=== PATIENT | female | born 1950 | race Caucasian/White ===

== ENCOUNTER → 2019-08-05 08:15 | Outpatient (BNVA) | payer MEDICARE, MEDICAID, SELFPAY | PROVIDERS: Family Provider Nurse Practitioner Family; PCP Nurse Practitioner Family; Visit Provider Registered Nurse | DX: E11.9 Type 2 diabetes mellitus without complications (principal); Z79.4 Long term (current) use of insulin; A49.9 Bacterial infection, unspecified; N39.0 Urinary tract infection, site not specified; Z78.9 Other specified health status | CPT/HCPCS: 80053; 81003; 83036; 85025; 87077; 87086; 87106; 87186 ==

== ENCOUNTER → 2019-08-12 15:59 | Outpatient (BNVA) | payer MEDICARE, MEDICAID, SELFPAY | PROVIDERS: Family Provider Nurse Practitioner Family; PCP Nurse Practitioner Family; Visit Provider Registered Nurse | DX: E11.9 Type 2 diabetes mellitus without complications (principal) | CPT/HCPCS: 81003 ==

== ENCOUNTER → 2019-10-01 15:57 | Outpatient (BNVA) | payer MEDICARE, MEDICAID, SELFPAY | PROVIDERS: Family Provider Nurse Practitioner Family; PCP Nurse Practitioner Family; Visit Provider Registered Nurse | DX: R39.9 Unspecified symptoms and signs involving the genitourinary system (principal); R31.9 Hematuria, unspecified | CPT/HCPCS: 80053; 81000; 87077; 87086; 87186 ==

== ENCOUNTER 2019-10-11 18:25 | Emergency (ER) | payer MEDICARE, MEDICAID, SELFPAY ==
[2019-10-11] VITALS (7 sets, daily range): BP systolic 105–157; BP diastolic 46–65; PULSE 73–92; RESP 16; TEMP 37.3; O2SAT 95–98; BMI 28.8
--- NOTE | 2019-10-11 18:28 | ED_ITS ---
HPI - Extremity Injury (Lower) General: Chief Complaint: Extremity Injury, Lower Stated Complaint: REDNESS SWELLING OF LEG Time Seen by Provider: 10/11/19 18:28 History of Present Illness: HPI Narrative: pts right ankle and lower leg started to get red and swollen and painful a couple days ago, she saw her pcp for urinary incontinence and was diagnosed with a uti and put on cipro but she started having muscle spasms in the right leg so she stopped it 3 days ago, foot is cold, she had left toes amputated for poor circulation. No fever MD complaint: leg injury Type of Injury: unknown Place: home Severity: moderate Relieving factors: immobilization Exacerbating factors: weight bearing and movement Associated symptoms: Reports swelling Other symptoms: none Review of Systems General: Reports: 10 or more systems reviewed and unremarkable except in HPI and below Const: Denies: fever, chills or fatigue ENMT: Denies: throat pain Card: Denies: chest pain or swelling of feet/ankles Resp: Denies: shortness of breath or productive cough GI: Denies: abdominal pain, nausea, vomiting, diarrhea, constipation or blood in stool : Denies: difficulty urinating Musc: Reports: extremity pain, joint swelling and muscle cramps; Denies: back pain Skin/Breast: Reports: rash, redness and skin swelling Neuro: Denies: headache, numbness in extremities or weakness in extremities PFSH ED PFSH: Medical History Essential hypertension Pacemaker Family History Other Diabetes Heart disease Social History Smoking and tobacco status: never smoked Physical Exam Const: COMMON NORMALS: no apparent distress and oriented x3 GENERAL APPEARANCE: cooperative; not in distress HENMT: COMMON NORMALS: normocephalic HEAD & SCALP: normal to inspection and normocephalic MOUTH: oral and palatal mucosa normal and lip normal THROAT: posterior oropharynx normal and tonsils normal Neck/C-Spine: COMMON NORMALS: full ROM, no lymphadenopathy, supple and no meningeal signs GENERAL: Yes normal visual inspection and Yes trachea midline Chest: COMMONS NORMALS: inspection of chest normal Resp: COMMON NORMALS: normal respiratory effort and clear to auscultation bilaterally EFFORT & INSPECTION: Yes able to speak in complete sentences and No respiratory distress AUSCULTATION: clear to auscultation bilaterally, no rales, no rhonchi and no wheezes Cardio: COMMON NORMALS: regular rate, regular rhythm, S1 normal heart sound, S2 normal heart sound and no murmurs RATE: regular rate RHYTHM: regular rhythm HEART SOUNDS: S1 normal and S2 normal PERIPHERAL PULSES: radial pulses present and dorsalis pedis pulses present GI: COMMON NORMALS: normal to inspection, nondistended, normoactive bowel sounds, soft to palpation and non-tender INSPECTION: Yes normal to inspection AUSCULTATION: Yes normoactive bowel sounds PALPATION: Yes soft, No tender, No guarding and No rigid RECTAL EXAM: deferred : COMMON NORMALS: Yes no CVA tenderness BLADDER/KIDNEY EXAM: Yes no CVA tenderness Back/Pelvis: COMMON NORMALS: no CVA tenderness Extremity: RIGHT LOWER EXTREMITY: Yes lower leg (cold, pulse present, tender and swollen with erythema lat) Neuro: COMMON NORMALS: oriented x3, CN's II-XII intact bilaterally, moves all extremities and no focal motor deficits MENINGEAL SIGNS: Yes no meningeal signs Skin: COMMON NORMALS: negative for no rashes or lesions noted GENERAL SKIN EXAM: rashes and/or lesions noted RASHES: rashes noted (erythema to right ankle and lower leg) Course Vital Signs: Vital signs: Vital Signs Temperature 99.1 F 10/11/19 18:46 Pulse Rate 81 10/11/19 20:30 Respiratory Rate 16 10/11/19 20:30 Blood Pressure 105/46 10/11/19 20:30 Pulse Oximetry 97 10/11/19 20:30 MDM - Extremity Injury (Lower) MDM Narrative: Medical decision making narrative: us venous was neg for vt. arterial showed monophasic flow all the way down, very poor liam, 90 stenosis at right iliac artery, I will refer her to heart care services for eval, she has cellulitis of right leg and I will switch her abx from cipro to bactrim ds Lab Data: Attestation: I reviewed the patient's lab results. Labs: Lab Results 10/11/19 10/11/19 10/11/19 Range/Units 19:02 19:02 19:46 WBC 7.0 (4.0-10.0) 10^3/ uL RBC 4.36 (4.1-5.3) 10^6/u L Hgb 12.3 (11.5-15.3) g/dL Hct 38.4 (37.0-47.0) % MCV 88.1 (81-99) fL MCH 28.2 (28.0-34.0) pg MCHC 32.0 (30.0-36.0) g/dL RDW 15.5 H (12.1-15.1) % Plt Count 285 (130-400) 10^3/c mm MPV 10.3 (7.4-10.4) fL Neut % (Auto) 69.9 % Lymph % (Auto) 19.5 % [place] % (Auto) 8.3 % Eos % (Auto) 1.6 % Baso % (Auto) 0.4 % Neut # (Auto) 4.9 (1.8-7.7) 10^3/u L Lymph # (Auto) 1.4 (0.8-4.8) 10^3/u L [place] # (Auto) 0.6 (0.2-0.9) 10^3/u L Eos # (Auto) 0.1 (0.0-0.8) 10^3/u L Baso # (Auto) 0.0 (0.0-0.1) 10^3/u L Nucleated RBC % (a uto) 0 % Nucleated RBCs # 0.0 /100WBC Sodium 131 L (136-145) mmol/L Potassium 4.1 (3.5-5.1) mmol/L Chloride 95 L (98-107) mmol/L Carbon Dioxide 23 (22-29) mmol/L Anion Gap 17.1 (5-19) BUN 28 H (8-23) mg/dL Creatinine 1.0 H (0.5-0.9) mg/dL GFR Calculation 54.8 L (90-130) mL/min Glucose 425 H (65-115) mg/dL POC Glucose 358 (70-110) mg/dL Calculated Osmolal ity 287 (285-295) mOsm/k g Calcium 9.3 (8.5-10.5) mg/dL Total Bilirubin 0.7 (0.15-1.2) mg/dL AST 9 (0-32) U/L ALT 11 (0-33) U/L Alkaline Phosphata se 104 (35-105) IU/L Total Protein 7.1 (6.6-8.7) g/dL Albumin 3.9 (3.5-5.2) g/dL Globulin 3.2 (1.3-4.6) g/dL 10/11/19 10/11/19 Range/Units 21:01 21:20 WBC (4.0-10.0) 10^3/ uL RBC (4.1-5.3) 10^6/u L Hgb (11.5-15.3) g/dL Hct (37.0-47.0) % MCV (81-99) fL MCH (28.0-34.0) pg MCHC (30.0-36.0) g/dL RDW (12.1-15.1) % Plt Count (130-400) 10^3/c mm MPV (7.4-10.4) fL Neut % (Auto) % Lymph % (Auto) % [place] % (Auto) % Eos % (Auto) % Baso % (Auto) % Neut # (Auto) (1.8-7.7) 10^3/u L Lymph # (Auto) (0.8-4.8) 10^3/u L [place] # (Auto) (0.2-0.9) 10^3/u L Eos # (Auto) (0.0-0.8) 10^3/u L Baso # (Auto) (0.0-0.1) 10^3/u L Nucleated RBC % (a uto) % Nucleated RBCs # /100WBC Sodium (136-145) mmol/L Potassium (3.5-5.1) mmol/L Chloride (98-107) mmol/L Carbon Dioxide (22-29) mmol/L Anion Gap (5-19) BUN (8-23) mg/dL Creatinine (0.5-0.9) mg/dL GFR Calculation (90-130) mL/min Glucose (65-115) mg/dL POC Glucose 238 153 (70-110) mg/dL Calculated Osmolal ity (285-295) mOsm/k g Calcium (8.5-10.5) mg/dL Total Bilirubin (0.15-1.2) mg/dL AST (0-32) U/L ALT (0-33) U/L Alkaline Phosphata se (35-105) IU/L Total Protein (6.6-8.7) g/dL Albumin (3.5-5.2) g/dL Globulin (1.3-4.6) g/dL Discharge Plan Discharge Patient Disposition: Home, Self-Care Clinical Impression: Cellulitis of right anterior lower leg, Peripheral vascular disease Condition: Stable Prescriptions: New Bactrim DS 800-160 mg tablet 1 tab PO BID 5 Days Qty: 10 RF: 0 No Action acetaminophen 325 mg capsule 325 mg PO QID PRNRF: 0 aspirin [Adult Aspirin Regimen] 81 mg tablet,delayed release (DR/EC) 81 mg PO DAILY RF: 0 lisinopril 10 mg tablet 10 mg PO DAILY RF: 0 magnesium hydroxide 400 mg/5 mL suspension 30 ml PO DAILY PRNRF: 0 clopidogrel [Plavix] 75 mg tablet 75 mg PO DAILY RF: 0 aspirin [Adult Low Dose Aspirin] 81 mg tablet,delayed release (DR/EC) 81 mg PO DAILY Qty: 90 RF: 0 insulin aspart U-100 [Novolog Flexpen U-100 Insulin] 100 unit/mL (3 mL) insulin pen 20 unit SUBCUT TID MDD 60 90 Days Qty: 54 RF: 0 Lantus Solostar U-100 Insulin 100 unit/mL (3 mL) insulin pen 60 unit SUBCUT BID 90 Days Qty: 108 RF: 0 diflorasone 0.05 % ointment See Rx Instructions TOPICAL TID PRN (Reason: skin irritation) Qty: 60 RF: 0 lidocaine-prilocaine 2.5-2.5 % cream 2 gm topical TID Qty: 30 RF: 0 ciprofloxacin HCl [Cipro] 500 mg tablet 500 mg PO BID 7 Days Qty: 14 RF: 0 Discharge Orders: Discharge Order (Routine); Ordered 10/11/19 Ordered By: Erin Ann Referrals: Mar Delgadillo MD [Physician] - 4-7 days Andre Mederos FNP [Primary Care Provider] - 1-3 days Discharge Diet: Advance as tolerated Discharge Activity: Resume usual activity Patient Instructions: Cellulitis, Peripheral Vascular Disorders (ED) Activity Restrictions/Additional Instructions: you will be referred to heart care for your severe arterial disease in your legs , f/u with pcp in 2 days for reeval, return if worse, any problem, any change, drink plenty of fluids, Stop cipro Coding Level of Care Code 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
--- NOTE | 2019-10-11 18:48 | USCV_ITS ---
Elisha Vickers Age: 68 Gender: F : 1950 Exam Date: 10/11/2019 19:16 Ordering Phys: Erin Ann DO Technologist: Rocky Tolliver [place] [facility] [place]: [place] LEG PAIN HISTORY: Lower extremity edema. PROCEDURES: Venous duplex imaging was performed in only the right lower extremity. The following venous structures were evaluated: common femoral vein, profunda vein, proximal portion of the greater saphenous vein, superficial femoral vein, and the popliteal vein. In addition, the posterior tibial and peroneal trunk were evaluated. On the right side, the common femoral, superficial femoral, profunda femoral, popliteal, posterior tibial, greater saphenous veins and the peroneal trunk were identified and interrogated in the standard fashion. These veins were found to be easily compressible with spontaneous blood flow. No evidence of insufficiency or thrombus noted. FINDINGS: Normal 2-D Doppler and augmentation and compressibility throughout the lower extremity venous structures. Additional imaging through the proximal calf veins also reveals no thrombus. Limited evaluation of the greater saphenous vein is patent with no thrombus.. CONCLUSIONS No evidence of DVT in the above-mentioned identifiable veins. Dr Stephanie Parks MD [facility] (Electronically Signed) Final Date: 14 Oct 2019 09:51 S
--- NOTE | 2019-10-11 18:51 | USCV_ITS ---
Elisha Vickers Age: 68 Gender: F : 1950 Exam Date: 10/11/2019 19:20 Ordering Phys: Erin Ann DO Technologist: Rocky Tolliver Exam Location: [facility] [place] Indication: RT LEG PAIN POOR PULSES Risk Factors: Previous Vascular Surgery: RIGHT LEFT BP: 154.0 / 65.00 BP: 150.0/ 65.00 0 0 Waveform Velocity (cm/s) Velocity (cm/s) Waveform Monophasic 30.6 Iliac Prox Monophasic 295.4 Iliac Mid Monophasic 135.9 Iliac Distal Monophasic 40.1 FOAM MOLDER Monophasic 63.3 SFA Prox Monophasic 17.7 SFA Mid Monophasic 14.5 SFA Dist Monophasic 16.8 POP Monophasic 18.0 QUALITY COMPLIANCE MANAGER Monophasic 15.0 DPA 0.4 YUNG FINDINGS Low velocity continuous waveforms in the femoral, popliteal and infrapopliteal vessels. Markedly elevated blood flow velocity in the mid iliac artery on the right side Markedly diminished resting YUNG CONCLUSIONS Abnormal resting YUNG and Doppler waveforms, suggestive of high- grade stenosis in the mid iliac artery on the right side with a possible collateral circulation in the downstream vessels No similar previous studies are available for comparison Dr Stephanie Parks MD [facility] (Electronically Signed) Final Date: 14 Oct 2019 09:55 S
[2019-10-11 19:12] LABS: Basophils % 0.4 %; Eosinophils # 0.1 10^3/uL (0.0-0.8); Eosinophils % 1.6 %; Hematocrit 38.4 % (37.0-47.0); Hemoglobin 12.3 g/dL (11.5-15.3); Lymphocytes # 1.4 10^3/uL (0.8-4.8); Lymphocytes % 19.5 %; Mean Corpuscular Hemoglobin 28.2 pg (28.0-34.0); Mean Corpuscular Volume 88.1 fL (81-99); Mean Platelet Volume 10.3 fL (7.4-10.4); Monocytes # 0.6 10^3/uL (0.2-0.9); Monocytes % 8.3 %; Neutrophils # 4.9 10^3/uL (1.8-7.7); Neutrophils % 69.9 %; Nucleated Red Blood Cells % 0 %; Platelet Count 285 10^3/cmm (130-400); Red Blood Count 4.36 10^6/uL (4.1-5.3); Red Cell Distribution Width 15.5 % (12.1-15.1)
[2019-10-11 19:23] LABS: Alanine Aminotransferase 11 U/L (0-33); Albumin Level 3.9 g/dL (3.5-5.2); Alkaline Phosphatase 104 IU/L (35-105); Anion Gap 17.1 (5-19); Aspartate Amino Transferase 9 U/L (0-32); Blood Urea Nitrogen 28 mg/dL (8-23); Calcium 9.3 mg/dL (8.5-10.5); Carbon Dioxide 23 mmol/L (22-29); Chloride 95 mmol/L (98-107); Globulin 3.2 g/dL (1.3-4.6); Glomerular Filtration Rate 54.8 mL/min (90-130); Glucose 425 mg/dL (65-115); Osmolality Calculated 287 mOsm/kg (285-295); Potassium 4.1 mmol/L (3.5-5.1); Sodium 131 mmol/L (136-145); Total Bilirubin 0.7 mg/dL (0.15-1.2); Total Protein 7.1 g/dL (6.6-8.7)
[2019-10-11 19:52] LABS: Glucose Point of Care 358 mg/dL (70-110)
[2019-10-11] MEDS: vancomycin 1,000 MG in sodium chloride 0.9% 250 ML 250 MG IV (20:20)
[2019-10-11] MEDS: sodium chloride 0.9% 1,000 ML 999 ML IV (20:22)
[2019-10-11] MEDS: morphine 4 mg/mL SDV 1 mL IVP (20:23)
[2019-10-11] MEDS: ondansetron 2 mg/ML SDV 2 mL 4 MG IVP (20:24)
[2019-10-11] MEDS: insulin regular-human 100 units/1 mL 10 UNIT IVP (20:35)
--- NOTE | 2019-10-11 21:23 | PC.NURSE ---
Patient's blood glucose is 153, charge nurse and doctor was informed.
[2019-10-11 21:26] LABS: Glucose Point of Care 153 mg/dL (70-110)
[2019-10-11 21:57] LABS: Glucose Point of Care 238 mg/dL (70-110)
--- NOTE | 2019-10-11 22:25 | PC.NURSE ---
Patient's blood glucose is 122, charge nurse and doctor were notified.
[2019-10-11 22:30] LABS: Glucose Point of Care 122 mg/dL (70-110)
--- NOTE | 2019-10-14 10:49 | DCPLANNER ---
talent acquisition relationship manager had message to schedule a follow up appointment for patient with [facility]. talent acquisition relationship manager called [facility], spoke with Samantha, gave clinic patients information, pillowcase cleaner was told that patients information would be printed and reviewed. Clinic will call patient with appointment information.
--- NOTE | 2019-10-16 14:49 | DCPLANNER ---
Patient has a follow up appointment scheduled for Monday, October 21, 2019 at 12:30 at [facility]. Clinic will call patient with appointment information.
--- NOTE | 2019-10-24 16:02 | DCPLANNER ---
Patient did not attend appointment scheduled for 10.21.19 with [facility].
== END 2019-10-11 23:20 | disposition home or self-care (01) ==
PROVIDERS: Emergency Provider Emergency Medicine; Family Provider Nurse Practitioner Family; PCP Nurse Practitioner Family
DX: L03.115 Cellulitis of right lower limb (principal); I73.9 Peripheral vascular disease, unspecified; Z79.82 Long term (current) use of aspirin; Z79.02 Long term (current) use of antithrombotics/antiplatelets; Z79.4 Long term (current) use of insulin; I10 Essential (primary) hypertension; Z95.0 Presence of cardiac pacemaker; M79.89 Other specified soft tissue disorders
CPT/HCPCS: 12345; 36415; 36416; 80053; 82962; 85025; 87040; 93922; 93971; 96360; 96365; 96374; 96375; 99283; 99284; J1815; J2270; J2405; J3370; J7030; J7050

== ENCOUNTER → 2019-10-22 14:27 | Outpatient (BNVA) | payer MEDICARE, MEDICAID, SELFPAY | PROVIDERS: Family Provider Nurse Practitioner Family; PCP Nurse Practitioner Family; Visit Provider Registered Nurse | DX: N39.0 Urinary tract infection, site not specified (principal); Z09 Encounter for follow-up examination after completed treatment for conditions other than malignant neoplasm; S99.829A Other specified injuries of unspecified foot, initial encounter | CPT/HCPCS: 80053; 81000 ==

== ENCOUNTER → 2020-01-15 16:52 | Outpatient (BNVA) | payer MEDICARE, MEDICAID, SELFPAY | PROVIDERS: Family Provider Nurse Practitioner Family; PCP Nurse Practitioner Family; Visit Provider Registered Nurse | DX: E11.9 Type 2 diabetes mellitus without complications (principal); Z79.4 Long term (current) use of insulin | CPT/HCPCS: 80053; 83036 ==

== ENCOUNTER → 2020-06-22 15:48 | Outpatient (BNVA) | payer MEDICARE, MEDICAID, SELFPAY | PROVIDERS: Family Provider Nurse Practitioner Family; PCP Nurse Practitioner Family; Visit Provider Registered Nurse | DX: E11.9 Type 2 diabetes mellitus without complications (principal); Z79.4 Long term (current) use of insulin | CPT/HCPCS: 80053; 83036 ==

== ENCOUNTER → 2020-07-14 12:51 | Outpatient (BNVA) | payer MEDICARE, MEDICAID, SELFPAY | PROVIDERS: Family Provider Nurse Practitioner Family; PCP Nurse Practitioner Family; Referring Provider Registered Nurse; Visit Provider Podiatrist Foot & Ankle Surgery | DX: M19.071 Primary osteoarthritis, right ankle and foot (principal); E11.40 Type 2 diabetes mellitus with diabetic neuropathy, unspecified; Z79.4 Long term (current) use of insulin; I96 Gangrene, not elsewhere classified; Z89.421 Acquired absence of other right toe(s); Z89.432 Acquired absence of left foot; M77.31 Calcaneal spur, right foot | CPT/HCPCS: 73630 ==

== ENCOUNTER → 2020-08-19 16:03 | Outpatient (BNVA) | payer MEDICARE, MEDICAID, SELFPAY | PROVIDERS: Family Provider Nurse Practitioner Family; PCP Nurse Practitioner Family; Visit Provider Podiatrist Foot & Ankle Surgery | DX: Z47.81 Encounter for orthopedic aftercare following surgical amputation (principal); I96 Gangrene, not elsewhere classified; Z89.421 Acquired absence of other right toe(s); L97.514 Non-pressure chronic ulcer of other part of right foot with necrosis of bone | CPT/HCPCS: 73630 ==

== ENCOUNTER → 2020-08-20 09:06 | Outpatient (BNVA) | payer MEDICARE, MEDICAID, SELFPAY | PROVIDERS: Family Provider Nurse Practitioner Family; PCP Nurse Practitioner Family; Visit Provider Podiatrist Foot & Ankle Surgery | DX: I96 Gangrene, not elsewhere classified (principal); L97.514 Non-pressure chronic ulcer of other part of right foot with necrosis of bone; Z20.822 Contact with and (suspected) exposure to COVID-19; S81.801A Unspecified open wound, right lower leg, initial encounter | CPT/HCPCS: 87635 ==

== ENCOUNTER 2020-08-21 10:03 | Day surgery (SDC) | payer MEDICARE, MEDICAID, SELFPAY ==
[2020-08-20 11:08] VITALS: BMI 27.2
[2020-08-21 10:19] VITALS: BP 144/64; PULSE 83; RESP 18; TEMP 36.3; O2SAT 99
[2020-08-21 10:37] LABS: Glucose Point of Care 174 mg/dL (70-110)
[2020-08-21] MEDS: sodium chloride 0.9% 1,000 ML 30 ML IV (10:42)
--- NOTE | 2020-08-21 11:47 | ANES.PREANE2 ---
Pre-Anesthetic Assessment Pre-Anesthetic Assessment: Height/Weight: Height 1.7 m Weight 78.925 kg Temp Pulse Resp BP Pulse Ox 97.3 F L 83 18 144/64 99 08/21/20 10:19 08/21/20 10:19 08/21/20 10:19 08/21/20 10:19 08/21/20 10:19 Preop Diagnosis: Gangrene right foot, osteomyelitis right foot Proposed Procedure: Operation Date: 08/21/20 11:40 Proposed Procedures p right transmetatarsal amputation/ 21767 m86.171(Right) - Axel Castro, DPM Was Beta Jeffrey taken within 24 hours: Yes Last intake: Intake Last Liquid Date 08/20/20 Last Liquid Time 21:00 Last Solid Date 08/20/20 Last Solid Time 21:00 Social: Social History: No alcohol and No tobacco Airway: Submandibular: WNL Cervical ROM: WNL MP: 2 Dentition: False Additional comments: Poor dentition, missing most CV/HEM: CV/HEM: HTN and PVD Metabolic: Metabolic: DM Anesthetic Plan: ASA status: 3 Anesthesia: MAC Risk of > 500 ml blood loss (7ml/kg in children): No Meds/Allergies Current Medications: Current Medications Generic Name Dose Route Start Last Admin Trade Name Freq PRN Reason Stop Dose Admin Sodium Chloride 1,000 mls @ 30 ml s/hr 08/21/20 10:15 08/21/20 10:42 Sodium Chloride 0.9% IV 08/22/20 10:14 30 mls/hr .Q24H BIRGIT Administration PFSH Anesthesia PFSH: Medical History Carotid stenosis, right 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
--- NOTE | 2020-08-21 13:12 | P.HPUD_ITS ---
Surgery/Procedure H&P Update DATE OF PROCEDURE: August 21, 2020 DATE H&P PERFORMED: 08/19/20 H&P UPDATE INFORMATION: I have reviewed H&P completed within last 30 days, I have examined patient prior to procedure, No changes to prior documentation and H&P is in [facility] [place] [facility] on date indicated PREOP DIAGNOSIS: Gangrene right foot, osteomyelitis right foot PLANNED PROCEDURE: Operation Date: 08/21/20 11:40 Proposed Procedures p right transmetatarsal amputation/ 18672 m86.171(Right) - Axel Castro DPM
[2020-08-21] MEDS: clindamycin 600 MG/50 ML PREMIX 25 MG IV (13:30)
[2020-08-21] MEDS: lidocaine 1% INJ 20 mL IM (13:40)
[2020-08-21 14:20] VITALS: BP 113/62; PULSE 80; RESP 18; O2SAT 98
[2020-08-21 14:25] VITALS: BP 113/62; PULSE 79; RESP 20; O2SAT 96
--- NOTE | 2020-08-21 14:25 | SUR.PHASEI ---
1425 PT AWAKE ALERT TALKATIVE AND LAUGHING MAKING JOKES, VSS IV PATENT RT FOOT DRESSING D/I BOOT IN PLACE, AND ELEVATED WITH BED ABOVE THE PT'S HEART.
[2020-08-21 14:30] VITALS: BP 131/78; PULSE 74; RESP 18; TEMP 36.4; O2SAT 96
[2020-08-21 14:35] VITALS: BP 131/60; PULSE 74; RESP 18; TEMP 36.4; O2SAT 99
[2020-08-21 15:09] VITALS: BP 137/72; PULSE 73; RESP 18; O2SAT 100
--- NOTE | 2020-08-21 15:53 | ANE.PACU2 ---
Inpatient post-anesthesia follow up: Airway intact: Yes Vital signs: Temperature 97.6 F Pulse Rate 73 Respiratory Rate 18 Blood Pressure 137/72 Pulse Oximetry 100 Oxygen Delivery Me thod Room Air Oxygen Flow Rate Fraction of Inspir ed Oxygen Hydration adequate: Yes Nausea and vomiting: No Pain level: 2 Mental status: Baseline
--- NOTE | 2020-08-21 18:07 | PM.OP ---
Operative Report Date of procedure: August 21, 2020 Pre-op Diagnosis: Gangrene right foot, osteomyelitis right foot Post-op diagnosis: same Post-op Findings: Devitalized bone of the right third toe and great toe. Procedure Done: Right transmetatarsal amputation CPT code 15255 Implants: 3-0 Vicryl, 3-0 nylon Pathology: Right forefoot sent to pathology for permanent Surgeon: Axel Castro D.P.M. High Tension Tester: Andi Parekh Anesthesia: MAC Estimated blood loss: Less than 50 mL Tourniquet time: See intraoperative documentation IV fluids: None Urine output: None Complications: None Condition: stable Disposition: PACU Brief History: Ms. Vickers is a pleasant 69-year-old female history of diabetes and congestive heart failure. Also history of previous toe amputation right second toe. Also history of transmetatarsal amputation on the left foot. She has had gangrenous changes at her right first and third toes that have progressed she has exposed bone and purulent drainage. Due to her recovery and experience with a transmetatarsal irritation on the left foot she is requesting a transmetatarsal imitation on the right foot. Risks include pain, bleeding, numbness, infection, failure to eradicate infection, further osteomyelitis, loss of function, transfer pressure and transfer lesions, need for higher level of amputation. Inherent risks associate with anesthesia, PE, heart attack, CVA and . Patient is agreeable wishes to proceed. Informed consent is signed and I reviewed procedure and recovery with patient and her daughter preoperatively. I initialed her right foot. Patient wishes to proceed no guarantees written, expressed or implied. Procedure: Mild sedation the patient was brought to the operating room and placed on the operating table in supine position. A timeout was performed. Anesthesia was administered by the anesthesia service. Local anesthesia injected by myself consisting of 0.5% Marcaine plain 20 cc total and a right five-point ankle block fashion. Well-padded pneumatic tourniquet applied to the right high calf. There is eschar at the right lateral leg this was left undisturbed had no underlying fluctuance, no surrounding erythema or drainage. Right foot was then scrubbed, prepped and draped utilizing normal aseptic technique. Right lower extremity is elevated and the tourniquet was inflated to 250 mmHg. Attention was directed to the right forefoot where a fishmouth incision was carried out with a #10 blade down to bone. The metatarsals 1 through 5 4 freed from their soft tissue and periosteal attachments and at the most distal portion of the diaphysis at the metaphyseal juncture were transected maintaining the metatarsal parabola and beveling edges with a sagittal saw this was passed from operative field and sent to pathology for permanent. All bleeders were ligated and cauterized as necessary. All tendons were retracted and transected under traction at the most proximal margin. Incision site was flushed with copious amounts of sterile saline solution. Deep structures were reapproximated utilizing 3-0 Vicryl. Skin closed utilizing 3-0 nylon. Tourniquet was deflated and a prompt hyperemic response was noted to the amputation stump. Incision site was dressed with Adaptic, sterile 4 x 4, ABD pad, Kerlix and Jaden wrap without compression. She is placed in the cam boot and is to remain nonweightbearing for approximately 6 weeks. She is to keep this dressing intact until follow-up visit next week in podiatry clinic. Due to underlying neuropathy not anticipating requiring narcotic pain medication I will follow-up with the patient later this evening in regards to this. I advised her to take Tylenol for analgesia at this time. She was provided my cell phone number and will contact with any postoperative questions or concerns.
== END 2020-08-21 15:30 | disposition home or self-care (01) ==
PROVIDERS: PCP Nurse Practitioner Family; Visit Provider Podiatrist Foot & Ankle Surgery
PROC: (CPT 28805; principal; 2020-08-21 11:40)
DX: I96 Gangrene, not elsewhere classified (principal); M86.8X7 Other osteomyelitis, ankle and foot; I10 Essential (primary) hypertension; E11.9 Type 2 diabetes mellitus without complications; Z95.0 Presence of cardiac pacemaker
CPT/HCPCS: 28805; 36416; 82962; 88307; J2704; J3010; J3490; J7030; L4361

== ENCOUNTER → 2020-09-02 08:45 | Outpatient (BNVA) | payer MEDICARE, MEDICAID, SELFPAY | PROVIDERS: PCP Nurse Practitioner Family; Visit Provider Podiatrist Foot & Ankle Surgery | DX: Z89.432 Acquired absence of left foot (principal); Z89.421 Acquired absence of other right toe(s); I96 Gangrene, not elsewhere classified; E11.40 Type 2 diabetes mellitus with diabetic neuropathy, unspecified; M86.9 Osteomyelitis, unspecified | CPT/HCPCS: 73630 ==

== ENCOUNTER 2020-10-05 12:34 | Emergency (ER) | payer MEDICARE, MEDICAID, SELFPAY ==
[2020-10-05] VITALS (7 sets, daily range): BP systolic 100–147; BP diastolic 42–69; PULSE 81–89; RESP 18; TEMP 36.2; O2SAT 95–99; BMI 26.6
--- NOTE | 2020-10-05 12:53 | XR_ITS ---
WS: [id number] Exam: XR chest 1V portable [id number] Date/Time of Exam: 10/05/2020 12:53 PM Reason For Exam: weakness/fatigue No priors. The lungs are fully expanded and clear. Cardiomediastinal structures are unremarkable. Signs of previ ous cardiac valve replacement. A permanent cardiac pacer superimposes the left chest. XR/XR chest 1V portable [id number] IMPRESSION: 1. No acute cardiopulmonary finding.
--- NOTE | 2020-10-05 12:54 | ECG_ITS ---
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: : 1950 Requested By: Polly Lange Order Number: [id number] Reading MD: PIERRE HOUGH Measurements Intervals [place] Rate: 84 P: 43 AL: 152 QRS: -66 QRSD: 150 T: 76 QT: 411 QTc: 486 Interpretive Statements SINUS RHYTHM RIGHT BUNDLE BRANCH BLOCK [120+ ms QRS DURATION, UPRIGHT V1, 40+ ms S IN I/aVL/V4/V5/V6] LEFT ANTERIOR FASCICULAR BLOCK [QRS AXIS <= -45, QR IN I, RS IN II] LEFT VENTRICULAR HYPERTROPHY AND ST-T CHANGE [VOLTAGE CRITERIA PLUS ST/T ABNORMALITY] POSSIBLE ANTERIOR MYOCARDIAL INFARCTION , OF INDETERMINATE AGE [30 ms Q WAVE IN V3/V4, OR R < 0.2 mV IN V4] No previous ECG available for comparison Electronically Signed On 10-05-2020 21:23:59 CDT by PIERRE HOUGH [email or web address]
--- NOTE | 2020-10-05 13:43 | ED_ITS ---
HPI - Weakness General: Chief complaint: Weakness Stated complaint: HX OF BLOOD CLOTS:PALE,EXTREMITIES BLUE P/DAUGHTER Time Seen by Provider: 10/05/20 13:20 History of Present Illness: HPI Narrative: 69-year-old female presents emergency room complaining of feeling cold and weak. She has been having this for over a day now. Not really had anything specific patient not had any new or different chest pain or shortness of breath that she chronically does get shortness of breath and continues to have that with exertion. She is a diabetic has peripheral artery disease and has had amputations bilaterally the feet has debridement of a dehisced wound on the right foot at the previous amputation line as well as a large pretibial right anterior lateral ulcer. She reports a little bit of low-grade fever. No hematemesis coffee-ground emesis no dysuria urgency or frequency MD Complaint: generalized weakness and lack of energy Onset (ago): day(s) Duration: constant Location: generalized Migration: none Severity: moderate Quality: tingling Relieving factors: none Exacerbating factors: none Associated symptoms: Denies chest pain, chills, confusion, melena, decreased appetite, diaphoresis, dysuria, easy bruising, fever(s), headache(s), myalgias, nausea, rash, short of breath, syncope or vomiting Review of Systems Const: Denies: fever(s), chills or diaphoresis ENMT: Denies: throat pain, ear or mastoid pain, nasal discharge or nasal congestion Card: Denies: chest pain or syncope Resp: Denies: dyspnea, productive cough or non-productive cough GI: Denies: nausea, vomiting or melena : Denies: dysuria Skin/Breast: Denies: rash or pruritus Neuro: Denies: headache(s) or confusion Jamaal/Lymph: Denies: easy bruising PFSH ED PFSH: Medical History Carotid stenosis, right 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 Congestive heart failure with cardiomyopathy Essential hypertension Pacemaker Valvular incompetence, mitral Venous insufficiency of both lower extremities Surgical History History of heart artery stent History of transmetatarsal amputation of left foot Hx of foot surgery Hx of knee surgery Peripheral vascular angioplasty status with implants and grafts Family History Other Diabetes Heart disease Social History Smoking and tobacco status: never smoked Physical Exam Const: COMMON NORMALS: average body habitus, patient oriented x3 and alert GENERAL APPEARANCE: cooperative, comfortable, well kempt and well developed NUTRITIONAL APPEARANCE: obese ORIENTATION/CONSCIOUSNESS: Yes awake, Yes oriented to person and Yes oriented to place HENMT: COMMON NORMALS: normocephalic, atraumatic and EAC's normal HEAD & SCALP: normocephalic and atraumatic EXTERNAL AUDITORY CANAL: EAC's normal Eye: COMMON NORMALS: Equal, round and reactive pupils present, EOMs intact bilaterally, conjunctivae normal and no scleral icterus CONJUNCTIVA: Yes conjunctivae normal PUPIL: Yes Equal, round and reactive pupils present Neck/C-Spine: COMMON NORMALS: full ROM, no lymphadenopathy, supple, no meningeal signs and Thyroid normal THYROID: Thyroid normal and asymmetrical Lymph: LYMPHATIC: no lymphadenopathy noted Resp: COMMON NORMALS: normal respiratory effort, No retractions, No use of ac cessory muscles and clear to auscultation bilaterally AUSCULTATION: clear to auscultation bilaterally Cardio: COMMON NORMALS: regular rate and regular rhythm RATE: regular rate RHYTHM: regular rhythm HEART SOUNDS: no murmurs GI: COMMON NORMALS: Normal to inspection, nondistended, normoactive bowel sounds present, Soft to palpation and No hepatosplenomegaly present PA LPATION: Yes Soft to palpation and Yes No hepatosplenomegaly present : COMMON NORMALS: Yes no CVA tenderness BLADDER/KIDNEY EXAM: Yes no CVA tenderness Back/Pelvis: COMMON NORMALS: no CVA tenderness LUMBAR SPINE/LOWER BACK: Yes normal to inspection Extremity: NARRATIVE EXTREMITY EXAM: Right anterior lateral pretibial ulcer with dry eschar at its base no sign of infection or induration there is some discoloration around the skin and the appearance of eschar will be treated with Betadine wet-to-dry. There is a dehisced ulcer on the amputation incision on the right foot medially over the first metatarsal stump there is a recently de brided area that is full-thickness open. Previous amputation to the forefoot on the left foot. No palpable pulses are discernible. She has no calf pain with Homans testing. Neuro: COMMON NORMALS: patient oriented x3 SENSORIUM/ORIENTATION: Yes alert, Yes oriented to person and Yes oriented to place MENINGEAL SIGNS: Yes no meningeal signs Psych: APPEARANCE: Yes well kempt Skin: COMMON NORMALS: no rashes or lesions noted and turgor normal GENERAL SKIN EXAM: no rashes or lesions noted and turgor normal Course Vital Signs: Vital signs: Vital Signs Temperature 97.1 F L 10/05/20 12:39 Pulse Rate 83 10/05/20 17:19 Respiratory Rate 18 10/05/20 12:39 Blood Pressure 132/69 10/05/20 17:19 Pulse Oximetry 97 10/05/20 17:19 MDM - Weakness MDM Narrative: Medical decision making narrative: Patient feels somewhat improved after the fluids. She does have a mild UTI. She given a gram of Rocephin here and discharged home on Cipro 500 p.o. twice daily for 7 days not improving worsens return monitor blood sugars closely. Lab Data: Labs: Lab Results 10/05/20 10/05/20 10/05/20 Range/Units 14:00 14:00 14:00 WBC 12.4 H (4.0-10.0) 10^3/ uL RBC 3.72 L (4.1-5.3) 10^6/u L Hgb 10.1 L (11.5-15.3) g/dL Hct 32.1 L (37.0-47.0) % MCV 86.3 (81-99) fL MCH 27.2 L (28.0-34.0) pg MCHC 31.5 (30.0-36.0) g/dL RDW 16.2 H (12.1-15.1) % Plt Count 280 (130-400) 10^3/c mm MPV 10.4 (7.4-10.4) fL Neut % (Auto) 81.8 % Lymph % (Auto) 9.6 % [place] % (Auto) 7.0 % Eos % (Auto) 0.6 % Baso % (Auto) 0.4 % Neut # (Auto) 10.14 H (1.8-7.7) 10^3/u L Lymph # (Auto) 1.2 (0.8-4.8) 10^3/u L [place] # (Auto) 0.9 (0.2-0.9) 10^3/u L Eos # (Auto) 0.1 (0.0-0.8) 10^3/u L Baso # (Auto) 0.1 (0.0-0.1) 10^3/u L Nucleated RBC % (a uto) 0 % Nucleated RBCs # 0.0 /100WBC Sodium Cancelled Potassium Cancelled Chloride Cancelled Carbon Dioxide Cancelled Anion Gap Cancelled BUN Cancelled Creatinine Cancelled GFR Calculation Cancelled Glucose Cancelled Calculated Osmolal ity Cancelled Lactic Acid 1.2 (0.5-2.2) mmol/L Calcium Cancelled Total Bilirubin Cancelled AST Cancelled ALT Cancelled Alkaline Phosphata se Cancelled Troponin T Baselin e (0-10) ng/L Troponin T 120 Min [place] (0-10) ng/L Delta Troponin T (0-10) ABS# Total Protein Cancelled Albumin Cancelled Globulin Cancelled Urine Color (Yellow) Urine Appearance (CLEAR) Urine pH (5-7) Ur Specific Gravit y (1.005-1.030) Urine Protein (Negative) Urine Glucose (UA) (Normal) Urine Ketones (Negative) Urine Blood (Negative) Urine Nitrate (Negative) Urine Bilirubin (Negative) Prot Sulfosalicyli c Acd (Negative) Urine Urobilinogen (Negative) mg/dL Ur Leukocyte Herlinda ase (Negative) Urine RBC (0-2) /hpf Urine WBC (0-5) /hpf Ur Squamous Epith Cells (0-5) /hpf Triple Phos Madeline ls /hpf Amorphous Sediment Urine Bacteria (NONE) /hpf 10/05/20 10/05/20 10/05/20 Range/Units 14:00 14:15 15:35 WBC (4.0-10.0) 10^3/ uL RBC (4.1-5.3) 10^6/u L Hgb (11.5-15.3) g/dL Hct (37.0-47.0) % MCV (81-99) fL MCH (28.0-34.0) pg MCHC (30.0-36.0) g/dL RDW (12.1-15.1) % Plt Count (130-400) 10^3/c mm MPV (7.4-10.4) fL Neut % (Auto) % Lymph % (Auto) % [place] % (Auto) % Eos % (Auto) % Baso % (Auto) % Neut # (Auto) (1.8-7.7) 10^3/u L Lymph # (Auto) (0.8-4.8) 10^3/u L [place] # (Auto) (0.2-0.9) 10^3/u L Eos # (Auto) (0.0-0.8) 10^3/u L Baso # (Auto) (0.0-0.1) 10^3/u L Nucleated RBC % (a uto) % Nucleated RBCs # /100WBC Sodium Potassium Chloride Carbon Dioxide Anion Gap BUN Creatinine GFR Calculation Glucose Calculated Osmolal ity Lactic Acid (0.5-2.2) mmol/L Calcium Total Bilirubin AST ALT Alkaline Phosphata se Troponin T Baselin e 63 H (0-10) ng/L Troponin T 120 Min [place] 51.98 H (0-10) ng/L Delta Troponin T -11.02 L (0-10) ABS# Total Protein Albumin Globulin Urine Color Yellow (Yellow) Urine Appearance Turbid (CLEAR) Urine pH 9 H (5-7) Ur Specific Gravit y 1.015 (1.005-1.030) Urine Protein 1+ H (Negative) Urine Glucose (UA) 2+ (Normal) Urine Ketones Negative (Negative) Urine Blood 3+ H (Negative) Urine Nitrate Negative (Negative) Urine Bilirubin Neg (Negative) Prot Sulfosalicyli c Acd Positive (Negative) Urine Urobilinogen Norm (Negative) mg/dL Ur Leukocyte Herlinda ase 2+ H (Negative) Urine RBC 0-4 H (0-2) /hpf Urine WBC >100 H (0-5) /hpf Ur Squamous Epith Cells 5-10 H (0-5) /hpf Triple Phos Madeline ls 0-4 H /hpf Amorphous Sediment Not Reportable Urine Bacteria 3+ H (NONE) /hpf 10/05/20 Range/Units 15:35 WBC (4.0-10.0) 10^3/ uL RBC (4.1-5.3) 10^6/u L Hgb (11.5-15.3) g/dL Hct (37.0-47.0) % MCV (81-99) fL MCH (28.0-34.0) pg MCHC (30.0-36.0) g/dL RDW (12.1-15.1) % Plt Count (130-400) 10^3/c mm MPV (7.4-10.4) fL Neut % (Auto) % Lymph % (Auto) % [place] % (Auto) % Eos % (Auto) % Baso % (Auto) % Neut # (Auto) (1.8-7.7) 10^3/u L Lymph # (Auto) (0.8-4.8) 10^3/u L [place] # (Auto) (0.2-0.9) 10^3/u L Eos # (Auto) (0.0-0.8) 10^3/u L Baso # (Auto) (0.0-0.1) 10^3/u L Nucleated RBC % (a uto) % Nucleated RBCs # /100WBC Sodium 131 L Potassium 4.3 Chloride 97 L Carbon Dioxide 23 Anion Gap 15.3 BUN 37 H Creatinine 1.1 H GFR Calculation Not Reportable Glucose 302 H Calculated Osmolal ity 292 Lactic Acid (0.5-2.2) mmol/L Calcium 8.2 L Total Bilirubin 0.7 AST 7 ALT 6 Alkaline Phosphata se 104 Troponin T Baselin e (0-10) ng/L Troponin T 120 Min [place] (0-10) ng/L Delta Troponin T (0-10) ABS# Total Protein 6.3 L Albumin 2.9 L Globulin 3.4 Urine Color (Yellow) Urine Appearance (CLEAR) Urine pH (5-7) Ur Specific Gravit y (1.005-1.030) Urine Protein (Negative) Urine Glucose (UA) (Normal) Urine Ketones (Negative) Urine Blood (Negative) Urine Nitrate (Negative) Urine Bilirubin (Negative) Prot Sulfosalicyli c Acd (Negative) Urine Urobilinogen (Negative) mg/dL Ur Leukocyte Herlinda ase (Negative) Urine RBC (0-2) /hpf Urine WBC (0-5) /hpf Ur Squamous Epith Cells (0-5) /hpf Triple Phos Madeline ls /hpf Amorphous Sediment Urine Bacteria (NONE) /hpf Discharge Plan Discharge Patient Disposition: Home Clinical Impression: Cystitis Condition: Stable Prescriptions: New Cipro 500 mg tablet 500 mg PO BID 7 Days Qty: 14 RF: 0 No Action Lantus Solostar U-100 Insulin 100 unit/mL (3 mL) insulin pen See Rx Instructions .ROUTE .COMPLEX RF: 0 metoprolol succinate 25 mg tablet extended release 24 hr 25 mg PO DAILY@0900 RF: 0 insulin aspart U-100 [Novolog Flexpen U-100 Insulin] 100 unit/mL (3 mL) insulin pen See Rx Instructions .ROUTE .COMPLEX RF: 0 Xarelto 20 mg tablet 20 mg PO DAILY@0900 RF: 0 latanoprost 0.005 % drops 1 drp ophthalmic (eye) BEDTIME RF: 0 timolol maleate 0.5 % drops 1 drp ophthalmic (eye) QID RF: 0 Plavix 75 mg tablet 75 mg PO DAILY@0900 RF: 0 Adult Low Dose Aspirin 81 mg tablet,delayed release (DR/EC) 81 mg PO DAILY@0900 RF: 0 Rybelsus 3 mg tablet 3 mg PO DAILY@0900 RF: 0 lisinopril 40 mg tablet 40 mg PO DAILY@0900 RF: 0 Discharge Orders: Discharge ED (Routine); Ordered 10/05/20 Ordered By: Jeet Hewitt Referrals: Gloria Escobar FNP [Primary Care Provider] - Discharge Diet: Usual diet Discharge Activity: Increase activity as tolerated Patient Instructions: Opioid Safety Coding Level of Care Code 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
[2020-10-05 14:08] LABS: Basophils # 0.1 10^3/uL (0.0-0.1); Basophils % 0.4 %; Eosinophils # 0.1 10^3/uL (0.0-0.8); Eosinophils % 0.6 %; Hematocrit 32.1 % (37.0-47.0); Hemoglobin 10.1 g/dL (11.5-15.3); Lymphocytes # 1.2 10^3/uL (0.8-4.8); Lymphocytes % 9.6 %; Mean Corpuscular HGB Conc 31.5 g/dL (30.0-36.0); Mean Corpuscular Hemoglobin 27.2 pg (28.0-34.0); Mean Corpuscular Volume 86.3 fL (81-99); Mean Platelet Volume 10.4 fL (7.4-10.4); Monocytes # 0.9 10^3/uL (0.2-0.9); Neutrophils # 10.14 10^3/uL (1.8-7.7); Neutrophils % 81.8 %; Nucleated Red Blood Cells % 0 %; Platelet Count 280 10^3/cmm (130-400); Red Blood Count 3.72 10^6/uL (4.1-5.3); Red Cell Distribution Width 16.2 % (12.1-15.1); White Blood Count 12.4 10^3/uL (4.0-10.0)
[2020-10-05 14:31] LABS: Lactic Sepsis W/Reflex 1.2 mmol/L (0.5-2.2)
[2020-10-05 14:32] LABS: Troponin(5th) Baseline 63 ng/L (0-10)
[2020-10-05 14:37] LABS: Add Urine Microscopic? YES; Bilirubin Urine Neg (Negative); Blood Urine 3+ (Negative); Glucose Urine UA 2+ (Normal); Ketones Urine Negative (Negative); Leukocyte Esterase Urine 2+ (Negative); Nitrate Urine Negative (Negative); Protein Urine 1+ (Negative); Specific Gravity, Urine 1.015 (1.005-1.030); Urine Appearance Turbid (CLEAR); Urine Color Yellow (Yellow); Urobilinogen Urine Norm (Negative); pH Urine 9 (5-7)
[2020-10-05 14:38] LABS: Add Urine Culture? Yes; Bacteria Urine 3+ /hpf; RBC Urine 0-4 /hpf (0-2); Sulfosalicylic Acid Urine Positive (Negative); Triple Phosphate Crystal Urine 0-4 /hpf; WBC Urine >100 /hpf (0-5)
--- NOTE | 2020-10-05 14:54 | ECG_ITS ---
[facility] Test Date: 2020-10-05 Pat Name: Elisha Vickers Department: Room: Gender: Female [employer] Examiner: : 1950 Requested By: Polly Lange Order Number: [id number] Meryl MD: PIERRE HOUGH Measurements Intervals [place] Rate: 85 P: 57 CT: 164 QRS: -59 QRSD: 140 T: 67 QT: 408 QTc: 486 Interpretive Statements SINUS RHYTHM RIGHT BUNDLE BRANCH BLOCK [120+ ms QRS DURATION, UPRIGHT V1, 40+ ms S IN I/aVL/V4/V5/V6] VOLTAGE CRITERIA FOR LVH [MEETS CRITERIA IN ONE OF: R(aVL), S(V1), R(V5), R(V5/V6)+S(V1)] POSSIBLE ANTERIOR MYOCARDIAL INFARCTION , OF INDETERMINATE AGE [30 ms Q WAVE IN V3/V4, OR R < 0.2 mV IN V4] Compared to ECG 10/05/2020 13:37:36 Left anterior fascicular block no longer present ST (T wave) deviation no longer present Myocardial infarct finding still present Electronically Signed On 10-05-2020 21:29:12 CDT by PIERRE HOUGH [id number] f
[2020-10-05] MEDS: sodium chloride 0.9% 500 ML 999 ML IV (15:46)
[2020-10-05] MEDS: cefTRIAXone 1,000 MG in sodium chloride 0.9% (plus) 50 ML 100 MG IV (15:46)
[2020-10-05 16:17] LABS: Alanine Aminotransferase 6 U/L (0-33); Albumin Level 2.9 g/dL (3.5-5.2); Alkaline Phosphatase 104 IU/L (35-105); Anion Gap 15.3 (5-19); Aspartate Amino Transferase 7 U/L (0-32); Blood Urea Nitrogen 37 mg/dL (8-23); Calcium 8.2 mg/dL (8.5-10.5); Carbon Dioxide 23 mmol/L (22-29); Chloride 97 mmol/L (98-107); Globulin 3.4 g/dL (1.3-4.6); Glucose 302 mg/dL (65-115); Osmolality Calculated 292 mOsm/kg (285-295); Potassium 4.3 mmol/L (3.5-5.1); Sodium 131 mmol/L (136-145); Total Bilirubin 0.7 mg/dL (0.15-1.2); Total Protein 6.3 g/dL (6.6-8.7)
[2020-10-05 16:22] LABS: Troponin 5 2HR 51.98 ng/L (0-10)
[2020-10-05 16:24] LABS: Troponin 5 2HR Delta -11.02 ABS# (0-10)
== END 2020-10-05 17:20 | disposition home or self-care (01) ==
PROVIDERS: Physician Assistant; Emergency Provider Family Medicine; PCP Registered Nurse
DX: N30.90 Cystitis, unspecified without hematuria (principal); Z79.02 Long term (current) use of antithrombotics/antiplatelets; Z79.82 Long term (current) use of aspirin; Z79.4 Long term (current) use of insulin; I11.0 Hypertensive heart disease with heart failure; I50.9 Heart failure, unspecified; Z95.0 Presence of cardiac pacemaker
CPT/HCPCS: 36415; 71045; 80053; 81001; 83605; 84484; 85025; 87040; 87077; 87086; 87186; 93005; 96365; 99284; J0696; J7040

== ENCOUNTER → 2020-10-13 10:08 | Outpatient (BNVA) | payer MEDICARE, MEDICAID, SELFPAY | PROVIDERS: PCP Registered Nurse; Visit Provider Podiatrist Foot & Ankle Surgery | DX: Z89.431 Acquired absence of right foot (principal); Z20.822 Contact with and (suspected) exposure to COVID-19; L97.312 Non-pressure chronic ulcer of right ankle with fat layer exposed; E11.40 Type 2 diabetes mellitus with diabetic neuropathy, unspecified; Z01.818 Encounter for other preprocedural examination | CPT/HCPCS: 73590; 73630; 87635 ==

== ENCOUNTER 2020-10-15 10:09 | Day surgery (SDC) | payer MEDICARE, MEDICAID, SELFPAY ==
[2020-10-14 15:55] VITALS: BMI 26.6
[2020-10-15] VITALS (8 sets, daily range): BP systolic 92–166; BP diastolic 45–72; PULSE 63–73; RESP 14–18; TEMP 36.1–36.8; O2SAT 93–100
--- NOTE | 2020-10-15 11:55 | W.PM.OPSUD ---
Surgery/Procedure H&P Update DATE OF PROCEDURE: October 15, 2020 DATE H&P PERFORMED: 10/15/20 H&P UPDATE INFORMATION: I have reviewed H&P completed within last 30 days, I have examined patient prior to procedure, No changes to prior documentation and H&P is in [facility] EMR on date indicated PREOP DIAGNOSIS: Gangrene right foot PLANNED PROCEDURE: Operation Date: 10/15/20 12:00 Proposed Procedures p Transmetatarsal amputation right foot 91037 Z89.431 Z89.439 L97.312(Right) - Axel Castro DPM
--- NOTE | 2020-10-15 11:55 | PM.OPSURHP ---
Providers/Chief Complaint Primary Care Provider: TRINH Whittington Chief Complaint: transmetatarsal right foot History of Present Illness Elisha Vickers is a 69 year old female with gangrene to the right transmetatarsal amputation site distal medially and eschar wound to the right lateral leg with purulent drainage and boggy eschar. She is accompanied by her daughter. Presents for surgical debridement and transmetatarsal amputation. Patient denies any subjective nausea, vomiting, fever, chills, shortness of breath or chest pain. Review of Systems General: Reports: 10 or more systems reviewed and unremarkable except in HPI and below Const: Denies: fever(s) or chills Card: Denies: chest pain or palpitations Resp: Denies: productive cough GI: Denies: abdominal pain, nausea or vomiting : Denies: flank pain Musc: Reports: extremity swelling, joint pain, joint stiffness, limited range of motion and deformity Skin/Breast: Reports: nail changes and change in hair; Denies: rash or sores Neuro: Reports: numbness in extremities, sensory changes and difficulty walking Psych: Denies: suicidal ideation Jamaal/Lymph: Denies: easy bruising Medications/Allergies Home Medications Medication Instructions Recorded Confirmed Last Taken Type insulin glargine 100 unit/mL (3 See Rx Instructions .ROUTE 06/22/20 10/15/20 10/14/20 21:00 History mL) subcutaneous pen .COMPLEX milliliter metoprolol succinate 25 mg 25 mg PO DAILY@0900 tab 06/22/20 10/15/20 10/14/20 History tablet,extended release 24 hr Xarelto 20 mg PO DAILY@0900 08/21/20 10/15/20 10/14/20 History insulin aspart U-100 [Novolog See Rx Instructions .ROUTE .COMPLEX 08/21/20 10/15/20 10/14/20 09:00 History Flexpen U-100 Insulin] Rybelsus 3 mg PO DAILY@0910/05/20 10/15/20 10/14/20 History aspirin [Adult Low Dose Aspirin] 81 mg PO DAILY@0900 10/05/20 10/15/20 10/14/20 09:00 History clopidogrel [Plavix] 75 mg PO DAILY@0900 10/05/20 10/15/20 10/14/20 09:00 History latanoprost 1 drp OPHTHALMIC (EYE) BEDTIME 10/05/20 10/15/20 10/14/20 History lisinopril 40 mg PO DAILY@0900 10/05/20 10/15/20 10/14/20 History timolol maleate 1 drp OPHTHALMIC (EYE) QID 10/05/20 10/15/20 10/14/20 History ciprofloxacin HCl 500 mg tablet 500 mg PO BID 10 Days #20 tab 10/12/20 10/15/20 10/14/20 Rx doxycycline hyclate 100 mg tablet 100 mg PO BID 10 Days #20 tab 10/12/20 10/15/20 10/14/20 Rx Allergies Allergy/AdvReac Type Severity Reaction Status Date / Time ceftriaxone [From Rocephin] Allergy Severe cardiac Verified 10/14/20 15:51 arrest atorvastatin [From Lipitor] Allergy Unknown UNKNOWN Verified 10/14/20 15:51 Hvbqqyd-Nyl-Omk Reductase Allergy Unknown UNKNOWN Verified 10/14/20 15:51 Inhibitor PFSH PFSH: Medical History Carotid stenosis, right 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 Congestive heart failure with cardiomyopathy Essential hypertension Pacemaker Valvular incompetence, mitral Venous insufficiency of both lower extremities Surgical History History of heart artery stent History of transmetatarsal amputation of left foot Hx of foot surgery Hx of knee surgery Peripheral vascular angioplasty status with implants and grafts Family History Other Diabetes Heart disease Social History Smoking and tobacco status: never smoked Vital Signs Vitals Signs: Last Vital Signs Temp 97.8 F 10/15/20 11:15 Pulse 73 10/15/20 11:15 Resp 18 10/15/20 11:15 BP 166/72 10/15/20 11:15 Pulse Ox 99 10/15/20 11:15 Weight: Weight last 48 hrs Weight 170 lb Physical Exam Narrative: EXAM NARRATIVE: Patient is alert and oriented ?3 and in no acute distress. The following is a focused bilateral lower extremity exam. Patient accompanied by her daughter. VASCULAR: Dorsalis pedis faintly palpable posterior tibial arteries nonpalpable. Capillary refill time is less than 3 seconds to the left TMA site as well as to the right fourth and fifth toes. No refill at the right hallux and third toe. Diminished hair growth at bilateral feet. Monophasic signal with pedal Doppler a DP and PT bilaterally. NEUROLOGICAL: Protective sensation intact 0/10 sites, tested with [place] monofilament to bilateral feet. DERMATOLOGICAL: Wound exposed to bone at the distal medial aspect of the right transmetatarsal amputation site exposed first and second metatarsals with devitalized soft tissue and dusky cardoza appearance directly at the wound without proximal lymphangitic streaking. Wound at the right lateral leg has boggy eschar with purulence without proximal lymphangitic streaking. MUSCULOSKELETAL: Muscle strength 5 out of 5 in all 3 cardinal planes to the bilateral foot and ankle. No pain with posterior calf squeeze bilaterally. Resp: COMMON NORMALS: normal respiratory effort, No retractions, No use of accessory muscles and clear to auscultation bilaterally EFFORT & INSPECTION: Yes able to speak in complete sentences and Yes symmetric chest movement Cardio: COMMON NORMALS: regular rate and regular rhythm; negative for Peripheral pulses 2+ throughout A&P Assessment and plan (1) Gangrene of right foot: Status: Acute (2) Type 2 diabetes mellitus treated with insulin: Status: Acute (3) Arterial insufficiency of lower extremity: Status: Acute (4) Wound of right lower extremity: Status: Acute Qualifiers: Encounter type: initial encounter Qualified Code(s): S81.801A - Unspecified open wound, right lower leg, initial encounter Seen in preop has been n.p.o. since midnight is accompanied by her daughter she is here in preparation for more proximal transmetatarsal imitation of her right foot as well as debridement of her right leg wound. Patient underwent a distal transmetatarsal imitation several months ago and had uneventful healing at the incision site. She had abrupt onset of wound formation and infection at the amputation site distally medially. My recommendation was a more proximal transmetatarsal imitation to get rid of the source of infection. Underlying concern is peripheral arterial disease she has seen multiple vascular surgeons with history of revascularization multiple times. Currently trending towards Dr. Delgadlilo for repeat evaluation and intervention if indicated. Initial burden of infection will be managed at today's visit with guarded optimism due to underlying peripheral arterial disease patient is aware of this. She also has a wound with eschar at the right leg that has developed purulence and bogginess to the eschar this will still need debridement. Patient is agreeable wishes to proceed informed consent signed by myself, patient and her daughter. Risks and benefits of surgery discussed at length. No guarantees written, expressed or implied she wishes to proceed Coding Level of Care Code Acute Handle Attacher for [facility] Fwd Exam Expanded Problem Focused Diagnoses Gangrene of right foot I96 Type 2 diabetes mellitus treated with insulin E11.9; Z79.4 Arterial insufficiency of lower extremity I73.9 Wound of right lower extremity S81.801A Encounter type: initial encounter
--- NOTE | 2020-10-15 12:15 | P.ANESASSM_ITS ---
Pre-Anesthetic Assessment Pre-Anesthetic Assessment: Height/Weight: Height 1.7 m Weight 77.111 kg Temp Pulse Resp BP Pulse Ox 97.8 F 73 18 166/72 99 10/15/20 11:15 10/15/20 11:15 10/15/20 11:15 10/15/20 11:15 10/15/20 11:15 Preop Diagnosis: Gangrene right foot Proposed Procedure: Operation Date: 10/15/20 12:00 Proposed Procedures p Transmetatarsal amputation right foot 21432 Z89.431 Z89.439 L97.312(Right) - Axel Castro DPM Familial anesthetic complications: none Was Beta Jeffrey taken within 24 hours: Yes Was Clonidine taken within 24 hours: N/A Last intake: Intake Last Liquid Date 10/14/20 Last Liquid Time 21:00 Last Solid Date 10/14/20 Last Solid Time 21:00 Social: Social History: No alcohol and No tobacco Exam: Pre-Anes Outpt Exam: alert, oriented x 3, clear to auscultation bi laterally and regular rate & rhythm Airway: Submandibular: WNL Cervical ROM: WNL MP: 2 Pulmonary: Pulmonary: None reported CV/HEM: CV/HEM: Arrythmia, CAD, CHF, DVT (multiple in BLE), HTN and HI Comments: PPM, AVR : : None reported Hepatic: Hepatic: None reported GI: GI: None reported Metabolic: Metabolic: DM (150-200) Musc/skel: Musc/skel: None reported Neuropsych: Neuropsych: CVA (r side that resolved) Anesthetic Plan: ASA status: 3 Anesthesia: MAC Risk of > 500 ml blood loss (7ml/kg in children): No PFSH Anesthesia PFSH: Medical History Carotid stenosis, right 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
[2020-10-15] MEDS: sodium chloride 0.9% 1,000 ML 30 ML IV (12:17)
[2020-10-15 12:18] LABS: Basophils % 0.6 %; Eosinophils # 0.2 10^3/uL (0.0-0.8); Eosinophils % 2.5 %; Hematocrit 33.2 % (37.0-47.0); Lymphocytes # 1.7 10^3/uL (0.8-4.8); Lymphocytes % 24.5 %; Mean Corpuscular HGB Conc 30.1 g/dL (30.0-36.0); Mean Corpuscular Hemoglobin 26.5 pg (28.0-34.0); Mean Corpuscular Volume 88.1 fL (81-99); Mean Platelet Volume 9.7 fL (7.4-10.4); Monocytes # 0.4 10^3/uL (0.2-0.9); Monocytes % 5.9 %; Neutrophils # 4.49 10^3/uL (1.8-7.7); Neutrophils % 65.9 %; Nucleated Red Blood Cells % 0 %; Platelet Count 371 10^3/cmm (130-400); Red Blood Count 3.77 10^6/uL (4.1-5.3); Red Cell Distribution Width 15.8 % (12.1-15.1); White Blood Count 6.8 10^3/uL (4.0-10.0)
[2020-10-15 12:21] LABS: Glucose Point of Care 172 mg/dL (70-110)
[2020-10-15] MEDS: lidocaine 1% INJ 20 mL IM (12:25)
[2020-10-15] MEDS: clindamycin 600 MG/50 ML PREMIX 100 MG IV (12:26)
[2020-10-15 12:38] LABS: Anion Gap 12.7 (5-19); Blood Urea Nitrogen 21 mg/dL (8-23); Calcium 8.7 mg/dL (8.5-10.5); Carbon Dioxide 26 mmol/L (22-29); Chloride 102 mmol/L (98-107); Glucose 170 mg/dL (65-115); Osmolality Calculated 289 mOsm/kg (285-295); Potassium 4.7 mmol/L (3.5-5.1); Sodium 136 mmol/L (136-145)
--- NOTE | 2020-10-15 13:15 | XR_ITS ---
WS: [id number] Right foot, 3 views, 10/15/2020 Clinical Data: post op Comparison: Right foot, 10/13/2020. Findings: The entire right first metatarsal has been resected. There is a transmetatarsal partial resection of the second through fifth metatarsals so that only the proximal one third of the metatarsals remain. There is air and soft tissue swelling at the site of the resections. The proximal portion of the foot including the tarsals remains the same. XR/XR foot RT min 3V* [id number] Impression: 1. Resection of right first metatarsal. 2. Further resection of the second through fifth metatarsals with only the prox imal one third remaining. 3. Soft tissue swelling and air at the operative site.
--- NOTE | 2020-10-15 14:09 | ANE.PACU2 ---
Inpatient post-anesthesia follow up: Airway intact: Yes Vital signs: Temperature 97 F Pulse Rate 63 Respiratory Rate 18 Blood Pressure 129/64 Pulse Oximetry 96 Oxygen Delivery Me thod Room Air Oxygen Flow Rate 6 Fraction of Inspir ed Oxygen Hydration adequate: Yes Nausea and vomiting: No Pain level: 1 Mental status: Baseline
--- NOTE | 2020-10-15 14:10 | P.OP_ITS ---
Operative Report Date of procedure: October 15, 2020 Pre-op Diagnosis: Gangrene right foot. Chronic right leg wound exposed to muscle. Post-op diagnosis: other Post-op Diagnosis: Gangrene right foot, osteomyelitis right foot. Post-op Findings: Gangrene right foot. Osteomyelitis right first metatarsal. Chronic wound right leg. Procedure Done: Right transmetatarsal amputation CPT code 79061 Right first metatarsectomy CPT code 63136 Debridement of right leg wound down to muscle and deep fascia CPT code 05291 Implants: 3-0 nylon Specimens removed/disposition: First metatarsal sent to microbiology for Gram stain and culture, right foot. Pathology: none sent Surgeon: Axel Castro D.P.M. Customer Operations Intern: Anali Anesthesia: MAC Estimated blood loss: Less than 20 mL Tourniquet time: 30 min IV fluids: None Urine output: None Complications: None Findings: Gangrene right foot. Osteomyelitis right first metatarsal Condition: stable Disposition: PACU Brief History: Ms. Vickers is a pleasant 69-year-old diabetic female with history of congestive heart failure and peripheral arterial disease has significant stenosis with history of revascularization is to lower extremities and recurrence of blockages. Of note she had a distal transmetatarsal amputation on her right lower extremity performed September 21, 2020 secondary to gangrene. Amputation site healed successfully. She has experienced new wound and gangrenous changes at the medial aspect of her transmetatarsal amputation right foot. She is opposed to a below-knee amputation at this time. I recommended below-knee amputation as her more definitive level of amputation she would like to avoid this at all cost at this time. My recommendation without consideration is to perform a more proximal transmetatarsal amputation and a vascular referral. Patient also has a wound at her right leg that has had eschar in the past has become boggy and has had some purulent drainage this will also require debridement. Patient is aware that higher level of amputation may be inevitable she is not ready to do this at this time and she is clinically stable. Patient was seen preoperatively has been n.p.o. since midnight her daughter is present. Informed consent signed by myself and the patient. I initialed the right lower extremity. Risks include pain, bleeding, numbness, infection, failure to eradicate infection, sepsis, loss of limb and loss of life. Procedure: Patient was brought to the operating room and left on the gurney in supine position. Timeout was performed. Anesthesia was then administered by the anesthesia service and local anesthesia injected by myself at a proximal V block at the right lateral leg proximal to the wound as well as a right ankle block. Right lower extremity was then scrubbed, prepped and draped utilizing normal aseptic technique. Tourniquet was then inflated to 250 mmHg. Attention was directed to the right foot where area of necrosis and devitalized tissue with black soft eschar and purulence exposed down to bone at the right medial transmetatarsal amputation site this was exposed to first metatarsal that remained. A fishmouth incision from fifth metatarsal across to first metatarsal was performed with a #10 blade down to bone. Soft tissue was reflected dorsally and plantarly from bone maintaining full-thickness. The first metatarsal was soft with decreased density and off yellow color this involved the entire first metatarsal. Decision was made to perform a metatarsectomy in effort to eradicate infection. The right first metatarsal was sharply excised and disarticulated at the metatarsal medial cuneiform joint and passed from operative field this was sent to microbiology for Gram stain and culture. Incision site was flushed with copious amounts of sterile saline solution. Sagittal saw utilized to perform transverse cuts through metatarsals 2 through 5 performing transmetatarsal rotation in a more proximal fashion this was at the metaphyseal diaphyseal juncture of the metatarsals 2, 3, 4 and 5 of the right foot. Bone was passed from operative field. Extensor and flexor tendons were retracted and transected at the most proximal margin. All bleeders were ligated and cauterized as necessary. Inspection of the distal aspect of the medial cuneiform demonstrated viable appearing cartilage with normal density and color. Incision was flushed with copious amounts of sterile saline solution. Tourniquet was deflated and pulsatile bleeders were ligated. Plantar flap was then remodeled as well as dorsal flap to provide adequate closure without tension or redundant tissue and closure was performed utilizing 3-0 nylon. Attention was then directed to the right lateral leg wound where epithelialized skin margin followed by a zone of fibrosis and eschar center with underlying fluctuance and purulent drainage was appreciated. Fresh 10 blade and pickups utilized to perform sharp debridement down to and including deep fascia and muscle, I was able to visualize peroneal longus and brevis muscle bellies and tendon. Right lateral leg wound was debrided of all devitalized epidermis, dermis, subcutaneous tissue, fat layer and deep fascia. Post debridement wound measurements 16 cm in length, 4.5 cm in width and 0.4 cm depth. Right leg wound was dressed with sterile 4 x 4 gauze saline wet-to-dry. Right foot incision dressed with Adaptic, sterile 4 x 4's, Kerlix without compression. 4 inch and 6 inch Jaden wraps utilized to secure the dressings no compression was applied. Patient tolerated the procedure well and was transferred to the PACU with vital signs stable and vascular status intact. Following a period of postoperative monitoring she will be discharged home. She was given a prescription for pain medication to be taken judiciously as needed for pain this was sent to her pharmacy of choice electronically. She is to continue her doxycycline which I had prescribed on October 14. Follow-up on culture and sensitivities of first metatarsal bone. I recommended saline wet-to-dry dressing change twice daily at the right leg wound. Will continue once daily dressing change at the right foot with Betadine paint directly to the incision this will allow for daily monitoring. Will follow up in clinic next week.
[2020-10-15] MEDS: HYDROcodone-acetaminophen 10-325 mg Tablet 1 TAB PO (14:16)
== END 2020-10-15 14:32 | disposition home or self-care (01) ==
PROVIDERS: PCP Registered Nurse; Visit Provider Podiatrist Foot & Ankle Surgery
PROC: (CPT 11043; principal; 2020-10-15 12:00)
DX: I96 Gangrene, not elsewhere classified (principal); E11.52 Type 2 diabetes mellitus with diabetic peripheral angiopathy with gangrene; Z79.4 Long term (current) use of insulin; S81.801A Unspecified open wound, right lower leg, initial encounter; X58.XXXA Exposure to other specified factors, initial encounter; I25.10 Atherosclerotic heart disease of native coronary artery without angina pectoris; I11.0 Hypertensive heart disease with heart failure; I50.9 Heart failure, unspecified; Z86.718 Personal history of other venous thrombosis and embolism; I25.2 Old myocardial infarction; Z95.0 Presence of cardiac pacemaker; Z82.49 Family history of ischemic heart disease and other diseases of the circulatory system; Z83.3 Family history of diabetes mellitus; Z79.82 Long term (current) use of aspirin
CPT/HCPCS: 11043; 28140; 28805; 36415; 36416; 73630; 80048; 82962; 85025; 87070; 87075; 87077; 87186; 87205; J2704; J3010; J3490; J7030

== ENCOUNTER → 2020-11-03 08:36 | Outpatient (BNVA) | payer MEDICARE, MEDICAID, SELFPAY | PROVIDERS: PCP Registered Nurse; Visit Provider Podiatrist Foot & Ankle Surgery | DX: Z01.818 Encounter for other preprocedural examination (principal); Z20.822 Contact with and (suspected) exposure to COVID-19 | CPT/HCPCS: 87635 ==

== ENCOUNTER 2020-11-06 06:45 | Day surgery (SDC) | payer MEDICARE, MEDICAID, SELFPAY ==
[2020-11-05 14:37] VITALS: BMI 28.1
[2020-11-06] VITALS (10 sets, daily range): BP systolic 138–178; BP diastolic 62–95; PULSE 67–83; RESP 16–18; TEMP 36.1–37.1; O2SAT 94–99
--- NOTE | 2020-11-06 07:01 | ANES.PREANE2 ---
Pre-Anesthetic Assessment Pre-Anesthetic Assessment: Height/Weight: Height 1.7 m Weight 81.647 kg Preop Diagnosis: Right wound exposed to tendon Proposed Procedure: Operation Date: 11/06/20 08:05 Proposed Procedures p Wound bed preparation and application of biologic graft right leg [id number] L97.312(Not Applicable) - Axel Castro DPM Familial anesthetic complications: none Was Beta Jeffrey taken within 24 hours: Yes Was Clonidine taken within 24 hours: N/A Last intake: N. 78 hrs Social: Social History: No alcohol and No tobacco Exam: Pre-Anes Outpt Exam: alert, oriented x 3, clear to auscultation bilaterally and regular rate & rhythm Airway: Cervical ROM: WNL MP: 2 Dentition: Chipped CV/HEM: CV/HEM: Arrythmia (pacemaker), CAD (stent), CHF, DVT, HTN, CA and PVD (w. 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
[2020-11-06] MEDS: sodium chloride 0.9% 1,000 ML 30 ML IV (07:30)
[2020-11-06 07:34] LABS: Glucose Point of Care 186 mg/dL (70-110)
--- NOTE | 2020-11-06 08:14 | P.HPUD_ITS ---
Surgery/Procedure H&P Update DATE OF PROCEDURE: November 06, 2020 DATE H&P PERFORMED: 10/28/20 H&P UPDATE INFORMATION: I have reviewed H&P completed within last 30 days, I have examined patient prior to procedure, No changes to prior documentation and H&P is in [facility] EMR on date indicated PREOP DIAGNOSIS: Right wound exposed to tendon PLANNED PROCEDURE: Operation Date: 11/06/20 08:05 Proposed Procedures p Wound bed preparation and application of biologic graft right leg [id number] L97.312(Not Applicable) - Axel Castro DPM
[2020-11-06] MEDS: clindamycin 600 MG/50 ML PREMIX 100 MG IV (08:28)
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
[2020-11-06] MEDS: fentaNYL 50 mcg/mL INJ 2mL IVP (09:19)
[2020-11-06] MEDS: HYDROcodone-acetaminophen 7.5-325 mg Tablet 1 TAB PO (09:46)
--- NOTE | 2020-11-06 12:02 | SUR.PHASEII ---
spoke with dr alford regarding pain rx for home and stated he would send somthing out for pt called pt's daughter and informed her of this and verbalized understanding
--- NOTE | 2020-11-06 13:11 | ANE.PACU2 ---
Inpatient post-anesthesia follow up: Airway intact: Yes Vital signs: Temperature 98 F Pulse Rate 67 Respiratory Rate 17 Blood Pressure 149/95 Pulse Oximetry 99 Oxygen Delivery Me thod Room Air Oxygen Flow Rate Fraction of Inspir ed Oxygen Hydration adequate: Yes Nausea and vomiting: No Pain level: 2 Mental status: Baseline
== END 2020-11-06 10:48 | disposition home or self-care (01) ==
PROVIDERS: PCP Registered Nurse; Visit Provider Podiatrist Foot & Ankle Surgery
PROC: (CPT 13160; principal; 2020-11-06 07:55)
DX: L97.312 Non-pressure chronic ulcer of right ankle with fat layer exposed (principal); Z95.0 Presence of cardiac pacemaker; I25.10 Atherosclerotic heart disease of native coronary artery without angina pectoris; Z95.5 Presence of coronary angioplasty implant and graft; I11.0 Hypertensive heart disease with heart failure; I50.9 Heart failure, unspecified; Z86.718 Personal history of other venous thrombosis and embolism; I25.2 Old myocardial infarction; E11.40 Type 2 diabetes mellitus with diabetic neuropathy, unspecified; Z79.4 Long term (current) use of insulin
CPT/HCPCS: 11043; 15002; 15777; 36416; 82962; 96365; J2704; J3010; J3490; J7030

== ENCOUNTER 2020-11-19 10:27 | Outpatient (CLI) | payer MEDICARE, MEDICAID, SELFPAY ==
--- NOTE | 2020-11-19 11:00 | CT_ITS ---
WS: [id number] CTA ABDOMINAL AORTA WITH RUNOFF TECHNIQUE: Contrast enhanced CTA of the abdominal aorta with bilateral lower extremity runoff. Multip lanar reformatted images were obtained. MIP reformats were also reviewed. CLINICAL INFORMATION: Nonhealing ulceration right lower extremity, surgical planni COMPARISON: None. DLP: 1410.[address] scans at [facility] use at least one of these dose optimization techniques: automat ed exposure control; mA and/or kV adjustment per patient size (includes targeted exams where dose is matched to clinical indication); or iterative reconstruction. FINDINGS: Normal caliber abdominal aorta. Mild aortic calcification. No abdominal aortic aneurysm. Moderate stenosis celiac artery origin. Celiac artery remains patent. SMA is patent. Both proximal re nal arteries are patent. MARYLU is patent. Normal renal parenchymal enhancement. No hydronephrosis. Adre nal glands are normal. Normal portal vein and splenic vein. Normal gallbladder. Gallbladder sludge or tiny cholelithiasis. C ardiomegaly. Subsegmental atelectasis in the lung bases. Calcified granulomas in the lung bases. Norm al spleen. Small esophageal hiatal hernia. Small pericardial effusion. Mild fatty atrophy of pancreas. Normal sigmoid colon. A few diverticuli. No evidence of acute diverticulitis. No evidence of high-gra de small or large bowel obstruction. Tiny fat-containing umbilical hernia. RIGHT: Right common iliac artery is patent. External and internal iliac arteries are patent. Moderate stenosis right common femoral artery measuring approximately 60%. Deep femoral artery is patent. Mirella rt segment superficial femoral artery occlusion in the proximal thigh. This reconstitutes in the prox imal thigh with mild segmental stenosis. Superficial femoral artery stent in the distal thigh with in -stent stenosis. Additional distal superficial femoral artery stent appears patent. Proximal poplitea l artery is patent. High-grade stenosis popliteal artery just above the knee with tiny residual lumen . Popliteal artery stent. Additional tibioperoneal stent. Poor runoff to the ankle. Dominant single vessel peroneal runoff. No significant flow in the anterior tibial or posterior tibial arteries. Ulceration in the lower leg sof t tissues with cellulitis. Edema within the anterior lower leg soft tissues. No drainable fluid colle ctions. LEFT: Left common iliac and internal iliac arteries are patent. External iliac artery is patent. Comm on femoral artery and superficial femoral arteries are patent. Deep femoral artery is patent. High-gr asya stenosis with near occlusion SFA in the proximal thigh. Superficial femoral artery remains patent . Superficial femoral artery stent appears patent. Popliteal artery is patent. High-grade stenosis in the distal popliteal artery below the knee which remains patent. Dominant two-vessel runoff to the a nkle involving the anterior tibial and peroneal arteries. No significant flow in the posterior tibial artery. Only segmental flow in the anterior tibial artery. CT/CT angio abd aorta runof [id number] IMPRESSION: 1. RIGHT: Short segment occlusion proximal superficial femoral artery with rec onstitution in the proximal thigh. High-grade stenosis with near occlusion of t he popliteal artery just above the knee with tiny residual lumen. Poor runoff r ight lower extremity with dominant single vessel peroneal runoff. 2. RIGHT: Multiple right-sided stents including superficial femoral, popliteal and tibioperoneal. Contrast is difficult to visualize in the proximal SFA sten t consistent with in-stent stenosis. Remainder of the stents appear patent. 3. LEFT: High-grade short segment stenosis in the proximal superficial femoral artery which remains patent. Left superficial femoral artery stent is patent. High-grade stenosis in the distal popliteal artery just proximal to the trifurc ation which remains patent. Poor runoff to the left lower extremity with domina nt anterior tibial and peroneal flow. Only segmental flow in the anterior tibia l artery. 4. Normal caliber abdominal aorta. No abdominal aortic aneurysm. 5. Moderate stenosis at the celiac artery origin. 6. Additional nonvascular findings described above.
[2020-11-19] MEDS: iohexol 350 mg/mL 100 mL Btl IV (11:10)
== END 2020-11-19 10:28 | disposition home or self-care (01) ==
LOC: RADWPI 10:36
PROVIDERS: PCP Registered Nurse; Visit Provider Podiatrist Foot & Ankle Surgery
DX: L97.312 Non-pressure chronic ulcer of right ankle with fat layer exposed (principal); Z95.820 Peripheral vascular angioplasty status with implants and grafts; I73.9 Peripheral vascular disease, unspecified; I77.4 Celiac artery compression syndrome; I70.8 Atherosclerosis of other arteries
CPT/HCPCS: 75635; Q9967

== ENCOUNTER 2020-11-19 14:01 | Outpatient (CLI) | payer MEDICARE, MEDICAID, SELFPAY | END 2020-11-19 14:02 | disposition home or self-care (01) | PROVIDERS: PCP Registered Nurse; Visit Provider Thoracic Surgery (Cardiothoracic Vascular Surgery) | DX: E11.622 Type 2 diabetes mellitus with other skin ulcer (principal); L97.812 Non-pressure chronic ulcer of other part of right lower leg with fat layer exposed; E11.621 Type 2 diabetes mellitus with foot ulcer; L97.512 Non-pressure chronic ulcer of other part of right foot with fat layer exposed; Z89.421 Acquired absence of other right toe(s); L97.312 Non-pressure chronic ulcer of right ankle with fat layer exposed; Z95.820 Peripheral vascular angioplasty status with implants and grafts; I73.9 Peripheral vascular disease, unspecified; I77.4 Celiac artery compression syndrome; I70.8 Atherosclerosis of other arteries | CPT/HCPCS: 11042; 11043; 11046; 75635; A6446; G0463; Q9967 ==

== ENCOUNTER 2020-11-26 08:36 | Outpatient (CLI) | payer MEDICARE, MEDICAID, SELFPAY | END 2020-11-26 08:37 | disposition home or self-care (01) | LOC: WOUND 08:37 | PROVIDERS: PCP Registered Nurse; Visit Provider Nurse Practitioner Family | DX: E11.622 Type 2 diabetes mellitus with other skin ulcer (principal); L97.812 Non-pressure chronic ulcer of other part of right lower leg with fat layer exposed; E11.621 Type 2 diabetes mellitus with foot ulcer; L97.512 Non-pressure chronic ulcer of other part of right foot with fat layer exposed; Z89.421 Acquired absence of other right toe(s) | CPT/HCPCS: 11043; 11046 ==

== ENCOUNTER 2020-12-10 13:59 | Outpatient (CLI) | payer MEDICARE, MEDICAID, SELFPAY | END 2020-12-10 14:00 | disposition home or self-care (01) | LOC: WOUND 14:00 | PROVIDERS: PCP Registered Nurse; Visit Provider Thoracic Surgery (Cardiothoracic Vascular Surgery) | DX: E11.622 Type 2 diabetes mellitus with other skin ulcer (principal); L97.815 Non-pressure chronic ulcer of other part of right lower leg with muscle involvement without evidence of necrosis; Z79.4 Long term (current) use of insulin; E11.621 Type 2 diabetes mellitus with foot ulcer; L97.514 Non-pressure chronic ulcer of other part of right foot with necrosis of bone; Z89.421 Acquired absence of other right toe(s) | CPT/HCPCS: 11043; 11046; 80053; 80061; 83036; 85025 ==

== ENCOUNTER 2020-12-17 14:41 | Outpatient (CLI) | payer MEDICARE, MEDICAID, SELFPAY | END 2020-12-17 14:42 | disposition home or self-care (01) | LOC: WOUND 14:42 | PROVIDERS: PCP Registered Nurse; Visit Provider Thoracic Surgery (Cardiothoracic Vascular Surgery) | DX: E11.622 Type 2 diabetes mellitus with other skin ulcer (principal); L97.813 Non-pressure chronic ulcer of other part of right lower leg with necrosis of muscle; E11.621 Type 2 diabetes mellitus with foot ulcer; L97.514 Non-pressure chronic ulcer of other part of right foot with necrosis of bone; Z89.421 Acquired absence of other right toe(s); I70.229 Atherosclerosis of native arteries of extremities with rest pain, unspecified extremity; Z01.818 Encounter for other preprocedural examination | CPT/HCPCS: 11042; 11043; 11045; 11046; 80048; 85025; 85610; 87635 ==

== ENCOUNTER 2020-12-21 16:32 | Observation (INO) | payer MEDICARE, MEDICAID, SELFPAY ==
[2020-12-21] VITALS (21 sets, daily range): BP systolic 106–183; BP diastolic 51–79; PULSE 65–79; RESP 17–24; TEMP 36.6–36.8; O2SAT 93–100; BMI 28.3
--- NOTE | 2020-12-21 09:41 | XACV_ITS ---
Wt: 77 kg BSA: 1.92 m2 Any Known Allergies: Other Gender: Female : 1950 Exam Type: Invasive Peripheral Vascular Procedure(s): Procedure Description: Peripheral Cath Diagnostic Procedure Procedure Description: Abdominal aortic angiography Exam Priority: Routine Lower Extremity Interventional Findings Unsuccessful attempt to revascularize right SFA despite of multiple techniques. It appeared to me patient has chronically occluded right SFA stents and long segment. May consider vascular surgery. Conclusions Reason for peripheral angiogram: Lifestyle limiting claudication.Using left common femoral approach peripheral angiogram was performed. Abdominal aortogram revealed no significant aneurysm or stenosis. Bilateral common iliac were normal, bilateral external and internal iliac without significant stenosis or disease. Bilateral common femoral without significant disease. Right SFA is chronically occluded from the ostium to distal segment. There are previously mid SFA stent appeared to be chronically occluded. Popliteal artery of the right side has luminal irregularity with proximal occlusion reconstituted through collaterals. Tibioperoneal trunk on the right side has luminal irregularity. Below the knee vessels are not well visualized most likely occluded. Left proximal SFA has tight significant stenosis in the proximal segment before mid left SFA stent. Left popliteal and tibioperoneal trunk has luminal irregularities. Below the knee on the left side no vessels clearly visualized most likely occluded. Collaterals were seen.. Recommendations 1-Return to inpatient for close monitoring and routine cath care2-Risk factor modification for secondary prevention3-Statin and aspirin 81 mg life--long, if tolerated4-refer to vascular surgery for failed attempt to revascularize on the right side. May attempt for left SFA revascularization in the future 5-Continue optimal medical management6-Follow up with wound clinic as scheduled. Access Site Site: Left Femoral artery Sheath Size: 6 Fr Hemost... Method: Suture Hemost... Success: Successful Procedure Details Findings Procedure Consent Obtained. Admit Source: Out Patient. Pre-Procedure Time Out. Identified patient by full name and date of as verbalized by the patient/guarantor. Does the consent match the physician's order: Yes. Accurate & Complete Informed Consent: Yes. Inpatient/Outpatient History & Physical on Chart: Yes. If H&P is completed, is and addenduem needed: N/A; If yes, is the addendum complete: N/A. Visualize and Verify Site with Patient/Guarantor: N/A. Relevant Radiology Images available: N/A. Pre-op teaching completed and patient verbalized understanding. The risks, benefits, and alternatives of sedation and/or procedure were discussed by physician. The patient agrees to continue. Procedure started. Correct patient, site and procedure confirmed by cath team. PERRLA. Strong, equal hand voip engineer bilaterally. Lungs clear x 5 lobes. IV Site on Arrival: 18 gauge in the left anticubital. Pre Procedural Pulses: right dorsalis pedis was Doppled. Pre Procedural Pulses: left posterior tibial was Doppled. Oxygen started at 2liters/min via nasal canula. bilateral groins was prepped with chloroprep then draped in the usual sterile fashion. Physician notified. Baseline sample Acquired. HR: 104 BPM. Physician arrived. Physician scrubbed in. Immediate Pre-Procedure Time Out. Correct Patient: Yes; Correct Procedure: Yes; Correct Site: Yes; Correct Patient Position: Yes; Correct Supplies: Yes; Dried Flammable Prep: Yes; Blood Products Available: N/A;. Lidocaine 1% infiltrated to the left groin. Arterial access obtained with micropuncture set. A 5FrFr UF catheter in over wire. Abdominal aortogram performed in AP @ 10 mL/sec for a total of 30 mL. glidewire inserted. Catheter out. Sheath upsized to a 6 Fr. Seeker catheter inserted over the wire. seeker resting in prox SFA. wire out. handinjection performed. wire inserted. wire and seeker advanced to the mid SFA. wire out. wire inserted. glidewire out. handinjection performed. try to readvance seeker and wire. wire out. seeker seating in the SFA. handinjection performed. seeker pulled back to the sheath. glidewire inserted. seeker removed over the glidewire. sheath exchanged back to short sheath. handinjection performed through the short sheath. wir out. Sheath(s) sutured into position with 2-0 silk and sterile 4x4's and Op-site applied over the site. No oozing or signs and symptoms of hematoma noted. Post Procedure: Pulses reassessed and unchanged. PERRLA. Strong, equal hand voip engineer bilaterally. No VTE prophylaxis required. Medication's Wasted: Heparin = 4000 units. Total IV fluids: 100 mL. Contrast type used: Visipaque 320 mgI/mL, 500 mL bottle. Contrast Material : Visipaque 75 ml. Post-op diagnosis: unsuccessful attempt to revascualize SFA. Chronically occluded. Complications: none. Estimated blood loss: 5mL-10mL. Procedure completed. A Suture was successful obtaining hemostatsis at the Left Femoral artery insertion site. Patient transferred by bed to CPRU. Vital chart was stopped. Procedure Medications Start: 10:28 AM Stop: 10:28 AM Medication: Versed Amount: 1 mg Route: I.V. Start: 10:28 AM Stop: 10:28 AM Medication: Fentanyl Amount: 50 mcg Route: I.V. Start: 10:46 AM Stop: 10:46 AM Medication: Versed Amount: 1 mg Route: I.V. Start: 10:46 AM Stop: 10:46 AM Medication: Fentanyl Amount: 50 mcg Route: I.V. Start: 10:50 AM Stop: 10:50 AM Medication: Heparin Amount: 5000 units Route: I.V. Start: 11:01 AM Stop: 11:01 AM Medication: Versed Amount: 1 mg Route: I.V. Start: 11: AM Stop: 11: AM Medication: Fentanyl Amount: 50 mcg Route: I.V. Start: 11: AM Stop: 11: AM Medication: Versed Amount: 1 mg Route: I.V. Start: 11: AM Stop: 11: AM Medication: Fentanyl Amount: 50 mcg Route: I.V. Start: 11: AM Stop: 11: AM Medication: Fentanyl Amount: 50 mcg Route: I.V. Start: 11:34 AM Stop: 11:34 AM Medication: Fentanyl Amount: 50 mcg Route: I.V. I, the attending physician, have reviewed and verified all procedure medications. Yes, all medications given per verbal order History/Risk Factors Hypertension: Yes Prior Interventions PCI: Yes Report Signatures Finalized by Mar Delgadillo MD on 01/02/2021 03:16 PM
--- NOTE | 2020-12-21 10:10 | P.HPUD_ITS ---
Surgery/Procedure H&P Update DATE OF PROCEDURE: December 21, 2020 DATE H&P PERFORMED: 12/08/20 H&P UPDATE INFORMATION: I have reviewed H&P completed within last 30 days, I have examined patient prior to procedure and No changes to prior documentation CHANGES TO PREVIOUS DOCUMENTATION: Critical limb ischemia gangrenous foot, osteomyelitis of right PREOP DIAGNOSIS: Right wound exposed to tendon right leg. Incision and debridement down to a PLANNED PROCEDURE: Operation Date: 12/21/20 10:00 Proposed Procedures p Peripheral Angiogram with possible Intervention(Not Applicable) - Mar Delgadillo MD PATIENT REASSESSED PRIOR TO SEDATION, WITH NO CHANGE NOTED: Yes PHYSICAL EXAM: alert, oriented x 3, clear to auscultation bilaterally and regular rate & rhythm AIRWAY EVAL/ANESTHESIA PLAN: ASA II and Risks, benefits & alternatives of sedation and/or procedure discussed ADDITIONAL INFORMATION: Patient has been explained all risk benefit and alternative for the procedure., She understand the risk for acute thromb oembolic ischemia, major minor bleed leading to transfusion, risk for amputation of the right leg below or above-knee, major minor bleed, GI bleed, vascular damage, stroke, contrast-induced nephropathy leading to transient or permanent dialysis and worse case scenario ., She understand all risk benefit and would like to proceed with it.
[2020-12-21] MEDS: diphenhydrAMINE 50 mg Capsule PO (10:11)
[2020-12-21] MEDS: HYDROcodone-acetaminophen 5-325 mg Tablet 1 TAB PO (12:31)
--- NOTE | 2020-12-21 12:44 | PC.NURSE ---
Dr. Delgadillo at bedside with the patient.
--- NOTE | 2020-12-21 13:00 | PC.NURSE ---
Patient provided a Cardiac lunch tray.
[2020-12-21 14:30] LABS: Partial Thromboplastin Time 51.1 SECONDS (23.9-36.7)
[2020-12-21 15:42] LABS: Partial Thromboplastin Time 36.2 SECONDS (23.9-36.7)
[2020-12-21] MEDS: acetaminophen 325 mg Tablet 650 MG PO (17:49)
[2020-12-21] MEDS: hyDRALAzine 20 mg/mL INJ 1 mL 10 MG IVP (19:46)
[2020-12-21] MEDS: lisinopril 20 mg Tablet 40 MG PO (19:46)
[2020-12-21] MEDS: doxycycline 100 mg Tablet PO (20:31)
[2020-12-21] MEDS: fentaNYL 50 mcg/mL INJ 2mL IVP (20:31)
--- NOTE | 2020-12-21 20:45 | PC.NURSE ---
Pt arrived to floor at 1615 with left groin sheath connected to pressure bag. No hematoma or bleeding noted, Pulses in left foot present to palpation. Pt had no c/o pain or discomfort at the time of arrival to floor. 1834-informed of pts high systolic pressure 176-184. Orders were given. See AUG. instructions were given to wait for 30 minutes after ordered meds before sheath removal. 1909 sheath was removed and pressure was held for 20 minutes. Drsg was placed. No hematoma or excessive bleeding was noted. Pt education was given on the importance of keeping flat in bed no more than 30 degree and the sheath side leg still and flat. Pt verbalized understanding.
[2020-12-22] MEDS: HYDROcodone-acetaminophen 5-325 mg Tablet 1 TAB PO (00:08)
[2020-12-22 03:56] VITALS: BP 149/57; PULSE 79; RESP 20; TEMP 36.6; O2SAT 95
[2020-12-22 06:00] VITALS: PULSE 77
[2020-12-22] MEDS: acetaminophen 325 mg Tablet 650 MG PO (06:46)
[2020-12-22 07:23] VITALS: BP 152/63; PULSE 69; RESP 17; TEMP 36.8; O2SAT 97
[2020-12-22 08:09] VITALS: BP 152/63; PULSE 69; RESP 17; TEMP 36.8; O2SAT 97
[2020-12-22] MEDS: aspirin 81 mg EC Tablet PO (08:20)
[2020-12-22] MEDS: lisinopril 20 mg Tablet 40 MG PO (08:21)
[2020-12-22] MEDS: clopidogrel 75 mg Tablet PO (08:22)
[2020-12-22] MEDS: doxycycline 100 mg Tablet PO (08:22)
--- NOTE | 2020-12-22 19:31 | P.SS_ITS ---
Short Stay Summary Providers Date of Admit/Discharge: 12/22/20 Attending Provider: Mar Delgadillo MD Primary Care Provider: TRINH Whittington Chief Complaint: Peripheral Angiogram with possible Intervention HPI History of Present Illness Elisha Vickers is a 70 year old female past medical history significant for severe peripheral arterial disease with multiple procedures in the past gangrene right foot with osteomyelitis underwent peripheral angiogram for an attempt to revascularize before amputation so that it can heal. Due to prior multiple stents and severe peripheral arterial disease and highly calcified SFA tibioperoneal occlusion of the right leg were not able to cross the lesion. It remains unsuccessful. Patient sheath was pulled towards the night due to high PTT. She stayed overnight for bedrest. This morning left groin looks good no bruising no hematoma. She is being discharged to the wound clinic. Overall she remains fine and denies any complaint more than baseline. Home Meds/Allergies Home Medications and Allergies Home Medications Medication Instructions Recorded Confirmed Type aspirin [Adult Low Dose Aspirin] 81 mg PO DAILY@0900 10/05/20 12/18/20 History latanoprost 1 drp OPHTHALMIC (EYE) BEDTIME 10/05/20 12/18/20 History lisinopril 40 mg PO DAILY@0900 10/05/20 12/18/20 History timolol maleate 1 drp OPHTHALMIC (EYE) QID 10/05/20 12/18/20 History hydrocodone 2.5 mg-acetaminophen 1 tab PO BID PRN 12/08/20 12/18/20 History 325 mg tablet Xarelto 20 mg PO DAILY 12/18/20 12/18/20 History metoprolol succinate 25 mg PO DAILY 12/18/20 12/18/20 History Allergies Allergy/AdvReac Type Severity Reaction Status Date / Time ceftriaxone [From Rocephin] Allergy Severe cardiac Verified 12/10/20 09:09 arrest atorvastatin [From Lipitor] Allergy Unknown UNKNOWN Verified 12/10/20 09:09 Bkewifl-Pco-Jrg Reductase Allergy Unknown UNKNOWN Verified 12/10/20 09:09 Inhibitor PFSH Acute PFSH: Medical History Carotid stenosis, right 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 Congestive heart failure with cardiomyopathy Essential hypertension Pacemaker Valvular incompetence, mitral Venous insufficiency of both lower extremities Surgical History History of heart artery stent History of transmetatarsal amputation of left foot Hx of foot surgery Hx of knee surgery Peripheral vascular angioplasty status with implants and grafts Family History Other Diabetes Heart disease Dietary Habits: Current diet type/program: regular Vitals/I&O/Wt Last Vital Signs Temp 98.3 F 12/22/20 08:09 Pulse 69 12/22/20 08:09 Resp 17 12/22/20 08:09 BP 152/63 12/22/20 08:09 Pulse Ox 97 12/22/20 08:09 12/22/20 12/22/20 12/22/20 06:59 14:59 22:59 Intake Total 240 / 490 Balance 240 / 490 Weight last 48 hrs Weight 181 lb Physical Exam Const: COMMON NORMALS: alert Resp: COMMON NORMALS: clear to auscultation bilaterally AUSCULTATION: clear to auscultation bilaterally Neuro: SENSORIUM/ORIENTATION: Yes alert Hospital Course Hospital Course As above SSS Data Data Completed and Pending: Pending at discharge Category Date Time Status 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 Routin e Exams 12/21/20 09:41 Taken Discharge Plan Discharge Patient Disposition: Home Condition: Stable Prescriptions: Continued Rybelsus 3 mg tablet 3 mg PO DAILY@0900 90 Days Qty: 90 RF: 0 Lantus Solostar U-100 Insulin 100 unit/mL (3 mL) insulin pen See Rx Instructions .ROUTE .COMPLEX Qty: 15 RF: 0 insulin aspart U-100 [Novolog Flexpen U-100 Insulin] 100 unit/mL (3 mL) insulin pen See Rx Instructions .ROUTE .COMPLEX Qty: 15 RF: 0 (DME) Wheelchair See Rx Instructions .Route .MEDSUPPLY Qty: 1 RF: 0 hydrocodone-acetaminophen 2.5-325 mg tablet 1 tab PO BID PRN (Reason: Pain) RF: 0 doxycycline hyclate 100 mg capsule 100 mg PO BID 14 Days Qty: 28 RF: 2 metoprolol succinate 25 mg tablet extended release 24 hr 25 mg PO DAILY RF: 0 Xarelto 20 mg tablet 20 mg PO DAILY RF: 0 latanoprost 0.005 % drops 1 drp ophthalmic (eye) BEDTIME RF: 0 timolol maleate 0.5 % drops 1 drp ophthalmic (eye) QID RF: 0 aspirin [Adult Low Dose Aspirin] 81 mg tablet,delayed release (DR/EC) 81 mg PO DAILY@0900 RF: 0 lisinopril 40 mg tablet 40 mg PO DAILY@0900 RF: 0 No Action clopidogrel 75 mg tablet See Rx Instructions .ROUTE .COMPLEX Qty: 90 RF: 0 Discharge Orders: Discharge Order (Routine); Ordered 12/21/20 Ordered By: Mar Delgadillo Referrals: Mar Delgadillo MD [Physician] - 1 month (You will have an appointment with Dr. Delgadillo in a month. [facility] will call you for the schedule, If you have not heard from them by tomorrow morning, please call [phone]. Thank You.) Ethan Shen MD [Physician] - 7-10 days (You will have a follow-up appointment at wound care clinic w/ Dr. Shen on December 31 at 3:30 pm.) Discharge Diet: Diabetic Patient Instructions: Post Angiogram Home Care Instructions Activity Restrictions/Additional Instructions: Follow-up with wound care with Dr. Shen as scheduled Attestations Medical Necessity Statement*: Patient stayed overnight for post peripheral angiogram care. 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
== END 2020-12-22 08:36 | disposition home or self-care (01) ==
LOC: CSU 16:32
PROVIDERS: Admitting Provider Internal Medicine Cardiovascular Disease; PCP Registered Nurse; Visit Provider Internal Medicine Cardiovascular Disease
DX: I70.221 Atherosclerosis of native arteries of extremities with rest pain, right leg (principal); I96 Gangrene, not elsewhere classified; M86.8X7 Other osteomyelitis, ankle and foot; I10 Essential (primary) hypertension
CPT/HCPCS: 36415; 75625; 75710; 85730; C1769; C1887; C1894; G0378; J0360; J1644; J2250; J3010; J7030; Q0163; Q9967

== ENCOUNTER → 2021-01-13 10:58 | Outpatient (BNVA) | payer MEDICARE, MEDICAID, SELFPAY | PROVIDERS: PCP Registered Nurse; Visit Provider Registered Nurse | DX: D64.9 Anemia, unspecified (principal) | CPT/HCPCS: 85025 ==

== ENCOUNTER 2021-01-14 13:08 | Outpatient (CLI) | payer MEDICARE, MEDICAID, SELFPAY | END 2021-01-14 13:09 | disposition home or self-care (01) | LOC: WOUND 13:09 | PROVIDERS: PCP Registered Nurse; Visit Provider Thoracic Surgery (Cardiothoracic Vascular Surgery) | DX: E11.622 Type 2 diabetes mellitus with other skin ulcer (principal); Z11.52 Encounter for screening for COVID-19; L97.813 Non-pressure chronic ulcer of other part of right lower leg with necrosis of muscle; Z20.822 Contact with and (suspected) exposure to COVID-19; E11.621 Type 2 diabetes mellitus with foot ulcer; Z01.812 Encounter for preprocedural laboratory examination; L97.519 Non-pressure chronic ulcer of other part of right foot with unspecified severity; Z89.421 Acquired absence of other right toe(s) | CPT/HCPCS: 11043; 11046; 87635 ==

== ENCOUNTER 2021-01-18 10:13 | Inpatient (IN) | payer MEDICARE, MEDICAID, SELFPAY ==
[2021-01-15 13:42] VITALS: BMI 27.3
[2021-01-18] VITALS (11 sets, daily range): BP systolic 84–171; BP diastolic 46–77; PULSE 17–84; RESP 16–62; TEMP 36.2–37; O2SAT 94–100; BMI 26.0
[2021-01-18 11:48] LABS: Glucose Point of Care 198 mg/dL (70-110)
[2021-01-18] MEDS: sodium chloride 0.9% 1,000 ML 30 ML IV (12:00)
[2021-01-18 12:55] LABS: Basophils # 0.1 10^3/uL (0.0-0.1); Basophils % 0.6 %; Eosinophils # 0.2 10^3/uL (0.0-0.8); Eosinophils % 2.3 %; Hemoglobin 9.8 g/dL (11.5-15.3); Lymphocytes # 1.6 10^3/uL (0.8-4.8); Lymphocytes % 20.3 %; Mean Corpuscular HGB Conc 28.8 g/dL (30.0-36.0); Mean Corpuscular Hemoglobin 23.6 pg (28.0-34.0); Mean Corpuscular Volume 81.9 fL (81-99); Mean Platelet Volume 10.6 fL (7.4-10.4); Monocytes # 0.6 10^3/uL (0.2-0.9); Monocytes % 6.9 %; Neutrophils # 5.55 10^3/uL (1.8-7.7); Neutrophils % 69.6 %; Nucleated Red Blood Cells % 0 %; Platelet Count 343 10^3/cmm (130-400); Red Blood Count 4.15 10^6/uL (4.1-5.3); Red Cell Distribution Width 18.3 % (12.1-15.1)
--- NOTE | 2021-01-18 12:59 | ANES.PREANE2 ---
Pre-Anesthetic Assessment Pre-Anesthetic Assessment: Height/Weight: Height 1.7 m Weight 79.379 kg Temp Pulse Resp BP Pulse Ox 98.6 F 78 18 141/75 99 01/18/21 11:13 01/18/21 11:13 01/18/21 11:13 01/18/21 11:13 01/18/21 11:13 Preop Diagnosis: Critical ischemia right lower extremity Proposed Procedure: Operation Date: 01/18/21 13:30 Proposed Procedures p Above Knee Amputation(Right) - Ethan Shen MD Was Beta Jeffrey taken within 24 hours: N/A Was Clonidine taken within 24 hours: N/A Last intake: Intake Last Liquid Date 01/17/21 Last Liquid Time 20:00 Last Solid Date 01/17/21 Last Solid Time 20:00 Social: Social History: No alcohol and No tobacco Exam: Pre-Anes Outpt Exam: alert, oriented x 3, clear to auscultation bilaterally and regular rate & rhythm Airway: Submandibular: WNL Cervical ROM: WNL MP: 2 Dentition: Chipped Additional comments: Very poor dentition, most missing and chipped CV/HEM: CV/HEM: CAD (stents), CHF, HTN and PVD Comments: Anticoagulation, AVR Metabolic: Metabolic: DM Anesthetic Plan: ASA status: 3 Anesthesia: Regional (specify below) (SAB) Risk of > 500 ml blood loss (7ml/kg in children): Yes, adequate IV access and fluids planned PFSH Anesthesia PFSH: Medical History Carotid stenosis, right 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8 L RDW 18.3 H Plt Count 343 MPV 10.6 H Neut % (Auto) 69.6 Lymph % (Auto) 20.3 [place] % (Auto) 6.9 Eos % (Auto) 2.3 Baso % (Auto) 0.6 Neut # (Auto) 5.55 Lymph # (Auto) 1.6 [place] # (Auto) 0.6 Eos # (Auto) 0.2 Baso # (Auto) 0.1 Nucleated RBC % (auto) 0 Nucleated RBCs # 0.0 POC Glucose 198 H Cardiac Studies: No Data to Display
[2021-01-18 13:24] LABS: Anion Gap 14.3 (5-19); Blood Urea Nitrogen 22 mg/dL (8-23); Calcium 8.5 mg/dL (8.5-10.5); Carbon Dioxide 26 mmol/L (22-29); Chloride 102 mmol/L (98-107); Creatinine Clr Calc Pharmacy 68.9502; Glucose 186 mg/dL (65-115); Osmolality Calculated 294 mOsm/kg (285-295); Potassium 4.3 mmol/L (3.5-5.1); Sodium 138 mmol/L (136-145)
--- NOTE | 2021-01-18 14:04 | W.PM.OPSUD ---
Surgery/Procedure H&P Update DATE OF PROCEDURE: January 18, 2021 DATE H&P PERFORMED: 01/14/21 H&P UPDATE INFORMATION: I have reviewed H&P completed within last 30 days, I have examined patient prior to procedure and No changes to prior documentation PREOP DIAGNOSIS: Critical ischemia right lower extremity with nonhealing wounds PRIMARY INDICATION FOR PROCEDURE: Multiple nonhealing right lower extremity wounds with non-reconstructable peripheral vascular disease PLANNED PROCEDURE: Operation Date: 01/18/21 13:30 Proposed Procedures p Above Knee Amputation(Right) - Ethan Shen MD
[2021-01-18] MEDS: vancomycin 1,500 MG/300 ML PIGGYBACK 200 MG IV (14:30)
[2021-01-18 14:58] LABS: Urine Appearance SL Hazy (CLEAR); Urine Color Dark Yellow (Yellow); pH Urine 5 (5-7)
[2021-01-18 14:59] LABS: Add Urine Culture? Yes; Add Urine Microscopic? YES; Bacteria Urine 3+ /hpf; Bilirubin Urine Neg (Negative); Blood Urine Neg (Negative); Glucose Urine UA 2+ (Normal); Ketones Urine Negative (Negative); Leukocyte Esterase Urine Trace (Negative); Nitrate Urine Positive (Negative); Protein Urine Neg (Negative); Squamous Epithelial Cell Urine 0-4 /hpf (0-5); Urobilinogen Urine Norm (Negative)
[2021-01-18] MEDS: vancomycin 1,000 MG SDV 1000 MG IRRIGATION (15:27)
--- NOTE | 2021-01-18 17:40 | ANE.PACU2 ---
Inpatient post-anesthesia follow up: Airway intact: Yes Vital signs: Temperature 97.7 F Pulse Rate 61 Respiratory Rate 17 Blood Pressure 103/54 Pulse Oximetry 97 Oxygen Delivery Me thod Room Air Oxygen Flow Rate 8 Fraction of Inspir ed Oxygen Hydration adequate: Yes Nausea and vomiting: No Pain level: 2 Mental status: Baseline
--- NOTE | 2021-01-18 17:42 | P.OP_ITS ---
Operative Report Date of procedure: January 18, 2021 Pre-op Diagnosis: Critical ischemia right lower extremity with nonhealing wounds Post-op diagnosis: same Procedure Done: Right above-knee amputation Specimens removed/disposition: Right lower extremity mid thigh distal Surgeon: Ethan Shen Anesthesia: General Condition: stable Disposition: PACU Brief History: Ms. Vickers is a 70-year-old female with critical ischemia of the right lower extremity status post several interventions and most recent angiography revealing occluded peripheral stents of the right lower extremity from the mid thigh distally. No intervention was available. Because of continued nonhealing wounds which are worsening, right above-knee amputation is been recommended. Details and risk of the procedure were carefully reviewed. Appropriate consents have been reviewed and signed. Procedure: Ms. Vickers was taken to the operating room and placed on the OR table in the supine position. The underwent general laryngeal mask anesthesia. The entire right lower extremity was sterilely prepped and draped. Right thigh was marked for incision line. #10 scalpel blade was utilized to circumferentially incise the skin in a fish[place] pattern. Anterior musculature was sharply divided utilizing scalpel and minimal use of cautery. Superficial femoral artery and vein were isolated in mid thigh, controlled, and secured. Periosteal elevator was used for dissecting the periosteum off of the femur. Oscillating saw was utilized to divide the femur. Amputation knife was then used posteriorly to complete amputation of the right lower extremity. Meticulous inspection was carried out and hemostasis was controlled with minimal use of cautery, surgical clips, and suture ligature as required. The sciatic nerve was dissected proximally, ligated, and divided. The wound was irrigated with large amounts of antibiotic solution. Hemostasis was confirmed. A large Hemovac drain was placed beneath the fascia. The fascia was reapproximated with interrupted 0 and 2-0 Vicryl suture. Skin was reapproximated in an interrupted mattress fashion with monofilament suture. Sterile dressings were applied followed by a bulky dressing. Ms. Vickers tolerated the procedure well and was taken to PACU. I did vocational counselor with her daughter, Lazara, at completion of procedure.
[2021-01-18] MEDS: ketorolac 30 mg/mL INJ IVP (18:28)
[2021-01-18] MEDS: promethazine 25 mg Supp PR (18:29)
[2021-01-18] MEDS: doxycycline 100 mg Tablet PO (18:30)
[2021-01-18] MEDS: lactated ringers 1,000 ML 75 ML IV (18:30)
[2021-01-18 18:52] LABS: Glucose Point of Care 194 mg/dL (70-110)
[2021-01-18] MEDS: oxyCODONE-APAP 10-325 mg Tablet 1 TAB PO (19:10)
[2021-01-18 21:43] LABS: Glucose Point of Care 185 mg/dL (70-110)
[2021-01-18] MEDS: HYDROmorphone 1 mg/mL INJ 1 mL 0.5 MG IVP (21:57)
[2021-01-18] MEDS: latanoprost 0.005% Op Soln 2.5 mL Btl 1 DROP EYE-RIGHT (23:05)
[2021-01-18] MEDS: timolol 0.5% Op Soln 5 mL Btl 1 DROP EYE-RIGHT (23:06)
[2021-01-19] VITALS (10 sets, daily range): BP systolic 102–163; BP diastolic 56–84; PULSE 64–80; RESP 14–18; TEMP 36.1–37.2; O2SAT 93–97
[2021-01-19] MEDS: vancomycin 1,000 MG in sodium chloride 0.9% 250 ML 250 MG IV ×2 (03:26→13:46)
[2021-01-19] MEDS: oxyCODONE-APAP 10-325 mg Tablet 1 TAB PO ×3 (03:32→12:03)
[2021-01-19 03:38] LABS: Basophils % 0.4 %; Eosinophils # 0.1 10^3/uL (0.0-0.8); Eosinophils % 0.9 %; Hematocrit 29.8 % (37.0-47.0); Hemoglobin 8.5 g/dL (11.5-15.3); Lymphocytes # 1.2 10^3/uL (0.8-4.8); Lymphocytes % 12.6 %; Mean Corpuscular HGB Conc 28.5 g/dL (30.0-36.0); Mean Corpuscular Hemoglobin 23.5 pg (28.0-34.0); Mean Corpuscular Volume 82.5 fL (81-99); Mean Platelet Volume 10.1 fL (7.4-10.4); Monocytes # 0.5 10^3/uL (0.2-0.9); Monocytes % 5.2 %; Neutrophils # 7.49 10^3/uL (1.8-7.7); Neutrophils % 80.6 %; Nucleated Red Blood Cells % 0 %; Platelet Count 289 10^3/cmm (130-400); Red Blood Count 3.61 10^6/uL (4.1-5.3); Red Cell Distribution Width 17.9 % (12.1-15.1); White Blood Count 9.3 10^3/uL (4.0-10.0)
[2021-01-19 03:58] LABS: Anion Gap 11.6 (5-19); Blood Urea Nitrogen 25 mg/dL (8-23); Calcium 7.7 mg/dL (8.5-10.5); Carbon Dioxide 25 mmol/L (22-29); Chloride 107 mmol/L (98-107); Glucose 104 mg/dL (65-115); Osmolality Calculated 293 mOsm/kg (285-295); Potassium 4.6 mmol/L (3.5-5.1); Sodium 139 mmol/L (136-145)
[2021-01-19] MEDS: TRAMadol 50 mg Tablet 100 MG PO ×2 (04:04→16:13)
[2021-01-19 06:31] LABS: Glucose Point of Care 109 mg/dL (70-110)
--- NOTE | 2021-01-19 07:17 | PM.PN ---
Subjective Subjective: Interval history: POD #1 status post right AKA. Rested well last night. In very good spirits. Vital signs stable. Low Hemovac drain output. Vitals/I&O/Wt Last Vital Signs Temp 97.7 F 01/19/21 04:08 Pulse 77 01/19/21 04:08 Resp 15 01/19/21 04:08 BP 141/59 01/19/21 04:08 Pulse Ox 96 01/19/21 04:08 01/18/21 01/19/21 01/19/21 22:59 06:59 14:59 Intake Total 1300 / 1300 250 / 1550 Output Total 350 / 350 400 / 750 Balance 950 / 950 -150 / 800 Weight last 48 hrs Weight 166 lb 7 oz Physical Exam Extremity: OTHER: Surgical dressing in place. Low drain output. Urinary Catheter Management^: Rojas: Cath Placed During This Visit: yes Reason for Continuing Indwelling Catheter: Required Immobilization for Trauma or Surgery or Anesthesia Urinary Catheter Date of Insertion: 01/18/21 Urinary Catheter Time of Insertion: 15:00 Data : 01/19/21 03:18 01/19/21 03:18 A&P Assessment and plan (1) Status post above-knee amputation of right lower extremity: POD #1 status post right AKA Physical therapy consultation Out of bed in chair with assist Will plan to remove surgical drain and dressing later today or tomorrow morning Home health referral Status: Acute Attestations Medical Necessity Statement*: Status post right above-knee amputation Time Spent in Patient Care: 16 - 35 minutes Coding Level of Care Code Acute Marketing Project Lead for Rowena Chamorro Diagnoses Status post above-knee amputation of right lower extremity Z89.611
[2021-01-19] MEDS: ketorolac 30 mg/mL INJ IVP (07:50)
[2021-01-19] MEDS: lactated ringers 1,000 ML 75 ML IV (07:50)
[2021-01-19] MEDS: timolol 0.5% Op Soln 5 mL Btl 1 DROP EYE-RIGHT ×4 (08:00→21:53)
[2021-01-19] MEDS: doxycycline 100 mg Tablet PO ×2 (08:00→17:11)
[2021-01-19] MEDS: lisinopril 20 mg Tablet 40 MG PO (08:00)
[2021-01-19] MEDS: metoprolol succinate ER (24 HR) 25 mg Tablet PO (08:00)
[2021-01-19] MEDS: pantoprazole DR 40 mg Tablet PO (08:01)
--- NOTE | 2021-01-19 08:24 | PC.NURSE ---
Shift Note Frequent safety and comfort rounds continue. Orders and/or nursing care completed as indicated. Patient monitored for response to intervention and treatment(s). Education provided includes oxygen safety, IV pump and medication, post operative teachings including signs and symptoms of infection, pain management and following all orders given by doctor. Patient and/or front desk representative verbally acknowledged understanding. Will continue to monitor.
[2021-01-19 11:45] LABS: Glucose Point of Care 99 mg/dL (70-110)
--- NOTE | 2021-01-19 16:07 | P.MISC_ITS ---
Miscellaneous Note Purpose of Documentation: Ms. Vickers has had a good day. She been up in a chair with assistance. Hemovac output drain remains low. Postop discomfort under good control. Home health arrangements are currently in process as well as other supportive measures including DME. I will plan to discontinue Hemovac drain tomorrow morning and change surgical bandage to a auto tune up mechanic dressing. And follow ancillary arrangements have been completed, will plan to discharge tomorrow afternoon.
[2021-01-19 16:47] LABS: Glucose Point of Care 136 mg/dL (70-110)
[2021-01-19 20:27] LABS: Glucose Point of Care 121 mg/dL (70-110)
[2021-01-19] MEDS: latanoprost 0.005% Op Soln 2.5 mL Btl 1 DROP EYE-RIGHT (21:53)
[2021-01-20] VITALS (15 sets, daily range): BP systolic 132–177; BP diastolic 63–90; PULSE 65–96; RESP 16–20; TEMP 36.6–37.2; O2SAT 92–98
[2021-01-20 02:11] LABS: Vancomycin Trough 24.7 ug/mL (10-15)
--- NOTE | 2021-01-20 03:04 | PC.PHAR ---
Pharmacokinetic dosing service Date: 01/20/2021 Time: 0300 Patient: Floor: Weight: 75.495 Kilograms Vancomycin single level analysis: Current dose being given: mg Current dosing interval: hrs Current infusion time (hrs): 1 Single level Trough Data: Trough level obtained: 24.7 mcg/ml Timing of trough - # of hrs before next dose: 1 Hrs Desired peak: 40 mcg/ml Desired trough: 15 mcg/ml Diagnosis: Relevant medical/social history: Cultures and sensitivities: Other labs: Estimated PK Parameters: New rate constant (samia): 0.042 hr-1 Half-life: 16.50 Hours Vd from levels: 67.95 Liters (0.7 L/kg) CLvanco= 2.854 L/hr Estimated New Dose and Interval Recommended dose: 1779.4 mg Recommended interval: 24.4 Hrs Patient response: Patient is responding to treatment [yes/no] wbc decreasing, S/SX reduced [yes/no] Renal function is stable/unstable Recommendations: Give Vancomycin 1250 mg q 24 hrs. Infuse over 1.5 hrs Expected Cpeak: 28.1 mcg/mL Expected Ctrough: 10.9 mcg/mL AUC 0-24 /JOEL Data: JOEL 0.5 mcg/mL: AUC/JOEL: 876.0 JOEL 1.0 mcg/mL: AUC/JOEL: 438.0 Recommended labs and intervals: Measure Bun and Scr 3 times/week. Renal dosing of other antibiotics (review renal dosing of other medications and list guidelines here): Thank you for the consult, will continue to follow. Virgie Hoffman [facility]
[2021-01-20 03:46] LABS: Glucose Point of Care 120 mg/dL (70-110)
[2021-01-20 04:07] LABS: Basophils # 0.1 10^3/uL (0.0-0.1); Basophils % 0.7 %; Eosinophils # 0.3 10^3/uL (0.0-0.8); Eosinophils % 3.9 %; Hematocrit 26.4 % (37.0-47.0); Hemoglobin 7.6 g/dL (11.5-15.3); Lymphocytes # 1.4 10^3/uL (0.8-4.8); Lymphocytes % 20.5 %; Mean Corpuscular HGB Conc 28.8 g/dL (30.0-36.0); Mean Corpuscular Hemoglobin 23.8 pg (28.0-34.0); Mean Corpuscular Volume 82.8 fL (81-99); Mean Platelet Volume 10.4 fL (7.4-10.4); Monocytes # 0.5 10^3/uL (0.2-0.9); Monocytes % 7.1 %; Neutrophils # 4.55 10^3/uL (1.8-7.7); Neutrophils % 67.7 %; Nucleated Red Blood Cells % 0 %; Platelet Count 277 10^3/cmm (130-400); Red Blood Count 3.19 10^6/uL (4.1-5.3); Red Cell Distribution Width 18.3 % (12.1-15.1); White Blood Count 6.7 10^3/uL (4.0-10.0)
[2021-01-20] MEDS: TRAMadol 50 mg Tablet 100 MG PO ×2 (04:45→08:13)
[2021-01-20 04:58] LABS: Alanine Aminotransferase < 5 U/L (0-33); Albumin Level 2.9 g/dL (3.5-5.2); Alkaline Phosphatase 77 IU/L (35-105); Anion Gap 10.5 (5-19); Aspartate Amino Transferase 11 U/L (0-32); Blood Urea Nitrogen 24 mg/dL (8-23); Calcium 7.5 mg/dL (8.5-10.5); Carbon Dioxide 25 mmol/L (22-29); Chloride 106 mmol/L (98-107); Globulin 2.2 g/dL (1.3-4.6); Glucose 113 mg/dL (65-115); Osmolality Calculated 289 mOsm/kg (285-295); Potassium 4.5 mmol/L (3.5-5.1); Sodium 137 mmol/L (136-145); Total Bilirubin 0.3 mg/dL (0.15-1.2); Total Protein 5.1 g/dL (6.6-8.7)
--- NOTE | 2021-01-20 05:42 | PM.PN ---
Subjective Subjective: Interval history: Nurses report Ms. Vickers became confused in the early hours of this morning and pulled out her IV which had LR running. Home medication list was reviewed. Sitter was placed with patient. Family was contacted to confirm that we have a complete home med list and this does appear to be accurate. I recommended reestablishment of an IV saline lock. Vancomycin has been discontinued. Upon my examination of her around 5 AM, she appears to be oriented and quite appropriate. She states she was not confused and that she had had previously poor experience with one of the medical staff during their appointment with another service. I am unclear as to the accuracy of this, though upon my exam this morning, she appears to be at baseline. I do note that her hematocrit has dropped over the past 2 days and now she is below a threshold of 27, so I will recommend a transfusion of 2 units packed RBCs. She was modestly anemic preoperatively and I did not appreciate any substantial blood loss other than expected for an amputation. Vital signs are stable and her serum glucose is normal. She does appear to be a bit pale but has no complaints and has approximately very little discomfort in her amputation incision. Hemovac drain was removed and output has remained low. There is no evidence for hematoma or fluid collection. Incision is clean, dry, and intact. No erythema or drainage noted. No skin edema. Hemoglobin 7.6 with hematocrit of 26.4. White count 6.7. Vitals/I&O/Wt Last Vital Signs Temp 98.4 F 01/20/21 04:00 Pulse 82 01/20/21 04:00 Resp 17 01/20/21 04:00 BP 159/73 01/20/21 04:00 Pulse Ox 96 01/20/21 04:00 01/19/21 01/19/21 01/20/21 14:59 22:59 06:59 Intake Total 1250 / 1250 990 / 2240 250 / 2490 Output Total 30 288 / 318 300 / 618 Balance 1220 / 1220 702 / 1922 -50 / 1872 Weight last 48 hrs Weight 166 lb 7 oz Physical Exam Resp: COMMON NORMALS: normal respiratory effort, No use of accessory muscles and clear to auscultation bilaterally AUSCULTATION: clear to auscultation bilaterally Cardio: COMMON NORMALS: regular rate, regular rhythm, S1 normal heart sound present and No murmurs present (Cardio) RATE: regular rate RHYTHM: regular rhythm HEART SOUNDS: S1 normal heart sound present Extremity: OTHER: Right AKA incision is clean, dry, and intact. No edema or drainage. No erythema. Hemovac drain was removed without difficulty or discomfort. Incision line was painted with Betadine and recovered with a bordered gauze. Urinary Catheter Management^: Rojas: Cath Placed During This Visit: yes Reason for Continuing Indwelling Catheter: Required Immobilization for Trauma or Surgery or Anesthesia Urinary Catheter Date of Insertion: 01/18/21 Urinary Catheter Time of Insertion: 15:00 Data : 01/20/21 01:36 01/20/21 01:36 Micro: Microbiology 01/18/21 12:10 Urine Culture - Preliminary Urine,Clean Catch Gram Negative Rods A&P Assessment and plan (1) Status post above-knee amputation of right lower extremity: Postop day #2 status post right above-knee amputation with reported early hours confusion. Ms. Vickers appears to be at baseline upon my exam this morning. Plan: We will discontinue vancomycin as she is noted to have a high trough though BUN and creatinine are stable with a creatinine of 0.7. Potassium 4.5. Transfuse 2 units packed RBCs Continue physical therapy and Occupational Therapy assessments and treatment Will plan for discharge either later this evening or tomorrow once we confirmed appropriate home health arrangements have been made and home support is in place. She will be staying with her daughter, Mariaelena Status: Acute Attestations Medical Necessity Statement*: Postop day #2 status post right above-knee amputation. Postop confusion appears resolved Time Spent in Patient Care: Greater than 35 minutes Coding Level of Care Code Acute Internet Site Designer for Chg Fwd Diagnoses Status post above-knee amputation of right lower extremity Z89.611
[2021-01-20 06:31] LABS: Glucose Point of Care 138 mg/dL (70-110)
[2021-01-20] MEDS: metoprolol succinate ER (24 HR) 25 mg Tablet PO (08:13)
[2021-01-20] MEDS: lisinopril 20 mg Tablet 40 MG PO (08:13)
[2021-01-20] MEDS: doxycycline 100 mg Tablet PO ×2 (08:13→16:40)
[2021-01-20] MEDS: pantoprazole DR 40 mg Tablet PO (08:13)
[2021-01-20] MEDS: timolol 0.5% Op Soln 5 mL Btl 1 DROP EYE-RIGHT ×3 (12:20→21:26)
--- NOTE | 2021-01-20 12:22 | PC.NURSE ---
patient's eye drops misplaced. called pharmacy to get another bottle.
[2021-01-20 12:27] LABS: Glucose Point of Care 138 mg/dL (70-110)
[2021-01-20] MEDS: sodium chloride 0.9% (100 ml) 100 ML 50 ML (15:11)
[2021-01-20] MEDS: docusate sodium 100 mg Capsule PO (16:40)
[2021-01-20] MEDS: lactulose oral liq 20 gm/30 mL UDC PO (16:40)
--- NOTE | 2021-01-20 16:46 | PM.MISC ---
Miscellaneous Note Purpose of Documentation: Ms. Vickers has had an uneventful day. Her daughter is with her and will be staying with her tonight as we did note some intermittent episodes of confusion through the late evening. She is very appropriate right now. Requiring only tramadol for pain. I will discontinue oxycodone. Her right AKA is clean and dry. Hemovac drain was removed this morning. Home health arrangements have been made. She is currently receiving her second unit of packed RBCs. I will reassess in the morning with plans for discharge tomorrow with home health services and appropriate DME. She is adjusting well with her recent surgery.
[2021-01-20 17:15] LABS: Glucose Point of Care 154 mg/dL (70-110)
--- NOTE | 2021-01-20 17:53 | PC.NURSE ---
updated patient's sister Suzie on patient's condition.
[2021-01-20 20:48] LABS: Glucose Point of Care 137 mg/dL (70-110)
[2021-01-20] MEDS: latanoprost 0.005% Op Soln 2.5 mL Btl 1 DROP EYE-RIGHT (21:26)
[2021-01-20] MEDS: HYDROcodone-acetaminophen 5-325 mg Tablet 1 TAB PO (23:42)
[2021-01-21] MEDS: magnesium hydroxide 30 mL UDC 45 ML PO (01:39)
[2021-01-21] MEDS: bisacodyl 5 mg Tablet PO (01:39)
[2021-01-21 04:00] VITALS: BP 160/88; PULSE 66; RESP 18; TEMP 36.6; O2SAT 95
[2021-01-21 05:40] LABS: Glucose Point of Care 119 mg/dL (70-110)
[2021-01-21 07:15] VITALS: BP 163/85; PULSE 63; RESP 16; TEMP 36.8; O2SAT 96
[2021-01-21] MEDS: pantoprazole DR 40 mg Tablet PO (07:27)
[2021-01-21] MEDS: metoprolol succinate ER (24 HR) 25 mg Tablet PO (07:27)
[2021-01-21] MEDS: doxycycline 100 mg Tablet PO (07:27)
[2021-01-21] MEDS: lisinopril 20 mg Tablet 40 MG PO (07:28)
[2021-01-21] MEDS: timolol 0.5% Op Soln 5 mL Btl 1 DROP EYE-RIGHT (07:28)
--- NOTE | 2021-01-21 07:34 | P.DS_ITS ---
Discharge Providers Date of Admission: 01/18/21 10:13 Date of Discharge: January 21, 2021 Attending Provider at Admission: Ethan Shen MD Attending Provider at Discharge: Ethan Shen MD Primary Care Provider: TRINH Whittington Diagnoses at Discharge Discharge Diagnosis (1) Status post above-knee amputation of right lower extremity: Status: Acute Reason for Visit Reason for Visit: above knee amputation Hospital Course Hospital Course Ms. Vickers is a 70-year-old female with nonhealing wounds of the right lower extremity status post numerous vascular interventions and now with no unreconstructable severe PAD and chronic, painful, nonhealing ischemic wounds. She has been cared for through wound care services and after careful consideration and recent angiography by Dr. Delgadillo confirming the unreconstructable severe disease, right above-knee amputation was recommended. She concurred. She was electively admitted on January 18 and underwent right above-knee amputation. Postoperatively, she convalesced on the medical/surgical lama. She had low Hemovac drain output and the drain was discontinued on the second postop day. She had moderate preoperative anemia with a slowly drifting hematocrit postoperatively, and therefore underwent 2 unit packed RBC transfusion on the second postoperative day. She has had some nighttime confusion but is easily reoriented. Her daughter has been staying with her at night after the first postop day. Incision is clean and dry. Her postop discomfort is substantially less that her right lower extremity pain preoperatively. [facility] home health arrangements have been completed. She will be discharged today. Due to incontinence, we will leave her Rojas catheter in place until January 25 to allow for protection of the right AKA incision. She will be scheduled for follow-up in wound care services next week. At the time of discharge, she remains in stable condition. Physical Exam Resp: COMMON NORMALS: normal respiratory effort, No use of accessory muscles and clear to auscultation bilaterally AUSCULTATION: clear to auscultation bilaterally Cardio: COMMON NORMALS: regular rate, regular rhythm, S1 normal heart sound present and No murmurs present (Cardio) RATE: regular rate RHYTHM: regular rhythm HEART SOUNDS: S1 normal heart sound present Extremity: OTHER: Right AKA incision is intact, healing well without evidence for infection. Urinary Catheter Management^: Rojas: Cath Placed During This Visit: yes Reason for Continuing Indwelling Catheter: Other Urinary Catheter Date of Insertion: 01/18/21 Urinary Catheter Time of Insertion: 15:00 Discharge Data Data Completed and Pending: Pending at discharge Category Date Time Status Leukocyte Reduced RBC Routine Lab 01/18/21 11:55 Results Type and Screen R outine Lab 01/18/21 11:55 Results Pathology: Surgic al [PTH] Routine Pth 01/18/21 17:10 Received Labs from last 24 hours 01/21/21 01/20/21 01/20/21 05:36 20:24 16:50 POC Glucose 119 H 137 H 154 H Blood Type Rho(D) Type Antibody Screen Crossmatch 01/20/21 01/18/21 12:06 11:55 POC Glucose 138 H Blood Type O Positive Rho(D) Type Positive / 4+ Antibody Screen Negative Crossmatch See Detail Vitals: Last Vital Signs Temp 98.2 F 01/21/21 07:15 Pulse 63 01/21/21 07:15 Resp 16 01/21/21 07:15 BP 163/85 01/21/21 07:15 Pulse Ox 96 01/21/21 07:15 Discharge Plan Discharge Patient Disposition: Home Health Service Condition: Stable Prescriptions: New hydrocodone-acetaminophen 5-325 mg Tablet 1 tab PO Q6H PRN (Reason: Moderate Pain) Qty: 24 RF: 0 Continued Rybelsus 3 mg tablet 3 mg PO DAILY@0900 90 Days Qty: 90 RF: 0 insulin aspart U-100 [Novolog Flexpen U-100 Insulin] 100 unit/mL (3 mL) i nsulin pen See Rx Instructions .ROUTE .COMPLEX Qty: 15 RF: 0 (DME) Wheelchair See Rx Instructions .Route .MEDSUPPLY Qty: 1 RF: 0 metoprolol succinate 25 mg tablet extended release 24 hr 25 mg PO QAM RF: 0 latanoprost 0.005 % drops 1 drp ophthalmic (eye) BEDTIME RF: 0 timolol maleate 0.5 % drops 1 drp ophthalmic (eye) BID RF: 0 lisinopril 40 mg tablet 40 mg PO QAM RF: 0 clopidogrel [Plavix] 75 mg tablet 75 mg PO QAM RF: 0 Lantus Solostar U-100 Insulin 100 unit/mL (3 mL) insulin pen 20 unit SUBCUT BID RF: 0 Xarelto 20 mg tablet 20 mg PO QPM RF: 0 hydrocodone-acetaminophen 5-325 mg tablet 1 tab PO Q8H PRN (Reason: Pain) RF: 0 aspirin 81 mg Tablet,Delayed Release (Dr/Ec) 81 mg PO QAM RF: 0 iron 325 mg (65 mg iron) Tablet 325 mg PO DAILY RF: 0 Stool Softener 100 mg Tablet 100 mg PO QAM RF: 0 Discharge Orders: Discharge Order (Routine); Ordered 01/21/21 Ordered By: Ethan Shen Referrals: In Home Services [Other] (Please call [phone] to try to set up in home services.) [facility] Home Care ([facility]) [Outside] ([facility] will be contacting you to set up at time to admit you to their services. If you have any questions please contact them at [phone].) W[facility], [Staff Physician] - 1 week Discharge Diet: Usual diet Discharge Activity: Increase activity as tolerated Patient Instructions: Opioid Safety Activity Restrictions/Additional Instructions: Clean incision daily with soap and water, dry thoroughly, and cover to avoid soiling Report any redness, drainage, swelling, or increased pain Rojas catheter to be removed by Monday, January 25 Up in chair or on couch frequently Discharge Attestations Time Spent in Discharge Care*: less than 30 min Specific Discharge Activities: educating patient, educating and/or supporting family/caregiver, discussing with director of casework department/social workers/dc planners, documenting/other paperwork and evaluating patient/reviewing data Status at Discharge: Cognitive status at discharge: cognitively intact , Behavioral status at discharge: cooperative , Functional status at discharge: wheelchair bound Overall status at discharge: patient is progressing back to baseline Quality Metrics Clinical Quality Measures During this hospital stay, did patient experience: None Coding Level of Care Code Acute g FW DC note Diagnoses Status post above-knee amputation of right lower extremity Z89.611
--- NOTE | 2021-01-21 09:30 | PC.SOCIAL ---
IMM Update IMM updated with patient and daughter at bedside. Verbalized an understanding. Copy Pg. 2 provided. Initialed, dated, timed, and placed in chart.
[2021-01-21 10:15] LABS: Glucose Point of Care 166 mg/dL (70-110)
--- NOTE | 2021-01-21 11:03 | PC.CHAP ---
Pastoral Care Encounter/Spiritual Assessment Type of Contact [] Declined clipper and turner visit [] Patient/Family/Request visit [] Outpatient visit [] Follow-up visit [] Physician referral [] Code/Alert [x] Routine visit [] Staff referral [] Actively dying [] Patient sleeping [] Family support [] [] Out of room [] Palliative care [] [x] Receiving care in room [] Pre-surgical visit [] Trauma [] Long length of stay [] ICU visit [] Other: Relational/Emotional Strength [x] Patient feels connected with others/family/visitors/staff [] Distress [] Loneliness/isolation [] Abandonment Spirituality of Patient [x] Person of Karen [] Attends Pentecostalism of their Karen [x] Believes in Prayer [] Reads Bible or Confucianism materials [] There are Spiritual issues to be addressed Metal Mold Dresser Interventions [x] Prayer [x] Active listening [x] Non-anxious presence [x] Spiritual/emotional support [] Crisis/trauma care [x] Spiritual counseling [] Bereavement support [] Provided bereavement packet [] Provided Bible/devotional materials [] Provided toy/stuffed animal, coloring book to patient or family member [] Provided Communion [] Anointing/Hertel [] Salvation [x] Completed spiritual assessment [] Other: Impact on Illness or Injury [] Angry [] Fearful [] Anxious [] Often cries [] Exhaustion [] Unable to work [] Unable to attend jewish [] Unable to walk/stand [] Unable to read [] Unable to drive [] Unable to eat/drink [] Unable to sleep [] Unable to be with family [] Patient intubated [] Other: Summary feels good and is going home today Time spent with patient 10 mins
--- NOTE | 2021-01-21 11:12 | PC.NURSE ---
patient and daughter given discharge instructions and both verbalized understanding of instructions. patient taken to private vehicle and assisted into vehicle by typewriter repairer.
[2021-01-21 11:14] VITALS: BP 163/85; PULSE 63; RESP 16; TEMP 36.8; O2SAT 96
== END 2021-01-21 11:16 | disposition home or self-care (01) | DRG 240 ==
LOC: OR 10:23 → MEDSURG 15:49
PROVIDERS: Admitting Provider Thoracic Surgery (Cardiothoracic Vascular Surgery); PCP Registered Nurse; Visit Provider Thoracic Surgery (Cardiothoracic Vascular Surgery)
PROC: 0Y6H0Z3 Detachment at Right Lower Leg, Low, Open Approach (ICD-10-PCS; CPT 27590; principal; 2021-01-18 13:20)
DX: I70.221 Atherosclerosis of native arteries of extremities with rest pain, right leg (principal); I42.9 Cardiomyopathy, unspecified; I50.9 Heart failure, unspecified; D64.9 Anemia, unspecified; Z95.0 Presence of cardiac pacemaker; Z95.5 Presence of coronary angioplasty implant and graft; Z98.890 Other specified postprocedural states; Z79.01 Long term (current) use of anticoagulants; Z79.4 Long term (current) use of insulin; Z79.82 Long term (current) use of aspirin
CPT/HCPCS: 36415; 36416; 36430; 51702; 80048; 80053; 80202; 81001; 82962; 85025; 86850; 86900; 86920; 87077; 87086; 87186; 88307; 88311; 96372; 97110; 97161; 97166; 97530; J1170; J1815; J1885; J2250; J2370; J2405; J2704; J3010; J3370; J7030; J7050; J8498; P9016

== ENCOUNTER 2021-01-25 13:36 | Outpatient (CLI) | payer MEDICARE, MEDICAID, SELFPAY | END 2021-01-25 13:37 | disposition home or self-care (01) | LOC: WOUND 13:37 | PROVIDERS: PCP Registered Nurse; Visit Provider Thoracic Surgery (Cardiothoracic Vascular Surgery) | DX: E11.622 Type 2 diabetes mellitus with other skin ulcer (principal); L97.819 Non-pressure chronic ulcer of other part of right lower leg with unspecified severity; Z89.611 Acquired absence of right leg above knee | CPT/HCPCS: 99212 ==

== ENCOUNTER → 2021-02-03 09:47 | Outpatient (BNVA) | payer MEDICARE, MEDICAID, SELFPAY | PROVIDERS: PCP Registered Nurse; Visit Provider Registered Nurse | DX: R35.0 Frequency of micturition (principal) | CPT/HCPCS: 81000; 87077; 87086; 87184 ==

== ENCOUNTER 2021-02-09 09:58 | Outpatient (CLI) | payer MEDICARE, MEDICAID, SELFPAY | END 2021-02-09 09:59 | disposition home or self-care (01) | LOC: WOUND 09:59 | PROVIDERS: PCP Registered Nurse; Visit Provider Thoracic Surgery (Cardiothoracic Vascular Surgery) | DX: E11.622 Type 2 diabetes mellitus with other skin ulcer (principal); L98.499 Non-pressure chronic ulcer of skin of other sites with unspecified severity; Z89.611 Acquired absence of right leg above knee | CPT/HCPCS: 99212 ==

== ENCOUNTER 2021-02-10 11:33 | Outpatient (CLI) | payer MEDICARE, MEDICAID, SELFPAY | END 2021-02-10 11:34 | disposition home or self-care (01) | LOC: WOUND 11:34 | PROVIDERS: PCP Registered Nurse; Visit Provider Thoracic Surgery (Cardiothoracic Vascular Surgery) | DX: Z89.612 Acquired absence of left leg above knee (principal) | CPT/HCPCS: 99212 ==

== ENCOUNTER 2021-02-17 09:45 | Outpatient (CLI) | payer MEDICARE, MEDICAID, SELFPAY | END 2021-02-17 09:46 | disposition home or self-care (01) | LOC: WOUND 09:46 | PROVIDERS: PCP Registered Nurse; Visit Provider Thoracic Surgery (Cardiothoracic Vascular Surgery) | DX: Z89.611 Acquired absence of right leg above knee (principal) | CPT/HCPCS: 99212 ==

== ENCOUNTER 2021-03-03 10:38 | Outpatient (CLI) | payer MEDICARE, MEDICAID, SELFPAY | END 2021-03-03 10:39 | disposition home or self-care (01) | LOC: WOUND 10:39 | PROVIDERS: PCP Registered Nurse; Visit Provider Thoracic Surgery (Cardiothoracic Vascular Surgery) | DX: Z09 Encounter for follow-up examination after completed treatment for conditions other than malignant neoplasm (principal) | CPT/HCPCS: 99212 ==

== ENCOUNTER → 2021-04-19 10:33 | Outpatient (BNVA) | payer MEDICARE, MEDICAID, SELFPAY | PROVIDERS: PCP Registered Nurse; Visit Provider Registered Nurse | DX: E11.9 Type 2 diabetes mellitus without complications (principal); Z79.4 Long term (current) use of insulin; I10 Essential (primary) hypertension | CPT/HCPCS: 80053; 83036; 85025 ==

== ENCOUNTER → 2021-04-20 16:10 | Outpatient (BNVA) | payer MEDICARE, MEDICAID, SELFPAY | PROVIDERS: PCP Registered Nurse; Visit Provider Podiatrist Foot & Ankle Surgery | DX: E11.621 Type 2 diabetes mellitus with foot ulcer (principal); L97.522 Non-pressure chronic ulcer of other part of left foot with fat layer exposed; L97.422 Non-pressure chronic ulcer of left heel and midfoot with fat layer exposed; E11.40 Type 2 diabetes mellitus with diabetic neuropathy, unspecified; Z79.4 Long term (current) use of insulin | CPT/HCPCS: 87070; 87075; 87077; 87186; 87205 ==

== ENCOUNTER 2021-07-20 06:00 | Outpatient (RCR) | payer MEDICARE, MEDICAID, SELFPAY | END 2021-08-09 23:59 | disposition home or self-care (01) | LOC: SOT 06:00 | PROVIDERS: PCP Registered Nurse; Referring Provider Registered Nurse; Visit Provider Registered Nurse | DX: T87.9 Unspecified complications of amputation stump (principal); Z95.820 Peripheral vascular angioplasty status with implants and grafts; S78.111D Complete traumatic amputation at level between right hip and knee, subsequent encounter; Z89.432 Acquired absence of left foot; Z76.89 Persons encountering health services in other specified circumstances | CPT/HCPCS: 97167; 97530 ==

== ENCOUNTER → 2021-09-03 09:55 | Outpatient (BNVA) | payer MEDICARE, MEDICAID, SELFPAY | PROVIDERS: PCP Registered Nurse; Visit Provider Registered Nurse | DX: N39.0 Urinary tract infection, site not specified (principal) | CPT/HCPCS: 81000; 87077; 87086; 87184 ==

== ENCOUNTER → 2021-11-18 17:30 | Outpatient (BNVA) | payer MEDICARE, MEDICAID, SELFPAY | PROVIDERS: PCP Registered Nurse; Visit Provider Internal Medicine Cardiovascular Disease | DX: Z45.010 Encounter for checking and testing of cardiac pacemaker pulse generator [battery] (principal) ==

== ENCOUNTER → 2021-12-02 11:36 | Outpatient (BNVA) | payer MEDICARE, MEDICAID, SELFPAY | PROVIDERS: PCP Registered Nurse; Visit Provider Registered Nurse | DX: E11.9 Type 2 diabetes mellitus without complications (principal); Z79.4 Long term (current) use of insulin; E78.5 Hyperlipidemia, unspecified; I10 Essential (primary) hypertension; N39.0 Urinary tract infection, site not specified; A49.9 Bacterial infection, unspecified | CPT/HCPCS: 80053; 80061; 83036; 83721; 85025 ==

== ENCOUNTER → 2021-12-22 15:59 | Outpatient (BNVA) | payer MEDICARE, MEDICAID, SELFPAY | PROVIDERS: PCP Registered Nurse; Visit Provider Registered Nurse | DX: N39.0 Urinary tract infection, site not specified (principal) | CPT/HCPCS: 81000; 87086; 87106 ==

== ENCOUNTER → 2022-01-25 14:15 | Outpatient (BNVA) | payer MEDICARE, MEDICAID, SELFPAY | PROVIDERS: PCP Registered Nurse; Visit Provider Internal Medicine Cardiovascular Disease | DX: I25.10 Atherosclerotic heart disease of native coronary artery without angina pectoris (principal); Z95.0 Presence of cardiac pacemaker; E11.9 Type 2 diabetes mellitus without complications; Z79.4 Long term (current) use of insulin; I73.9 Peripheral vascular disease, unspecified; I11.0 Hypertensive heart disease with heart failure; I50.9 Heart failure, unspecified; I43 Cardiomyopathy in diseases classified elsewhere; E78.5 Hyperlipidemia, unspecified; R94.31 Abnormal electrocardiogram [ECG] [EKG]; I45.89 Other specified conduction disorders | CPT/HCPCS: 93005; 93280; 96372; 99214 ==

== ENCOUNTER 2022-02-07 17:59 | Emergency (ER) | payer MEDICARE, MEDICAID, SELFPAY ==
--- NOTE | 2022-02-07 18:03 | ECG_ITS ---
[facility] Test Date: 2022-02-07 Pat Name: Elisha Vickers Department: Room: Gender: Female Veterinary Anatomist: : 1950 Requested By: Jeet Rajput Order Number: [id number] Meryl MD: Allen Khan M.D. Measurements Intervals [place] Rate: 67 P: 52 SD: 174 QRS: -61 QRSD: 161 T: 91 QT: 450 QTc: 476 Interpretive Statements SINUS RHYTHM INTRAVENTRICULAR CONDUCTION DELAY [130+ ms QRS DURATION] LEFT VENTRICULAR HYPERTROPHY AND ST-T CHANGE [VOLTAGE CRITERIA PLUS ST/T ABNORMALITY] POSSIBLE ANTERIOR MYOCARDIAL INFARCTION , OF INDETERMINATE AGE [30 ms Q WAVE IN V3/V4, OR R < 0.2 mV IN V4] Compared to ECG 10/05/2020 15:06:29 Intraventricular conduction delay now present ST (T wave) deviation now present Right bundle-branch block no longer present Myocardial infarct finding still present Electronically Signed On 02-08-2022 16:27:41 CDT by Allen Khan M.D. [email or web address]
--- NOTE | 2022-02-07 18:03 | XRR_ITS ---
PROCEDURE INFORMATION: Exam: XR Chest Exam date and time: 02/07/2022 6:11 PM Age: 71 years old Clinical indication: Cough; Prior surgery; Surgery date: 6+ months; Surgery type: Pacemaker; Additional info: Dyspnea/cough TECHNIQUE: Imaging protocol: Radiologic exam of the chest. Views: 1 view. COMPARISON: CR XR chest 1V portable [id number] 10/05/2020 1:04 PM FINDINGS: Lungs: No consolidation. Pleural spaces: No pleural effusion. No pneumothorax. Heart/Mediastinum: Top-normal heart size for AP portable technique. Sequela of TAVR. Two lead pacer device noted in the left chest wall. Bones/joints: Unremarkable. XR/XR chest 1V portable [id number] IMPRESSION: No acute findings.
[2022-02-07 18:05] VITALS: BP 216/79; PULSE 98; RESP 18; TEMP 37; O2SAT 98; BMI 21.1
--- NOTE | 2022-02-07 18:26 | W.ED.GENADLT ---
HPI - General Adult General: Chief complaint: General Medical Stated complaint: HYPERGLYCEMIA/ HYPERTENSION Time Seen by Provider: 02/07/22 18:02 Source: patient and EMS Mode of arrival: EMS Limitations: no limitations History of Present Illness: 71-year-old female states that this afternoon she had an episode where she felt dizzy states she is suddenly [place] like the Room Was Spinning and Had Some Numbness Go down Her Right Arm. She Was Hypertensive and Blood Sugar Was High As Well. States Her Symptoms Have Improved Denies Any Pain Anywhere Denies Any Headache Denies Any Worsening Improving Factors. Associated symptoms: Deny chest pain, dyspnea, nausea, rash or vomiting Review of Systems Const: Denies: fever(s), chills, body aches or change in appetite Eyes: Denies: blurry vision or eye discomfort ENMT: Denies: throat pain or dental pain Card: Denies: chest pain Resp: Denies: dyspnea GI: Denies: abdominal pain, nausea, vomiting or diarrhea : Denies: dysuria Musc: Denies: neck pain or back pain Skin/Breast: Denies: rash Neuro: Reports: dizziness Psych: Denies: depression Jamaal/Lymph: Denies: easy bruising All/Imm: Denies: urticaria PFSH ED PFSH: Medical History Carotid stenosis, right Congestive heart failure with cardiomyopathy Essential hypertension Gangrene of right foot 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 Pacemaker Pre-operative clearance Valvular incompetence, mitral Venous insufficiency of both lower extremities Wound of right lower extremity Surgical History History of amputation of lesser toe of right foot History of heart artery stent History of transmetatarsal amputation of left foot Hx of foot surgery Hx of knee surgery Peripheral vascular angioplasty status with implants and grafts S/P TAVR (transcatheter aortic valve replacement) S/P transmetatarsal amputation of foot Family History Family/Other CAD (coronary artery disease) Chronic kidney disease (CKD) Mother Diabetes Stroke Father Lung disease Sister Lung disease Other Heart disease Denies family history of Clotting disorder Dementia Suicide Anesthesia complication Bleeding disorder Cancer Social History Smoking and tobacco status: never smoked Alcohol intake: never Adopted: No Caregiver/support person: No Lives independently: Yes service: No Current occupational status: disabled Sexually active: Yes Current gender identity: Female Physical Exam Const: COMMON NORMALS: no acute distress, patient oriented x3 and healthy appearing HENMT: COMMON NORMALS: normocephalic and atraumatic HEAD & SCALP: normocephalic and atraumatic Eye: COMMON NORMALS: Equal, round and reactive pupils present and EOMs intact bilaterally PUPIL: Yes Equal, round and reactive pupils present Neck/C-Spine: COMMON NORMALS: full ROM and supple Chest: COMMONS NORMALS: normal inspection of the chest and normal palpation of entire chest wall Resp: COMMON NORMALS: normal respiratory effort, No retractions, No use of accessory muscles and clear to auscultation bilaterally AUSCULTATION: clear to auscultation bilaterally Cardio: COMMON NORMALS: regular rate, regular rhythm and No murmurs present (Cardio) RATE: regular rate RHYTHM: regular rhythm GI: COMMON NORMALS: Normal to inspection, nondistended, normoactive bowel sounds present, Soft to palpation, non-tender and no masses PALPATION: Yes Soft to palpation Extremity: COMMON NORMALS: normal to inspection and full ROM Neuro: COMMON NORMALS: patient oriented x3, moves all extremities and no focal motor deficits Psych: COMMON NORMALS: mental status grossly normal, Normal thought process present and cooperative THOUGHT PROCESS: Normal thought process present Skin: COMMON NORMALS: no rashes or lesions noted and no wounds GENERAL SKIN EXAM: no rashes or lesions noted Course Vital Signs: Vital signs: Vital Signs Temperature 98.6 F 02/07/22 18:05 Pulse Rate 73 02/07/22 18:48 Respiratory Rate 18 02/07/22 18:05 Blood Pressure 176/81 02/07/22 21:14 Pulse Oximetry 97 02/07/22 18:48 Oxygen Delivery Me thod 02/07/22 18:05 MDM - General Adult Medical Decision Making Patient presents with dizziness symptoms likely vertigo she has had symptoms resolved after Antivert blood work here is normal CT is normal she has no signs of a stroke this is likely peripheral she is stable for discharge she is to follow-up with her PCP and return if worsening will prescribe her Antivert for home she understands agrees to plan. Lab Data : 02/07/22 18:33 02/07/22 18:33 Radiology Impressions Chest X-Ray 02/07/22 18:03 IMPRESSION: No acute findings. Head CT 02/07/22 18:54 IMPRESSION: No acute intracranial abnormality. Laboratory Results WBC 5.0 10^3/uL (4.0-10.0) 02/07/22 18:33 RBC 4.56 10^6/uL (4.1-5.3) 02/07/22 18: Hgb 13.1 g/dL (11.5-15.3) 02/07/22 18:33 Hct 40.6 % (37.0-47.0) 02/07/22 18: MCV 89.0 fl (81-99) 02/07/22 18: MCH 28.7 pg (28.0-34.0) 02/07/22 18: MCHC 32.3 g/dL (30.0-36.0) 02/07/22 18: RDW 15.0 % (12.1-15.1) 02/07/22 18:33 Plt Count 209 10^3/cmm (130-400) 02/07/22 18: MPV 10.7 fL (7.4-10.4) H 02/07/22 18:33 Neut % (Auto) 53.1 % 02/07/22 18: Lymph % (Auto) 34.1 % 02/07/22 18:33 [place] % (Auto) 8.4 % 02/07/22 18: Eos % (Auto) 3.4 % 02/07/22 18: Baso % (Auto) 0.8 % 02/07/22 18:33 Neut # (Auto) 2.64 10^3/uL (1.8-7.7) 02/07/22 18: Lymph # (Auto) 1.7 10^3/uL (0.8-4.8) 02/07/22 18: [place] # (Auto) 0.4 10^3/uL (0.2-0.9) 02/07/22 18:33 Eos # (Auto) 0.2 10^3/uL (0.0-0.8) 02/07/22 18:33 Baso # (Auto) 0.0 10^3/uL (0.0-0.1) 02/07/22 18:33 Nucleated RBC % (auto) 0 % 02/07/22 18:33 Nucleated RBCs # 0.0 /100WBC 02/07/22 18:33 Sodium 140 mmol/L (136-145) 02/07/22 18:33 Potassium 3.9 mmol/L (3.5-5.1) 02/07/22 18:33 Chloride 105 mmol/L (98-107) 02/07/22 18:33 Carbon Dioxide 27 mmol/L (22-29) 02/07/22 18:33 Anion Gap 11.9 (5-19) 02/07/22 18:33 BUN 16 mg/dL (8-23) 02/07/22 18:33 Creatinine 0.5 mg/dL (0.5-0.9) 02/07/22 18:33 GFR Calculation Not Reportable 02/07/22 18:33 Glucose 186 mg/dL (65-115) H 02/07/22 18:33 Calculated Osmolality 296 mOsm/kg (285-295) H 02/07/22 18:33 Calcium 8.5 mg/dL (8.5-10.5) 02/07/22 18:33 Total Bilirubin 0.4 mg/dL (0.15-1.2) 02/07/22 18:33 AST 10 U/L (0-32) 02/07/22 18:33 ALT 12 U/L (0-33) 02/07/22 18:33 Alkaline Phosphatase 90 U/L (35-105) 02/07/22 18:33 Troponin T Baseline 23 ng/L (0-10) H 02/07/22 18:33 Troponin T 120 Minute 24.11 ng/L (0-10) H 02/07/22 20:24 Delta Troponin T 1.11 ABS# (0-10) 02/07/22 20:24 Total Protein 6.5 g/dL (6.6-8.7) L 02/07/22 18:33 Albumin 4.2 g/dL (3.5-5.2) 02/07/22 18:33 Globulin 2.3 g/dL (1.3-4.6) 02/07/22 18:33 TSH 3.13 uIU/mL (0.27-4.20) 02/07/22 18:33 EKG Data EKG 1: I personally reviewed and interpreted this EKG as follows: EKG interpretation date: 02/07/22 EKG interpretation time: 19:27 Interpretation: nsr hr [address] or t wave abnormalities qrs 161 qtc 465 Computer generated interpretation: Chest X-Ray 02/07/22 18:03 IMPRESSION: No acute findings. Head CT 02/07/22 18:54 IMPRESSION: No acute intracranial abnormality. Discharge Plan Discharge Patient Disposition: Home Clinical Impression: Essential hypertension, Vertigo Condition: Stable Prescriptions: New meclizine 25 mg tablet 25 mg PO TID PRN (Reason: dizziness) Qty: 20 0RF No Action (DME) Wheelchair See Rx Instructions .Route .MEDSUPPLY Qty: 1 0RF Rx Instructions: As directed (DME) Electric Wheelchair See Rx Instructions .Route .MEDSUPPLY Qty: 1 0RF Rx Instructions: As directed Lantus Solostar U-100 Insulin 100 unit/mL (3 mL) insulin pen 25 unit SUBCUT BID (DME) Lift Chair See Rx Instructions .Route .MEDSUPPLY Qty: 1 0RF Rx Instructions: As directed (DME) pen needle, diabetic [BD Domenica 2nd Gen Pen Needle] 32 gauge x 5/32 needle See Rx Instructions .ROUTE .COMPLEX Qty: 100 0RF Dose Instruction: USE TWICE DAILY Rx Instructions: USE TWICE DAILY insulin aspart U-100 [Novolog Flexpen U-100 Insulin] 100 unit/mL (3 mL) insulin pen See Rx Instructions .ROUTE .COMPLEX Qty: 15 0RF Dose Instruction: INJECT SUBCUTANEOUSLY THREE TIMES DAILY PER SLIDING SCALE. MAX DAILY AMOUNT: 100 UNITS Rx Instructions: INJECT SUBCUTANEOUSLY THREE TIMES DAILY PER SLIDING SCALE. MAX DAILY AMOUNT: 100 UNITS (DME) lancets [OneTouch Delica Lancets] 33 gauge misc See Rx Instructions .Route Qty: 100 0RF Rx Instructions: USE 3 TIMES DAILY (DME) OneTouch Ultra Test Strip See Rx Instructions .Route Qty: 100 0RF Rx Instructions: TEST THREE TIMES DAILY (DME) Dexcom G6 Medical Tech Misc See Rx Instructions .Route Qty: 1 0RF Rx Instructions: As directed (DME) Dexcom G6 Sensor Device See Rx Instructions .Route Qty: 3 0RF Rx Instructions: As directed (DME) Dexcom G6 Transmitter Device See Rx Instructions .Route Qty: 1 0RF Rx Instructions: As directed aspirin 81 mg Tablet,Delayed Release (Dr/Ec) 81 mg PO QAM clopidogrel 75 mg tablet 75 mg PO DAILY metoprolol succinate 25 mg tablet extended release 24 hr 25 mg PO DAILY lisinopril 40 mg tablet 40 mg PO DAILY Xarelto 20 mg tablet 20 mg PO DAILY Rybelsus 3 mg tablet 3 mg PO DAILY Discharge Orders: Discharge ED (Routine); Ordered 02/07/22 Ordered By: Kaur Vaughan Referrals: Gloria Escobar, [employer] [Primary Care Provider] - Discharge Diet: Advance as tolerated Discharge Activity: Resume usual activity Patient Instructions: Vertigo (ED) Coding Level of Care Code ED Last Dipper for Rowena 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 NIH stroke score NIHSS Level Of Consciousness - 1a: 0 Level Of Consciousness Questions - 1b: Both Correct Level Of Consciousness Commands - 1c: Both Correct Best Gaze - 2: Normal Visual Prieto - 3: No Visual Loss Facial Palsy - 4: Normal Motor Arm Right - 5: No Drift Motor Arm Left - 5: No Drift Motor Leg Right - 6: No Drift Motor Leg Left - 6: No Drift Limb Ataxia - 7: Absent Sensory - 8: Normal Best Language - 9: No Aphasia Dysarthia - 10: Normal Extinction And Inattention - 11: 0 Score Total Score: 0
[2022-02-07] MEDS: meclizine 25 mg tablet 50 MG PO (18:42)
[2022-02-07] MEDS: hyDRALAzine 20 mg/mL INJ 1 mL 10 MG IVP (18:42)
[2022-02-07 18:48] VITALS: BP 193/82; PULSE 73; O2SAT 97
--- NOTE | 2022-02-07 18:54 | CTR_ITS ---
PROCEDURE INFORMATION: Exam: CT Head Without Contrast Exam date and time: 02/07/2022 7:12 PM Age: 71 years old Clinical indication: Dizziness; Prior surgery; Surgery type: Cataract; Additional info: Dizzy TECHNIQUE: Imaging protocol: Computed tomography of the head without contrast. Radiation optimization: All CT scans at this facility use at least one of these dose optimization techniques: automated exposure control; mA and/or kV adjustment per patient size (includes targeted exams where dose is matched to clinical indication); or iterative reconstruction. COMPARISON: No relevant prior studies available. RADIATION DOSE METRICS: Total DLP (mGy-cm): 1076.98 FINDINGS: Brain: No hemorrhage. No edema. Moderate diffuse cerebral atrophy. Old lacunar infarct in the left thalamus. No mass effect. Cerebral ventricles: No ventriculomegaly. Paranasal sinuses: Visualized sinuses are unremarkable. No fluid levels. Mastoid air cells: Visualized mastoid air cells are well aerated. Bones/joints: Unremarkable. No acute fracture. Soft tissues: Unremarkable. CT/CT head wo con* [id number] IMPRESSION: No acute intracranial abnormality.
[2022-02-07 18:57] LABS: Basophils % 0.8 %; Eosinophils # 0.2 10^3/uL (0.0-0.8); Eosinophils % 3.4 %; Hematocrit 40.6 % (37.0-47.0); Hemoglobin 13.1 g/dL (11.5-15.3); Lymphocytes # 1.7 10^3/uL (0.8-4.8); Lymphocytes % 34.1 %; Mean Corpuscular HGB Conc 32.3 g/dL (30.0-36.0); Mean Corpuscular Hemoglobin 28.7 pg (28.0-34.0); Mean Platelet Volume 10.7 fL (7.4-10.4); Monocytes # 0.4 10^3/uL (0.2-0.9); Monocytes % 8.4 %; Neutrophils # 2.64 10^3/uL (1.8-7.7); Neutrophils % 53.1 %; Nucleated Red Blood Cells % 0 %; Platelet Count 209 10^3/cmm (130-400); Red Blood Count 4.56 10^6/uL (4.1-5.3)
[2022-02-07 19:19] LABS: Troponin(5th) Baseline 23 ng/L (0-10)
[2022-02-07 19:26] LABS: Alanine Aminotransferase 12 U/L (0-33); Albumin Level 4.2 g/dL (3.5-5.2); Alkaline Phosphatase 90 U/L (35-105); Aspartate Amino Transferase 10 U/L (0-32); Blood Urea Nitrogen 16 mg/dL (8-23); Calcium 8.5 mg/dL (8.5-10.5); Carbon Dioxide 27 mmol/L (22-29); Chloride 105 mmol/L (98-107); Globulin 2.3 g/dL (1.3-4.6); Glucose 186 mg/dL (65-115); Potassium 3.9 mmol/L (3.5-5.1); Thyroid Stimulating Hormone 3.13 uIU/mL (0.27-4.20); Total Bilirubin 0.4 mg/dL (0.15-1.2); Total Protein 6.5 g/dL (6.6-8.7)
[2022-02-07 19:35] LABS: Anion Gap 11.9 (5-19); Osmolality Calculated 296 mOsm/kg (285-295); Sodium 140 mmol/L (136-145)
[2022-02-07 20:57] LABS: Troponin 5 2HR 24.11 ng/L (0-10)
[2022-02-07 20:59] LABS: Troponin 5 2HR Delta 1.11 ABS# (0-10)
[2022-02-07 21:14] VITALS: BP 176/81
[2022-02-07 21:55] VITALS: BP 174/80; PULSE 63; RESP 16; O2SAT 96
== END 2022-02-07 21:45 | disposition home or self-care (01) ==
PROVIDERS: Family Medicine; Emergency Provider Emergency Medicine; PCP Registered Nurse
DX: I11.0 Hypertensive heart disease with heart failure (principal); I50.9 Heart failure, unspecified; R42 Dizziness and giddiness; Z79.02 Long term (current) use of antithrombotics/antiplatelets; Z79.82 Long term (current) use of aspirin; Z79.4 Long term (current) use of insulin; Z95.0 Presence of cardiac pacemaker
CPT/HCPCS: 70450; 71045; 80053; 84443; 84484; 85025; 93005; 96374; 99285; J0360; J8597

== ENCOUNTER → 2022-02-28 10:47 | Outpatient (BNVA) | payer MEDICARE, MEDICAID, SELFPAY | PROVIDERS: PCP Registered Nurse; Visit Provider Registered Nurse | DX: E11.9 Type 2 diabetes mellitus without complications (principal); Z79.4 Long term (current) use of insulin; I10 Essential (primary) hypertension | CPT/HCPCS: 83036 ==

== ENCOUNTER 2022-04-15 13:45 | Outpatient (CLI) | payer MEDICARE, MEDICAID, SELFPAY ==
--- NOTE | 2022-04-15 14:30 | USCV_ITS ---
Elisha Vickers Age: 71 Gender: F : 1950 Exam Date: 04/15/2022 14:30 Ordering Phys: Stephanie Parks MD ([email or web address]) Technologist: TORI [place] [facility] [place]: TAVR BP: 157 / 80 HR: 64 Rhythm: Sinus Technical Quality: Adequate MEASUREMENTS (Male / Female) Normal Values 2D ECHO LVOT Diameter 2.0 cm LV Ejection Fraction MOD 2C 71.5 % LV Ejection Fraction 2C AL 76.2 % LA Diameter 3.4 cm LA Width 3.9 cm LA Height 4.2 cm RA Width 3.8 cm RA Height 4.2 cm Aorta at Sinotubular Diameter 1.9 cm IVC Diameter 2.2 cm M-MODE Aortic Annulus Diameter 2.3 cm LA Ao Ratio MM 1.4 MV E Point Septal Separation 0.6 cm DOPPLER AV Peak Velocity 174.0 cm/s LVOT Peak Velocity 106.0 cm/s AV Area Cont Eq vti 2.5 cm squared AV Area Cont Eq pk 1.9 cm squared MV Peak Velocity 157.0 cm/s MV Area PHT 2.2 cm squared Mitral E to A Ratio 0.7 MV E' Velocity 53.5 cm/s Mitral E to MV E' Ratio 19.2 Mitral E to LV E' Lateral Ratio 22.6 Mitral E to LV E' Septal Ratio 16.7 TR Peak Velocity 253.0 cm/s TR Peak Gradient 25.6 mmHg TR Mean Velocity 201.7 cm/s TR Mean Gradient 17.3 mmHg TR Velocity Time Integral 81.5 cm TV Peak E Velocity 61.0 cm/s Right Atrial Pressure 3.0 mmHg Pulmonary Artery Systolic Pressu 28.6 mmHg PV Peak Velocity 114.0 cm/s RV Acceleration Time 0.1 s RV Ejection Time 0.3 s RV AcT/ET 0.5 FINDINGS Left Ventricle Normal left ventricular size and systolic function, EF 65 %. Moderate left ventricular hypertrophy. Grade I/IV diastolic dysfunction (abnormal relaxation filling pattern), normal to mildly elevated filling pressures. Right Ventricle The right ventricle is normal in size and function. Right Atrium The right atrium is normal in size. Left Atrium Mildly increased left atrial size. Mitral Valve Moderate mitral annular calcification. Aortic Valve The bioprosthetic valve in the aortic position appears to be jutting somewhat into the LV outflow tract. Doppler flow velocity across the aortic valve was 1.74 m/s. Tricuspid Valve No gross abnormalities noted.trace to mild tricuspid valve regurgitation. Pulmonic Valve Not visualized well Pericardium Normal pericardium without effusion. Aorta Normal ascending aorta dimension. IVC Normal size CONCLUSIONS Normal left ventricular size and systolic function, EF 65 %. Moderate left ventricular hypertrophy. Grade I/IV diastolic dysfunction (abnormal relaxation filling pattern), normal to mildly elevated filling pressures. The bioprosthetic valve in the aortic position appears to be jutting somewhat into the LV outflow tract. Doppler flow velocity across the aortic valve was 1.74 m/s. Moderate mitral annular calcification. Mildly increased left atrial size. There is no pericardial effusion. Trace to mild tricuspid valve regurgitation. Estimated pulmonary artery peak systolic pressure 29 mmHg There are no intracardiac masses. No previous study is available for comparison. Dr Stephanie Parks MD FACC (Electronically Signed) Final Date: 15 April 2022 19:08 S
== END 2022-04-15 13:46 | disposition home or self-care (01) ==
PROVIDERS: PCP Registered Nurse; Visit Provider Internal Medicine Cardiovascular Disease
DX: R06.09 Other forms of dyspnea (principal); I34.81 Nonrheumatic mitral (valve) annulus calcification; I07.1 Rheumatic tricuspid insufficiency; Z95.2 Presence of prosthetic heart valve
CPT/HCPCS: 93306

== ENCOUNTER → 2022-05-27 09:43 | Outpatient (BNVA) | payer MEDICARE, MEDICAID, SELFPAY | PROVIDERS: PCP Registered Nurse; Visit Provider Registered Nurse | DX: E11.9 Type 2 diabetes mellitus without complications (principal); Z79.4 Long term (current) use of insulin; Z95.0 Presence of cardiac pacemaker | CPT/HCPCS: 83036; 93280 ==

== ENCOUNTER → 2022-08-04 14:19 | Outpatient (BNVA) | payer MEDICARE, MEDICAID, SELFPAY | PROVIDERS: PCP Registered Nurse; Visit Provider Nurse Practitioner Family | DX: I25.10 Atherosclerotic heart disease of native coronary artery without angina pectoris (principal); Z95.0 Presence of cardiac pacemaker; I11.0 Hypertensive heart disease with heart failure; I50.9 Heart failure, unspecified; I42.9 Cardiomyopathy, unspecified | CPT/HCPCS: 99214 ==

== ENCOUNTER → 2022-08-18 08:55 | Outpatient (BNVA) | payer MEDICARE, MEDICAID, SELFPAY | PROVIDERS: PCP Registered Nurse; Visit Provider Registered Nurse | DX: E11.9 Type 2 diabetes mellitus without complications (principal); E78.5 Hyperlipidemia, unspecified; I10 Essential (primary) hypertension; Z79.4 Long term (current) use of insulin | CPT/HCPCS: 80053; 80061; 83036; 85025 ==

== ENCOUNTER 2022-09-13 17:01 | Inpatient (IN) | payer MEDICARE, MEDICAID, SELFPAY ==
[2022-09-13 17:15] VITALS: BP 142/73; PULSE 84; RESP 16; TEMP 36.5; O2SAT 96; BMI 28.1
--- NOTE | 2022-09-13 17:29 | ED_ITS ---
HPI - Extremity Problem General: Chief complaint: Extremity Injury, Lower Stated complaint: Feet in pain Time Seen by Provider: 09/13/22 17:23 Source: patient and family Mode of arrival: wheelchair Limitations: no limitations History of Present Illness: Patient is a 71-year-old female here along with he r daughter for concerns of a left foot diabetic ulcer/infection. Patient has a longstanding history of diabetic infections. She has had a right above-knee amputation. She has had a left forefoot amputation. Patient states she had a nickel sized ulcer to the left foot over the course of the last week or so that she has been doctoring at home . Daughter states yesterday when they went to change the dressing they noticed a second much larger foul-smelling necrotic ulcer. They apparently were seen by their primary care provider who sent them to the ED for admission/IV antibiotics. Patient states she is not running fevers. Patient reports a burning sensation to the foot consistent with her diabetic neuropathy. PMH significant for HTN, DM, right carotid stenosis, CHF, pacemaker placement, peripheral arterial disease, mitral valve incompetence, venous sufficiency of bilateral lower extremities. MD Complaint: extremity pain, extremity swelling and other (diabetic ulcer) Onset (ago): day(s) Pain Consistency: constant Location: left and lower extremity (foot) Quality: burning Radiation: none Relieving factors: nothing Exacerbating factors: nothing Associated symptoms: Reports no associated symptoms; Deny chest pain or fever(s) Review of Systems Const: Denies: fever(s), chills, body aches, fatigue or malaise Card: Denies: chest pain Resp: Denies: dyspnea Musc: Reports: extremity pain and extremity swelling; Denies: neck pain, back pain, joint pain or joint swelling Skin/Breast: Reports: other (diabetic ulcer) Neuro: Denies: numbness in extremities or sensory changes [facility] ED PFSH: Medical History Carotid stenosis, right Congestive heart failure with cardiomyopathy Essential hypertension Gangrene of right foot 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 Pacemaker Pre-operative clearance Valvular incompetence, mitral Venous insufficiency of both lower extremities Wound of right lower extremity Surgical History History of amputation of lesser toe of right foot History of heart artery stent History of transmetatarsal amputation of left foot Hx of foot surgery Hx of knee surgery Peripheral vascular angioplasty status with implants and grafts S/P TAVR (transcatheter aortic valve replacement) S/P transmetatarsal amputation of foot Family History Family/Other CAD (coronary artery disease) Chronic kidney disease (CKD) Mother Diabetes Stroke Father Lung disease Sister Lung disease Other Heart disease Denies family history of Clotting disorder Dementia Suicide Anesthesia complication Bleeding disorder Cancer Social History Smoking and tobacco status: never smoked Alcohol intake: never Adopted: No Caregiver/support person: No Lives independently: Yes service: No Current occupational status: disabled Sexually active: Yes Current gender identity: Female Physical Exam Const: COMMON NORMALS: no acute distress, patient oriented x3, no limitations and alert GENERAL APPEARANCE: cooperative ORIENTATION/CONSCIOUSNESS: Yes a wake, Yes oriented to person, Yes oriented to place and Yes oriented to time OTHER: chronically ill appearing HENMT: COMMON NORMALS: normocephalic and atraumatic HEAD & SCALP: normal to inspection, normocephalic and atraumatic Resp: COMMON NORMALS: normal respiratory effort and clear to auscultation bilaterally AUSCULTATION: clear to auscultation bilaterally Cardio: COMMON NORMALS: regular rate and regular rhythm RATE: regular rate RHYTHM: regular rhythm Extremity: GENERAL: Yes normal exam except as noted OTHER: R above knee amputation L forefoot amputation-patient has one nickel sized ulcer to the lateral aspect of the foot that is stage III with clear drainage and no surrounding erythema- more towards the hindfoot, she has a much larger 1.5in necrotic foul smelling ulcer that is stage III/IV with surrounding erythema Neuro: COMMON NORMALS: patient oriented x3 SENSORIUM/ORIENTATION: Yes alert, Yes oriented to person, Yes oriented to place and Yes oriented to time Skin: NARRATIVE SKIN EXAM: see extremity assessment for pertinent skin findings Course Consultations: Consultation #1: Dr. Parker-will consult on patient while in hospital-plan for OR/surgical debridement Consultation #2: Dr. Kemp-accepts hospital admission Vital Signs: Vital signs: Vital Signs Temperature 97.7 F 09/13/22 17:15 Pulse Rate 79 09/13/22 18:13 Respiratory Rate 16 09/13/22 17:15 Blood Pressure 145/78 09/13/22 18:13 Pulse Oximetry 96 09/13/22 18:13 Oxygen Delivery Me thod 09/13/22 18:13 MDM - Extremity (Nontraumatic) Medical Decision Making Patient is a 71-year-old uncontrolled diabetic here for an infected left foot ulcer. Wound will require IV antibiotics and surgical debridement. I spoken to Dr. Kemp who will accept admission. I spoken to Dr. Parker who will consult on patient. Patient has been started on Vancomycin/Zosyn. Blood and wound cultures obtained and pending. Lab Data 09/13/22 17:48 09/13/22 17:48 Radiology Impressions Foot X-Ray 09/13/22 17:39 IMPRESSION: 1. No acute skeletal finding. 2. Amputation of the 1st through 5th toes. Chest X-Ray 09/13/22 18:50 IMPRESSION: No acute findings. Laboratory Results WBC 10.1 10^3/uL (4.0-10.0) H 09/13/22 17:48 RBC 3.58 10^6/uL (4.1-5.3) L 09/13/22 17:48 Hgb 9.7 g/dL (11.5-15.3) L 09/13/22 17:48 Hct 31.3 % (37.0-47.0) L 09/13/22 17:48 MCV 87.4 fl (81-99) 09/13/22 17:48 MCH 27.1 pg (28.0-34.0) L 09/13/22 17:48 MCHC 31.0 g/dL (30.0-36.0) 09/13/22 17:48 RDW 16.1 % (12.1-15.1) H 09/13/22 17:48 Plt Count 324 10^3/cmm (130-400) 09/13/22 17:48 MPV 10.0 fL (7.4-10.4) 09/13/22 17:48 Neut % (Auto) 78.5 % 09/13/22 17:48 Lymph % (Auto) 13.1 % 09/13/22 17:48 [place] % (Auto) 6.1 % 09/13/22 17:48 Eos % (Auto) 1.4 % 09/13/22 17:48 Baso % (Auto) 0.4 % 09/13/22 17:48 Neut # (Auto) 7.96 10^3/uL (1.8-7.7) H 09/13/22 17:48 Lymph # (Auto) 1.3 10^3/uL (0.8-4.8) 09/13/22 17:48 [place] # (Auto) 0.6 10^3/uL (0.2-0.9) 09/13/22 17:48 Eos # (Auto) 0.1 10^3/uL (0.0-0.8) 09/13/22 17:48 Baso # (Auto) 0.0 10^3/uL (0.0-0.1) 09/13/22 17:48 Nucleated RBC % (auto) 0 % 09/13/22 17:48 Nucleated RBCs # 0.0 /100WBC 09/13/22 17:48 ESR 50 mm/hr (0-15) H 09/13/22 17:48 Sodium 140 mmol/L (136-145) 09/13/22 17:48 Potassium 3.8 mmol/L (3.5-5.1) 09/13/22 17:48 Chloride 104 mmol/L (98-107) 09/13/22 17:48 Carbon Dioxide 25 mmol/L (22-29) 09/13/22 17:48 Anion Gap 14.8 (5-19) 09/13/22 17:48 BUN 17 mg/dL (8-23) 09/13/22 17:48 Creatinine 0.6 mg/dL (0.5-0.9) 09/13/22 17:48 GFR Calculation Not Reportable 09/13/22 17:48 Glucose 181 mg/dL (65-115) H 09/13/22 17:48 Calculated Osmolality 296 mOsm/kg (285-295) H 09/13/22 17:48 Lactic Acid 0.8 mmol/L (0.5-2.2) 09/13/22 17:48 Calcium 8.2 mg/dL (8.5-10.5) L 09/13/22 17:48 Total Bilirubin 0.4 mg/dL (0.15-1.2) 09/13/22 17:48 AST 6 U/L (0-32) 09/13/22 17:48 ALT 7 U/L (0-33) 09/13/22 17:48 Alkaline Phosphatase 88 U/L (35-105) 09/13/22 17:48 C-Reactive Protein 121.4 mg/L (0.0-4.9) H 09/13/22 17:48 Total Protein 6.6 g/dL (6.6-8.7) 09/13/22 17:48 Albumin 3.2 g/dL (3.5-5.2) L 09/13/22 17:48 Globulin 3.4 g/dL (1.3-4.6) 09/13/22 17:48 Discharge Plan Discharge Patient Disposition: Admitted As Inpatient Clinical Impression: Cellulitis of left foot, Uncontrolled diabetes mellitus Diabetic foot ulcer Qualifiers: Diabetic foot ulcer location: midfoot Diabetes mellitus type: type 2 Laterality: left Non-pressure ulcer stage: with necrosis of muscle Qualified Code(s): E11.621 - Type 2 diabetes mellitus with foot ulcer Condition: Stable Coding Level of Care Code ED Reimbursement Coordinator for Rowena Chamorro
--- NOTE | 2022-09-13 17:39 | XRR_ITS ---
PROCEDURE INFORMATION: Exam: XR Left Foot Exam date and time: 09/13/2022 6:04 PM Age: 71 years old Clinical indication: Other: Infection/diabetic ulcer; Prior surgery; Surgery type: All the toes TECHNIQUE: Imaging protocol: Radiologic exam of the left foot. Views: 3 or more views. COMPARISON: No relevant prior studies available. FINDINGS: Bones/joints: Amputation of the left toes at the level of the proximal metatarsals. The bones are otherwise intact and in normal alignment. No bone destruction visualized. Soft tissues: Lateral skin irregularity. XR/XR foot LT min 3V* [id number] IMPRESSION: 1. No acute skeletal finding. 2. Amputation of the 1st through 5th toes.
[2022-09-13 18:08] LABS: Basophils % 0.4 %; Eosinophils # 0.1 10^3/uL (0.0-0.8); Eosinophils % 1.4 %; Hematocrit 31.3 % (37.0-47.0); Hemoglobin 9.7 g/dL (11.5-15.3); Lymphocytes # 1.3 10^3/uL (0.8-4.8); Lymphocytes % 13.1 %; Mean Corpuscular Hemoglobin 27.1 pg (28.0-34.0); Mean Corpuscular Volume 87.4 fl (81-99); Monocytes # 0.6 10^3/uL (0.2-0.9); Monocytes % 6.1 %; Neutrophils # 7.96 10^3/uL (1.8-7.7); Neutrophils % 78.5 %; Nucleated Red Blood Cells % 0 %; Platelet Count 324 10^3/cmm (130-400); Red Blood Count 3.58 10^6/uL (4.1-5.3); Red Cell Distribution Width 16.1 % (12.1-15.1); White Blood Count 10.1 10^3/uL (4.0-10.0)
[2022-09-13 18:10] LABS: Erythrocyte Sedimentation Rate 50 mm/hr (0-15)
[2022-09-13 18:13] VITALS: BP 145/78; PULSE 79; O2SAT 96
[2022-09-13 18:24] LABS: Alanine Aminotransferase 7 U/L (0-33); Albumin Level 3.2 g/dL (3.5-5.2); Alkaline Phosphatase 88 U/L (35-105); Anion Gap 14.8 (5-19); Aspartate Amino Transferase 6 U/L (0-32); Blood Urea Nitrogen 17 mg/dL (8-23); C Reactive Protein 121.4 mg/L (0.0-4.9); Calcium 8.2 mg/dL (8.5-10.5); Carbon Dioxide 25 mmol/L (22-29); Chloride 104 mmol/L (98-107); Creatinine Clr Calc Pharmacy 68.8332; Globulin 3.4 g/dL (1.3-4.6); Glucose 181 mg/dL (65-115); Osmolality Calculated 296 mOsm/kg (285-295); Potassium 3.8 mmol/L (3.5-5.1); Sodium 140 mmol/L (136-145); Total Bilirubin 0.4 mg/dL (0.15-1.2); Total Protein 6.6 g/dL (6.6-8.7)
[2022-09-13 18:25] LABS: Lactic Sepsis W/Reflex 0.8 mmol/L (0.5-2.2)
[2022-09-13] MEDS: piperacillin-tazobactam 3.375 GM in sodium chloride 0.9% (plus) 50 ML IV (18:42)
--- NOTE | 2022-09-13 18:50 | ECG_ITS ---
[facility] Test Date: 2022-09-13 Pat Name: Elisha Vickers Department: Room: Gender: Female Enforcement Officer: : 1950 Requested By: Polly Lange Order Number: [id number] Meryl MD: Allen Khan M.D. Measurements Intervals [place] Rate: 75 P: 134 [place]: 152 QRS: -32 QRSD: 145 T: 145 QT: 451 QTc: 504 Interpretive Statements SINUS RHYTHM POSSIBLE LEFT ATRIAL ENLARGEMENT [-0.1mV P-WAVE IN V1/V2] LEFT AXIS DEVIATION [QRS AXIS < -30] RIGHT BUNDLE BRANCH BLOCK [120+ ms QRS DURATION, UPRIGHT V1, 40+ ms S IN I/aVL/V4/V5/V6] LEFT VENTRICULAR HYPERTROPHY AND ST-T CHANGE [VOLTAGE CRITERIA PLUS ST/T ABNORMALITY] POSSIBLE ANTEROSEPTAL MYOCARDIAL INFARCTION , OF INDETERMINATE AGE [30 ms Q WAVE IN V1-V4] Compared to ECG 02/07/2022 19:27:39 Left-axis deviation now present Right bundle-branch block now present Intraventricular conduction delay no longer present ST (T wave) deviation still present Myocardial infarct finding still present Electronically Signed On 09-14-2022 8:09:17 CDT by Allen Khan M.D. [email or web address]
--- NOTE | 2022-09-13 18:50 | XRR_ITS ---
PROCEDURE INFORMATION: Exam: XR Chest Exam date and time: 09/13/2022 6:57 PM Age: 71 years old Clinical indication: Other: Admission/surgery TECHNIQUE: Imaging protocol: Radiologic exam of the chest. Views: 1 view. COMPARISON: CR XR chest 1V portable [id number] 02/07/2022 6:11 PM FINDINGS: Tubes, catheters and devices: Clips in the neck. Intact dual lead left subclavian pacemaker. Heart valve prosthesis. Lungs: Mild atelectasis in the lung bases. The lungs are otherwise clear. Pleural spaces: Unremarkable. No pleural effusion. No pneumothorax. Heart/Mediastinum: Mild cardiomegaly. Bones/joints: Degenerative acromioclavicular joints. XR/XR chest 1V portable [id number] IMPRESSION: No acute findings.
[2022-09-13 19:00] VITALS: BP 133/67; PULSE 85; RESP 16; O2SAT 96
[2022-09-13] MEDS: vancomycin 1,000 MG in sodium chloride 0.9% 250 ML 250 MG IV (19:29)
--- NOTE | 2022-09-13 19:51 | PM.CONSULT ---
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 Patient also has history of right BKA. Other comorbidities include HTN, DM, severe PAD (status post revascularization attempts). Patient states that she had a wound develop over the course the past couple weeks. She has been doctoring at home. Yesterday, they went to change the dressing and they noticed a new ulceration on the lateral aspect of the left foot that was much larger and foul-smelling. The patient's daughter advised her to present to the emergency department yesterday 09/12/2022 to which the patient refused. She saw her primary care provider Dr. Gloria TSANG for worsening left foot infection. She was advised to present to the emergency department for admission and IV antibiotics. Patient was hesitant about presenting to the emergency department but after discussion with her primary care provider she presented to the emergency department. Work-up in the emergency department revealed that patient was mildly leukocytotic with a count of 10.1. CRP and ESR were also noted to be elevated. Of note, patient had necrotic foul-smelling wound to lateral aspect of left foot. Podiatry was consulted for work-up and evaluation as well as possible surgical intervention. Patient was started on broad-spectrum IV antibiotics which include vancomycin and Zosyn. Review of Systems General: Reports: 10 or more systems reviewed and unremarkable except in HPI and below Const: Denies: fever(s), chills, body aches or change in appetite Eyes: Denies: change in vision or blurry vision Card: Denies: chest pain, palpitations or irregular heart rhythm Resp: Denies: dyspnea GI: Denies: abdominal pain, nausea, vomiting or diarrhea Musc: Reports: joint stiffness Skin/Breast: Reports: non-healing lesions and lesions Neuro: Reports: numbness in extremities Medications/Allergies Home Medications Medication Instructions Recorded Confirmed Last Taken Type Wheelchair #1 ea 12/11/20 09/13/22 Unknown Rx aspirin 81 mg tablet,delayed 81 mg PO QAM 01/19/21 09/13/22 09/13/22 History release Electric Wheelchair #1 ea 04/20/21 09/13/22 Unknown Rx pen needle, diabetic 32 gauge x #100 ea 11/01/21 09/13/22 Unknown Rx (BD Domenica 2nd Gen Pen Needle) blood sugar diagnostic (OneTouch #100 ea 11/12/21 09/13/22 Unknown Rx Ultra Test strips) lancets 33 gauge (OneTouch Delica #100 ea 11/12/21 09/13/22 Unknown Rx Lancets) Lift Chair #1 ea 12/03/21 09/13/22 Unknown Rx Novolog FlexPen U-100 Insulin 100 See Rx Instructions .Route 04/13/22 09/13/22 Unknown Rx unit/mL (3 mL) subcutaneous .COMPLEX #15 mL (insulin aspart U-100) insulin glargine 100 unit/mL (3 See Rx Instructions .Route 08/17/22 09/13/22 09/13/22 Rx mL) subcutaneous pen (Lantus .COMPLEX #15 mL Solostar U-100 Insulin) semaglutide 3 mg tablet (Rybelsus) See Rx Instructions .Route 09/09/22 09/13/22 09/13/22 Rx .COMPLEX #30 tabs clopidogrel 75 mg tablet 75 mg PO DAILY 09/13/22 09/13/22 09/13/22 History lisinopril 40 mg tablet 40 mg PO DAILY 09/13/22 09/13/22 09/13/22 History metoprolol succinate 25 mg 25 mg PO DAILY 09/13/22 09/13/22 09/13/22 History tablet,extended release 24 hr rivaroxaban 20 mg tablet (Xarelto) 20 mg PO DAILY 09/13/22 09/13/22 09/13/22 History Allergies Allergy/AdvReac Type Severity Reaction Status Date / Time ceftriaxone [From Rocephin] Allergy Severe cardiac Verified 09/13/22 14:02 arrest atorvastatin [From Lipitor] Allergy Unknown UNKNOWN Verified 09/13/22 14:02 Hhbtfsb-VED-CiJ Reductase Allergy Unknown UNKNOWN Verified 09/13/22 14:02 Inhibitor [Eghmknq-Zgu-Kpu Reductase Inhibitor] Rocephin Allergy Unknown Unknown Uncoded 09/13/22 14:02 PFSH Acute PFSH: Medical History Carotid stenosis, right Congestive heart failure with cardiomyopathy Essential hypertension Gangrene of right foot 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 Pacemaker Pre-operative clearance Valvular incompetence, mitral Venous insufficiency of both lower extremities Wound of right lower extremity Surgical History History of amputation of lesser toe of right foot History of heart artery stent History of transmetatarsal amputation of left foot Hx of foot surgery Hx of knee surgery Peripheral vascular angioplasty status with implants and grafts S/P TAVR (transcatheter aortic valve replacement) S/P transmetatarsal amputation of foot Family History Family/Other CAD (coronary artery disease) Chronic kidney disease (CKD) Mother Diabetes Stroke Father Lung disease Sister Lung disease Other Heart disease Denies family history of Clotting disorder Dementia Suicide Anesthesia complication Bleeding disorder Cancer Social History Smoking and tobacco status: never smoked Alcohol intake: never Adopted: No Caregiver/support person: No Lives independently: Yes service: No Current occupational status: disabled Sexually active: Yes Current gender identity: Female Vitals/I&O/Wt Last Vital Signs Temp 97.7 F 09/13/22 17:15 Pulse 85 09/13/22 19:00 Resp 16 09/13/22 19:00 BP 133/67 09/13/22 19:00 Pulse Ox 96 09/13/22 19:00 O2 Del Method 09/13/22 18:13 09/13/22 09/13/22 09/13/22 06:59 14:59 22:59 Intake Total 50 / 50 Balance 50 / 50 Weight last 48 hrs Weight 180 lb Physical Exam Narrative: BELOW IS A FOCUSED LOWER EXTREMITY EXAM GENERAL: A&O x 3 VASCULAR: DP/PT pulses nonpalpable, monophasic. CFT intact to periwound area DERMATOLOGICAL: Lateral aspect of left foot shows 2 full-thickness ulcerations Wound #1 Location: Distal lateral transmetatarsal amputation site Size: 2.5 x 2.0 x 0.2 cm Undermining: Negative Tracking: Negative Probe to bone: Negative Borders: Epithelializing Base: 75% fibrotic, 25% granular Drainage: Negative Malodor: Negative Wound #2 Location: Lateral left foot Size: 4.0 x 2.8 x 0.4 cm Undermining: Negative Tracking: Negative Probe to bone: Negative Borders: Necrotic Base: Soupy, necrotic with serous drainage and underlying fluctuance. Consistent with wet gangrene Drainage: Slight serous drainage Malodor: William necrotic odor MUSCULOSKELETAL: Status post left transmetatarsal amputation, status post right haxro-dwd-lnwa amputation NEUROLOGICAL: Neurological sensation to the affected foot and ankle is diminished through L4-S1 dermatomes via 10g SWMF, diminished sensation extends proximally to the level of the ankle Data 09/13/22 17:48 09/13/22 17:48 Micro: Microbiology 09/13/22 18:00 Blood Culture - Preliminary Blood SPECIMEN COLLECTED 09/13/22 17:48 Blood Culture - Preliminary Blood SPECIMEN COLLECTED A&P Assessment and plan (1) Diabetic foot ulcer: Qualifiers: Diabetes mellitus type: type 2 Diabetic foot ulcer location: midfoot Laterality: left Non-pressure ulcer stage: with necrosis of muscle Qualified Code(s): E11.621 - Type 2 diabetes mellitus with foot ulcer; L97.423 - Non-pressure chronic ulcer of left heel and midfoot with necrosis of muscle (2) Cellulitis of left foot: (3) Uncontrolled diabetes mellitus: (4) Peripheral arterial disease: Plan COURSE: -Patient is a 71-year-old female with history of right bauef-kbs-hzqe amputation, left transmetatarsal amputation and chronic ulcerations of left foot in the presence of severe PAD and diabetic peripheral neuropathy. Patient has had worsening wounds over the course the past 2 weeks with increased drainage and foul odor. She presented to her primary care provider who advised her to come to the emergency department today for work-up and evaluation and probable surgical intervention. Patient was started on broad-spectrum IV antibiotics in the emergency department. Given the extent of necrotic tissue/wet gangrene to the lateral aspect of the left foot surgical debridement is warranted for source control. CLINICAL AND LAB FINDINGS: WBC 10.1 Temp 97.7 Heart rate 79 Respiratory rate 16 CRP 121.4 ESR 50 IMAGIN views of the left foot taken in the emergency department person interpreted by me which show transmetatarsal amputation with soft tissue defect on the lateral aspect of the left foot which correlates clinically with wound. No subcutaneous emphysema noted. Erosive changes to lateral aspect of fifth metatarsal consistent with likely chronic osteomyelitis CULTURES: Pending PLAN: -N.p.o. at midnight for procedure 09/14/22 at noon. Plan for left foot wound incision and drainage with excisional debridement of nonviable tissue and bone -Continue broad-spectrum antibiotics and adjust pending micro ID and sensitivity -Wound care: Maxorb AG, 4 x 4 gauze, Kerlix -Weightbearing to left foot for transfers only -Trend labs -I will continue to round on patient daily during hospital admission and provide recommendations to help with stabilization and discharge Consult Attestations Medical Necessity Statement: Left foot chronic ulceration with extensive necrosis requiring IV antibiotic Coding Level of Care Code Acute Code for [facility] Fwd Diagnoses Diabetic foot ulcer E11.621; L97.423 Diabetes mellitus type: type 2 Diabetic foot ulcer location: midfoot Laterality: left Non-pressure ulcer stage: with necrosis of muscle Cellulitis of left foot L03.116 Uncontrolled diabetes mellitus Peripheral arterial disease I73.9
[2022-09-13 19:58] LABS: Bilirubin Urine 1+ (Negative); Blood Urine 3+ (Negative); Glucose Urine UA Norm (Normal); Ketones Urine 1+ (Negative); Leukocyte Esterase Urine 2+ (Negative); Nitrate Urine Positive (Negative); Protein Urine 1+ (Negative); Specific Gravity, Urine 1.025 (1.005-1.030); Urine Appearance Cloudy (CLEAR); Urine Color Yellow (Yellow); Urobilinogen Urine 4 mg/dL (Negative); pH Urine 5 (5-7)
[2022-09-13 19:59] LABS: Add Urine Culture? Yes; Add Urine Microscopic? YES; Bacteria Urine 4+ /hpf; RBC Urine 0-4 /hpf (0-2); WBC Urine 40-55 /hpf (0-5)
[2022-09-13 20:10] VITALS: BMI 27.1
--- NOTE | 2022-09-13 20:24 | P.HP_ITS ---
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 Patient developed a blister that she noticed a week ago because she pivots on her left foot she does not use any offloading boots. Her blister exacerbated in last 4 to 5 days she has not noticed any fever, nausea, vomiting, chest pain, shortness of breath. Today when she was evaluated at her primary care provider clinic she was asked to go to the ER for further evaluation. Patient has necrotic foul-smelling wound lateral aspect of left foot she will need surgical debridement, her last dose of anticoagulating agent was 6 AM on 09/[address] Parker has been consulted. She has received vancomycin and Zosyn in the ER. Review of Systems Const: Reports: chills Eyes: Denies: change in vision ENMT: Denies: throat pain Card: Denies: chest pain Resp: Denies: dyspnea GI: Denies: abdominal pain : Reports: difficulty voiding Musc: Denies: neck pain Skin/Breast: Reports: erythema, skin tenderness and skin swelling; Denies: rash Neuro: Denies: headache(s) Psych: Denies: anxiety Medications/Allergies Home Medications Medication Instructions Recorded Confirmed Last Taken Type Wheelchair #1 ea 12/11/20 09/13/22 Unknown Rx aspirin 81 mg tablet,delayed 81 mg PO [facility] 01/19/21 09/13/22 09/13/22 History release Electric Wheelchair #1 ea 04/20/21 09/13/22 Unknown Rx pen needle, diabetic 32 gauge x #100 ea 11/01/21 09/13/22 Unknown Rx 5/32 (BD Domenica 2nd Gen Pen Needle) blood sugar diagnostic (OneTouch #100 ea 11/12/21 09/13/22 Unknown Rx Ultra Test strips) lancets 33 gauge (OneTouch Delica #100 ea 11/12/21 09/13/22 Unknown Rx Lancets) Lift Chair #1 ea 12/03/21 09/13/22 Unknown Rx Novolog FlexPen U-100 Insulin 100 See Rx Instructions .Route 04/13/22 09/13/22 Unknown Rx unit/mL (3 mL) subcutaneous .COMPLEX #15 mL (insulin aspart U-100) insulin glargine 100 unit/mL (3 See Rx Instructions .Route 08/17/22 09/13/22 09/13/22 Rx mL) subcutaneous pen (Lantus .COMPLEX #15 mL Solostar U-100 Insulin) semaglutide 3 mg tablet (Rybelsus) See Rx Instructions .Route 09/09/22 09/13/22 09/13/22 Rx .COMPLEX #30 tabs clopidogrel 75 mg tablet 75 mg PO DAILY 09/13/22 09/13/22 09/13/22 History lisinopril 40 mg tablet 40 mg PO DAILY 09/13/22 09/13/22 09/13/22 History metoprolol succinate 25 mg 25 mg PO DAILY 09/13/22 09/13/22 09/13/22 History tablet,extended release 24 hr rivaroxaban 20 mg tablet (Xarelto) 20 mg PO DAILY 09/13/22 09/13/22 09/13/22 History Allergies Allergy/AdvReac Type Severity Reaction Status Date / Time ceftriaxone [From Rocephin] Allergy Severe cardiac Verified 09/13/22 14:02 arrest atorvastatin [From Lipitor] Allergy Unknown UNKNOWN Verified 09/13/22 14:02 Ommhaax-VOQ-VtH Reductase Allergy Unknown UNKNOWN Verified 09/13/22 14:02 Inhibitor [Oepgmpb-Ymg-Kxv Reductase Inhibitor] Rocephin Allergy Unknown Unknown Uncoded 09/13/22 14:02 PFSH Acute PFSH: Medical History (Updated 09/13/22 @ 21:11 by Mar Kemp MD) Carotid stenosis, right Congestive heart failure with cardiomyopathy Essential hypertension Gangrene of right foot 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 MRSA (methicillin resistant staph aureus) culture positive Pacemaker Pre-operative clearance TIA (transient ischemic attack) Valvular incompetence, mitral Venous insufficiency of both lower extremities Wound of right lower extremity Surgical History (Updated 09/13/22 @ 21:11 by Mar Kemp MD) History of amputation of lesser toe of right foot History of heart artery stent History of transmetatarsal amputation of left foot Hx of foot surgery Hx of knee surgery Hx of tubal ligation Peripheral vascular angioplasty status with implants and grafts S/P TAVR (transcatheter aortic valve replacement) S/P transmetatarsal amputation of foot Family History Family/Other CAD (coronary artery disease) Chronic kidney disease (CKD) Mother Diabetes Stroke Father Lung disease Sister Lung disease Other Heart disease Denies family history of Clotting disorder Dementia Suicide Anesthesia complication Bleeding disorder Cancer Social History Smoking and tobacco status: never smoked Alcohol intake: never Adopted: No Caregiver/support person: No Lives independently: Yes service: No Current occupational status: disabled Sexually active: Yes Current gender identity: Female Vitals/I&O/Wt Last Vital Signs Temp 97.7 F 09/13/22 17:15 Pulse 85 09/13/22 19:00 Resp 16 09/13/22 19:00 BP 133/67 09/13/22 19:00 Pulse Ox 96 09/13/22 19:00 O2 Del Method 09/13/22 18:13 09/13/22 09/13/22 09/13/22 06:59 14:59 22:59 Intake Total 50 / 50 Balance 50 / 50 Weight last 48 hrs Weight 81.647 kg Physical Exam Narrative: Patient in supine Euvolemic Abdomen soft No acute distress S1, S2 paced rhythm Variable heart sounds Currently on room air Pleasant and cooperative Left foot covered in dressing New dressing without any active drainage She does have wet gangrene appearance of her left diabetic foot ulcer Data 09/13/22 17:48 09/13/22 17:48 Micro: Microbiology 09/13/22 18:00 Blood Culture - Preliminary Blood SPECIMEN COLLECTED 09/13/22 17:48 Blood Culture - Preliminary Blood SPECIMEN COLLECTED A&P Assessment and plan (1) Diabetic foot ulcer: Qualifiers: Diabetes mellitus type: type 2 Diabetic foot ulcer location: midfoot Laterality: left Non-pressure ulcer stage: with necrosis of muscle Qualified Code(s): E11.621 - Type 2 diabetes mellitus with foot ulcer; L97.423 - Non-pressure chronic ulcer of left heel and midfoot with necrosis of muscle (2) Cellulitis of left foot: (3) Uncontrolled diabetes mellitus: (4) Presence of permanent cardiac pacemaker: (5) Essential hypertension: (6) Non-compliant behavior: (7) Peripheral arterial disease: (8) Dyslipidemia: (9) History of amputation of lesser toe of right foot: (10) Above-knee amputation of right lower extremity: (11) Incontinence of urine in female: (12) Venous insufficiency of both lower extremities: (13) Arterial insufficiency of lower extremity: (14) Recurrent UTI: (15) Type 2 diabetes mellitus treated with insulin: Plan Wet gangrene Left foot diabetic foot ulcer worsening Patient will need surgical debridement Her last dose of Xarelto and Plavix was 6 AM/4, we would recommend at least 24 to 48 hours of washout. To avoid postoperative hematoma and bleeding complications Dr. Parker has plans for surgical debridement tomorrow, please touch base with him in the morning She recently had pacemaker evaluation Echo showed preserved ejection fraction Start broad-spectrum antibiotics Gentle fluid hydration Opioids along bowel regimen UTI: Currently on antibiotic History of peripheral arterial disease with venous insufficiency Playing a role for nonhealing of diabetic foot ulcers Diabetic diet n.p.o. after midnight Moderate sliding scale for now Check A1c level After her surgery she will need continuation of Plavix and Xarelto, she carries history of coronary disease status post stents, history of TAVR, A-fib with slow ventricular response status post pacemaker placement Hypertension: Would use metoprolol for now avoid lisinopril Goals of care discussed with the patient she is full code Social dynamics patient lives alone but stating that she she got good social support system all of her kids are around her to help her out Attestations Medical Necessity Statement*: More than 2 midnights anticipated Diagnoses Diabetic foot ulcer E11.621; L97.423 Diabetes mellitus type: type 2 Diabetic foot ulcer location: midfoot Laterality: left Non-pressure ulcer stage: with necrosis of muscle Cellulitis of left foot L03.116 Uncontrolled diabetes mellitus Presence of permanent cardiac pacemaker Z95.0 Essential hypertension I10 Non-compliant behavior R46.89 Peripheral arterial disease I73.9 Dyslipidemia E78.5 History of amputation of lesser toe of right foot Z89.421 Above-knee amputation of right lower extremity S78.111A Incontinence of urine in female R32 Venous insufficiency of both lower extremities I87.2 Arterial insufficiency of lower extremity I73.9 Recurrent UTI N39.0 Type 2 diabetes mellitus treated with insulin E11.9; Z79.4
[2022-09-13 21:05] LABS: Procalcitonin 0.06 ng/mL (0-0.5)
[2022-09-13 21:26] LABS: Glucose Point of Care 161 mg/dL (70-110)
--- NOTE | 2022-09-13 21:48 | PC.PHAR ---
Pharmacokinetic dosing service Date: 09/13/22 Time: 2147 Objective: Patient: Elisha Vickers Floor: [id number] Age: 71 yo Serum creatinine: 0.6 mg/dL Height: 67.0 Inches Weight (kg): 81.647 Diagnosis: Relevant medical/social history: Cultures and sensitivities: Other labs: Assessment: IBW (kg): 61.60 Dosing wt(kg): 81.647 Estimated Creatinine clearance (ml/min): 81.2 CRCL method: Cockcroft and Gault using ibw(default). Drug selected: Vancomycin Loading dose (mg): 0 Vd (liters): 73.5 (factor used: 0.9 L/kg) Musa (hr-1): 0.072 Half life (hrs): 9.63 Recommended dose: 1500 mg Interval: 12 hrs Infusion time (hrs): 1.5 Predicted peak (mcg/mL): 33.4 Predicted trough (mcg/mL): 15.68 Total body weight is being used for vancomycin dosing. Renal function is stable [ ] /unstable [ ] Recommendations: Give Vancomycin 1500 mg q 12 hrs with an expected Cpeak of 33.4 mcg/ml and an expected Ctrough of 15.68 mcg/ml Renal dosing of other antibiotics (review renal dosing of other medications and list guidelines here): Thank you for the consult, will continue to follow. Signature: Virgie Hoffman [facility]
[2022-09-13] MEDS: metoprolol tartrate 25 mg Tablet PO (22:40)
[2022-09-13] MEDS: acetaminophen 500 mg Tablet PO (22:40)
[2022-09-13] MEDS: sodium chloride 0.9% 1,000 ML 75 ML IV (22:41)
[2022-09-14] VITALS (21 sets, daily range): BP systolic 90–139; BP diastolic 43–72; PULSE 66–85; RESP 14–23; TEMP 36.6–37.2; O2SAT 91–100
[2022-09-14] MEDS: piperacillin-tazobactam 3.375 GM in sodium chloride 0.9% (plus) 50 ML IV ×3 (02:53→20:03)
[2022-09-14 05:16] LABS: Basophils % 0.3 %; Eosinophils # 0.2 10^3/uL (0.0-0.8); Eosinophils % 2.4 %; Lymphocytes # 1.2 10^3/uL (0.8-4.8); Lymphocytes % 13.3 %; Mean Corpuscular Hemoglobin 26.5 pg (28.0-34.0); Mean Corpuscular Volume 88.2 fl (81-99); Mean Platelet Volume 9.9 fL (7.4-10.4); Monocytes # 0.5 10^3/uL (0.2-0.9); Neutrophils % 77.7 %; Nucleated Red Blood Cells % 0 %; Platelet Count 293 10^3/cmm (130-400); Red Cell Distribution Width 16.2 % (12.1-15.1); White Blood Count 8.9 10^3/uL (4.0-10.0)
[2022-09-14 05:45] LABS: Anion Gap 12.8 (5-19); Blood Urea Nitrogen 17 mg/dL (8-23); Calcium 8.2 mg/dL (8.5-10.5); Carbon Dioxide 26 mmol/L (22-29); Chloride 107 mmol/L (98-107); Glucose 143 mg/dL (65-115); Magnesium 1.8 mg/dL (1.7-2.3); Osmolality Calculated 298 mOsm/kg (285-295); Phosphorus 3.8 mg/dL (2.5-4.5); Potassium 3.8 mmol/L (3.5-5.1); Sodium 142 mmol/L (136-145)
[2022-09-14 06:50] LABS: Glucose Point of Care 144 mg/dL (70-110)
--- NOTE | 2022-09-14 07:54 | P.PN_ITS ---
Subjective Subjective: Patient seen at bedside this morning. Resting well. Denies any overnight events. Currently n.p.o. Plan is for procedure today at noon for left foot incision and drainage with excision of nonviable tissue and bone. Patient does not have any questions regarding surgery at at this time. Vitals/I&O/Wt Last Vital Signs Temp 98.4 F 09/14/22 04:00 Pulse 70 09/14/22 04:00 Resp 15 09/14/22 04:00 BP 127/65 09/14/22 04:00 Pulse Ox 95 09/14/22 04:00 O2 Del Method 09/14/22 04:00 09/13/22 09/14/22 09/14/22 22:59 06:59 14:59 Intake Total 780 / 780 170 / 950 Balance 780 / 780 170 / 950 Weight last 48 hrs Weight 173 lb 8 oz Weight 180 lb Physical Exam Narrative: BELOW IS A FOCUSED LOWER EXTREMITY EXAM GENERAL: A&O x 3 VASCULAR: DP/PT pulses nonpalpable, monophasic. CFT intact to periwound area DERMATOLOGICAL: Lateral aspect of left foot shows 2 full-thickness ulcerations Wound #1 Location: Distal lateral transmetatarsal amputation site Size: 2.5 x 2.0 x 0.2 cm Undermining: Negative Tracking: Negative Probe to bone: Negative Borders: Epithelializing Base: 75% fibrotic, 25% granular Drainage: Negative Malodor: Negative Wound #2 Location: Lateral left foot Size: 4.0 x 2.8 x 0.4 cm Undermining: Negative Tracking: Negative Probe to bone: Negative Borders: Necrotic Base: Soupy, necrotic with serous drainage and underlying fluctuance. Consistent with wet gangrene Drainage: Slight serous drainage Malodor: William necrotic odor MUSCULOSKELETAL: Status post left transmetatarsal amputation, status post right vyacn-iiy-qrvt amputation NEUROLOGICAL: Neurological sensation to the affected foot and ankle is diminished through L4-S1 dermatomes via 10g SWMF, diminished sensation extends proximally to the level of the ankle Data 09/14/22 04:57 09/14/22 04:57 Micro: Microbiology 09/13/22 18:00 Blood Culture - Preliminary Blood SPECIMEN COLLECTED 09/13/22 17:48 Blood Culture - Preliminary Blood SPECIMEN COLLECTED A&P Assessment and plan (1) Diabetic foot ulcer: Qualifiers: Diabetes mellitus type: type 2 Diabetic foot ulcer location: midfoot Laterality: left Non-pressure ulcer stage: with necrosis of muscle Qualified Code(s): E11.621 - Type 2 diabetes mellitus with foot ulcer; L97.423 - Non- pressure chronic ulcer of left heel and midfoot with necrosis of muscle (2) Cellulitis of left foot: (3) Uncontrolled diabetes mellitus: (4) Peripheral arterial disease: Plan COURSE: -Patient is a 71-year-old female with history of right bpfmg-[id number]-[id number] amputation, left transmetatarsal amputation and chronic ulcerations of left foot in the presence of severe PAD and diabetic peripheral neuropathy. Patient has had worsening wounds over the course the past 2 weeks with increased drainage and foul odor. She presented to her primary care provider who advised her to come to the emergency department today for work-up and evaluation and probable surgical intervention. Patient was started on broad-spectrum IV antibiotics in the emergency department. Given the extent of necrotic tissue/wet gangrene to the lateral aspect of the left foot surgical debridement is warranted for source control. CLINICAL AND LAB FINDINGS: WBC 10.1-->8.9 VSS CRP 121.4 ESR 50 IMAGIN views of the left foot taken in the emergency department person in terpreted by me which show transmetatarsal amputation with soft tissue defect on the lateral aspect of the left foot which correlates clinically with wound. No subcutaneous emphysema noted. Erosive changes to lateral aspect of fifth metatarsal consistent with likely chronic osteomyelitis CULTURES: Pending PLAN: -N.p.o. at midnight for procedure 09/14/22 at noon. Plan for left foot wound incision and drainage with excisional debridement of nonviable tissue and bone -We will proceed with today's procedure despite patient taking Xarelto and Plavix yesterday (09/13) morning. I discussed with hospitalist that given patient's status of severe PAD that bleeding complications are unlikely. Tourniquet would not be used in surgery and we will ensure hemostasis prior to leaving the OR suite. -Continue broad-spectrum antibiotics and adjust pending micro ID and sensitivity -Wound care: Maxorb AG, 4 x 4 gauze, Kerlix -Weightbearing to left foot for transfers only -Trend labs -I will continue to round on patient daily during hospital admission and provide recommendations to help with stabilization and discharge Attestations Medical Necessity Statement*: Left foot gangrene requiring surgical debridement Coding Level of Care Code Acute Code for Chg Fwd Diagnoses Diabetic foot ulcer E11.621; L97.423 Diabetes mellitus type: type 2 Diabetic foot ulcer location: midfoot Laterality: left Non-pressure ulcer stage: with necrosis of muscle Cellulitis of left foot L03.116 Uncontrolled diabetes mellitus Peripheral arterial disease I73.9
--- NOTE | 2022-09-14 09:31 | PC.CHAP ---
Pastoral Care Encounter/Spiritual Assessment Type of Contact [] Declined crane operator cab visit [] Patient/Family/Request visit [] Outpatient visit [] Follow-up visit [] Physician referral [] Code/Alert [x] Routine visit [] Staff referral [] Actively dying [] Patient sleeping [] Family support [] [] Out of room [] Palliative care [] [] Receiving care in room [] Pre-surgical visit [] Trauma [] Long length of stay [] ICU visit [] Other: Relational/Emotional Strength [x] Patient feels connected with others/family/visitors/staff [] Distress [] Loneliness/isolation [] Abandonment Spirituality of Patient [x] Person of Karen [x] Attends Islam of their Karen [x] Believes in Prayer [] Reads Bible or Latter Day materials [] There are Spiritual issues to be addressed Assistant Manager Retail Interventions [x] Prayer [x] Active listening [x] Non-anxious presence [x] Spiritual/emotional support [] Crisis/trauma care [] Spiritual counseling [] Bereavement support [] Provided bereavement packet [] Provided Bible/devotional materials [] Provided toy/stuffed animal, coloring book to patient or family member [] Provided Communion [] Anointing/[place] [] Salvation [x] Completed spiritual assessment [] Other: Impact on Illness or Injury [] Angry [] Fearful [] Anxious [] Often cries [] Exhaustion [] Unable to work [] Unable to attend confucianist [] Unable to walk/stand [] Unable to read [] Unable to drive [] Unable to eat/drink [] Unable to sleep [] Unable to be with family [] Patient intubated [] Other: Summary Pt's daughter and granddaughter present. Pt stated she is waiting for a procedure today to care for a wound on her foot. She is concerned because she has only one leg, and part of the foot of the leg she has, has also been removed. She is hoping the procedure will help her foot heal and she will have no further problems. She requested prayer. Time spent with patient 10m
[2022-09-14] MEDS: metoprolol tartrate 25 mg Tablet PO ×2 (10:46→20:07)
[2022-09-14] MEDS: sodium chloride 0.9% 1,000 ML 75 ML IV ×2 (10:46→23:07)
[2022-09-14] MEDS: vancomycin 1,500 MG/300 ML PIGGYBACK 200 MG IV ×2 (10:46→21:02)
[2022-09-14] MEDS: sennosides-docusate Tablet 1 TAB PO (10:46)
--- NOTE | 2022-09-14 11:04 | ANES.PREANE2 ---
Pre-Anesthetic Assessment Height/Weight: Height 1.7 m Weight 78.698 kg Temp Pulse Resp BP Pulse Ox O2 Del Method 98.4 F 72 16 125/67 96 09/14/22 08:00 09/14/22 08:09 09/14/22 08:09 09/14/22 08:00 09/14/22 08:09 09/14/22 08:09 Preop Diagnosis: Critical ischemia right lower extremity with nonhealing wounds Operation Date: 09/14/22 12:10 Proposed Procedures p Incision And Drainage and excision of nonviable tissue and bone(Left) - Walter Parker DPM Familial anesthetic complications: None Was Beta Jeffrey taken within 24 hours: Yes Was Clonidine taken within 24 hours: N/A Last intake: Intake Last Liquid Date 09/14/22 Last Liquid Time 23:59 Last Solid Date 09/14/22 Last Solid Time 23:59 Social No alcohol and No tobacco Exam alert, oriented x 3, clear to auscultation bilaterally and regular rate & rhythm murmur Airway Mallampati: Class II Dentition: other (multiple missing poor dentition) CV/HEM Atrial Fibrillation, Coronary Artery Disease (stent), Congestive Heart Failure and Hypertension pacemaker DDDR at lower rate 60 S/p TAVR Metabolic Diabetes Mellitus and Hyperlipidemia [facility] [place] PVD w/ AKA (R) and transmetarsal L foot amputation Anesthetic Plan ASA status: 3 Anesthesia: General Risk of > 500 ml blood loss (7ml/kg in children): No Medications/Allergies Home Medications Medication Instructions Recorded Confirmed Last Taken Type Wheelchair #1 ea 12/11/20 09/13/22 Unknown Rx aspirin 81 mg tablet,delayed 81 mg PO QA 01/19/21 09/13/22 09/13/22 History release Electric Wheelchair #1 ea 04/20/21 09/13/22 Unknown Rx pen needle, diabetic 32 gauge x #100 ea 11/01/21 09/13/22 Unknown Rx 5/32 (BD Domenica 2nd Gen Pen Needle) blood sugar diagnostic (OneTouch #100 ea 11/12/21 09/13/22 Unknown Rx Ultra Test strips) lancets 33 gauge (OneTouch Delica #100 ea 11/12/21 09/13/22 Unknown Rx Lancets) Lift Chair #1 ea 12/03/21 09/13/22 Unknown Rx Novolog FlexPen U-100 Insulin 100 See Rx Instructions .Route 04/13/22 09/13/22 Unknown Rx unit/mL (3 mL) subcutaneous .COMPLEX #15 mL (insulin aspart U-100) insulin glargine 100 unit/mL (3 See Rx Instructions .Route 08/17/22 09/13/22 09/13/22 Rx mL) subcutaneous pen (Lantus .COMPLEX #15 mL Solostar U-100 Insulin) semaglutide 3 mg tablet (Rybelsus) See Rx Instructions .Route 09/09/22 09/13/22 09/13/22 Rx .COMPLEX #30 tabs clopidogrel 75 mg tablet 75 mg PO DAILY 09/13/22 09/13/22 09/13/22 History lisinopril 40 mg tablet 40 mg PO DAILY 09/13/22 09/13/22 09/13/22 History metoprolol succinate 25 mg 25 mg PO DAILY 09/13/22 09/13/22 09/13/22 History tablet,extended release 24 hr rivaroxaban 20 mg tablet (Xarelto) 20 mg PO DAILY 09/13/22 09/13/22 09/13/22 History Allergies Allergy/AdvReac Type Severity Reaction Status Date / Time ceftriaxone [From Rocephin] Allergy Severe cardiac Verified 09/13/22 14:02 arrest atorvastatin [From Lipitor] Allergy Unknown UNKNOWN Verified 09/13/22 14:02 Umrzxvk-RKS-OgO Reductase Allergy Unknown UNKNOWN Verified 09/13/22 14:02 Inhibitor [Bigokez-Fkl-Wnl Reductase Inhibitor] Rocephin Allergy Unknown Unknown Uncoded 09/13/22 14:02 Current Medications Generic Name Dose Route Start Last Admin Trade Name Freq PRN Reason Stop Dose Admin Acetaminophen 500 mg 09/13/22 20:25 09/13/22 22:40 Acetaminophen 500 Mg Tablet PO 500 mg Q4H PRN Administration fever Sodium Chloride 1,000 mls @ 75 mls/hr 09/13/22 20:30 09/13/22 22:41 Sodium Chloride 0.9% IV 75 mls/hr .[id number] BIRGIT Administration Piperacillin Sod/Tazobactam 50 mls @ 12.5 mls/hr 09/14/22 03:00 09/14/22 06:54 Sod 3.375 gm/ Sodium Chloride IV Infused Q8H BIRGIT Infusion Protocol Metoprolol Tartrate 25 mg 09/13/22 21:00 09/13/22 22:40 Metoprolol Tartrate 25 Mg Tablet PO 25 mg BID@0900,2100 [facility] Administration [facility] Anesthesia Medical History (Updated 09/13/22 @ 21:11 by Mar Kemp MD) Carotid stenosis, right Congestive heart failure with cardiomyopathy Essential hypertension Gangrene of right foot 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 MRSA (methicillin resistant staph aureus) culture positive Pacemaker Pre-operative clearance TIA (transient ischemic attack) Valvular incompetence, mitral Venous insufficiency of both lower extremities Wound of right lower extremity Surgical History (Updated 09/13/22 @ 21:11 by Mar Kemp MD) History of amputation of lesser toe of right foot History of heart artery stent History of transmetatarsal amputation of left foot Hx of foot surgery Hx of knee surgery Hx of tubal ligation Peripheral vascular angioplasty status with implants and grafts S/P TAVR (transcatheter aortic valve replacement) S/P transmetatarsal amputation of foot Family History Family/Other CAD (coronary artery disease) Chronic kidney disease (CKD) Mother Diabetes Stroke Father Lung disease Sister Lung disease Other Heart disease Denies family history of Clotting disorder Dementia Suicide Anesthesia complication Bleeding disorder Cancer Social History Smoking and tobacco status: never smoked Alcohol intake: never Adopted: No Caregiver/support person: No Lives independently: Yes service: No Current occupational status: disabled Sexually active: Yes Current gender identity: Female Data Anesthesia 09/14/22 04:57 09/14/22 04:57 Short CBC 09/13/22 09/14/22 Range/Units 17:48 04:57 WBC 10.1 H 8.9 (4.0-10.0) 10^3/uL Hgb 9.7 L 9.0 L (11.5-15.3) g/dL Hct 31.3 L 30.0 L (37.0-47.0) % MCV 87.4 88.2 (81-99) fl Plt Count 324 293 (130-400) 10^3/cmm Neut % (Auto) 78.5 77.7 % Neut # (Auto) 7.96 H 6.90 (1.8-7.7) 10^3/uL BMP 09/13/22 09/14/22 17:48 04:57 Sodium 140 142 Potassium 3.8 3.8 Chloride 104 107 Carbon Dioxide 25 26 BUN 17 17 Creatinine 0.6 0.9 Glucose 181 H 143 H Calcium 8.2 L 8.2 L Liver Function 09/13/22 Range/Units 17:48 Total Bilirubin 0.4 (0.15-1.2) mg/dL AST 6 (0-32) U/L ALT 7 (0-33) U/L Alkaline Phosphatase 88 (35-105) U/L Albumin 3.2 L (3.5-5.2) g/dL Urine 09/13/22 Range/Units 19:25 Urine Color Yellow (Yellow) Urine Appearance Cloudy A (CLEAR) Urine pH 5 (5-7) Ur Specific Damon 1.025 (1.005-1.030) Urine Protein 1+ H (Negative) Urine Glucose (UA) Norm (Normal) Urine Ketones 1+ H (Negative) Urine Nitrate Positive H (Negative) Urine Bilirubin 1+ H (Negative) Ur Leukocyte Esterase 2+ H (Negative) Urine RBC 0-4 H (0-2) /hpf Urine WBC 40-55 H (0-5) /hpf Coags 09/13/22 09/13/22 09/14/22 17:48 17:48 04:57 ESR 50 H C-Reactive Protein 121.4 H 96.0 H Microbiology 09/13/22 19:25 Urine Culture - Preliminary Urine,Clean Catch Gram Negative Rods 09/13/22 18:00 Blood Culture - Preliminary Blood SPECIMEN COLLECTED 09/13/22 17:48 Blood Culture - Preliminary Blood SPECIMEN COLLECTED Cardiac Studies: Echocardiogram 04/15/22
--- NOTE | 2022-09-14 11:27 | USCV_ITS ---
Elisha Vickers Age: 71 Gender: F : 1950 Exam Date: 09/14/2022 14:50 Ordering Phys: Michael Lees MD Technologist: CT Exam Location: [facility] [place]_ Indication: PVD Risk Factors: Previous Vascular Surgery: RIGHT LEFT BP: / BP: 123.0/ 0 Waveform Velocity (cm/s) Velocity (cm/s) Waveform Iliac Prox 74.7 Triphasic Iliac Mid 74.1 Triphasic Iliac Distal 80.7 Triphasic SYSTEMS INTEGRATION MANAGER 133.7 SFA Prox 46.0 SFA Mid 28.9 SFA Dist 43.1 POP 25.0 STEP DOWN NURSE N/A DPA 37.6 YUNG 0.7 FINDINGS left DPA 90- left STEP DOWN NURSE - no flow found Low velocity Doppler waveform in the stented segment Monophasic, low velocity continuous Doppler waveforms in the popliteal and dorsalis pedis artery. Mild to moderate diffuse plaque in the iliac and common femoral artery Resting YUNG 0.7 CONCLUSIONS 1. Diminished resting YUNG, suggestive of moderate peripheral artery disease on the left side. 2. Patent stented segment of the superficial femoral artery with a low velocity Doppler waveform may suggest diffuse in- stent stenosis 3. Abnormal Doppler waveforms in the left popliteal and dorsalis pedis artery suggesting collateral filling. 4. Possible total occlusion of the posterior tibial artery No similar previous studies are available for comparison Dr Stephanie Parks MD [facility] (Electronically Signed) Final Date: 15 September 2022 14:21 S
--- NOTE | 2022-09-14 11:40 | W.PM.OPSUD ---
Surgery/Procedure H&P Update DATE OF PROCEDURE: September 14, 2022 DATE H&P PERFORMED: 09/13/22 CHANGES TO PREVIOUS DOCUMENTATION: No changes PREOP DIAGNOSIS: Left foot gangrene PLANNED PROCEDURE: Operation Date: 09/14/22 12:10 Proposed Procedures p Incision And Drainage and excision of nonviable tissue and bone(Left) - Walter Parker DPM
[2022-09-14] MEDS: scopolamine 1.5 Patch 1 PATCH TRANSDERMA (11:45)
[2022-09-14] MEDS: ondansetron 2 mg/ML SDV 2 mL 4 MG IVP (11:46)
[2022-09-14] MEDS: HYDROmorphone 1 mg/mL INJ 1 mL 0.5 MG IVP (11:52)
[2022-09-14 11:57] LABS: Glucose Point of Care 136 mg/dL (70-110)
--- NOTE | 2022-09-14 12:53 | P.OP_ITS ---
Operative Report Date of procedure: September 14, 2022 Pre-op diagnosis: Preop Diagnosis Left foot gangrene Post-op diagnosis: Same Post-op findings: Wet gangrene left foot stemming from necrotic ulcer lateral aspect of the foot which communicated with distal lateral full-thickness ulceration to transmetatarsal amputation stump via extensor tendon sheath. Abscess formation with extensive necrosis through plantar arch of left foot tracking lateral to medial across the entirety of the plantar foot. No blood flow despite lack of use of tourniquet Procedure done: Incision and drainage left foot below fascia with tendon sheath involvement of multiple areas CPT 40151 Specimens removed/disposition: Soft tissue specimen left foot sent as surgical specimen. Deep tissue culture sent to micro for ID and sensitivity Surgeon: Dr. Walter Parker, D.P.M. Estimated blood loss: Less than 5 cc Complications: None Findings: See above Brief History: Patient is a 71-year-old female that has a history of right dsdlg-udt-cljz amputation, chronic ulceration to left transmetatarsal amputation stump with wet gangrene. Patient's condition of the left foot is declining as the gangrenous ulcer worsens. The extent of which requires surgical debridement. A lengthy discussion regarding the procedure, including risks and complications has been had with the patient. Written and verbal consent have been obtained. All patient questions have been answered to the patient?s satisfaction. No written or verbal guarantees have been given or implied. The patient has been NPO since midnight. The history has been reviewed and the history and physical is current. The signed consent was confirmed and placed in the patient chart. Patient imaging has been reviewed and is consistent with the diagnosis. Under mild sedation, the patient was brought into the operating room and left on the gurney in the supine position. Patient is receiving IV antibiotics [id number]-zkz-tvleg on the floor. IV sedation was then performed by the anesthesiateam. The left foot was then anesthetized in V-block fashion using 15 cc of 0.5% Marcaine plain. The operative extremity was then prepped and draped in the usual fashion. After prep, the following procedure was then performed. Attention was directed to the lateral aspect of the left foot where there was a necrotic ulceration with foul odor and active purulent drainage noted. Using a pickup and 15 blade necrotic tissue was excised from the wound bed. Excisional debridement was carried down to the level of deep fascia. There was noted to be involvement of the extensor tendon as well as the peroneal tendon. These tendons were noted to be nonviable with stranding and fibrotic degenerative c hanges. They were enveloped in purulence. This necrotic tissue was excised using a #15 blade and passed from the operative field. Surgical specimen of necrotic tissue was passed from the operative field to be sent to pathology. Deep tissue cultures were obtained at this point to be sent to micro for ID and sensitivity. The wound was further explored and was noted to track medially along the entire surface of the plantar foot from lateral to medial. Extensive necrotic changes were noted to the plantar fat pad as well as adjacent structures. Care was taken to remove necrotic tissue visualized in addition to sparing healthy tissue. There was noted to be minimal to no blood flow upon debridement despite the lack of tourniquet use. Attention was then directed to the distal lateral ulceration which was 100% fibrotic in nature. Excisional debridement was carried down to the level of deep fascia in this area. There was noted to communicate with the proximal ulceration via extensor tendon. This devitalized tissue was removed from the wound bed. After debridement both wounds were irrigated with copious amounts of sterile saline before Betadine wet-to-dry dressing was applied using Betadine soaked 4 x 4 gauze, dry 4 x 4 gauze, ABD pad, Felton Goode. The patient tolerated the procedure and anesthesia well and without complication. The patient was transported from the operating room to the recovery room with vital signs stable and vascular status intact to the left foot. The patient was instructed to remain nonweightbearing to the operative extremity, to keep surgical dressing clean, dry and intact. The patient will be transferred back to the floor once anesthesia criteria is met. I will continue to round on and follow the patient in the inpatient setting and provide recommendations to stabilize the patient for discharge. Given the extent of necrosis and infection in the presence of severe PAD it is unlikely that patient will be able to heal this wound. I will discuss with patient, patient's family and hospitalist as well as other team members in regards to plan moving forward. Likely more proximal amputation.
[2022-09-14 12:54] LABS: Glucose Point of Care 133 mg/dL (70-110)
--- NOTE | 2022-09-14 13:43 | P.PN_ITS ---
Subjective Subjective: Patient was seen this morning, she reports a history of CAD, with a history of stents, history of TAVR, she is really worried about not being on a blood thinner, as she has a history of thick blood, she tells me that she has multiple stents in her left leg, she has had a right BKA, so she is wheelchair- bound, she tells me that she absolutely does not want to have a PICC line, as when she had a PICC line many years ago, her home health nurse accidentally cut her PICC line and then embolized to her heart, and she had to go to [place] and she needed to have a pacemaker placed as a consequence of its removal Vitals/I&O/Wt Last Vital Signs Temp 98.2 F 09/14/22 13:06 Pulse 68 09/14/22 13:06 Resp 17 09/14/22 13:06 BP 118/59 09/14/22 13:06 Pulse Ox 92 09/14/22 13:06 O2 Del Method 09/14/22 13:06 O2 Flow Rate 6 09/14/22 12:47 09/13/22 09/14/22 09/14/22 22:59 06:59 14:59 Intake Total 780 / 780 170 / 950 1306.25 / 1306.25 Output Total 2 / 2 Balance 780 / 780 170 / 950 1304.25 / 1304.25 Weight last 48 hrs Weight 78.698 kg Weight 81.647 kg Physical Exam Const: COMMON NORMALS: no acute distress and patient oriented x3 Resp: COMMON NORMALS: normal respiratory effort, No retractions, No use of accessory muscles and clear to auscultation bilaterally AUSCULTATION: clear to auscultation bilaterally Cardio: COMMON NORMALS: regular rate, regular rhythm, S1 normal heart sound present and S2 normal heart sound present RATE: regular rate RHYTHM: regular rhythm HEART SOUNDS: S1 normal heart sound present and S2 normal heart sound present GI: COMMON NORMALS: Normal to inspection, nondistended, normoactive bowel sounds present and non-tender Extremity: NARRATIVE EXTREMITY EXAM: Right BKA Left lower extremity TMA DP PT pulses palpable, diminished Neuro: COMMON NORMALS: patient oriented x3 Psych: COMMON NORMALS: mental status grossly normal Data 09/14/22 04:57 09/14/22 04:57 Micro: Microbiology 09/13/22 19:25 Urine Culture - Preliminary Urine,Clean Catch Gram Negative Rods 09/13/22 18:00 Blood Culture - Preliminary Blood SPECIMEN COLLECTED 09/13/22 17:48 Blood Culture - Preliminary Blood SPECIMEN COLLECTED A&P Assessment and plan (1) Diabetic foot ulcer: Qualifiers: Diabetes mellitus type: type 2 Diabetic foot ulcer location: midfoot Laterality: left Non-pressure ulcer stage: with necrosis of muscle Qualified Code(s): E11.621 - Type 2 diabetes mellitus with foot ulcer; L97.423 - Non- pressure chronic ulcer of left heel and midfoot with necrosis of muscle (2) Cellulitis of left foot: (3) Uncontrolled diabetes mellitus: (4) Presence of permanent cardiac pacemaker: (5) Essential hypertension: (6) Non-compliant behavior: (7) Peripheral arterial disease: (8) Dyslipidemia: (9) History of amputation of lesser toe of right foot: (10) Above-knee amputation of right lower extremity: (11) Incontinence of urine in female: (12) Venous insufficiency of both lower extremities: (13) Arterial insufficiency of lower extremity: (14) Recurrent UTI: (15) Type 2 diabetes mellitus treated with insulin: Plan Wet gangrene Left foot diabetic foot ulcer worsening Plan for or today As per podiatry, continue aspirin, Plavix, Xarelto She recently had pacemaker evaluation Echo showed preserved ejection fraction Start broad-spectrum antibiotics Gentle fluid hydration Opioids along bowel regimen UTI: Currently on antibiotic History of peripheral arterial disease with venous insufficiency Playing a role for nonhealing of diabetic foot ulcers We will repeat arterial ultrasound Moderate sliding scale for now Anemia, hemoglobin 9.0, -Likely anemia of chronic disease -Iron, ferritin, B12 history of coronary disease status post stents, history of TAVR, A-fib with slow ventricular response status post pacemaker placement -Continue aspirin, Plavix, Xarelto Hypertension: Would use metoprolol for now avoid lisinopril Goals of care discussed with the patient she is full code Social dynamics patient lives alone but stating that she she got good social support system all of her kids are around her to help her out Attestations Medical Necessity Statement*: Patient requires hospitalization for right gangrene, foot, requiring debridement, Diagnoses Diabetic foot ulcer E11.621; L97.423 Diabetes mellitus type: type 2 Diabetic foot ulcer location: midfoot Laterality: left Non-pressure ulcer stage: with necrosis of muscle Cellulitis of left foot L03.116 Uncontrolled diabetes mellitus Presence of permanent cardiac pacemaker Z95.0 Essential hypertension I10 Non-compliant behavior R46.89 Peripheral arterial disease I73.9 Dyslipidemia E78.5 History of amputation of lesser toe of right foot Z89.421 Above-knee amputation of right lower extremity S78.111A Incontinence of urine in female R32 Venous insufficiency of both lower extremities I87.2 Arterial insufficiency of lower extremity I73.9 Recurrent UTI N39.0 Type 2 diabetes mellitus treated with insulin E11.9; Z79.4
--- NOTE | 2022-09-14 13:45 | ANE.PACU2 ---
Inpatient post-anesthesia follow up: Airway intact: Yes Vital signs: Temperature 98.2 F Pulse Rate 68 Respiratory Rate 17 Blood Pressure 118/59 Pulse Oximetry 92 Oxygen Delivery Me thod Room Air Oxygen Flow Rate 6 Fraction of Inspir ed Oxygen Hydration adequate: Yes Nausea and vomiting: No Pain level: 1 Mental status: Baseline
[2022-09-14 14:36] LABS: Ferritin 356 ng/mL (15-150); Iron 18 ug/dL (37-145); Percent Saturation 12.5 % (20-50); Total Iron Binding Capacity 143 mcg/dl; Unsaturated Iron Binding 125 ug/dL (112-347)
[2022-09-14 14:51] LABS: Vitamin B12 479 pg/mL (232-1245)
[2022-09-14] MEDS: rivaroxaban 10 mg Tablet 20 MG PO (15:03)
[2022-09-14] MEDS: clopidogrel 75 mg Tablet PO (15:04)
[2022-09-14] MEDS: morphine IR 15 mg Tablet PO (15:04)
[2022-09-14] MEDS: aspirin 81 mg EC Tablet PO (15:04)
[2022-09-14 17:14] LABS: Glucose Point of Care 102 mg/dL (70-110)
[2022-09-14 20:53] LABS: Glucose Point of Care 137 mg/dL (70-110)
[2022-09-15] VITALS (9 sets, daily range): BP systolic 104–157; BP diastolic 62–95; PULSE 71–80; RESP 16–17; TEMP 36.4–37.6; O2SAT 93–98
[2022-09-15] MEDS: piperacillin-tazobactam 3.375 GM in sodium chloride 0.9% (plus) 50 ML IV ×3 (03:12→20:00)
[2022-09-15] MEDS: aspirin 81 mg EC Tablet PO (05:12)
[2022-09-15 05:57] LABS: Basophils % 0.3 %; Eosinophils # 0.3 10^3/uL (0.0-0.8); Eosinophils % 2.7 %; Hematocrit 27.7 % (37.0-47.0); Hemoglobin 8.3 g/dL (11.5-15.3); Lymphocytes # 1.2 10^3/uL (0.8-4.8); Lymphocytes % 12.8 %; Mean Corpuscular Hemoglobin 26.8 pg (28.0-34.0); Mean Corpuscular Volume 89.4 fl (81-99); Mean Platelet Volume 10.3 fL (7.4-10.4); Monocytes # 0.6 10^3/uL (0.2-0.9); Monocytes % 6.5 %; Neutrophils % 77.3 %; Nucleated Red Blood Cells % 0 %; Platelet Count 290 10^3/cmm (130-400); Red Cell Distribution Width 16.9 % (12.1-15.1); White Blood Count 9.3 10^3/uL (4.0-10.0)
[2022-09-15 06:18] LABS: Blood Urea Nitrogen 19 mg/dL (8-23); Calcium 7.8 mg/dL (8.5-10.5); Carbon Dioxide 21 mmol/L (22-29); Chloride 106 mmol/L (98-107); Glucose 137 mg/dL (65-115); Osmolality Calculated 288 mOsm/kg (285-295); Sodium 137 mmol/L (136-145)
[2022-09-15 08:04] LABS: Glucose Point of Care 139 mg/dL (70-110)
[2022-09-15] MEDS: sennosides-docusate Tablet 1 TAB PO (08:22)
[2022-09-15] MEDS: clopidogrel 75 mg Tablet PO (08:22)
[2022-09-15] MEDS: metoprolol tartrate 25 mg Tablet PO (08:22)
[2022-09-15] MEDS: vancomycin 1,500 MG/300 ML PIGGYBACK 200 MG IV (08:22)
[2022-09-15 08:48] LABS: Ferritin 333 ng/mL (15-150); Iron 14 ug/dL (37-145); Percent Saturation 10.9 % (20-50); Total Iron Binding Capacity 128 mcg/dl; Unsaturated Iron Binding 114 ug/dL (112-347)
[2022-09-15] MEDS: acetaminophen 500 mg Tablet PO (08:48)
[2022-09-15 09:03] LABS: Folate Level 14.3 ng/mL (4.8-37.3); Vitamin B12 462 pg/mL (232-1245)
[2022-09-15 11:15] LABS: Glucose Point of Care 183 mg/dL (70-110)
[2022-09-15] MEDS: rivaroxaban 10 mg Tablet 20 MG PO (13:54)
[2022-09-15] MEDS: insulin lispro 100 unit/1 mL SUBCUT ×2 (13:55→17:00)
--- NOTE | 2022-09-15 15:38 | P.PN_ITS ---
Subjective Subjective: Patient was seen this morning, she denies any pain complaints Vitals/I&O/Wt Last Vital Signs Temp 98.2 F 09/15/22 12:00 Pulse 71 09/15/22 12:00 Resp 16 09/15/22 12:00 BP 157/95 09/15/22 12:00 Pulse Ox 98 09/15/22 12:00 O2 Del Method 09/15/22 12:00 O2 Flow Rate 2 09/15/22 12:00 09/15/22 09/15/22 09/15/22 06:59 14:59 22:59 Intake Total 976.25 / 3112.50 1277.5 / 1277.5 Output Total 500 / 502 Balance 476.25 / 2610.50 1277.5 / 1277.5 Weight last 48 hrs Weight 78.698 kg Weight 81.647 kg Physical Exam Const: COMMON NORMALS: no acute distress and patient oriented x3 Resp: COMMON NORMALS: normal respiratory effort, No retractions, No use of accessory muscles and clear to auscultation bilaterally AUSCULTATION: clear to auscultation bilaterally Cardio: COMMON NORMALS: regular rate, regular rhythm, S1 normal heart sound present and S2 normal heart sound present RATE: regular rate RHYTHM: regular rhythm HEART SOUNDS: S1 normal heart sound present and S2 normal heart sound present GI: COMMON NORMALS: Normal to inspection, nondistended, normoactive bowel sounds present and non-tender Extremity: NARRATIVE EXTREMITY EXAM: Left lower extremity wrapped Neuro: COMMON NORMALS: patient oriented x3 Psych: COMMON NORMALS: mental status grossly normal Data 09/15/22 05:10 09/15/22 05:10 Micro: Microbiology 09/14/22 12:30 Gram Stain - Final Foot - #1 Tissue Culture - Preliminary 09/14/22 12:30 Gram Stain - Final Ankle - #1 Wound Culture - Preliminary 09/13/22 19:25 Urine Culture - Final Urine,Clean Catch Escherichia coli 09/13/22 18:00 Blood Culture - Preliminary Blood NEGATIVE TO DATE 09/13/22 17:48 Blood Culture - Preliminary Blood NEGATIVE TO DATE 09/13/22 18:03 Gram Stain - Final Ankle - Left A&P Assessment and plan (1) Diabetic foot ulcer: Qualifiers: Diabetes mellitus type: type 2 Diabetic foot ulcer location: midfoot Laterality: left Non-pressure ulcer stage: with necrosis of muscle Qualified Code(s): E11.621 - Type 2 diabetes mellitus with foot ulcer; L97.423 - Non- pressure chronic ulcer of left heel and midfoot with necrosis of muscle (2) Cellulitis of left foot: (3) Uncontrolled diabetes mellitus: (4) Presence of permanent cardiac pacemaker: (5) Essential hypertension: (6) Non-compliant behavior: (7) Peripheral arterial disease: (8) Dyslipidemia: (9) History of amputation of lesser toe of right foot: (10) Above-knee amputation of right lower extremity: (11) Incontinence of urine in female: (12) Venous insufficiency of both lower extremities: (13) Arterial insufficiency of lower extremity: (14) Recurrent UTI: (15) Type 2 diabetes mellitus treated with insulin: Plan Wet gangrene Left foot diabetic foot ulcer worsening s/p Incision and drainage left foot below fascia with tendon sheath involvement of multiple areas pod#1 As per podiatry, continue aspirin, Plavix, Xarelto She recently had pacemaker evaluation Echo showed preserved ejection fraction Start broad-spectrum antibiotics Gentle fluid hydration Opioids along bowel regimen arterial ultrasound CONCLUSIONS ?1.? Diminished resting YUNG, suggestive of moderate peripheral ?artery disease on the left side. ?2.? Patent stented segment of the superficial femoral artery ?with a low velocity Doppler waveform may suggest diffuse in- ?stent stenosis 3.? Abnormal Doppler waveforms in the left ?popliteal and dorsalis pedis artery suggesting collateral ?filling. ?4.? Possible total occlusion of the posterior tibial artery ?No similar previous studies are available for comparison UTI: Currently on antibiotic History of peripheral arterial disease with venous insufficiency Playing a role for nonhealing of diabetic foot ulcers We will repeat arterial ultrasound Moderate sliding scale for now Anemia, hemoglobin 9.0, -Likely anemia of chronic disease -Iron 14, ferritin 333 history of coronary disease status post stents, history of TAVR, A-fib with slow ventricular response status post pacemaker placement -Continue aspirin, Plavix, Xarelto Hypertension: Would use metoprolol for now avoid lisinopril Goals of care discussed with the patient she is full code Social dynamics patient lives alone but stating that she she got good social support system all of her kids are around her to help her out Attestations Medical Necessity Statement*: Patient requires hospitalization for wet gangrene, evidence of PAD Diagnoses Diabetic foot ulcer E11.621; L97.423 Diabetes mellitus type: type 2 Diabetic foot ulcer location: midfoot Laterality: left Non-pressure ulcer stage: with necrosis of muscle Cellulitis of left foot L03.116 Uncontrolled diabetes mellitus Presence of permanent cardiac pacemaker Z95.0 Essential hypertension I10 Non-compliant behavior R46.89 Peripheral arterial disease I73.9 Dyslipidemia E78.5 History of amputation of lesser toe of right foot Z89.421 Above-knee amputation of right lower extremity S78.111A Incontinence of urine in female R32 Venous insufficiency of both lower extremities I87.2 Arterial insufficiency of lower extremity I73.9 Recurrent UTI N39.0 Type 2 diabetes mellitus treated with insulin E11.9; Z79.4
--- NOTE | 2022-09-15 15:47 | PM.PN ---
Subjective Subjective: Patient seen at bedside earlier this morning and then again this afternoon. Patient is resting comfortably. She is tired. She is accompanied by her daughter who states that she thinks that her mother's mental status has been altered from baseline as of today. She states that her mother seems more tired and unable to converse as usual. Otherwise, no overnight events. Vitals/I&O/Wt Last Vital Signs Temp 98.2 F 09/15/22 12:00 Pulse 71 09/15/22 12:00 Resp 16 09/15/22 12:00 BP 157/95 09/15/22 12:00 Pulse Ox 98 09/15/22 12:00 O2 Del Method 09/15/22 12:00 O2 Flow Rate 2 09/15/22 12:00 09/15/22 09/15/22 09/15/22 06:59 14:59 22:59 Intake Total 976.25 / 3112.50 1277.5 / 1277.5 Output Total 500 / 502 Balance 476.25 / 2610.50 1277.5 / 1277.5 Weight last 48 hrs Weight 173 lb 8 oz Weight 180 lb Physical Exam Narrative: BELOW IS A FOCUSED LOWER EXTREMITY EXAM GENERAL: A&O x 3 VASCULAR: DP/PT pulses nonpalpable, monophasic. CFT intact to periwound area DERMATOLOGICAL: Lateral aspect of left foot shows 2 full-thickness ulcerations Wound #1 Location: Distal lateral transmetatarsal amputation site Size: 2.5 x 2.0 x 0.2 cm Undermining: Negative Tracking: Negative Probe to bone: Negative Borders: Epithelializing Base: 75% fibrotic, 25% granular Drainage: Negative Malodor: Negative Wound #2 Location: Lateral left foot Size: 5.0 x 4.5cm and tracking along the entire plantar aspect of the foot to the medial longitudinal arch Undermining: Negative Tracking: Tracks along entire aspect of plantar foot from lateral to medial Probe to bone: Negative Borders: Necrotic Base: Large excisional debridement avoid tracking medially to the medial longitudinal arch with necrotic tissue and fibrotic stranding. No blood flow noted to the wound bed Drainage: Slight serous drainage Malodor: Persistent necrotic odor MUSCULOSKELETAL: Status post left transmetatarsal amputation, status post right [id number] amputation NEUROLOGICAL: Neurological sensation to the affected foot and ankle is diminished through L4-S1 dermatomes via 10g SWMF, diminished sensation extends proximally to the level of the ankle Data 09/15/22 05:10 09/15/22 05:10 Micro: Microbiology 09/13/22 18:03 Gram Stain - Final Ankle - Left Wound Culture - Preliminary 09/14/22 12:30 Gram Stain - Final Foot - #1 Tissue Culture - Preliminary 09/14/22 12:30 Gram Stain - Final Ankle - #1 Wound Culture - Preliminary 09/13/22 19:25 Urine Culture - Final Urine,Clean Catch Escherichia coli 09/13/22 18:00 Blood Culture - Preliminary Blood NEGATIVE TO DATE 09/13/22 17:48 Blood Culture - Preliminary Blood NEGATIVE TO DATE A&P Assessment and plan (1) Diabetic foot ulcer: Qualifiers: Diabetes mellitus type: type 2 Diabetic foot ulcer location: midfoot Laterality: left Non-pressure ulcer stage: with necrosis of muscle Qualified Code(s): E11.621 - Type 2 diabetes mellitus with foot ulcer; L97.423 - Non-pressure chronic ulcer of left heel and midfoot with necrosis of muscle (2) Cellulitis of left foot: (3) Uncontrolled diabetes mellitus: (4) Peripheral arterial disease: Plan COURSE: -Patient is a 71-year-old female with history of right [id number] amputation, left transmetatarsal amputation and chronic ulcerations of left foot in the presence of severe PAD and diabetic peripheral neuropathy. Patient has had worsening wounds over the course the past 2 weeks with increased drainage and foul odor. She presented to her primary care provider who advised her to come to the emergency department today for work-up and evaluation and probable surgical intervention. Patient was started on broad-spectrum IV antibiotics in the emergency department. Given the extent of necrotic tissue/wet gangrene to the lateral aspect of the left foot surgical debridement is warranted for source control. CLINICAL AND LAB FINDINGS: WBC 9.3 VSS CRP 121.4 ESR 50 IMAGIN views of the left foot taken in the emergency department person interpreted by me which show transmetatarsal amputation with soft tissue defect on the lateral aspect of the left foot which correlates clinically with wound. No subcutaneous emphysema noted. Erosive changes to lateral aspect of fifth metatarsal consistent with likely chronic osteomyelitis CULTURES: Preliminary GPC's VASCULAR: -CTA from 11/19/2020 showed high-grade short segment stenosis in the proximal SFA with patency and stent present. High-grade stenosis in distal popliteal artery proximal to trifurcation which is patent. -Duplex ultrasound (09/14/2022) shows moderate peripheral arterial disease with patent, stented SFA with low velocity suggesting possible in-stent stenosis. Abnormal Doppler waveforms in the left popliteal and dorsalis pedis artery suggesting collateral filling. Possible total occlusion of the posterior tibial artery PLAN: -Okay for diet per podiatry as no further surgical intervention is planned at this time -Lengthy discussion was had with patient and patient's daughter at bedside this morning about the realistic healing potential that the patient has for the left foot ulceration given the extent of necrosis and lack of blood flow. I discussed that the patient's likely best option moving forward would be proximal amputation. She would need rigorous at home aftercare which could be provided by her daughter who states that she prefers that her mother move in with her after the procedure so she can help her. Patient verbalized understanding to the need for proximal amputation. -Recommend BKA versus AKA at providers discretion and potential for wound healing based on blood flow -Continue broad-spectrum antibiotics and adjust pending micro ID and sensitivity -Wound care: Betadine wet-to-dry, Coban -Weightbearing to left foot for transfers only -Trend labs -I will continue to round on patient daily during hospital admission and provide recommendations to help with stabilization and discharge Attestations Medical Necessity Statement*: Extensive necrosis to left foot wound. Coding Level of Care Code Acute Code for [facility] Fwd Diagnoses Diabetic foot ulcer E11.621; L97.423 Diabetes mellitus type: type 2 Diabetic foot ulcer location: midfoot Laterality: left Non-pressure ulcer stage: with necrosis of muscle Cellulitis of left foot L03.116 Uncontrolled diabetes mellitus Peripheral arterial disease I73.9
[2022-09-15 16:40] LABS: Glucose Point of Care 143 mg/dL (70-110)
--- NOTE | 2022-09-15 18:44 | P.CONIM_ITS ---
Providers/Reason For Consult Consulting Physician/Specialty*: Christian Berman MD; orthopedic surgery Reason for Consult*: Gangrene left foot Attending Physician: Michael Lees MD Primary Care Provider: TRINH Whittington History of Present Illness History of Present Illness Elisha Vickers is a 71 year old female with a long history of problems in both lower extremities. She previously underwent a right above-knee amputation. He has a history of chronic ulcerations of the left foot has undergone a left transmetatarsal amputation. She was admitted on through our ER on 09/13/2022 with a result of worsening ulcer on the lateral aspect of her foot. Dr. Sidhu from podiatry was consulted. She was taken back to the operating room yesterday where she underwent extensive debridement. Dr. Parker expressed the opinion that the necrosis was too great for the foot to be salvaged and orthopedics is asked to see the patient. She reports that she lives in her own home. In the past b efore her foot was ulcerated she was able to stand on her left foot for the purpose of transferring. She was never fitted with a right above-knee prosthesis Medications/Allergies Home Medications Medication Instructions Recorded Confirmed Last Taken Type Wheelchair #1 ea 12/11/20 09/13/22 Unknown Rx aspirin 81 mg tablet,delayed 81 mg PO QAM 01/19/21 09/13/22 09/13/22 History release Electric Wheelchair #1 ea 04/20/21 09/13/22 Unknown Rx pen needle, diabetic 32 gauge x #100 ea 11/01/21 09/13/22 Unknown Rx 5/32 (BD Domenica 2nd Gen Pen Needle) blood sugar diagnostic (OneTouch #100 ea 11/12/21 09/13/22 Unknown Rx Ultra Test strips) lancets 33 gauge (OneTouch Delica #100 ea 11/12/21 09/13/22 Unknown Rx Lancets) Lift Chair #1 ea 12/03/21 09/13/22 Unknown Rx Novolog FlexPen U-100 Insulin 100 See Rx Instructions .Route 04/13/22 09/13/22 Unknown Rx unit/mL (3 mL) subcutaneous .COMPLEX #15 mL (insulin aspart U-100) insulin glargine 100 unit/mL (3 See Rx Instructions .Route 08/17/22 09/13/22 09/13/22 Rx mL) subcutaneous pen (Lantus .COMPLEX #15 mL Solostar U-100 Insulin) semaglutide 3 mg tablet (Rybelsus) See Rx Instructions .Route 09/09/22 09/13/22 09/13/22 Rx .COMPLEX #30 tabs clopidogrel 75 mg tablet 75 mg PO DAILY 09/13/22 09/13/22 09/13/22 History lisinopril 40 mg tablet 40 mg PO DAILY 09/13/22 09/13/22 09/13/22 History metoprolol succinate 25 mg 25 mg PO DAILY 09/13/22 09/13/22 09/13/22 History tablet,extended release 24 hr rivaroxaban 20 mg tablet (Xarelto) 20 mg PO DAILY 09/13/22 09/13/22 09/13/22 History Allergies Allergy/AdvReac Type Severity Reaction Status Date / Time ceftriaxone [From Rocephin] Allergy Severe cardiac Verified 09/13/22 14:02 arrest atorvastatin [From Lipitor] Allergy Unknown UNKNOWN Verified 09/13/22 14:02 Gkudouk-PTS-WnL Reductase Allergy Unknown UNKNOWN Verified 09/13/22 14:02 Inhibitor [Jselewq-Wim-Zuy Reductase Inhibitor] Rocephin Allergy Unknown Unknown Uncoded 09/13/22 14:02 Current Medications Generic Name Dose Route Start Last Admin Trade Name Freq PRN Reason Stop Dose Admin Acetaminophen 500 mg 09/13/22 20:25 09/15/22 08:48 Acetaminophen 500 Mg Tablet PO 500 mg Q4H PRN Administration fever Aspirin 81 mg 09/14/22 13:45 09/15/22 05:12 Aspirin 81 Mg Ec Tablet PO 81 mg QAM BIRGIT Administration Clopidogrel Bisulfate 75 mg 09/14/22 13:45 09/15/22 08:22 Clopidogrel 75 Mg Tablet PO 75 mg DAILY BIRGIT Administration Piperacillin Sod/Tazobactam 50 mls @ 12.5 mls/hr 09/14/22 03:00 09/15/22 17:58 Sod 3.375 gm/ Sodium Chloride IV Infused Q8H BIRGIT Infusion Protocol Vancomycin/PEG/NADA/Lysine/Water 1,500 mg in 300 mls @ 200 mls/hr 09/14/22 08:00 09/15/22 10:05 Vancocin IV Infused Q12H B[facility] Infusion Insulin Human Lispro 0 unit 09/14/22 08:00 09/15/22 17:00 Insulin Lispro 100 Unit/1 Ml SUBCUT 4 unit TIDWM BIRGIT Administration Protocol Metoprolol Tartrate 25 mg 09/13/22 21:00 09/15/22 08:22 Metoprolol Tartrate 25 Mg Tablet PO 25 mg BID@0900,2100 BIRGIT Administration Morphine Sulfate 15 mg 09/13/22 20:25 09/14/22 15:04 Morphine Ir 15 Mg Tablet PO 15 mg Q6H PRN Administration pAIN Senna/Docusate Sodium 1 tab 09/14/22 09:00 09/15/22 08:22 Sennosides-Docusate Tablet PO 1 tab DAILY BIRGIT Administration PFSH Acute PFSH: Medical History (Updated 09/15/22 @ 18:51 by Christian Berman MD) Carotid stenosis, right Congestive heart failure with cardiomyopathy Essential hypertension Gangrene of right foot 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 MRSA (methicillin resistant staph aureus) culture positive Pacemaker Pre-operative clearance TIA (transient ischemic attack) Valvular incompetence, mitral Venous insufficiency of both lower extremities Wound of right lower extremity Surgical History (Updated 09/13/22 @ 21:11 by Mar Kemp MD) History of amputation of lesser toe of right foot History of heart artery stent History of transmetatarsal amputation of left foot Hx of foot surgery Hx of knee surgery Hx of tubal ligation Peripheral vascular angioplasty status with implants and grafts S/P TAVR (transcatheter aortic valve replacement) S/P transmetatarsal amputation of foot Family History Family/Other CAD (coronary artery disease) Chronic kidney disease (CKD) Mother Diabetes Stroke Father Lung disease Sister Lung disease Other Heart disease Denies family history of Clotting disorder Dementia Suicide Anesthesia complication Bleeding disorder Cancer Social History Smoking and tobacco status: never smoked Alcohol intake: never Adopted: No Caregiver/support person: No Lives independently: Yes service: No Current occupational status: disabled Sexually active: Yes Current gender identity: Female Vitals/I&O/Wt Last Vital Signs Temp 98.4 F 09/15/22 16:00 Pulse 76 09/15/22 16:00 Resp 17 09/15/22 16:00 BP 116/71 09/15/22 16:00 Pulse Ox 94 09/15/22 16:00 O2 Del Method 09/15/22 16:00 O2 Flow Rate 2 09/15/22 12:00 09/15/22 09/15/22 09/15/22 06:59 14:59 22:59 Intake Total 976.25 / 3112.50 1277.5 / 1277.5 530 / 1807.5 Output Total 500 / 502 Balance 476.25 / 2610.50 1277.5 / 1277.5 530 / 1807.5 Weight last 48 hrs Weight 173 lb 8 oz Physical Exam Narrative: On examination of the left foot,The patient is a large necrotic wound over the plantar medial foot. She has a previous transmetatarsal amputation. She has nonpalpable dorsalis pedis and tibialis posterior pulses. Her leg is warm and her skin healthy over the proximal two thirds of the leg and above the knee. Data 09/15/22 05:10 09/15/22 05:10 Micro: Microbiology 09/14/22 12:30 Anaerobic Culture - Preliminary Foot - #1 09/13/22 18:03 Gram Stain - Final Ankle - Left Wound Culture - Preliminary 09/14/22 12:30 Gram Stain - Final Foot - #1 Tissue Culture - Preliminary 09/14/22 12:30 Gram Stain - Final Ankle - #1 Wound Culture - Preliminary 09/13/22 19:25 Urine Culture - Final Urine,Clean Catch Escherichia coli 09/13/22 18:00 Blood Culture - Preliminary Blood NEGATIVE TO DATE 09/13/22 17:48 Blood Culture - Preliminary Blood NEGATIVE TO DATE A&P Assessment and plan (1) Gangrene of left foot: Elisha has extensive gangrene of the left foot. It is the opinion of the operative journeyman electrician pv installer that this is not a salvageable situation. I discussed further treatment options with her. I told her the next chance that the most functional limit would be a left below-knee amputation. She has a previous right above-knee amputation and I told her this may not be helpful as she is nonambulatory. She states that she uses her left foot for pivoting and transfer and it would be very useful in neighboring her to stand and move from bed to wheelchair. I told her that above-knee amputation will be more reliable with healing. She feels she would like to salvage as much of the left leg as possible to be able to continue to transfer. I told her that there is no assurances that healing could be obtained and the possibility of further p rocedures exist. I discussed anesthetic risk with surgery. She understands. She currently is anticoagulated with Eliquis. We will be best to discontinue this for 48 hours to minimize risk of bleeding complications and promote better healing. We will plan on surgery Monday. Coding Level of Care Code Acute Code for [facility] Diagnoses Gangrene of left foot I96
[2022-09-15 19:24] LABS: Vancomycin Trough 28.7 ug/mL (10-15)
--- NOTE | 2022-09-15 19:33 | PC.PHAR ---
Vancomycin - Pharmacy to dose Critical lab result for the trough came in at 28.7 - recalculation of the dosage and frequency show better results with 1500mg q18h. Have extended the next dose out 18 hours (09/16/22 @ 0200). Will continue to monitor patient and re-enter trough for follow-up
[2022-09-15 21:03] LABS: Glucose Point of Care 98 mg/dL (70-110)
[2022-09-16] MEDS: vancomycin 1,500 MG/300 ML PIGGYBACK 200 MG IV ×2 (01:20→20:01)
[2022-09-16 04:00] VITALS: BP 138/72; PULSE 76; RESP 17; TEMP 37.1; O2SAT 95
[2022-09-16] MEDS: piperacillin-tazobactam 3.375 GM in sodium chloride 0.9% (plus) 50 ML IV ×3 (04:22→21:49)
[2022-09-16 04:42] LABS: Basophils % 0.5 %; Eosinophils # 0.2 10^3/uL (0.0-0.8); Eosinophils % 2.7 %; Hematocrit 27.8 % (37.0-47.0); Hemoglobin 8.4 g/dL (11.5-15.3); Lymphocytes # 1.3 10^3/uL (0.8-4.8); Lymphocytes % 15.4 %; Mean Corpuscular HGB Conc 30.2 g/dL (30.0-36.0); Mean Corpuscular Hemoglobin 26.7 pg (28.0-34.0); Mean Corpuscular Volume 88.3 fl (81-99); Mean Platelet Volume 9.8 fL (7.4-10.4); Monocytes # 0.6 10^3/uL (0.2-0.9); Monocytes % 7.2 %; Neutrophils # 6.26 10^3/uL (1.8-7.7); Neutrophils % 73.8 %; Nucleated Red Blood Cells % 0 %; Platelet Count 287 10^3/cmm (130-400); Red Blood Count 3.15 10^6/uL (4.1-5.3); Red Cell Distribution Width 16.8 % (12.1-15.1); White Blood Count 8.5 10^3/uL (4.0-10.0)
[2022-09-16 05:00] LABS: Anion Gap 16.1 (5-19); Blood Urea Nitrogen 17 mg/dL (8-23); Calcium 8.1 mg/dL (8.5-10.5); Carbon Dioxide 20 mmol/L (22-29); Chloride 105 mmol/L (98-107); Glucose 77 mg/dL (65-115); Osmolality Calculated 284 mOsm/kg (285-295); Potassium 4.1 mmol/L (3.5-5.1); Sodium 137 mmol/L (136-145)
[2022-09-16] MEDS: aspirin 81 mg EC Tablet PO (06:21)
[2022-09-16 06:56] LABS: Glucose Point of Care 89 mg/dL (70-110)
[2022-09-16 07:40] VITALS: BP 145/76; PULSE 81; RESP 16; TEMP 37.2; O2SAT 96
[2022-09-16 08:00] VITALS: PULSE 80; RESP 16; O2SAT 93
[2022-09-16] MEDS: sennosides-docusate Tablet 1 TAB PO ×2 (09:51→09:54)
[2022-09-16] MEDS: sucralfate 1 gm Tablet PO ×2 (09:51→17:51)
--- NOTE | 2022-09-16 10:18 | PC.SOCIAL ---
Imm update Imm updated with patient at bedside. Copy of page 2 provided. Patient verbalized understanding. Copy in chart initialed, dated and timed.
[2022-09-16] MEDS: metoprolol tartrate 25 mg Tablet PO (11:11)
[2022-09-16] MEDS: clopidogrel 75 mg Tablet PO (11:11)
[2022-09-16 11:35] LABS: Glucose Point of Care 128 mg/dL (70-110)
[2022-09-16 11:53] VITALS: BP 157/84; PULSE 84; RESP 18; TEMP 36.5; O2SAT 95
[2022-09-16] MEDS: lisinopril 20 mg Tablet 40 MG PO (12:28)
--- NOTE | 2022-09-16 12:45 | PM.PN ---
Subjective Subjective: patient was seen this morning, she has no complaints, awaiting surgery tommorow Vitals/I&O/Wt Last Vital Signs Temp 97.7 F 09/16/22 11:53 Pulse 84 09/16/22 11:53 Resp 18 09/16/22 11:53 BP 157/84 09/16/22 11:53 Pulse Ox 95 09/16/22 11:53 O2 Del Method 09/16/22 11:53 O2 Flow Rate 2 09/15/22 20:00 09/15/22 09/16/22 09/16/22 22:59 06:59 14:59 Intake Total 530 / 1807.5 350 / 2157.5 50 / 50 Balance 530 / 1807.5 350 / 2157.5 50 / 50 Physical Exam Const: COMMON NORMALS: no acute distress and patient oriented x3 Resp: COMMON NORMALS: normal respiratory effort, No retractions, No use of accessory muscles and clear to auscultation bilaterally AUSCULTATION: clear to auscultation bilaterally Cardio: COMMON NORMALS: regular rate, regular rhythm, S1 normal heart sound present and S2 normal heart sound present RATE: regular rate RHYTHM: regular rhythm HEART SOUNDS: S1 normal heart sound present and S2 normal heart sound present GI: COMMON NORMALS: Normal to inspection, nondistended, normoactive bowel sounds present and non-tender Extremity: NARRATIVE EXTREMITY EXAM: lle wrapped Neuro: COMMON NORMALS: patient oriented x3 Psych: COMMON NORMALS: mental status grossly normal Data 09/16/22 04:31 09/16/22 04:31 Micro: Microbiology 09/14/22 12:30 Anaerobic Culture - Preliminary Foot - #1 09/13/22 18:03 Gram Stain - Final Ankle - Left Wound Culture - Preliminary 09/14/22 12:30 Gram Stain - Final Foot - #1 Tissue Culture - Preliminary 09/14/22 12:30 Gram Stain - Final Ankle - #1 Wound Culture - Preliminary 09/13/22 19:25 Urine Culture - Final Urine,Clean Catch Escherichia coli A&P Assessment and plan (1) Diabetic foot ulcer: Qualifiers: Diabetes mellitus type: type 2 Diabetic foot ulcer location: midfoot Laterality: left Non-pressure ulcer stage: with necrosis of muscle Qualified Code(s): E11.621 - Type 2 diabetes mellitus with foot ulcer; L97.423 - Non-pressure chronic ulcer of left heel and midfoot with necrosis of muscle (2) Cellulitis of left foot: (3) Uncontrolled diabetes mellitus: (4) Presence of permanent cardiac pacemaker: (5) Essential hypertension: (6) Non-compliant behavior: (7) Peripheral arterial disease: (8) Dyslipidemia: (9) History of amputation of lesser toe of right foot: (10) Above-knee amputation of right lower extremity: (11) Incontinence of urine in female: (12) Venous insufficiency of both lower extremities: (13) Arterial insufficiency of lower extremity: (14) Recurrent UTI: (15) Type 2 diabetes mellitus treated with insulin: Plan Wet gangrene Left foot diabetic foot ulcer worsening s/p Incision and drainage left foot below fascia with tendon sheath involvement of multiple areas pod#2 plans on bka tommorow As per podiatry, continue aspirin, Plavix, hold Xarelto, one dose of lovenox today She recently had pacemaker evaluation Echo showed preserved ejection fraction Start broad-spectrum antibiotics Gentle fluid hydration Opioids along bowel regimen arterial ultrasound CONCLUSIONS ?1.? Diminished resting YUNG, suggestive of moderate peripheral ?artery disease on the left side. ?2.? Patent stented segment of the superficial femoral artery ?with a low velocity Doppler waveform may suggest diffuse in- ?stent stenosis 3.? Abnormal Doppler waveforms in the left ?popliteal and dorsalis pedis artery suggesting collateral ?filling. ?4.? Possible total occlusion of the posterior tibial artery ?No similar previous studies are available for comparison UTI: Currently on antibiotics History of peripheral arterial disease with venous insufficiency Playing a role for nonhealing of diabetic foot ulcers We will repeat arterial ultrasound Moderate sliding scale for now Anemia, hemoglobin 9.0, -Likely anemia of chronic disease -Iron 14, ferritin 333 history of coronary disease status post stents, history of TAVR, A-fib with slow ventricular response status post pacemaker placement -Continue aspirin, Plavix, Xarelto Hypertension: Would use metoprolol for now avoid lisinopril Goals of care discussed with the patient she is full code Social dynamics patient lives alone but stating that she she got good social support system all of her kids are around her to help her out Attestations Medical Necessity Statement*: patient requires hospitalization for plans for bka Coding Level of Care Code Acute Code for [facility] Diagnoses Diabetic foot ulcer E11.621; L97.423 Diabetes mellitus type: type 2 Diabetic foot ulcer location: midfoot Laterality: left Non-pressure ulcer stage: with necrosis of muscle Cellulitis of left foot L03.116 Uncontrolled diabetes mellitus Presence of permanent cardiac pacemaker Z95.0 Essential hypertension I10 Non-compliant behavior R46.89 Peripheral arterial disease I73.9 Dyslipidemia E78.5 History of amputation of lesser toe of right foot Z89.421 Above-knee amputation of right lower extremity S78.111A Incontinence of urine in female R32 Venous insufficiency of both lower extremities I87.2 Arterial insufficiency of lower extremity I73.9 Recurrent UTI N39.0 Type 2 diabetes mellitus treated with insulin E11.9; Z79.4
[2022-09-16] MEDS: enoxaparin 80 mg/0.8 mL Syringe SUBCUT (14:45)
[2022-09-16 14:54] LABS: Hematocrit 29.1 % (37.0-47.0); Hemoglobin 8.7 g/dL (11.5-15.3)
[2022-09-16 15:33] VITALS: BP 130/69; PULSE 85; RESP 18; TEMP 36.7; O2SAT 94
[2022-09-16 17:06] LABS: Glucose Point of Care 141 mg/dL (70-110)
[2022-09-16] MEDS: insulin lispro 100 unit/1 mL SUBCUT (17:51)
[2022-09-16 20:00] VITALS: BP 138/71; PULSE 85; PULSE 88; RESP 16; TEMP 36.7; O2SAT 91; O2SAT 94
[2022-09-16 22:35] LABS: Glucose Point of Care 110 mg/dL (70-110)
[2022-09-17] VITALS (21 sets, daily range): BP systolic 93–146; BP diastolic 55–85; PULSE 70–85; RESP 14–18; TEMP 36.4–37.2; O2SAT 90–98
[2022-09-17] MEDS: piperacillin-tazobactam 3.375 GM in sodium chloride 0.9% (plus) 50 ML IV ×2 (04:20→11:02)
[2022-09-17 06:15] LABS: Basophils # 0.1 10^3/uL (0.0-0.1); Basophils % 0.7 %; Eosinophils # 0.2 10^3/uL (0.0-0.8); Eosinophils % 3.1 %; Hematocrit 29.5 % (37.0-47.0); Hemoglobin 8.7 g/dL (11.5-15.3); Lymphocytes # 1.3 10^3/uL (0.8-4.8); Lymphocytes % 18.7 %; Mean Corpuscular HGB Conc 29.5 g/dL (30.0-36.0); Mean Corpuscular Hemoglobin 26.9 pg (28.0-34.0); Mean Platelet Volume 10.1 fL (7.4-10.4); Monocytes # 0.5 10^3/uL (0.2-0.9); Monocytes % 7.9 %; Neutrophils # 4.59 10^3/uL (1.8-7.7); Neutrophils % 68.9 %; Nucleated Red Blood Cells % 0 %; Platelet Count 286 10^3/cmm (130-400); Red Blood Count 3.24 10^6/uL (4.1-5.3); Red Cell Distribution Width 16.6 % (12.1-15.1); White Blood Count 6.7 10^3/uL (4.0-10.0)
[2022-09-17 06:34] LABS: Anion Gap 15.8 (5-19); Blood Urea Nitrogen 13 mg/dL (8-23); Calcium 7.9 mg/dL (8.5-10.5); Carbon Dioxide 20 mmol/L (22-29); Chloride 105 mmol/L (98-107); Glucose 69 mg/dL (65-115); Osmolality Calculated 282 mOsm/kg (285-295); Potassium 3.8 mmol/L (3.5-5.1); Sodium 137 mmol/L (136-145)
--- NOTE | 2022-09-17 06:38 | PC.NURSE ---
per Dr. Lees. hold plavix and ASA today due to scheduled surgery
[2022-09-17 08:03] LABS: Glucose Point of Care 79 mg/dL (70-110)
--- NOTE | 2022-09-17 10:17 | PM.PN ---
Subjective Subjective: Pt seen in PACU. Agrees to surgery Vitals/I&O/Wt Last Vital Signs Temp 98.9 F 09/17/22 10:04 Pulse 72 09/17/22 10:04 Resp 18 09/17/22 10:04 BP 143/85 09/17/22 10:04 Pulse Ox 95 09/17/22 10:04 O2 Del Method 09/17/22 10:04 O2 Flow Rate 2 09/15/22 20:00 09/16/22 09/17/22 09/17/22 22:59 06:59 14:59 Intake Total 450 / 740 50 / 790 50 / 50 Balance 450 / 740 50 / 790 50 / 50 Physical Exam Narrative: Left foot dressing in place Data 09/17/22 05:05 09/17/22 05:05 Micro: Microbiology 09/14/22 12:30 Gram Stain - Final Foot - #1 Tissue Culture - Preliminary Coag positive Staphylococcus 09/14/22 12:30 Gram Stain - Final Ankle - #1 Wound Culture - Preliminary 09/14/22 12:30 Anaerobic Culture - Preliminary Foot - #1 A&P Assessment and plan (1) Gangrene of left foot: Proceed with left below knee vs above knee amputaion. Attestations Medical Necessity Statement*: Surgery today Coding Level of Care Code Acute Code for [facility] Diagnoses Gangrene of left foot I96
--- NOTE | 2022-09-17 10:18 | ANES.PREANE2 ---
Pre-Anesthetic Assessment Height/Weight: Height 1.7 m Weight 78.698 kg Temp Pulse Resp BP Pulse Ox O2 Del Method O2 Flow Rate 98.9 F 72 18 143/85 95 2 09/17/22 10:04 09/17/22 10:04 09/17/22 10:04 09/17/22 10:04 09/17/22 10:04 09/17/22 10:04 09/15/22 20:00 Preop Diagnosis: Left foot gangrene Operation Date: 09/14/22 12:10 Proposed Procedures p Incision And Drainage and excision of nonviable tissue and bone(Left) - Walter Parker DPM Operation Date: 09/17/22 10:10 Proposed Procedures p Below Knee Amputation verses possible above-knee(Left) - Christian Berman MD Was Beta Jeffrey taken within 24 hours: Yes Last intake: Intake Last Liquid Date 09/13/22 Last Liquid Time 23:00 Last Solid Date 09/13/22 Last Solid Time 20:30 Social No alcohol and No tobacco Exam alert, oriented x 3, clear to auscultation bilaterally and regular rate & rhythm (Soft systolic murmur ) Airway Submandibular: within normal limits Cervical ROM: within normal limits Mallampati: Class II CV/HEM Coronary Artery Disease, Congestive Heart Failure, Hypertension and Murmur GI no GERD Metabolic Diabetes Mellitus and Hyperlipidemia [facility] [place] Osteoarthritis/DJD Anesthetic Plan ASA status: 3 Anesthesia: General Other: Pt declined SAB adamantly Medications/Allergies Home Medications Medication Instructions Recorded Confirmed Last Taken Type Wheelchair #1 ea 12/11/20 09/13/22 Unknown Rx aspirin 81 mg tablet,delayed 81 mg PO QA 01/19/21 09/13/22 09/13/22 History release Electric Wheelchair #1 ea 04/20/21 09/13/22 Unknown Rx pen needle, diabetic 32 gauge x #100 ea 11/01/21 09/13/22 Unknown Rx 5/32 (BD Domenica 2nd Gen Pen Needle) blood sugar diagnostic (OneTouch #100 ea 11/12/21 09/13/22 Unknown Rx Ultra Test strips) lancets 33 gauge (OneTouch Delica #100 ea 11/12/21 09/13/22 Unknown Rx Lancets) Lift Chair #1 ea 12/03/21 09/13/22 Unknown Rx Novolog FlexPen U-100 Insulin 100 See Rx Instructions .Route 04/13/22 09/13/22 Unknown Rx unit/mL (3 mL) subcutaneous .COMPLEX #15 mL (insulin aspart U-100) insulin glargine 100 unit/mL (3 See Rx Instructions .Route 08/17/22 09/13/22 09/13/22 Rx mL) subcutaneous pen (Lantus .COMPLEX #15 mL Solostar U-100 Insulin) semaglutide 3 mg tablet (Rybelsus) See Rx Instructions .Route 09/09/22 09/13/22 09/13/22 Rx .COMPLEX #30 tabs clopidogrel 75 mg tablet 75 mg PO DAILY 09/13/22 09/13/22 09/13/22 History lisinopril 40 mg tablet 40 mg PO DAILY 09/13/22 09/13/22 09/13/22 History metoprolol succinate 25 mg 25 mg PO DAILY 09/13/22 09/13/22 09/13/22 History tablet,extended release 24 hr rivaroxaban 20 mg tablet (Xarelto) 20 mg PO DAILY 09/13/22 09/13/22 09/13/22 History Allergies Allergy/AdvReac Type Severity Reaction Status Date / Time ceftriaxone [From Rocephin] Allergy Severe cardiac Verified 09/13/22 14:02 arrest atorvastatin [From Lipitor] Allergy Unknown UNKNOWN Verified 09/13/22 14:02 Vocqpzk-YXQ-IiM Reductase Allergy Unknown UNKNOWN Verified 09/13/22 14:02 Inhibitor [Mlmqykc-Lqu-Par Reductase Inhibitor] Rocephin Allergy Unknown Unknown Uncoded 09/13/22 14:02 Current Medications Generic Name Dose Route Start Last Admin Trade Name Surendraq PRN Reason Stop Dose Admin Acetaminophen 500 mg 09/13/22 20:25 09/15/22 08:48 Acetaminophen 500 Mg Tablet PO 500 mg Q4H PRN Administration fever Aspirin 81 mg 09/14/22 13:45 09/17/22 06:38 Aspirin 81 Mg Ec Tablet PO Not Given QAM BIRGIT Clopidogrel Bisulfate 75 mg 09/14/22 13:45 09/16/22 11:11 Clopidogrel 75 Mg Tablet PO 75 mg DAILY BIRGIT Administration Piperacillin Sod/Tazobactam 50 mls @ 12.5 mls/hr 09/14/22 03:00 09/17/22 09:48 Sod 3.375 gm/ Sodium Chloride IV Infused Q8H BIRGIT Infusion Protocol Vancomycin/PEG/NADA/Lysine/Water 1,500 mg in 300 mls @ 200 mls/hr 09/16/22 02:00 09/16/22 21:50 Vancocin IV Infused Q18H [facility] Infusion Insulin Human Lispro 0 unit 09/14/22 08:00 09/17/22 09:43 Insulin Lispro 100 Unit/1 Ml SUBCUT Not Given TIDWM [facility] Protocol Lisinopril 40 mg 09/16/22 11:30 09/16/22 12:28 Lisinopril 20 Mg Tablet PO 40 mg DAILY BIRGIT Administration Metoprolol Tartrate 25 mg 09/13/22 21:00 09/16/22 11:11 Metoprolol Tartrate 25 Mg Tablet PO 25 mg BID@0900,2100 BIRGIT Administration Pantoprazole Sodium 40 mg 09/16/22 07:45 09/17/22 09:45 Pantoprazole 40 Mg Sdv IVP Not Given Q12H BIRGIT Senna/Docusate Sodium 1 tab 09/14/22 09:00 09/16/22 09:54 Sennosides-Docusate Tablet PO 1 tab DAILY BIRGIT Administration Sucralfate 1 gm 09/16/22 07:45 09/17/22 09:42 Sucralfate 1 Gm Tablet PO Not Given Q12H BIRGIT PFSH Anesthesia Medical History (Updated 09/15/22 @ 18:51 by Christian Berman MD) Carotid stenosis, right Congestive heart failure with cardiomyopathy Essential hypertension Gangrene of right foot 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 MRSA (methicillin resistant staph aureus) culture positive Pacemaker Pre-operative clearance TIA (transient ischemic attack) Valvular incompetence, mitral Venous insufficiency of both lower extremities Wound of right lower extremity Surgical History (Updated 09/13/22 @ 21:11 by Mar Kemp MD) History of amputation of lesser toe of right foot History of heart artery stent History of transmetatarsal amputation of left foot Hx of foot surgery Hx of knee surgery Hx of tubal ligation Peripheral vascular angioplasty status with implants and grafts S/P TAVR (transcatheter aortic valve replacement) S/P transmetatarsal amputation of foot Family History Family/Other CAD (coronary artery disease) Chronic kidney disease (CKD) Mother Diabetes Stroke Father Lung disease Sister Lung disease Other Heart disease Denies family history of Clotting disorder Dementia Suicide Anesthesia complication Bleeding disorder Cancer Social History Smoking and tobacco status: never smoked Alcohol intake: never Adopted: No Caregiver/support person: No Lives independently: Yes service: No Current occupational status: disabled Sexually active: Yes Current gender identity: Female Data Anesthesia 09/17/22 05:05 09/17/22 05:05 Short CBC 09/16/22 09/16/22 09/17/22 Range/Units 04:31 14:48 05:05 WBC 8.5 6.7 (4.0-10.0) 10^3/uL Hgb 8.4 L 8.7 L 8.7 L (11.5-15.3) g/dL Hct 27.8 L 29.1 L 29.5 L (37.0-47.0) % MCV 88.3 91.0 (81-99) fl Plt Count 287 286 (130-400) 10^3/cmm Neut % (Auto) 73.8 68.9 % Neut # (Auto) 6.26 4.59 (1.8-7.7) 10^3/uL BMP 09/16/22 09/17/22 04:31 05:05 Sodium 137 137 Potassium 4.1 3.8 Chloride 105 105 Carbon Dioxide 20 L 20 L BUN 17 13 Creatinine 0.8 0.7 Glucose 77 69 Calcium 8.1 L 7.9 L Microbiology 09/14/22 12:30 Gram Stain - Final Foot - #1 Tissue Culture - Preliminary Coag positive Staphylococcus 09/14/22 12:30 Gram Stain - Final Ankle - #1 Wound Culture - Preliminary 09/14/22 12:30 Anaerobic Culture - Preliminary Foot - #1 Cardiac Studies: Echocardiogram 04/15/22
--- NOTE | 2022-09-17 11:44 | P.OP_ITS ---
Operative Report Date of procedure: September 17, 2022 Pre-op diagnosis: Preop Diagnosis Left foot gangrene Preop Diagnosis Left foot gangrene Post-op diagnosis: same Procedure done: Left below-knee amputation Pathology: none sent Surgeon: Christian Berman Anesthesia: General Estimated blood loss (mL): 20 Tourniquet time (min): 9 Findings: The patient had a large gangrenous ulcer over the lateral and plantar left foot. Condition: stable Disposition: PACU Procedure: The patient was taken to the operating room.? He was given no antibiotics other than those given on the hospital lama. A spinal anesthesia was provided by the anesthesia service. His right lower extremity was prepped and draped in the usual fashion.? A timeout was performed. Tourniquet was inflated to 300 mmHg.? A short anterior and longer posterior flap were positioned at 20 cm distal to the joint line. Dissection was carried down to the anterior tibia and anterior lateral musculature with a scalpel blade.? Utilizing an oscillating saw the tibia was sharply divided and a fibular cut was made just slightly more proximally and obliquely.? The edges of the tibia were beveled smooth.? An amputation knife was used to complete the posterior flap.? The tibial nerve was identified and retracted into the wound and dissected with electrocautery.? Tibial vessels were ligated with a 0 silk suture.? The tourniquet was deflated.? Hemostasis provided with electrocautery.? 3 drill holes were made in the anterior tibia.? The posterior gastrocsoleus fascia was reflected anteriorly and tied down to the anterior tibia with #1 Ethibond.? The fascia of the anterior and posterior leg were then reapproximated with 1 Vicry l.? The cutaneous tissue was closed with 2-0 Vicryl.? The skin was closed with skin dinh.? The incision was covered with Xeroflo gauze 4 x 4's ABD pads.? A cylinder cast was appied. The patient was extubated and taken to recovery room in stable condition.
[2022-09-17] MEDS: HYDROmorphone 1 mg/mL INJ 1 mL 0.5 MG IVP (11:57)
--- NOTE | 2022-09-17 12:35 | ANE.PACU2 ---
Inpatient post-anesthesia follow up: Vital signs: Temperature 98.4 F Pulse Rate 78 Respiratory Rate 17 Blood Pressure 111/62 Pulse Oximetry 98 Oxygen Delivery Me thod Nasal Cannula Oxygen Flow Rate 2 Fraction of Inspir ed Oxygen Hydration adequate: Yes Nausea and vomiting: No Pain level: 2 Mental status: Baseline
[2022-09-17 12:46] LABS: Glucose Point of Care 101 mg/dL (70-110)
[2022-09-17] MEDS: HYDROcodone-acetaminophen 5-325 mg Tablet 1 TAB PO ×3 (12:50→22:10)
[2022-09-17] MEDS: vancomycin 1,500 MG/300 ML PIGGYBACK 200 MG IV (12:51)
--- NOTE | 2022-09-17 13:41 | P.PN_ITS ---
Subjective Subjective: Patient was seen this morning, in preop, she has no complaints, Vitals/I&O/Wt Last Vital Signs Temp 97.7 F 09/17/22 13:10 Pulse 82 09/17/22 13:10 Resp 15 09/17/22 13:10 BP 146/78 09/17/22 13:10 Pulse Ox 96 09/17/22 13:10 O2 Del Method 09/17/22 13:10 O2 Flow Rate 2 09/17/22 12:11 09/16/22 09/17/22 09/17/22 22:59 06:59 14:59 Intake Total 450 / 740 50 / 790 250 / 250 Output Total 20 / 20 Balance 450 / 740 50 / 790 230 / 230 Physical Exam Const: COMMON NORMALS: no acute distress and patient oriented x3 Resp: COMMON NORMALS: normal respiratory effort, No retractions, No use of accessory muscles and clear to auscultation bilaterally AUSCULTATION: clear to auscultation bilaterally Cardio: COMMON NORMALS: regular rate, regular rhythm, S1 normal heart sound present and S2 normal heart sound present RATE: regular rate RHYTHM: regular rhythm HEART SOUNDS: S1 normal heart sound present and S2 normal heart sound present GI: COMMON NORMALS: Normal to inspection, nondistended, normoactive bowel sounds present and non-tender Extremity: COMMON NORMALS: no pedal edema Neuro: COMMON NORMALS: patient oriented x3 Psych: COMMON NORMALS: mental status grossly normal Data 09/17/22 05:05 09/17/22 05:05 Micro: Microbiology 09/13/22 18:03 Gram Stain - Final Ankle - Left Wound Culture - Final Staphylococcus aureus 09/14/22 12:30 Gram Stain - Final Foot - #1 Tissue Culture - Final Staphylococcus aureus 09/14/22 12:30 Gram Stain - Final Ankle - #1 Wound Culture - Final Staphylococcus aureus 09/14/22 12:30 Anaerobic Culture - Preliminary Foot - #1 A&P Assessment and plan (1) Diabetic foot ulcer: Qualifiers: Diabetes mellitus type: type 2 Diabetic foot ulcer location: midfoot Laterality: left Non-pressure ulcer stage: with necrosis of muscle Qualified Code(s): E11.621 - Type 2 diabetes mellitus with foot ulcer; L97.423 - Non- pressure chronic ulcer of left heel and midfoot with necrosis of muscle (2) Cellulitis of left foot: (3) Uncontrolled diabetes mellitus: (4) Presence of permanent cardiac pacemaker: (5) Essential hypertension: (6) Non-compliant behavior: (7) Peripheral arterial disease: (8) Dyslipidemia: (9) History of amputation of lesser toe of right foot: (10) Above-knee amputation of right lower extremity: (11) Incontinence of urine in female: (12) Venous insufficiency of both lower extremities: (13) Arterial insufficiency of lower extremity: (14) Recurrent UTI: (15) Type 2 diabetes mellitus treated with insulin: Plan Wet gangrene Left foot diabetic foot ulcer worsening s/p Incision and drainage left foot below fascia with tendon sheath involvement of multiple areas pod#2 plans on bka today As per podiatry, continue aspirin, Plavix, hold Xarelto, one dose of lovenox today She recently had pacemaker evaluation Echo showed preserved ejection fraction Start broad-spectrum antibiotics Gentle fluid hydration Opioids along bowel regimen arterial ultrasound CONCLUSIONS ?1.? Diminished resting YUNG, suggestive of moderate peripheral ?artery disease on the left side. ?2.? Patent stented segment of the superficial femoral artery ?with a low velocity Doppler waveform may suggest diffuse in- ?stent stenosis 3.? Abnormal Doppler waveforms in the left ?popliteal and dorsalis pedis artery suggesting collateral ?filling. ?4.? Possible total occlusion of the posterior tibial artery ?No similar previous studies are available for comparison UTI: Continue ciprofloxacin Moderate sliding scale for now Anemia, hemoglobin 9.0, -Likely anemia of chronic disease -Iron 14, ferritin 333 history of coronary disease status post stents, history of TAVR, A-fib with slow ventricular response status post pacemaker placement -Continue aspirin, Plavix, Xarelto Hypertension: Would use metoprolol for now avoid lisinopril Goals of care discussed with the patient she is full code Social dynamics patient lives alone but stating that she she got good social support system all of her kids are around her to help her out Attestations Medical Necessity Statement*: Patient requires hospitalization for left BKA Coding Level of Care Code Acute Code for Chg Fwd Diagnoses Diabetic foot ulcer E11.621; L97.423 Diabetes mellitus type: type 2 Diabetic foot ulcer location: midfoot Laterality: left Non-pressure ulcer stage: with necrosis of muscle Cellulitis of left foot L03.116 Uncontrolled diabetes mellitus Presence of permanent cardiac pacemaker Z95.0 Essential hypertension I10 Non-compliant behavior R46.89 Peripheral arterial disease I73.9 Dyslipidemia E78.5 History of amputation of lesser toe of right foot Z89.421 Above-knee amputation of right lower extremity S78.111A Incontinence of urine in female R32 Venous insufficiency of both lower extremities I87.2 Arterial insufficiency of lower extremity I73.9 Recurrent UTI N39.0 Type 2 diabetes mellitus treated with insulin E11.9; Z79.4
[2022-09-17] MEDS: metoprolol tartrate 25 mg Tablet PO ×2 (15:43→20:24)
[2022-09-17] MEDS: pantoprazole 40 mg SDV IVP ×2 (15:43→18:03)
[2022-09-17] MEDS: lisinopril 20 mg Tablet 40 MG PO (15:43)
[2022-09-17 17:11] LABS: Glucose Point of Care 129 mg/dL (70-110)
[2022-09-17] MEDS: sucralfate 1 gm Tablet PO (18:03)
[2022-09-17] MEDS: ciprofloxacin 500 mg Tablet 250 MG PO (20:24)
[2022-09-17 20:27] LABS: Glucose Point of Care 178 mg/dL (70-110)
[2022-09-18 01:13] VITALS: RESP 16
[2022-09-18] MEDS: morphine 4 mg/mL SDV 1 mL 1 MG IVP (01:13)
[2022-09-18 03:27] VITALS: BP 116/60; PULSE 79; RESP 14; TEMP 36.7; O2SAT 92
[2022-09-18 04:04] LABS: Basophils # 0.1 10^3/uL (0.0-0.1); Basophils % 0.7 %; Eosinophils # 0.3 10^3/uL (0.0-0.8); Eosinophils % 3.9 %; Hematocrit 27.9 % (37.0-47.0); Hemoglobin 8.4 g/dL (11.5-15.3); Lymphocytes # 1.3 10^3/uL (0.8-4.8); Lymphocytes % 19.9 %; Mean Corpuscular HGB Conc 30.1 g/dL (30.0-36.0); Mean Corpuscular Hemoglobin 27.1 pg (28.0-34.0); Mean Platelet Volume 10.3 fL (7.4-10.4); Monocytes # 0.6 10^3/uL (0.2-0.9); Monocytes % 8.2 %; Neutrophils # 4.44 10^3/uL (1.8-7.7); Neutrophils % 66.7 %; Nucleated Red Blood Cells % 0 %; Platelet Count 302 10^3/cmm (130-400); Red Cell Distribution Width 17.1 % (12.1-15.1); White Blood Count 6.7 10^3/uL (4.0-10.0)
[2022-09-18 04:24] LABS: Anion Gap 11.7 (5-19); Blood Urea Nitrogen 14 mg/dL (8-23); Calcium 7.5 mg/dL (8.5-10.5); Carbon Dioxide 21 mmol/L (22-29); Chloride 108 mmol/L (98-107); Glucose 181 mg/dL (65-115); Osmolality Calculated 289 mOsm/kg (285-295); Potassium 3.7 mmol/L (3.5-5.1); Sodium 137 mmol/L (136-145)
[2022-09-18] MEDS: aspirin 81 mg EC Tablet PO (05:38)
[2022-09-18 06:45] LABS: Glucose Point of Care 203 mg/dL (70-110)
[2022-09-18 08:00] VITALS: BP 153/89; PULSE 78; PULSE 79; RESP 14; RESP 16; TEMP 36.3; O2SAT 94; O2SAT 95
[2022-09-18] MEDS: lisinopril 20 mg Tablet 40 MG PO (08:46)
[2022-09-18] MEDS: sucralfate 1 gm Tablet PO (08:47)
[2022-09-18] MEDS: sennosides-docusate Tablet 1 TAB PO (08:47)
[2022-09-18] MEDS: metoprolol tartrate 25 mg Tablet PO (08:47)
[2022-09-18] MEDS: rivaroxaban 10 mg Tablet 20 MG PO (08:48)
[2022-09-18] MEDS: clopidogrel 75 mg Tablet PO (08:48)
[2022-09-18] MEDS: pantoprazole 40 mg SDV IVP (08:48)
[2022-09-18] MEDS: insulin lispro 100 unit/1 mL SUBCUT ×2 (08:54→13:26)
[2022-09-18] MEDS: ciprofloxacin 500 mg Tablet 250 MG PO (08:54)
[2022-09-18] MEDS: HYDROcodone-acetaminophen 5-325 mg Tablet 1 TAB PO ×2 (08:55→13:25)
[2022-09-18 12:00] VITALS: BP 123/72; PULSE 76; RESP 17; TEMP 36.8; O2SAT 96
--- NOTE | 2022-09-18 12:04 | PM.DCS ---
Discharge Providers Date of Admission: 09/13/22 19:19 Date of Discharge: September 18, 2022 Attending Provider at Admission: Mar Kemp MD Attending Provider at Discharge: Michael Lees MD Primary Care Provider: TRINH Whittington Diagnoses at Discharge Discharge Diagnosis (1) Diabetic foot ulcer: Status: Acute Qualifiers: Diabetes mellitus type: type 2 Diabetic foot ulcer location: midfoot Laterality: left Non-pressure ulcer stage: with necrosis of muscle Qualified Code(s): E11.621 - Type 2 diabetes mellitus with foot ulcer; L97.423 - Non-pressure chronic ulcer of left heel and midfoot with necrosis of muscle (2) Cellulitis of left foot: Status: Acute (3) Uncontrolled diabetes mellitus: Status: Acute (4) Presence of permanent cardiac pacemaker: Status: Acute (5) Essential hypertension: Status: Acute (6) Non-compliant behavior: Status: Acute (7) Peripheral arterial disease: Status: Acute (8) Dyslipidemia: Status: Acute (9) History of amputation of lesser toe of right foot: Status: Acute (10) Above-knee amputation of right lower extremity: Status: Acute (11) Incontinence of urine in female: Status: Acute (12) Venous insufficiency of both lower extremities: Status: Acute (13) Arterial insufficiency of lower extremity: Status: Acute (14) Recurrent UTI: Status: Acute (15) Type 2 diabetes mellitus treated with insulin: Status: Acute Reason for Visit Reason for Visit: Feet in pain Hospital Course Hospital Course Elisha Vicekrs is a 71 year old female who has history of TAVR, A-fib with bradycardia status post pacemaker placement, peripheral artery disease, diabetic foot ulcers, right BKA, chronic left foot ulceration status post TMA presented from the clinic for worsening of diabetic foot ulcer.? Patient developed a blister that she noticed a week ago because she pivots on her left foot she does not use any offloading boots.? Her blister exacerbated in last 4 to 5 days she has not noticed any fever, nausea, vomiting, chest pain, shortness of breath.? Today when she was evaluated at her primary care provider clinic she was asked to go to the ER for further evaluation.? Patient has necrotic foul-smelling wound lateral aspect of left foot she will need surgical debridement, her last dose of anticoagulating agent was 6 AM on 09/[address] Dr. Parker has been consulted.? She has received vancomycin and Zosyn in the ER. Patient presented to [facility] for wet gangrene, left foot diabetic ulcer, podiatry was consulted, status post incision and drainage, she was managed with IV antibiotics, after monitoring surgical site, after discussion with patient and podiatry, recommendation was made to proceed with amputation due to extensive necrosis, lack of blood flow. Dr. Berman was consulted, patient underwent left BKA, tolerated procedure well, follow-up with Dr. Berman as outpatient Patient had a UTI during hospitalization, discharged on ciprofloxacin Acute on chronic anemia during hospitalization, evidence of early iron deficiency anemia, discharged on Protonix, Carafate with follow-up with general surgery as outpatient for consideration of EGD and colonoscopy. She was advised to follow-up with primary care provider recheck hemoglobin in 1 week -Continue Lantus to 5 units subcut daily -Please monitor your blood sugars closely -Monitor your blood sugars 3 times daily as after meals -Please record your blood sugars, and a blood sugar log -For your NovoLog -Please inject blood sugar after meals based on sliding scale provided -Do not inject insulin if you do not eat as hypoglycemia kills -This is a NovoLog sliding scale -Insulin sliding ?fingerstick? Insulin ?141-180?0?units/sq 181-220?2 units/sq ?221-260?4 units/sq ?261-300 6 units/sq ?301-350?8 units/sq ?351-400 10 units/sq ?401-450?12 units/sq >451? 14units/sq -If your blood sugar is greater than 500 go to the emergency?room -If your blood sugar is less than 60 or at anytime you feel lightheaded or dizzy or diaphoretic or have chest palpitations check your blood sugar, and eat a hard candy or drink orange juice and go immediately to the emergency room -Remember hypoglycemia kills, so if his blood sugar is less than 60 we have to increase it by taking in a sugary meal such as a hard candy or orange juice and go to the emergency room -If you have any questions please call us where here to help -Please follow-up with Dr. Berman -If you develop bloody or black stools please go to emergency room -Please have your primary care provider recheck your hemoglobin in 1 week -Please use hydrocodone sparingly for pain, do not drive or operate heavy machinery or drink alcohol while taking medication Physical Exam Const: COMMON NORMALS: no acute distress and patient oriented x3 Resp: COMMON NORMALS: normal respiratory effort, No retractions, No use of accessory muscles and clear to auscultation bilaterally AUSCULTATION: clear to auscultation bilaterally Cardio: COMMON NORMALS: regular rate, regular rhythm, S1 normal heart sound present and S2 normal heart sound present RATE: regular rate RHYTHM: regular rhythm HEART SOUNDS: S1 normal heart sound present and S2 normal heart sound present GI: COMMON NORMALS: Normal to inspection, nondistended, normoactive bowel sounds present and non-tender Extremity: NARRATIVE EXTREMITY EXAM: BKA stump site, with cast on top, has some blood at the bottom of the cast Neuro: COMMON NORMALS: patient oriented x3 Psych: COMMON NORMALS: mental status grossly normal Discharge Data Studies Completed and Pending Completed Studies During Hospitalization Category Date Time Status XR chest 1V portable [id number] Urgent Exams 09/13/22 18:50 Completed XR foot LT min 3V* [id number] Stat Exams 09/13/22 17:39 [place] [id number] Routine Ultrasound 09/14/22 11:27 Completed Pending at discharge Category Date Time Status Anaerobic Culture Routine Lab 09/14/22 12:30 Results Basic Metabolic Panel AM LABS Lab 09/19/22 04:00 Ordered Basic Metabolic Panel AM LABS Lab 09/20/22 04:00 Ordered Blood Culture Stat Lab 09/13/22 18:00 Results Complete Blood Count w/Auto AM LABS Lab 09/19/22 04:00 Ordered Complete Blood Count w/Auto AM LABS Lab 09/20/22 04:00 Ordered Occult Blood Stool [Immunochemical Fecal OCB] Routine Lab 09/16/22 07:35 Uncollected Pathology: Surgical [PTH] Routine Pth 09/17/22 11:33 Ordered Radiology Impressions Foot X-Ray 09/13/22 17:39 IMPRESSION: 1. No acute skeletal finding. 2. Amputation of the 1st through 5th toes. Chest X-Ray 09/13/22 18:50 IMPRESSION: No acute findings. Laboratory Results WBC 6.7 10^3/uL (4.0-10.0) 09/18/22 02:54 RBC 3.10 10^6/uL (4.1-5.3) L 09/18/22 02:54 Hgb 8.4 g/dL (11.5-15.3) L 09/18/22 02:54 Hct 27.9 % (37.0-47.0) L 09/18/22 02:54 MCV 90.0 fl (81-99) 09/18/22 02:54 MCH 27.1 pg (28.0-34.0) L 09/18/22 02:54 MCHC 30.1 g/dL (30.0-36.0) 09/18/22 02:54 RDW 17.1 % (12.1-15.1) H 09/18/22 02:54 Plt Count 302 10^3/cmm (130-400) 09/18/22 02:54 MPV 10.3 fL (7.4-10.4) 09/18/22 02:54 Neut % (Auto) 66.7 % 09/18/22 02:54 Lymph % (Auto) 19.9 % 09/18/22 02:54 [place] % (Auto) 8.2 % 09/18/22 02:54 Eos % (Auto) 3.9 % 09/18/22 02:54 Baso % (Auto) 0.7 % 09/18/22 02:54 Neut # (Auto) 4.44 10^3/uL (1.8-7.7) 09/18/22 02:54 Lymph # (Auto) 1.3 10^3/uL (0.8-4.8) 09/18/22 02:54 [place] # (Auto) 0.6 10^3/uL (0.2-0.9) 09/18/22 02:54 Eos # (Auto) 0.3 10^3/uL (0.0-0.8) 09/18/22 02:54 Baso # (Auto) 0.1 10^3/uL (0.0-0.1) 09/18/22 02:54 Nucleated RBC % (auto) 0 % 09/18/22 02:54 Nucleated RBCs # 0.0 /100WBC 09/18/22 02:54 ESR 50 mm/hr (0-15) H 09/13/22 17:48 Sodium 137 mmol/L (136-145) 09/18/22 02:54 Potassium 3.7 mmol/L (3.5-5.1) 09/18/22 02:54 Chloride 108 mmol/L (98-107) H 09/18/22 02:54 Carbon Dioxide 21 mmol/L (22-29) L 09/18/22 02:54 Anion Gap 11.7 (5-19) 09/18/22 02:54 BUN 14 mg/dL (8-23) 09/18/22 02:54 Creatinine 1.0 mg/dL (0.5-0.9) H 09/18/22 02:54 GFR Calculation Not Reportable 09/18/22 02:54 Glucose 181 mg/dL (65-115) H 09/18/22 02:54 POC Glucose 203 mg/dL (70-110) H 09/18/22 06:41 Calculated Osmolality 289 mOsm/kg (285-295) 09/18/22 02:54 Lactic Acid 0.8 mmol/L (0.5-2.2) 09/13/22 17:48 Calcium 7.5 mg/dL (8.5-10.5) L 09/18/22 02:54 Phosphorus 3.8 mg/dL (2.5-4.5) 09/14/22 04:57 Magnesium 1.8 mg/dL (1.7-2.3) 09/14/22 04:57 Iron 14 ug/dL (37-145) L 09/15/22 05:10 TIBC 128 mcg/dl 09/15/22 05:10 % Saturation 10.9 % (20-50) L 09/15/22 05:10 Unsat Iron Binding 114 ug/dL (112-347) 09/15/22 05:10 Ferritin 333 ng/mL (15-150) H 09/15/22 05:10 Total Bilirubin 0.4 mg/dL (0.15-1.2) 09/13/22 17:48 AST 6 U/L (0-32) 09/13/22 17:48 ALT 7 U/L (0-33) 09/13/22 17:48 Alkaline Phosphatase 88 U/L (35-105) 09/13/22 17:48 C-Reactive Protein 96.0 mg/L (0.0-4.9) H 09/14/22 04:57 Total Protein 6.6 g/dL (6.6-8.7) 09/13/22 17:48 Albumin 3.2 g/dL (3.5-5.2) L 09/13/22 17:48 Globulin 3.4 g/dL (1.3-4.6) 09/13/22 17:48 Vitamin B12 462 pg/mL (232-1245) 09/15/22 05:10 Folate 14.3 ng/mL (4.8-37.3) 09/15/22 05:10 Procalcitonin 0.06 ng/mL (0-0.5) 09/13/22 17:48 Urine Color Yellow (Yellow) 09/13/22 19:25 Urine Appearance Cloudy (CLEAR) A 09/13/22 19:25 Urine pH 5 (5-7) 09/13/22 19:25 Ur Specific [place] 1.025 (1.005-1.030) 09/13/22 19:25 Urine Protein 1+ (Negative) H 09/13/22 19:25 Urine Glucose (UA) Norm (Normal) 09/13/22 19:25 Urine Ketones 1+ (Negative) H 09/13/22 19:25 Urine Blood 3+ (Negative) H 09/13/22 19:25 Urine Nitrate Positive (Negative) H 09/13/22 19:25 Urine Bilirubin 1+ (Negative) H 09/13/22 19:25 Urine Urobilinogen 4 mg/dL (Negative) H 09/13/22 19:25 Ur Leukocyte Esterase 2+ (Negative) H 09/13/22 19:25 Urine RBC 0-4 /hpf (0-2) H 09/13/22 19:25 Urine WBC 40-55 /hpf (0-5) H 09/13/22 19:25 Ur Squamous Epith Cells 5-10 /hpf (0-5) H 09/13/22 19:25 Amorphous Sediment Not Reportable 09/13/22 19:25 Urine Bacteria 4+ /hpf (NONE) H 09/13/22 19:25 Vancomycin Trough 28.7 ug/mL (10-15) H* 09/15/22 18:42 Vitals Last Vital Signs Temp 97.4 F L 09/18/22 08:00 Pulse 79 09/18/22 08:00 Resp 14 09/18/22 08:00 BP 153/89 09/18/22 08:00 Pulse Ox 94 09/18/22 08:00 O2 Del Method 09/18/22 08:00 O2 Flow Rate 2 09/17/22 12:11 Discharge Plan Discharge Patient Disposition: Home Condition: Stable Prescriptions: New hydrocodone-acetaminophen 5-325 mg tablet 1 tab PO Q6H PRN (Reason: pain) 5 Days Qty: 20 0RF sucralfate 1 gram Tablet 1 g PO Q12H 30 Days Qty: 60 0RF ciprofloxacin HCl 500 mg Tablet 250 mg PO BID@0900,2100 3 Days Qty: 6 0RF pantoprazole [Protonix] 40 mg tablet,delayed release (DR/EC) 40 mg PO BID 30 Days Qty: 60 0RF Continued (DME) Wheelchair See Rx Instructions .Route .MEDSUPPLY Qty: 1 0RF Rx Instructions: As directed (DME) Electric Wheelchair See Rx Instructions .Route .MEDSUPPLY Qty: 1 0RF Rx Instructions: As directed (DME) Lift Chair See Rx Instructions .Route .MEDSUPPLY Qty: 1 0RF Rx Instructions: As directed (DME) pen needle, diabetic [BD Domenica 2nd Gen Pen Needle] 32 gauge x 5/32 needle See Rx Instructions .ROUTE .COMPLEX Qty: 100 0RF Dose Instruction: USE TWICE DAILY Rx Instructions: USE TWICE DAILY (DME) lancets [OneTouch Delica Lancets] 33 gauge misc See Rx Instructions .Route Qty: 100 0RF Rx Instructions: USE 3 TIMES DAILY (DME) OneTouch Ultra Test Strip See Rx Instructions .Route Qty: 100 0RF Rx Instructions: TEST THREE TIMES DAILY Rybelsus 3 mg tablet See Rx Instructions .ROUTE .COMPLEX Qty: 30 0RF Dose Instruction: TAKE 1 TABLET BY MOUTH ONCE DAILY. PATIENT WILL NEED AN APPOINTMENT FOR MORE REFILLS. Rx Instructions: TAKE 1 TABLET BY MOUTH ONCE DAILY. PATIENT WILL NEED AN APPOINTMENT FOR MORE REFILLS. aspirin 81 mg Tablet,Delayed Release (Dr/Ec) 81 mg PO QAM clopidogrel 75 mg tablet 75 mg PO DAILY metoprolol succinate 25 mg tablet extended release 24 hr 25 mg PO DAILY lisinopril 40 mg tablet 40 mg PO DAILY Xarelto 20 mg tablet 20 mg PO DAILY Changed Lanyenyus Solostar U-100 Insulin 100 unit/mL (3 mL) insulin pen 5 unit SUBCUT QAM 30 Days Qty: 15 0RF Rx Instructions: 5 units subcutaneously; insulin aspart U-100 [Novolog FlexPen U-100 Insulin] 100 unit/mL (3 mL) insulin pen See Rx Instructions .ROUTE .COMPLEX MDD 60 Qty: 15 0RF Dose Instruction: INJECT SUBCUTANEOUSLY THREE TIMES DAILY PER SLIDING SCALE. MAX DAILY AMOUNT: 100 UNITS Rx Instructions: Inject, subcut, 3 times daily, after meals, based on sliding scale, Discharge Orders: Discharge Order (Routine); Ordered 09/18/22 Ordered By: Michael Lees Referrals: Tristin Almonte DO [Physician] - 1 month Gloria Escobar FNP [Primary Care Provider] - Christian Berman MD [Physician] - 2 weeks Discharge Diet: Diabetic Discharge Activity: Increase activity as tolerated Patient Instructions: Opioid Safety Patient's Health Concerns: -Continue Lantus to 5 units subcut daily -Please monitor your blood sugars closely -Monitor your blood sugars 3 times daily as after meals -Please record your blood sugars, and a blood sugar log -For your NovoLog -Please inject blood sugar after meals based on sliding scale provided -Do not inject insulin if you do not eat as hypoglycemia kills -This is a NovoLog sliding scale -Insulin sliding ?fingerstick? Insulin ?141-180?0?units/sq 181-220?2 units/sq ?221-260?4 units/sq ?261-300 6 units/sq ?301-350?8 units/sq ?351-400 10 units/sq ?401-450?12 units/sq >451? 14units/sq -If your blood sugar is greater than 500 go to the emergency?room -If your blood sugar is less than 60 or at anytime you feel lightheaded or dizzy or diaphoretic or have chest palpitations check your blood sugar, and eat a hard candy or drink orange juice and go immediately to the emergency room -Remember hypoglycemia kills, so if his blood sugar is less than 60 we have to increase it by taking in a sugary meal such as a hard candy or orange juice and go to the emergency room -If you have any questions please call us where here to help -Please follow-up with Dr. Berman -If you develop bloody or black stools please go to emergency room -Please have your primary care provider recheck your hemoglobin in 1 week -Please use hydrocodone sparingly for pain, do not drive or operate heavy machinery or drink alcohol while taking medication Discharge Attestations Time Spent in Discharge Care*: greater than 30 min Status at Discharge: Cognitive status at discharge: cognitively intact, Behavioral status at discharge: cooperative, Quality Metrics Clinical Quality Measures [ No reported AMI, CVA or VTE this stay] Coding Level of Care Code 05694 Total time (in minutes) for Discharge: 40 Diagnoses Diabetic foot ulcer E11.621; L97.423 Diabetes mellitus type: type 2 Diabetic foot ulcer location: midfoot Laterality: left Non-pressure ulcer stage: with necrosis of muscle Cellulitis of left foot L03.116 Uncontrolled diabetes mellitus Presence of permanent cardiac pacemaker Z95.0 Essential hypertension I10 Non-compliant behavior R46.89 Peripheral arterial disease I73.9 Dyslipidemia E78.5 History of amputation of lesser toe of right foot Z89.421 Above-knee amputation of right lower extremity S78.111A Incontinence of urine in female R32 Venous insufficiency of both lower extremities I87.2 Arterial insufficiency of lower extremity I73.9 Recurrent UTI N39.0 Type 2 diabetes mellitus treated with insulin E11.9; Z79.4
[2022-09-18 12:16] LABS: Glucose Point of Care 144 mg/dL (70-110)
--- NOTE | 2022-09-18 13:41 | PC.SOCIAL ---
IMM UPDATED IMM dated and initialed and copy given to patient and placed in chart.
--- NOTE | 2022-09-18 15:37 | PC.NURSE ---
patients daughter verbalized understanding of discharge instructions, home medications, and follow up appointments.
[2022-09-18 15:45] VITALS: BP 123/72; PULSE 76; RESP 17; TEMP 36.8; O2SAT 96
== END 2022-09-18 15:25 | disposition home or self-care (01) | DRG 240 ==
LOC: ER 19:18 → MEDSURG 19:45
PROVIDERS: Orthopaedic Surgery; Podiatrist Foot & Ankle Surgery; Admitting Provider Internal Medicine; Emergency Provider Physician Assistant; PCP Registered Nurse; Visit Provider Family Medicine
PROC: 0LBW0ZZ Excision of Left Foot Tendon, Open Approach (ICD-10-PCS; principal; 2022-09-14 12:00)
PROC: 0Y6J0Z1 Detachment at Left Lower Leg, High, Open Approach (ICD-10-PCS; CPT 27880; principal; 2022-09-17 09:50)
DX: E11.52 Type 2 diabetes mellitus with diabetic peripheral angiopathy with gangrene (principal); I96 Gangrene, not elsewhere classified; L97.423 Non-pressure chronic ulcer of left heel and midfoot with necrosis of muscle; L02.612 Cutaneous abscess of left foot; L03.116 Cellulitis of left lower limb; Z16.12 Extended spectrum beta lactamase (ESBL) resistance; N39.0 Urinary tract infection, site not specified; E11.621 Type 2 diabetes mellitus with foot ulcer; E11.65 Type 2 diabetes mellitus with hyperglycemia; I10 Essential (primary) hypertension; E78.5 Hyperlipidemia, unspecified; R32 Unspecified urinary incontinence; I87.2 Venous insufficiency (chronic) (peripheral); D50.9 Iron deficiency anemia, unspecified; I25.10 Atherosclerotic heart disease of native coronary artery without angina pectoris; I48.91 Unspecified atrial fibrillation; Z95.5 Presence of coronary angioplasty implant and graft; Z89.611 Acquired absence of right leg above knee; Z91.199 Patient's noncompliance with other medical treatment and regimen due to unspecified reason; Z95.0 Presence of cardiac pacemaker; Z79.4 Long term (current) use of insulin; Z95.2 Presence of prosthetic heart valve; Z79.01 Long term (current) use of anticoagulants; Z79.02 Long term (current) use of antithrombotics/antiplatelets; Z79.82 Long term (current) use of aspirin; Z86.14 Personal history of Methicillin resistant Staphylococcus aureus infection; Z86.73 Personal history of transient ischemic attack (TIA), and cerebral infarction without residual deficits; Z89.432 Acquired absence of left foot; Z95.820 Peripheral vascular angioplasty status with implants and grafts; Z99.3 Dependence on wheelchair
CPT/HCPCS: 36415; 36416; 71045; 73630; 80048; 80053; 80202; 81001; 82607; 82728; 82746; 82962; 83540; 83550; 83605; 83735; 84100; 84145; 85014; 85018; 85025; 85651; 86140; 87040; 87070; 87075; 87077; 87086; 87176; 87186; 87205; 88307; 88311; 92523; 92526; 92610; 93005; 93926; 96365; 96367; 96372; 99285; C9113; J1170; J1650; J1815; J2270; J2405; J2543; J2704; J3010; J3370; J3490; J7030; J7050

== ENCOUNTER 2022-10-02 19:56 | Inpatient (IN) | payer MEDICARE, MEDICAID, SELFPAY ==
[2022-10-02 19:56] VITALS: BP 156/92; PULSE 85; RESP 38; TEMP 36.9; O2SAT 100
--- NOTE | 2022-10-02 20:02 | W.ED.SOB ---
HPI - SOB/Dyspnea General: Chief Complaint: Shortness of Breath/Dyspnea Stated Complaint: SOB Time Seen by Provider: 10/02/22 20:02 History of Present Illness: HPI Narrative: Ms. Vickers is a 71-year-old lady with significant past medical history of recent leg amputation presented the emergency department for respiratory distress. She reports since being home she initially had mild shortness of breath however subsequently worsened. Denies associated cough or other infectious symptoms. EMS found the patient end moderate to severe distress with crackles on her lung sounds and hypoxemia in the 80s on room air. She was given multiple doses of nitro and placed on BiPAP with improvement. Intensity symptoms at worst was severe. Course has improved with EMS treatment. No other specific changes in health, exacerbating, or alleviating factors identified. 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 MRSA (methicillin resistant staph aureus) culture positive Pacemaker Pre-operative clearance TIA (transient ischemic attack) Valvular incompetence, mitral Venous insufficiency of both lower extremities Wound of right lower extremity Surgical History History of amputation of lesser toe of right foot History of heart artery stent History of transmetatarsal amputation of left foot Hx of foot surgery Hx of knee surgery Hx of tubal ligation Peripheral vascular angioplasty status with implants and grafts S/P TAVR (transcatheter aortic valve replacement) S/P transmetatarsal amputation of foot Family History Family/Other CAD (coronary artery disease) Chronic kidney disease (CKD) Mother Diabetes Stroke Father Lung disease Sister Lung disease Other Heart disease Denies family history of Clotting disorder Dementia Suicide Anesthesia complication Bleeding disorder Cancer Social History Smoking and tobacco status: never smoked Alcohol intake: never Substance/Drug Use: never Adopted: No Caregiver/support person: No Lives independently: Yes service: No Current occupational status: disabled Sexually active: Yes Do you think of yourself as: Straight/Heterosexual Current gender identity: Female Physical Exam Const: COMMON NORMALS: alert GENERAL APPEARANCE: cooperative and well developed HENMT: COMMON NORMALS: normocephalic and atraumatic HEAD & SCALP: normocephalic and atraumatic THROAT: posterior oropharynx normal Eye: COMMON NORMALS: conjunctivae normal CONJUNCTIVA: Yes conjunctivae normal SCLERA: sclerae normal Neck/C-Spine: COMMON NORMALS: supple GENERAL: Yes trachea midline Resp: EFFORT & INSPECTION: Yes tachypneic and Yes respiratory distress Cardio: COMMON NORMALS: regular rate and regular rhythm RATE: regular rate RHYTHM: regular rhythm GI: COMMON NORMALS: Soft to palpation PALPATION: Yes Soft to palpation and No Tenderness to palpation present (GI) Extremity: GENERAL: Yes normal exam except as noted and No edema Neuro: COMMON NORMALS: moves all extremities SENSORIUM/ORIENTATION: Yes alert and No Orientation impaired Psych: COMMON NORMALS: mental status grossly normal and Normal thought process present THOUGHT PROCESS: Normal thought process present Course Vital Signs: Vital signs: Vital Signs Temperature 98.5 F 10/06/22 07:34 Pulse Rate 80 10/06/22 09:31 Respiratory Rate 22 H 10/06/22 09:31 Blood Pressure 117/60 10/06/22 09:31 Pulse Oximetry 91 10/06/22 09:31 Oxygen Delivery Me thod Room Air 10/06/22 07:34 Oxygen Flow Rate 2 10/06/22 04:00 Fraction of Inspir ed Oxygen 40 10/03/22 00:00 MDM - SOB/Dyspnea Medical Decision Making 71-year-old lady presenting with respiratory distress. Exam as above. Patient required BiPAP. EKG demonstrates sinus rhythm with left axis deviation and interventricular conduction delay, no STEMI. Labs notable for no leukocytosis, normocytic anemia is present. Metabolic panel with mild dehydration. Respiratory alkalosis. Intermediate range 2-hour delta troponin. BNP is elevated. Viral panel pending. X-ray with mild pulmonary edema and effusions. Given severity of symptoms and clinical history CT is warranted. No evidence of PE with suboptimal bolus timing. Incidental findings noted and discussed. Most likely etiology of patient symptoms is multifactorial. She had acute respiratory distress likely secondary to CHF and COPD exacerbation with possible flash pulmonary edema. Appears clinically improving however still requires admission for further evaluation. The results of ED evaluation were discussed with the patient including plan for admission due to requirement for level of care not available if discharged to prevent significant worsening/deterioration. Patient agreeable with plan. Discussed with hospitalist service who was agreeable to admit patient. Medical Records I reviewed the patient's medical records. Lab Data I reviewed the patient's lab results. 10/06/22 04:22 10/06/22 04:22 Labs/Radiology: Radiology Impressions Chest X-Ray 10/02/22 20:05 IMPRESSION: 1. Probable mild pulmonary edema in the lung bases. 2. Possible small pleural effusions. Chest CTA 10/02/22 20:50 IMPRESSION: 1. No definite evidence for pulmonary embolism. There is no contrast opacification of multiple left lower lobe artery branches which is most likely related to bolus timing. For this reason, the exam is nondiagnostic for excluding emboli in the left lower lobe. 2. Medium bilateral pleural effusions, right greater than left. 3. Consolidation in the lower lobes and lingula is most likely atelectasis. Superimposed pneumonia is not excluded. 4. Pericardial effusion. Barium Swallow X-Ray 10/03/22 22:56 IMPRESSION: 1. 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 2. No esophageal stricture or mass. 3. Small hiatal hernia. No gastroesophageal reflux. Laboratory Results WBC 5.4 10^3/uL (4.0-10.0) 10/02/22 20:09 RBC 3.44 10^6/uL (4.1-5.3) L 10/02/22 20:09 Hgb 9.1 g/dL (11.5-15.3) L 10/02/22 20:09 Hct 31.6 % (37.0-47.0) L 10/02/22 20:09 MCV 91.9 fl (81-99) 10/02/22 20:09 MCH 26.5 pg (28.0-34.0) L 10/02/22 20:09 MCHC 28.8 g/dL (30.0-36.0) L 10/02/22 20:09 RDW 19.9 % (12.1-15.1) H 10/02/22 20:09 Plt Count 317 10^3/cmm (130-400) 10/02/22 20:09 MPV 10.3 fL (7.4-10.4) 10/02/22 20:09 Neut % (Auto) 59.7 % 10/02/22 20:09 Lymph % (Auto) 30.2 % 10/02/22 20:09 Garrard % (Auto) 6.9 % 10/02/22 20:09 Eos % (Auto) 1.9 % 10/02/22 20:09 Baso % (Auto) 1.1 % 10/02/22 20:09 Neut # (Auto) 3.20 10^3/uL (1.8-7.7) 10/02/22 20:09 Lymph # (Auto) 1.6 10^3/uL (0.8-4.8) 10/02/22 20:09 Garrard # (Auto) 0.4 10^3/uL (0.2-0.9) 10/02/22 20:09 Eos # (Auto) 0.1 10^3/uL (0.0-0.8) 10/02/22 20:09 Baso # (Auto) 0.1 10^3/uL (0.0-0.1) 10/02/22 20:09 Nucleated RBC % (auto) 0 % 10/02/22 20:09 Nucleated RBCs # 0.0 /100WBC 10/02/22 20:09 PT 24.60 SECONDS (12.1-14.9) H 10/02/22 20:09 INR 2.12 (0.8-1.2) H 10/02/22 20:09 APTT 36.0 SECONDS (23.9-36.7) 10/02/22 20:09 Specimen Type Arterial 10/02/22 20:05 Sample Site Radial, right 10/02/22 20:05 ABG pH 7.49 (7.35-7.45) H 10/02/22 20:05 ABG pCO2 34.2 mmHg (35-45) L 10/02/22 20:05 ABG pO2 92.2 mmHg (80.0-100.0) 10/02/22 20:05 ABG HCO3 26.0 mmol/L (22-26) 10/02/22 20:05 ABG Base Excess 2.7 mmol/L (-2.0-2.0) H 10/02/22 20:05 Pio Test Pos 10/02/22 20:05 Hematocrit 30.0 % (37-47) L 10/02/22 20:05 O2 Delivery Device Bipap 10/02/22 20:05 FiO2 30.0 % 10/02/22 20:05 Mode BiPAP 16/8 10/02/22 20:05 Specimen Drawn By Irma 10/02/22 20:05 Java [id number] Lead ID irma 10/02/22 20:05 Sodium 134 mmol/L (136-145) L 10/02/22 20:09 Potassium 3.6 mmol/L (3.5-5.1) 10/02/22 20:09 Chloride 101 mmol/L (98-107) 10/02/22 20:09 Carbon Dioxide 23 mmol/L (22-29) 10/02/22 20:09 Anion Gap 13.6 (5-19) 10/02/22 20:09 BUN 25 mg/dL (8-23) H 10/02/22 20:09 Creatinine 0.7 mg/dL (0.5-0.9) 10/02/22 20:09 GFR Calculation Not Reportable 10/02/22 20:09 Glucose 137 mg/dL (65-115) H 10/02/22 20:09 POC Glucose 148 mg/dL (70-110) H 10/02/22 20:14 Estimat Average Glucose 154 10/02/22 20:09 Hemoglobin A1c 7.0 % (4.0-6.0) H 10/02/22 20:09 Calculated Osmolality 285 mOsm/kg (285-295) 10/02/22 20:09 Lactate 1.4 mmol/L (0.5-2.2) 10/02/22 20:09 Calcium 8.1 mg/dL (8.5-10.5) L 10/02/22 20:09 Magnesium 1.9 mg/dL (1.7-2.3) 10/02/22 20:09 Total Bilirubin 0.5 mg/dL (0.15-1.2) 10/02/22 20:09 AST 8 U/L (0-32) 10/02/22 20:09 ALT 9 U/L (0-33) 10/02/22 20:09 Alkaline Phosphatase 75 U/L (35-105) 10/02/22 20:09 Troponin T Baseline 52 ng/L (0-10) H 10/02/22 20:09 Troponin T 120 Minute 56.55 ng/L (0-10) H 10/02/22 22:20 Delta Troponin T 4.55 ABS# (0-10) 10/02/22 22:20 C-Reactive Protein 6.3 mg/L (0.0-4.9) H 10/02/22 20:09 NT-Pro-B Natriuret Pep 9833 pg/mL (0-125) H 10/02/22 20:09 Total Protein 6.5 g/dL (6.6-8.7) L 10/02/22 20: Albumin 3.5 g/dL (3.5-5.2) 10/02/22 20: Globulin 3.0 g/dL (1.3-4.6) 10/02/22 20:09 Triglycerides 104 mg/dL (0-150) 10/02/22 20:09 Cholesterol 157 mg/dL (0-200) 10/02/22 20:09 LDL Cholesterol, Calc 97 mg/dL (50-129) 10/02/22 20:09 HDL Cholesterol 39 mg/dL (60-100) L 10/02/22 20:09 LDL/HDL Ratio 2.49 RATIO (0.00-3.22) 10/02/22 20:09 Cholesterol/HDL Ratio 4.03 mg/dL (0.0-4.40) 10/02/22 20:09 Procalcitonin 0.04 ng/mL (0-0.5) 10/02/22 20:09 TSH 4.64 uIU/mL (0.27-4.20) H 10/02/22 20:09 Nasal Influ A H1 2009 PCR Not detected (NOT DETECT) 10/02/22 21:50 Adenovirus (PCR) Not detected (NOT DETECT) 10/02/22 21:50 C. pneumoniae DNA (PCR) Not detected (NOT DETECT) 10/02/22 21:50 Coronavirus 229E (PCR) Not detected (NOT DETECT) 10/02/22 21:50 Human Metapneumovir PCR Not detected (NOT DETECT) 10/02/22 21:50 Influenza A (H1) PCR Not detected (NOT DETECT) 10/02/22 21:50 Influenza A (H3) PCR Not detected (NOT DETECT) 10/02/22 21:50 Influenza Type A (PCR) Not detected (NOT DETECT) 10/02/22 21:50 Influenza Type B (PCR) Not detected (NOT DETECT) 10/02/22 21:50 M. pneumoniae (PCR) Not detected (NOT DETECT) 10/02/22 21:50 Parainfluenza 1 (PCR) Not detected (NOT DETECT) 10/02/22 21:50 Parainfluenza 2 (PCR) Not detected (NOT DETECT) 10/02/22 21:50 Parainfluenza 3 (PCR) Not detected (NOT DETECT) 10/02/22 21:50 Parainfluenza 4 (PCR) Not detected (NOT DETECT) 10/02/22 21:50 RSV Type A (PCR) Not detected (NOT DETECT) 10/02/22 21:50 RSV Type B (PCR) Not detected (NOT DETECT) 10/02/22 21:50 Entero/Rhino (PCR) Not detected (NOT DETECT) 10/02/22 21:50 SARS-CoV-2 (PCR) Not detected (NOT DETECT) 10/02/22 21:50 Critical Care Time Critical Care Time: Critical Care Time: Yes Total Critical Care Time: 35 Attestation: Due to a high probability of clinically significant, possibly life threatening deterioration, the patient required my highest level of attention and preparedness to intervene emergently and I personally spent this critical care time directly and personally managing the patient. This critical care time included obtaining a history; examining the patient; pulse oximetry; ordering and review of laboratory and imaging studies; arranging urgent treatment with development of a management plan; evaluation of patient's response to treatment; frequent reassessment; and, discussions with other providers as applicable. It was exclusive of separately billable procedures. Primary system involved is cardio pulmonary. Discharge Plan Discharge Patient Disposition: Admitted As Inpatient Admit Provider: Michael Lees Clinical Impression: Acute exacerbation of CHF (congestive heart failure), Acute respiratory failure with hypoxia, Pulmonary edema, Pleural effusion, bilateral Condition: Stable Coding Level of Care Code ED Weight Control Engineer for Rowena Chamorro
--- NOTE | 2022-10-02 20:05 | XRR_ITS ---
PROCEDURE INFORMATION: Exam: XR Chest Exam date and time: 10/02/2022 8:10 PM Age: 71 years old Clinical indication: Shortness of breath; Patient HX: On bipap; Additional info: SOB TECHNIQUE: Imaging protocol: Radiologic exam of the chest. Views: 1 view. COMPARISON: CR (CHEST, ) 09/13/2022 6:57 PM FINDINGS: Tubes, catheters and devices: Intact dual lead left subclavian pacemaker. Heart valve prosthesis. Clips in the right neck. Lungs: Shallow inspiration with crowding. Atelectasis in the lung bases. Interstitial opacities in the lung bases. Probable emphysema. Pleural spaces: Possible small pleural effusions. No pneumothorax. Heart/Mediastinum: Unremarkable. No cardiomegaly. Bones/joints: Unremarkable. XR/XR chest 1V portable [id number] IMPRESSION: 1. Probable mild pulmonary edema in the lung bases. 2. Possible small pleural effusions.
[2022-10-02 20:09] VITALS: PULSE 84; RESP 43; O2SAT 99
[2022-10-02 20:18] LABS: Basophils # 0.1 10^3/uL (0.0-0.1); Basophils % 1.1 %; Eosinophils # 0.1 10^3/uL (0.0-0.8); Eosinophils % 1.9 %; Hematocrit 31.6 % (37.0-47.0); Hemoglobin 9.1 g/dL (11.5-15.3); Lymphocytes # 1.6 10^3/uL (0.8-4.8); Lymphocytes % 30.2 %; Mean Corpuscular HGB Conc 28.8 g/dL (30.0-36.0); Mean Corpuscular Hemoglobin 26.5 pg (28.0-34.0); Mean Corpuscular Volume 91.9 fl (81-99); Mean Platelet Volume 10.3 fL (7.4-10.4); Monocytes # 0.4 10^3/uL (0.2-0.9); Monocytes % 6.9 %; Neutrophils % 59.7 %; Nucleated Red Blood Cells % 0 %; Platelet Count 317 10^3/cmm (130-400); Red Blood Count 3.44 10^6/uL (4.1-5.3); Red Cell Distribution Width 19.9 % (12.1-15.1); White Blood Count 5.4 10^3/uL (4.0-10.0)
[2022-10-02 20:18] LABS: Glucose Point of Care 148 mg/dL (70-110)
[2022-10-02 20:19] LABS: ABG PH Result 7.49 (7.35-7.45); Base Excess ABG 2.7 mmol/L (-2.0-2.0); Oxygen Device BIPAP
[2022-10-02 20:20] LABS: BIPAP 16/8
--- NOTE | 2022-10-02 20:20 | ECG_ITS ---
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 Measurements Intervals [place] Rate: 80 P: 49 WV: 160 QRS: -52 QRSD: 142 T: 118 QT: 443 QTc: 513 Interpretive Statements SINUS RHYTHM LEFT AXIS DEVIATION [QRS AXIS < -30] Right bundle branch block Compared to ECG 09/13/2022 19:05:08 Intraventricular conduction delay now present Left ventricular hypertrophy no longer present ST (T wave) deviation no longer present Myocardial infarct finding no longer present Electronically Signed On 10-03-2022 14:27:11 CDT by Arsh Garcia M.D. [id number]
[2022-10-02 20:34] LABS: ABG PCO2 34.2 mmHg (35-45); Blood Gas Allen Test Pos; Blood Gas Sample Site Radial, right; Blood Gas Sample Type Arterial; PO2 ABG 92.2 mmHg (80.0-100.0)
[2022-10-02 20:38] LABS: Lactate (Lactic Acid level) 1.4 mmol/L (0.5-2.2)
[2022-10-02 20:40] LABS: INR 2.12 (0.8-1.2)
[2022-10-02 20:42] LABS: Troponin(5th) Baseline 52 ng/L (0-10)
[2022-10-02 20:49] LABS: Procalcitonin 0.04 ng/mL (0-0.5)
--- NOTE | 2022-10-02 20:50 | CTR_ITS ---
PROCEDURE INFORMATION: Exam: CTA Chest With Contrast Exam date and time: 10/02/2022 9:28 PM Age: 71 years old Clinical indication: Shortness of breath; Prior surgery; Surgery date: <1 month; Surgery type: Recent lower extremity amputation, tavr, heart stent; Patient HX: Recent amputation; Additional info: Resp distress, recent surgery/hospitalization TECHNIQUE: Imaging protocol: Computed tomographic angiography of the chest with contrast. 3D rendering (Not supervised by radiologist): MIP and/or 3D reconstructed images were created by the technologist. Radiation optimization: All CT scans at this facility use at least one of these dose optimization techniques: automated exposure control; mA and/or kV adjustment per patient size (includes targeted exams where dose is matched to clinical indication); or iterative reconstruction. Contrast material: OMNI 350; Contrast volume: 100 ml; Contrast route: INTRAVENOUS (IV); REPORTING DATA: Count of CT and Cardiac NM exams in prior 12 months: This patient has received [address] and 0 known cardiac nuclear medicine studies in the 12 months prior to the current study. COMPARISON: CR (CHEST, ) 10/02/2022 8:10 PM RADIATION DOSE METRICS: Total DLP (mGy-cm): 474.26 FINDINGS: Tubes, catheters and devices: Left pacemaker with leads in the heart. Aortic valve prosthesis. Pulmonary arteries: There is noncontrast opacification of multiple left lower lobe pulmonary artery branches which is believed to be timing of the bolus as opposed to obstruction or filling defects. The other pulmonary arteries appear patent without filling defect. Aorta: Unremarkable. No aortic aneurysm. No aortic dissection. Lungs: Dependent consolidation in both lower lobes and lingula. Multiple calcified granulomas in both lungs. Mosaic attenuation in both lungs, consistent with regions of air trapping. Pleural spaces: Medium sized bilateral pleural effusions, right greater than left. Heart: Mild cardiomegaly. Small pericardial effusion. Coronary arteries: Coronary artery calcifications and stents. Lymph nodes: Prominent mediastinal and hilar lymph nodes are most likely reactive. Calcified mediastinal and hilar lymph nodes. Bones/joints: Degenerative changes of the spine. No fracture. Thoracic curvature. Soft tissues: Unremarkable. CT/CT angio chest PE protcl [id number] IMPRESSION: 1. No definite evidence for pulmonary embolism. There is no contrast opacification of multiple left lower lobe artery branches which is most likely related to bolus timing. For this reason, the exam is nondiagnostic for excluding emboli in the left lower lobe. 2. Medium bilateral pleural effusions, right greater than left. 3. Consolidation in the lower lobes and lingula is most likely atelectasis. Superimposed pneumonia is not excluded. 4. Pericardial effusion.
[2022-10-02 21:00] LABS: Alanine Aminotransferase 9 U/L (0-33); Albumin Level 3.5 g/dL (3.5-5.2); Alkaline Phosphatase 75 U/L (35-105); Anion Gap 13.6 (5-19); Aspartate Amino Transferase 8 U/L (0-32); Blood Urea Nitrogen 25 mg/dL (8-23); C Reactive Protein 6.3 mg/L (0.0-4.9); Calcium 8.1 mg/dL (8.5-10.5); Carbon Dioxide 23 mmol/L (22-29); Chloride 101 mmol/L (98-107); Glucose 137 mg/dL (65-115); Magnesium 1.9 mg/dL (1.7-2.3); Osmolality Calculated 285 mOsm/kg (285-295); Potassium 3.6 mmol/L (3.5-5.1); Sodium 134 mmol/L (136-145); Total Bilirubin 0.5 mg/dL (0.15-1.2); Total Protein 6.5 g/dL (6.6-8.7)
[2022-10-02 21:13] LABS: NT Pro B Type Natriuretic Pept 9833 pg/mL (0-125)
[2022-10-02] MEDS: iohexol 350 mg/mL 500 mL Btl (per mL) IV (21:26)
--- NOTE | 2022-10-02 22:06 | ECG_ITS ---
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 Measurements Intervals [place] Rate: 81 P: 59 MO: 163 QRS: -54 QRSD: 142 T: 118 QT: 442 QTc: 513 Interpretive Statements SINUS RHYTHM RIGHT BUNDLE BRANCH BLOCK [120+ ms QRS DURATION, UPRIGHT V1, 40+ ms S IN I/aVL/V4/V5/V6] LEFT ANTERIOR FASCICULAR BLOCK [QRS AXIS <= -45, QR IN I, RS IN II] LEFT VENTRICULAR HYPERTROPHY AND ST-T CHANGE [VOLTAGE CRITERIA PLUS ST/T ABNORMALITY] POSSIBLE ANTEROSEPTAL MYOCARDIAL INFARCTION , OF INDETERMINATE AGE [30 ms Q WAVE IN V1-V4] Compared to ECG 10/02/2022 20:20:53 Right bundle-branch block now present Left anterior fascicular block now present Left ventricular hypertrophy now present ST (T wave) deviation now present Electronically Signed On 10-03-2022 14:32:38 CDT by Arsh Garcia M.D. [id number]
--- NOTE | 2022-10-02 22:58 | P.HP_ITS ---
Providers/Chief Complaint Admitting Physician: Michael Lees MD Primary Care Provider: TRINH Whittington Chief Complaint: SOB History of Present Illness Elisha Vickers is a 71 year old female with a past medical history of right above- knee amputation, recently history of left below-knee amputation, history of type 2 diabetes mellitus, history of diastolic CHF who presents [facility] due to shortness of breath. Patient tells me that recently she has been feeling increasingly short of breath, she has been urinating less, no fevers, chills, she has a chronic cough, she tells me that she for the last few months has had a globus sensation, dysphagia, and she gets choked up. Denies any chest pain, no palpitations, no lightheadedness, dizziness. She is taking her blood thinner as prescribed. She tells me that her blood sugars have been running low so she ac tually has not been taking her Lantus or her NovoLog due to hypoglycemia Review of Systems Const: Denies: fever(s) or chills Eyes: Denies: change in vision Card: Denies: chest pain Resp: Reports: dyspnea and non-productive cough GI: Denies: abdominal pain : Denies: flank pain or difficulty voiding Neuro: Denies: headache(s) Medications/Allergies Home Medications Medication Instructions Recorded Confirmed Last Taken Type Wheelchair #1 ea 12/11/20 09/13/22 Unknown Rx aspirin 81 mg tablet,delayed 81 mg PO QAM 01/19/21 09/13/22 09/13/22 History release Electric Wheelchair #1 ea 04/20/21 09/13/22 Unknown Rx pen needle, diabetic 32 gauge x #100 ea 11/01/21 09/13/22 Unknown Rx 5/32 (BD Domenica 2nd Gen Pen Needle) blood sugar diagnostic (OneTouch #100 ea 11/12/21 09/13/22 Unknown Rx Ultra Test strips) lancets 33 gauge (OneTouch Delica #100 ea 11/12/21 09/13/22 Unknown Rx Lancets) Lift Chair #1 ea 12/03/21 09/13/22 Unknown Rx semaglutide 3 mg tablet (Rybelsus) See Rx Instructions .Route 09/09/22 09/13/22 09/13/22 Rx .COMPLEX #30 tabs clopidogrel 75 mg tablet 75 mg PO DAILY 09/13/22 09/13/22 09/13/22 History lisinopril 40 mg tablet 40 mg PO DAILY 09/13/22 09/13/22 09/13/22 History metoprolol succinate 25 mg 25 mg PO DAILY 09/13/22 09/13/22 09/13/22 History tablet,extended release 24 hr rivaroxaban 20 mg tablet (Xarelto) 20 mg PO DAILY 09/13/22 09/13/22 09/13/22 History Novolog FlexPen U-100 Insulin 100 See Rx Instructions .Route 09/18/22 09/13/22 Unknown Rx unit/mL (3 mL) subcutaneous .COMPLEX #15 mL (insulin aspart U-100) insulin glargine 100 unit/mL (3 5 unit (0.05 mL) SUBCUT QAM 30 09/18/22 09/13/22 09/13/22 Rx mL) subcutaneous pen (Lantus days #15 mL Solostar U-100 Insulin) pantoprazole 40 mg tablet,delayed 40 mg PO BID 30 days #60 tabs 09/18/22 Unknown Rx release (Protonix) sucralfate 1 gram tablet 1 g PO Q12H 30 days #60 tabs 09/18/22 Unknown Rx glucagon 1 mg/0.2 mL subcutaneous 0.5 mg (0.1 mL) SUBCUT ONCE PRN 09/30/22 Unknown Rx auto-injector hypoglycemia 30 days #0.4 mL Allergies Allergy/AdvReac Type Severity Reaction Status Date / Time ceftriaxone [From Rocephin] Allergy Severe cardiac Verified 09/13/22 14:02 arrest atorvastatin [From Lipitor] Allergy Unknown UNKNOWN Verified 09/13/22 14:02 Fmbhikq-BON-QxO Reductase Allergy Unknown UNKNOWN Verified 09/13/22 14:02 Inhibitor [Gqdxltp-Wub-Ame Reductase Inhibitor] Rocephin Allergy Unknown Unknown Uncoded 09/13/22 14:02 PFSH Acute PFSH: Medical History Carotid stenosis, right Congestive heart failure with cardiomyopathy Essential hypertension Gangrene of right foot 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 MRSA (methicillin resistant staph aureus) culture positive Pacemaker Pre-operative clearance TIA (transient ischemic attack) Valvular incompetence, mitral Venous insufficiency of both lower extremities Wound of right lower extremity Surgical History History of amputation of lesser toe of right foot History of heart artery stent History of transmetatarsal amputation of left foot Hx of foot surgery Hx of knee surgery Hx of tubal ligation Peripheral vascular angioplasty status with implants and grafts S/P TAVR (transcatheter aortic valve replacement) S/P transmetatarsal amputation of foot Family History Family/Other CAD (coronary artery disease) Chronic kidney disease (CKD) Mother Diabetes Stroke Father Lung disease Sister Lung disease Other Heart disease Denies family history of Clotting disorder Dementia Suicide Anesthesia complication Bleeding disorder Cancer Social History Smoking and tobacco status: never smoked Alcohol intake: never Substance/Drug Use: never Adopted: No Caregiver/support person: No Lives independently: Yes service: No Current occupational status: disabled Sexually active: Yes Do you think of yourself as: Straight/Heterosexual Current gender identity: Female Vitals/I&O/Wt Last Vital Signs Temp 98.4 F 10/02/22 19:56 Pulse 84 10/02/22 20:09 Resp 38 H 10/02/22 19:56 BP 156/92 10/02/22 19:56 Pulse Ox 99 10/02/22 20:09 O2 Del Method BiPAP 10/02/22 19:56 FiO2 30 10/02/22 20:09 Physical Exam Const: COMMON NORMALS: no acute distress and patient oriented x3 HENMT: COMMON NORMALS: normocephalic HEAD & SCALP: normocephalic Eye: COMMON NORMALS: Equal, round and reactive pupils present and EOMs intact bilaterally Neck/C-Spine: COMMON NORMALS: full ROM and no lymphadenopathy Resp: COMMON NORMALS: normal respiratory effort, No retractions and No use of accessory muscles AUSCULTATION: crackles Cardio: COMMON NORMALS: regular rate, regular rhythm, S1 normal heart sound present and S2 normal heart sound present RATE: regular rate RHYTHM: regular rhythm HEART SOUNDS: S1 normal heart sound present and S2 normal heart sound present GI: COMMON NORMALS: Normal to inspection, nondistended, normoactive bowel sounds present, Soft to palpation and non-tender Neuro: COMMON NORMALS: patient oriented x3, CN's II-XII intact bilaterally, moves all extremities and no focal motor deficits Psych: COMMON NORMALS: mental status grossly normal Data 10/02/22 20:09 10/02/22 20:09 Micro: Microbiology 10/02/22 22:29 Blood Culture - Preliminary Blood SPECIMEN COLLECTED 10/02/22 22:20 Blood Culture - Preliminary Blood SPECIMEN COLLECTED A&P Assessment and plan (1) Acute exacerbation of CHF (congestive heart failure): (2) Acute respiratory failure with hypoxia: (3) Pulmonary edema: (4) Pleural effusion, bilateral: (5) Uncontrolled diabetes mellitus: (6) Dyslipidemia: (7) Essential hypertension: Plan Acute systolic CHF exacerbation -Pulm edema, bilateral pleural effusions -Lasix 40 IV twice daily -BiPAP as needed -Creatinine, magnesium, potassium -Full code -Xarelto for DVT prophylaxis -Type 2 diabetes mellitus, low-dose sliding scale, monitor blood sugars closely -Has complaints of dysphagia, globus and patient, will order a barium swallow for tomorrow -Speech therapy eval, aspiration precautions Attestations Medical Necessity Statement*: patient requires hospitalization for chf exacerbation, inpatient, greater than 2 midnights Diagnoses Acute exacerbation of CHF (congestive heart failure) I50.9 Acute respiratory failure with hypoxia J96.01 Pulmonary edema J81.1 Pleural effusion, bilateral J90 Uncontrolled diabetes mellitus Dyslipidemia E78.5 Essential hypertension I10
[2022-10-02 23:01] LABS: Troponin 5 2HR 56.55 ng/L (0-10)
[2022-10-02 23:04] LABS: Troponin 5 2HR Delta 4.55 ABS# (0-10)
[2022-10-02 23:22] VITALS: BP 159/91; PULSE 79; PULSE 81; O2SAT 99
[2022-10-02 23:23] VITALS: BP 159/91; PULSE 82; O2SAT 100
[2022-10-02 23:45] LABS: Adenovirus Not Detected (NOT DETECT); Chlamydia Pneumoniae Not Detected (NOT DETECT); Coronavirus 229E,HKU1,NL63,OC4 Not Detected (NOT DETECT); Human Metapneumovirus Not Detected (NOT DETECT); Human Rhinovirus/Enterovirus Not Detected (NOT DETECT); Influenza A Not Detected (NOT DETECT); Influenza A H1 Not Detected (NOT DETECT); Influenza A H1-2009 Not Detected (NOT DETECT); Influenza A H3 Not Detected (NOT DETECT); Influenza B Not Detected (NOT DETECT); Mycoplasma Pneumoniae Not Detected (NOT DETECT); Parainfluenza Virus Type 1 Not Detected (NOT DETECT); Parainfluenza Virus Type 2 Not Detected (NOT DETECT); Parainfluenza Virus Type 3 Not Detected (NOT DETECT); Parainfluenza Virus Type 4 Not Detected (NOT DETECT); Respiratory Syncytial Virus A Not Detected (NOT DETECT); Respiratory Syncytial Virus B Not Detected (NOT DETECT); SARS-COV-2 Not Detected (NOT DETECT)
[2022-10-03] VITALS (12 sets, daily range): BP systolic 104–149; BP diastolic 58–81; PULSE 72–83; RESP 19–27; TEMP 36.6–37.1; O2SAT 93–99
[2022-10-03 00:02] LABS: Estmated Average Glucose 154
[2022-10-03 00:08] LABS: Chol HDL Ratio 4.03 mg/dL (0.0-4.40); Cholesterol 157 mg/dL (0-200); HDL Cholesterol 39 mg/dL (60-100); LDL Cholesterol Calculated 97 mg/dL (50-129); LDL HDL Ratio 2.49 RATIO (0.00-3.22); Thyroid Stimulating Hormone 4.64 uIU/mL (0.27-4.20); Triglycerides 104 mg/dL (0-150)
[2022-10-03] MEDS: sucralfate 1 gm Tablet PO ×3 (00:22→20:33)
[2022-10-03] MEDS: FUROsemide 10 mg/mL SDV 4mL 40 MG IVP ×3 (00:23→23:35)
[2022-10-03] MEDS: enoxaparin 40 mg/0.4 mL Syringe SUBCUT (00:23)
[2022-10-03 01:07] LABS: Add Urine Microscopic? YES; Bilirubin Urine Neg (Negative); Blood Urine Trace (Negative); Glucose Urine UA Norm (Normal); Ketones Urine Negative (Negative); Leukocyte Esterase Urine 1+ (Negative); Nitrate Urine Negative (Negative); Protein Urine 1+ (Negative); Urine Appearance Clear (CLEAR); Urine Color Yellow (Yellow); Urobilinogen Urine Norm (Negative); pH Urine 5 (5-7)
[2022-10-03 01:10] LABS: Bacteria Urine TRACE /hpf; Squamous Epithelial Cell Urine 0-4 /hpf (0-5); WBC Urine 55-80 /hpf (0-5)
[2022-10-03 01:12] LABS: Add Urine Culture? Yes
--- NOTE | 2022-10-03 02:06 | ECG_ITS ---
[facility] Test Date: 2022-10-03 Pat Name: Elisha Vickers Department: Room: 108 Gender: Female Medical Stenographer: : 1950 Requested By: Matti Aldana Order Number: [id number] Meryl MD: Arsh Garcia M.D. Measurements Intervals [place] Rate: 77 P: 70 CO: 155 QRS: -55 QRSD: 150 T: 123 QT: 476 QTc: 540 Interpretive Statements SINUS RHYTHM RIGHT BUNDLE BRANCH BLOCK [120+ ms QRS DURATION, UPRIGHT V1, 40+ ms S IN I/aVL/V4/V5/V6] LEFT ANTERIOR FASCICULAR BLOCK [QRS AXIS <= -45, QR IN I, RS IN II] LEFT VENTRICULAR HYPERTROPHY AND ST-T CHANGE [VOLTAGE CRITERIA PLUS ST/T ABNORMALITY] POSSIBLE ANTEROSEPTAL MYOCARDIAL INFARCTION , OF INDETERMINATE AGE [30 ms Q WAVE IN V1-V4] Compared to ECG 10/02/2022 22:21:24 No significant changes Electronically Signed On 10-03-2022 14:33:19 CDT by Arsh Garcia M.D. [id number]
[2022-10-03 04:38] LABS: Basophils # 0.1 10^3/uL (0.0-0.1); Basophils % 0.9 %; Eosinophils # 0.2 10^3/uL (0.0-0.8); Eosinophils % 3.5 %; Hematocrit 32.9 % (37.0-47.0); Hemoglobin 9.3 g/dL (11.5-15.3); Lymphocytes # 2.2 10^3/uL (0.8-4.8); Mean Corpuscular HGB Conc 28.3 g/dL (30.0-36.0); Mean Corpuscular Hemoglobin 26.1 pg (28.0-34.0); Mean Corpuscular Volume 92.2 fl (81-99); Mean Platelet Volume 10.4 fL (7.4-10.4); Monocytes # 0.5 10^3/uL (0.2-0.9); Neutrophils # 2.52 10^3/uL (1.8-7.7); Neutrophils % 46.4 %; Nucleated Red Blood Cells % 0 %; Platelet Count 270 10^3/cmm (130-400); Red Blood Count 3.57 10^6/uL (4.1-5.3); Red Cell Distribution Width 19.7 % (12.1-15.1); White Blood Count 5.4 10^3/uL (4.0-10.0)
[2022-10-03 04:55] LABS: Troponin 5 6HR 61.74 ng/L (0-10)
[2022-10-03 05:02] LABS: Troponin 5 6HR Delta 9.74 ng/L (0-12)
[2022-10-03 05:03] LABS: NT Pro B Type Natriuretic Pept 9976 pg/mL (0-125)
[2022-10-03] MEDS: aspirin 81 mg EC Tablet PO (05:29)
[2022-10-03 05:45] LABS: Alanine Aminotransferase 9 U/L (0-33); Albumin Level 3.5 g/dL (3.5-5.2); Alkaline Phosphatase 74 U/L (35-105); Anion Gap 12.8 (5-19); Aspartate Amino Transferase 10 U/L (0-32); Blood Urea Nitrogen 21 mg/dL (8-23); Calcium 8.3 mg/dL (8.5-10.5); Carbon Dioxide 27 mmol/L (22-29); Chloride 106 mmol/L (98-107); Globulin 2.7 g/dL (1.3-4.6); Glucose 79 mg/dL (65-115); Magnesium 1.9 mg/dL (1.7-2.3); Osmolality Calculated 296 mOsm/kg (285-295); Phosphorus 2.8 mg/dL (2.5-4.5); Potassium 3.8 mmol/L (3.5-5.1); Sodium 142 mmol/L (136-145); Total Bilirubin 0.7 mg/dL (0.15-1.2); Total Protein 6.2 g/dL (6.6-8.7)
[2022-10-03 06:41] LABS: Glucose Point of Care 88 mg/dL (70-110)
[2022-10-03 07:54] LABS: Glucose Point of Care 92 mg/dL (70-110)
--- NOTE | 2022-10-03 08:44 | PC.NURSE ---
initial assessment noted pt is alert, awake and orientedx4. noted she has been eating biscuits w/gravy and bacons delivered by her dgtr at bedside. notified pt and family on the scheduled test w/c is called a barium swallow study for her dysphagia and possible npo prior to procedure. they verbalizes understanding.
[2022-10-03] MEDS: ipratropium-albuterol 3 mL Neb INHALATION (09:19)
--- NOTE | 2022-10-03 09:47 | PC.NURSE ---
Skin assessment Pt dgtr notified nurse that they notice a lumpy,moderate bruise on right upper breast area and bruise on pt left periorbital area which was not seen yesterday. assess the skin areas. felt lump under the bruise [id number]. Hospitalist notified.
--- NOTE | 2022-10-03 10:13 | PM.PN ---
Subjective Subjective: History and physical reviewed. Patient reports she feels quite a bit better. Less short of breath. No chest pain. Down to 2 L of oxygen. Medications: Reviewed: Yes Vitals/I&O/Wt Last Vital Signs Temp 98.2 F 10/03/22 07:37 Pulse 82 10/03/22 09:25 Resp 19 H 10/03/22 09:21 BP 136/76 10/03/22 07:37 Pulse Ox 97 10/03/22 09:21 O2 Del Method Nasal Cannula 10/03/22 09:21 O2 Flow Rate 2 10/03/22 09:21 FiO2 40 10/03/22 00:00 10/02/22 10/03/22 10/03/22 22:59 06:59 14:59 Output Total 2700 / 2700 Balance -2700 / -2700 Weight last 48 hrs Weight 79.469 kg Physical Exam Narrative: General exam no distress Bruise noted right chest, left eyelid Neck is supple Cardiovascular regular rate and rhythm without murmur Lungs clear with but with diminished breath sounds at the bases Abdomen is soft with positive bowel sounds Extremities demonstrate bilateral amputations Urinary Catheter Management: Rojas: Cath Placed During This Visit: yes Urinary Catheter Date of Insertion: 10/02/22 Urinary Catheter Time of Insertion: 23:30 Data 10/03/22 04:05 10/03/22 04:05 Other Labs: All EKGs reviewed. Left anterior fascicular block. No acute changes from prior EKGs. CTA and chest x-ray reviewed personally. Bilateral pleural effusion, pulmonary congestion Micro: Microbiology 10/02/22 22:29 Blood Culture - Preliminary Blood SPECIMEN COLLECTED 10/02/22 22:20 Blood Culture - Preliminary Blood SPECIMEN COLLECTED A&P Assessment and plan (1) Acute exacerbation of CHF (congestive heart failure): Check limited echo Continue Lasix 40 mg IV every 12 hours Watch renal function closely with BMP daily TSH was recently checked (2) Acute respiratory failure with hypoxia: Resolving. Now on 2 L of oxygen. Secondary to heart failure. (3) Anemia: Discontinue aspirin Protonix, Carafate initiated Await esophagram already ordered (4) Bacterial UTI: Start Cipro 250 mg twice daily Urine culture Plan Dysphagia. Check barium swallow with esophagram today/tomorrow. Continue proton pump inhibitor. Peripheral vascular disease/pacemaker/status post TAVR. Was on aspirin, Xarelto, Plavix. Discontinue aspirin. She is anemic. Previous studies indicated iron deficiency anemia. Continue beta-sarahy. Intolerant of statins. Multiple other medical problems as outlined in past medical history Xarelto will suffice for DVT prophylaxis Attestations Medical Necessity Statement*: Needs continued hospitalization for further diuresis secondary to acute heart failure, still requiring oxygen Diagnoses Acute exacerbation of CHF (congestive heart failure) I50.9 Acute respiratory failure with hypoxia J96.01 Anemia D64.9 Bacterial UTI N39.0; A49.9 Time Spent (min) 40
--- NOTE | 2022-10-03 10:15 | USCV_ITS ---
Elisha Vickers Age: 71 Gender: F : 1950 Exam Date: 10/03/2022 15:39 Ordering Phys: Dale Cruz MD Technologist: Rocky Tolliver Exam Location: [facility] – [place] Indication: chf, new onset BP: 142 / 77 HR: 72 Rhythm: Sinus Technical Quality: Adequate MEASUREMENTS (Male / Female) Normal Values 2D ECHO LV Diastolic Diameter PLAX 3.8 cm 4.2 - 5.9 / 3.9 - 5.3 cm LV Systolic Diameter PLAX 2.6 cm IVS Diastolic Thickness 1.9 cm 0.6 - 1.0 / 0.6 - 0.9 cm IVS Systolic Thickness 1.5 cm LVPW Diastolic Thickness 1.5 cm 0.6 - 1.0 / 0.6 - 0.9 cm LVPW Systolic Thickness 1.8 cm LVOT Diameter 2.2 cm LV Ejection Fraction 2D Teich 61.6 % LV Ejection Fraction MOD 2C 44.8 % LV Ejection Fraction 2C AL 43.1 % LA Diameter 4.8 cm M-MODE RV Diastolic Diameter MM 1.7 cm Aortic Annulus Diameter 2.2 cm LA Ao Ratio MM 2.2 MV E Point Septal Separation 1.7 cm FINDINGS Left Ventricle Right Ventricle Right Atrium Left Atrium Mitral Valve Aortic Valve Tricuspid Valve Pulmonic Valve Pericardium Aorta IVC CONCLUSIONS This is a limited echocardiogram performed to assess LV systolic function. Left ventricle is moderate to severely reduced with EF of 30- 35%. Moderate to severe global hypokinesis Compared to prior echocardiogram from 05/01/2022, LV systolic function is significantly reduced now. Allen Khan MD (Electronically Signed) Final Date: 03 October 2022 16:40 S
[2022-10-03] MEDS: clopidogrel 75 mg Tablet PO (10:31)
[2022-10-03] MEDS: metoprolol succinate ER (24 HR) 25 mg Tablet PO (10:31)
[2022-10-03] MEDS: pantoprazole DR 40 mg Tablet PO ×2 (10:31→17:51)
[2022-10-03] MEDS: rivaroxaban 10 mg Tablet 20 MG PO (10:31)
[2022-10-03] MEDS: lisinopril 20 mg Tablet 40 MG PO (10:32)
[2022-10-03 11:58] LABS: Glucose Point of Care 117 mg/dL (70-110)
[2022-10-03 13:40] LABS: Glucose Point of Care 96 mg/dL (70-110)
--- NOTE | 2022-10-03 14:23 | PC.NURSE ---
ushered via bed to radiology for barium swallow
--- NOTE | 2022-10-03 15:54 | PC.SLP ---
Dr. Cruz was notified that this patient has been seen by this therapist on her previous admit. At that time, the patient was using a a compensatory strategy of alternation while eating/drinking that was successful. It was recommended that she receive further evaluation of her esophagus when she was recovered from her surgery. Recommendations for this admission include a Dysphagia Level 5 diet and use the [place] Diet protocol of jello before each bite of food to assist with movement of the bolus through the esophagus. Patient is scheduled to have a Barium Swallow Study today so she is currently NPO. Will initiate Dysphagia Level 5 diet when patient has completed that examination. No further intervention from speech therapy is needed at this time.
[2022-10-03 16:54] LABS: Glucose Point of Care 117 mg/dL (70-110)
[2022-10-03] MEDS: ciprofloxacin 500 mg Tablet 250 MG PO (20:33)
[2022-10-03 20:59] LABS: Glucose Point of Care 152 mg/dL (70-110)
--- NOTE | 2022-10-03 22:56 | FL_ITS ---
WS: [id number] Exam: FL barium swallow [id number] Date/Time of Exam: 10/03/2022 2:55 PM Reason For Exam: dysphagia Fluoroscopy time: 2min [id number] minutes # of spot films: 40 Swallowing function at the level of the oropharynx was normal. There was no indication of esophageal stricture or mass. Marked tertiary spasm in the esophagus. Some reverse peristalsis noted. A very sma ll hiatal hernia was noted. No gastroesophageal reflux observed during fluoroscopy. FL/FL barium swallow [id number] IMPRESSION: 1. 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 2. No esophageal stricture or mass. 3. Small hiatal hernia. No gastroesophageal reflux.
[2022-10-04] VITALS (10 sets, daily range): BP systolic 111–135; BP diastolic 49–81; PULSE 68–84; RESP 13–25; TEMP 36.6–37.2; O2SAT 91–97
[2022-10-04 06:04] LABS: Basophils # 0.1 10^3/uL (0.0-0.1); Basophils % 1.3 %; Eosinophils # 0.3 10^3/uL (0.0-0.8); Eosinophils % 7.2 %; Hematocrit 34.8 % (37.0-47.0); Hemoglobin 10.2 g/dL (11.5-15.3); Lymphocytes # 1.4 10^3/uL (0.8-4.8); Lymphocytes % 30.2 %; Mean Corpuscular HGB Conc 29.3 g/dL (30.0-36.0); Mean Corpuscular Hemoglobin 26.3 pg (28.0-34.0); Mean Corpuscular Volume 89.7 fl (81-99); Mean Platelet Volume 10.3 fL (7.4-10.4); Monocytes # 0.4 10^3/uL (0.2-0.9); Neutrophils # 2.52 10^3/uL (1.8-7.7); Neutrophils % 53.1 %; Nucleated Red Blood Cells % 0 %; Platelet Count 284 10^3/cmm (130-400); Red Blood Count 3.88 10^6/uL (4.1-5.3); Red Cell Distribution Width 19.7 % (12.1-15.1); White Blood Count 4.7 10^3/uL (4.0-10.0)
[2022-10-04 06:31] LABS: Alanine Aminotransferase 9 U/L (0-33); Albumin Level 3.6 g/dL (3.5-5.2); Alkaline Phosphatase 74 U/L (35-105); Anion Gap 14.2 (5-19); Aspartate Amino Transferase 10 U/L (0-32); Blood Urea Nitrogen 18 mg/dL (8-23); Calcium 8.1 mg/dL (8.5-10.5); Carbon Dioxide 30 mmol/L (22-29); Chloride 101 mmol/L (98-107); Glucose 90 mg/dL (65-115); Magnesium 1.8 mg/dL (1.7-2.3); Osmolality Calculated 295 mOsm/kg (285-295); Potassium 3.2 mmol/L (3.5-5.1); Sodium 142 mmol/L (136-145); Total Bilirubin 0.9 mg/dL (0.15-1.2); Total Protein 6.6 g/dL (6.6-8.7)
[2022-10-04 06:51] LABS: Glucose Point of Care 116 mg/dL (70-110)
[2022-10-04] MEDS: clopidogrel 75 mg Tablet PO (08:07)
[2022-10-04] MEDS: lisinopril 20 mg Tablet 40 MG PO (08:08)
[2022-10-04] MEDS: ciprofloxacin 500 mg Tablet 250 MG PO ×2 (08:08→20:30)
[2022-10-04] MEDS: metoprolol succinate ER (24 HR) 25 mg Tablet PO (08:08)
[2022-10-04] MEDS: potassium chloride ER 20 mEq Tablet 40 MEQ PO ×2 (08:08→12:24)
[2022-10-04] MEDS: pantoprazole DR 40 mg Tablet PO ×2 (08:09→17:11)
--- NOTE | 2022-10-04 08:39 | PM.PN ---
Subjective Subjective: Elisha reports she is less short of breath. No chest discomfort. Oxygen is weaned and weaned down to 2 L. We discussed her recent echocardiogram. Medications: Reviewed: Yes Vitals/I&O/Wt Last Vital Signs Temp 97.8 F 10/04/22 04:31 Pulse 84 10/04/22 08:00 Resp 20 H 10/04/22 08:00 BP 127/59 10/04/22 08:00 Pulse Ox 94 10/04/22 08:00 O2 Del Method Nasal Cannula 10/04/22 08:00 O2 Flow Rate 4 10/04/22 08:00 FiO2 40 10/03/22 00:00 10/03/22 10/04/22 10/04/22 22:59 06:59 14:59 Intake Total 360 / 510 360 / 870 480 / 480 Output Total 1800 / 4000 Balance 360 / -1690 -1440 / -3130 480 / 480 Weight last 48 hrs Weight 79.469 kg Physical Exam Narrative: General exam no distress Neck is supple, no lymphadenopathy Cardiovascular regular rate and rhythm without murmur Lungs clear with but with diminished breath sounds at the bases Abdomen is soft with positive bowel sounds Extremities demonstrate bilateral amputations Urinary Catheter Management: Rojas: Cath Placed During This Visit: yes Reason for Continuing Indwelling Catheter: Acute Urinary Retention or Obstruction Urinary Catheter Date of Insertion: 10/02/22 Urinary Catheter Time of Insertion: 23:30 Data 10/04/22 05:36 10/04/22 05:36 Micro: Microbiology 10/03/22 00:20 Urine Culture - Preliminary Urine,Clean Catch Yeast species 10/02/22 22:29 Blood Culture - Preliminary Blood NEGATIVE TO DATE 10/02/22 22:20 Blood Culture - Preliminary Blood NEGATIVE TO DATE A&P Assessment and plan (1) Acute exacerbation of CHF (congestive heart failure): Limited echo demonstrated an ejection fraction of 35%. This is significantly reduced from previous echo Continue Lasix 40 mg IV every 12 hours. She is diuresing nicely and diuresed 2.7 L over the last 24 hours. Renal function is tolerating diuresis well with normal creatinine. She is still on 2 L of oxygen. Continue diuresis TSH was recently checked and normal Cardiology consult for significant reduction in ejection fraction. Note she has a history of ischemic heart disease, with previous stenting, and TAVR. Hold Xarelto in case cardiology would want to perform an angiogram. Changed to Lovenox. BMP daily following renal function closely during diuresis (2) Acute respiratory failure with hypoxia: Resolving. Now on 2 L of oxygen. Secondary to heart failure. (3) Anemia: Discontinue aspirin Continue Protonix, Carafate Barium swallow demonstrated presbyesophagus, esophageal spasm. No obstruction was noted. Small hiatal hernia was noted. (4) Bacterial UTI: Start Cipro 250 mg twice daily Urine culture pending (5) Hypokalemia: Supplement with 80 mill equivalents of potassium p.o. over the course of today Plan Dysphagia. See findings on barium swallow above. Continue proton pump inhibitor. Peripheral vascular disease/pacemaker/status post TAVR. Was on aspirin, Xarelto, Plavix. Aspirin has been discontinued continue beta-sarahy. Intolerant of statins. Multiple other medical problems as outlined in past medical history Lovenox will suffice for DVT prophylaxis Attestations Medical Necessity Statement*: Needs continued hospitalization for further diuresis secondary to acute systolic heart failure, evaluation of diminished ejection fraction Diagnoses Acute exacerbation of CHF (congestive heart failure) I50.9 Acute respiratory failure with hypoxia J96.01 Anemia D64.9 Bacterial UTI N39.0; A49.9 Hypokalemia E87.6 Time Spent (min) 30
--- NOTE | 2022-10-04 09:54 | P.CONIM_ITS ---
Providers/Reason For Consult Consulting Physician/Specialty*: Allen Khan MD/ Cardiology Reason for Consult*: New onset congestive heart failure Requesting Physician: Dr Cruz Attending Physician: Dale Cruz MD Primary Care Provider: TRINH Whittington History of Present Illness History of Present Illness Elisha Vickers is a 71 year old female with medical medical history of diabetes, CAD, aortic valve replacement with a TAVR valve, PAD with bilateral amputations who presented to hospital with worsening shortness of breath. She also feels chest pressure. Troponins trended up from baseline of 52 to 63 at 6 hours. Echo was performed that showed LV systolic function has dropped significantly from 60% about 5 months back to 30% now. EKG shows a normal sinus rhythm with right bundle branch block. She has pacemaker that was put in at the same time as her TAVR. Currently she is getting IV diuresis. Review of Systems Const: Denies: fever(s) or chills Eyes: Denies: change in vision Card: Denies: chest pain Resp: Reports: dyspnea and non-productive cough GI: Denies: abdominal pain : Denies: flank pain or difficulty voiding Neuro: Denies: headache(s) Medications/Allergies Home Medications Medication Instructions Recorded Confirmed Last Taken Type Wheelchair #1 ea 12/11/20 10/03/22 Unknown Rx aspirin 81 mg tablet,delayed 81 mg PO QAM 01/19/21 10/03/22 09/13/22 History release Electric Wheelchair #1 ea 04/20/21 10/03/22 Unknown Rx pen needle, diabetic 32 gauge x #100 ea 11/01/21 10/03/22 Unknown Rx 5/32 (BD Domenica 2nd Gen Pen Needle) blood sugar diagnostic (OneTouch #100 ea 11/12/21 10/03/22 Unknown Rx Ultra Test strips) lancets 33 gauge (OneTouch Delica #100 ea 11/12/21 10/03/22 Unknown Rx Lancets) Lift Chair #1 ea 12/03/21 10/03/22 Unknown Rx semaglutide 3 mg tablet (Rybelsus) See Rx Instructions .Route 09/09/22 10/03/22 09/13/22 Rx .COMPLEX #30 tabs clopidogrel 75 mg tablet 75 mg PO DAILY 09/13/22 10/03/22 09/13/22 History lisinopril 40 mg tablet 40 mg PO DAILY 09/13/22 10/03/22 09/13/22 History metoprolol succinate 25 mg 25 mg PO DAILY 09/13/22 10/03/22 09/13/22 History tablet,extended release 24 hr rivaroxaban 20 mg tablet (Xarelto) 20 mg PO DAILY 09/13/22 10/03/22 09/13/22 History Novolog FlexPen U-100 Insulin 100 See Rx Instructions .Route 09/18/22 10/03/22 Unknown Rx unit/mL (3 mL) subcutaneous .COMPLEX #15 mL (insulin aspart U-100) insulin glargine 100 unit/mL (3 5 unit (0.05 mL) SUBCUT QAM 30 09/18/22 10/03/22 09/13/22 Rx mL) subcutaneous pen (Lantus days #15 mL Solostar U-100 Insulin) pantoprazole 40 mg tablet,delayed 40 mg PO BID 30 days #60 tabs 09/18/22 10/03/22 Unknown Rx release (Protonix) sucralfate 1 gram tablet 1 g PO Q12H 30 days #60 tabs 09/18/22 10/03/22 Unknown Rx glucagon 1 mg/0.2 mL subcutaneous 0.5 mg (0.1 mL) SUBCUT ONCE PRN 09/30/22 10/03/22 Unknown Rx auto-injector hypoglycemia 30 days #0.4 mL Allergies Allergy/AdvReac Type Severity Reaction Status Date / Time ceftriaxone [From Rocephin] Allergy Severe cardiac Verified 10/03/22 08:29 arrest atorvastatin [From Lipitor] Allergy Unknown UNKNOWN Verified 10/03/22 08:29 Fckdnnl-ERG-EjL Reductase Allergy Unknown UNKNOWN Verified 10/03/22 08:29 Inhibitor [Bxiezpb-Ocz-Omv Reductase Inhibitor] Rocephin Allergy Unknown Unknown Uncoded 09/13/22 14:02 Current Medications Generic Name Dose Route Start Last Admin Trade Name Freq PRN Reason Stop Dose Admin Albuterol/Ipratropium 3 ml 10/02/22 23:52 10/03/22 09:19 Ipratropium-Albuterol 3 Ml Neb INHALATION 3 ml Q6H PRN Administration SHORTNESS OF BREATH Ciprofloxacin HCl 250 mg 10/03/22 21:00 10/04/22 08:08 Ciprofloxacin 500 Mg Tablet PO 250 mg BID@0900,2100 BIRGIT Administration Protocol Clopidogrel Bisulfate 75 mg 10/03/22 09:00 10/04/22 08:07 Clopidogrel 75 Mg Tablet PO 75 mg DAILY BIRGIT Administration Furosemide 40 mg 10/02/22 23:22 10/03/22 23:35 Furosemide 10 Mg/Ml Sdv 4ml IVP 40 mg Q12H BIRGIT Administration Insulin Human Lispro 0 unit 10/03/22 08:00 10/04/22 08:04 Insulin Lispro 100 Unit/1 Ml SUBCUT Not Given TIDWM [facility] Protocol Lisinopril 40 mg 10/03/22 09:00 10/04/22 08:08 Lisinopril 20 Mg Tablet PO 40 mg DAILY BIRGIT Administration Metoprolol Succinate 25 mg 10/03/22 09:00 10/04/22 08:08 Metoprolol Succinate Er (24 Hr) 25 Mg Tablet PO 25 mg DAILY BIRGIT Administration Pantoprazole Sodium 40 mg 10/03/22 09:00 10/04/22 08:[address] 40 Mg Tablet PO 40 mg BID BIRGIT Administration Sucralfate 1 gm 10/02/22 23:22 10/03/22 20:33 Sucralfate 1 Gm Tablet PO 1 gm Q12H BIRGIT Administration PFSH Acute PFSH: Medical History Carotid stenosis, right Congestive heart failure with cardiomyopathy Essential hypertension Gangrene of right foot 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 MRSA (methicillin resistant staph aureus) culture positive Pacemaker Pre-operative clearance TIA (transient ischemic attack) Valvular incompetence, mitral Venous insufficiency of both lower extremities Wound of right lower extremity Surgical History History of amputation of lesser toe of right foot History of heart artery stent History of transmetatarsal amputation of left foot Hx of foot surgery Hx of knee surgery Hx of tubal ligation Peripheral vascular angioplasty status with implants and grafts S/P TAVR (transcatheter aortic valve replacement) S/P transmetatarsal amputation of foot Family History Family/Other CAD (coronary artery disease) Chronic kidney disease (CKD) Mother Diabetes Stroke Father Lung disease Sister Lung disease Other Heart disease Denies family history of Clotting disorder Dementia Suicide Anesthesia complication Bleeding disorder Cancer Social History Smoking and tobacco status: never smoked Alcohol intake: never Substance/Drug Use: never Adopted: No Caregiver/support person: No Lives independently: Yes service: No Current occupational status: disabled Sexually active: Yes Do you think of yourself as: Straight/Heterosexual Current gender identity: Female Vitals/I&O/Wt Last Vital Signs Temp 97.8 F 10/04/22 04:31 Pulse 84 10/04/22 08:00 Resp 20 H 10/04/22 08:00 BP 127/59 10/04/22 08:00 Pulse Ox 94 10/04/22 08:00 O2 Del Method Nasal Cannula 10/04/22 08:00 O2 Flow Rate 4 10/04/22 08:00 FiO2 40 10/03/22 00:00 10/03/22 10/04/22 10/04/22 22:59 06:59 14:59 Intake Total 360 / 510 360 / 870 480 / 480 Output Total 1800 / 4000 Balance 360 / -1690 -1440 / -3130 480 / 480 Weight last 48 hrs Weight 162 lb Weight 175 lb 3.2 oz Physical Exam Narrative: GENERAL: Patient is alert, awake and oriented x3. [] NECK: No jugular vein distension. [] HEENT: No cyanosis. No icterus. No pallor. [] HEART: Regular S1 and S2. No murmur, rub or gallop. [] LUNGS: Clear to auscultate bilaterally. [] CENTRAL NERVOUS SYSTEM: Grossly nonfocal. [] EXTREMITIES: Lower extremities with no edema bilaterally. Pulses palpable in the lower extremities, both dorsalis pedis and posterior tibial. [] Urinary Catheter Management: Rojas: Cath Placed During This Visit: yes Reason for Continuing Indwelling Catheter: Acute Urinary Retention or Obstruction Urinary Catheter Date of Insertion: 10/02/22 Urinary Catheter Time of Insertion: 23:30 Data 10/05/22 03:36 10/05/22 03:36 Micro: Microbiology 10/03/22 00:20 Urine Culture - Preliminary Urine,Clean Catch Yeast species 10/02/22 22:29 Blood Culture - Preliminary Blood NEGATIVE TO DATE 10/02/22 22:20 Blood Culture - Preliminary Blood NEGATIVE TO DATE A&P Assessment and plan (1) Status post below-knee amputation: (2) Pulmonary edema: (3) Pleural effusion, bilateral: (4) Uncontrolled diabetes mellitus: (5) Congestive heart failure with cardiomyopathy: (6) Atherosclerosis of coronary artery of [place] heart without angina pectoris: (7) Peripheral arterial disease: (8) Essential hypertension: Plan Patient has presented with congestive heart failure and EF has dropped significantly from 60% in April 2022 to 30% now. She has history of CAD. We will proceed with coronary angiogram with possible percutaneous coronary intervention as likely has ischemia induced cardiomyopathy Hold anticoagulation. NPO past midnight Continue IV diuresis. Close I and Os. Monitor renal function Thank you for involving us with care of this patient. We will continue to follow. Please call with questions. Consult Attestations Medical Necessity Statement: Care expected to cross 2 midnights. Coding Level of Care Code Acute Code for Chg Fwd Diagnoses Status post below-knee amputation Z89.519 Pulmonary edema J81.1 Pleural effusion, bilateral J90 Uncontrolled diabetes mellitus Congestive heart failure with cardiomyopathy I50.9; I42.9 Atherosclerosis of coronary artery of [place] heart without angina pectoris I25.10 Peripheral arterial disease I73.9 Essential hypertension I10
--- NOTE | 2022-10-04 10:04 | PC.CHAP ---
Pastoral Care Encounter/Spiritual Assessment Type of Contact [] Declined business administration teacher visit [] Patient/Family/Request visit [] Outpatient visit [] Follow-up visit [] Physician referral [] Code/Alert [x] Routine visit [] Staff referral [] Actively dying [] Patient sleeping [x] Family support [] [] Out of room [] Palliative care [] [] Receiving care in room [] Pre-surgical visit [] Trauma [] Long length of stay [] ICU visit [] Other: Relational/Emotional Strength [x] Patient feels connected with others/family/visitors/staff [] Distress [] Loneliness/isolation [] Abandonment Spirituality of Patient [x] Person of Karen [] Attends Orthodoxy of their Karen [x] Believes in Prayer [] Reads Bible or Sabianism materials [] There are Spiritual issues to be addressed Submarine Diver Interventions [x] Prayer [x] Active listening [] Non-anxious presence [x] Spiritual/emotional support [] Crisis/trauma care [] Spiritual counseling [] Bereavement support [] Provided bereavement packet [] Provided Bible/devotional materials [] Provided toy/stuffed animal, coloring book to patient or family member [] Provided Communion [] Anointing/[place] [] Salvation [x] Completed spiritual assessment [] Other: Impact on Illness or Injury [] Angry [] Fearful [] Anxious [] Often cries [] Exhaustion [] Unable to work [] Unable to attend religious [] Unable to walk/stand [] Unable to read [] Unable to drive [] Unable to eat/drink [] Unable to sleep [] Unable to be with family [] Patient intubated [] Other: Summary Time spent with patient
[2022-10-04] MEDS: sucralfate 1 gm Tablet PO ×2 (10:23→23:27)
[2022-10-04] MEDS: enoxaparin 80 mg/0.8 mL Syringe 70 MG SUBCUT (10:24)
[2022-10-04] MEDS: FUROsemide 10 mg/mL SDV 4mL 40 MG IVP ×2 (10:24→23:27)
[2022-10-04 10:59] LABS: Glucose Point of Care 163 mg/dL (70-110)
[2022-10-04 11:48] LABS: Glucose Point of Care 187 mg/dL (70-110)
--- NOTE | 2022-10-04 17:09 | P.PN_ITS ---
Subjective Subjective: No complaints of pain left leg Vitals/I&O/Wt Last Vital Signs Temp 98.0 F 10/04/22 11:40 Pulse 77 10/04/22 11:40 Resp 24 H 10/04/22 11:40 BP 111/61 10/04/22 11:40 Pulse Ox 94 10/04/22 11:40 O2 Del Method Nasal Cannula 10/04/22 11:40 O2 Flow Rate 4 10/04/22 08:00 FiO2 40 10/03/22 00:00 10/04/22 10/04/22 10/04/22 06:59 14:59 22:59 Intake Total 360 / 870 702 / 702 Output Total 1800 / 4000 Balance -1440 / -3130 702 / 702 Weight last 48 hrs Weight 162 lb Weight 175 lb 3.2 oz Physical Exam Narrative: Below-knee amputation incision clean and free of drainage. Minimal swelling Urinary Catheter Management: Rojas: Cath Placed During This Visit: yes Reason for Continuing Indwelling Catheter: Acute Urinary Retention or Obstruction Urinary Catheter Date of Insertion: 10/02/22 Urinary Catheter Time of Insertion: 23:30 Data 10/04/22 05:36 10/04/22 05:36 Micro: Microbiology 10/03/22 00:20 Urine Culture - Preliminary Urine,Clean Catch Yeast species 10/02/22 22:29 Blood Culture - Preliminary Blood NEGATIVE TO DATE 10/02/22 22:20 Blood Culture - Preliminary Blood NEGATIVE TO DATE A&P Assessment and plan (1) Status post below-knee amputation: Amputation site looks great. We will discontinue dinh. Ready for stump camera person and progression toward prosthetic fitting Attestations Medical Necessity Statement*: As per medicine Coding Level of Care Code Acute Code for Chg Fwd Diagnoses Status post below-knee amputation Z89.519
[2022-10-04 17:10] LABS: Glucose Point of Care 205 mg/dL (70-110)
[2022-10-04] MEDS: insulin lispro 100 unit/1 mL SUBCUT (17:13)
--- NOTE | 2022-10-04 19:08 | PC.NURSE ---
24 dinh were removed from patients left lower extremity stump per Dr. Berman's orders.
[2022-10-04] MEDS: acetaminophen 325 mg Tablet 650 MG PO (20:03)
[2022-10-04 21:18] LABS: Glucose Point of Care 142 mg/dL (70-110)
[2022-10-05] VITALS (40 sets, daily range): BP systolic 102–150; BP diastolic 52–81; PULSE 69–88; RESP 15–32; TEMP 36.6–36.9; O2SAT 89–98
[2022-10-05 03:52] LABS: Basophils % 0.8 %; Eosinophils # 0.3 10^3/uL (0.0-0.8); Eosinophils % 5.7 %; Hematocrit 37.1 % (37.0-47.0); Hemoglobin 10.9 g/dL (11.5-15.3); Lymphocytes # 1.8 10^3/uL (0.8-4.8); Lymphocytes % 35.9 %; Mean Corpuscular HGB Conc 29.4 g/dL (30.0-36.0); Mean Corpuscular Hemoglobin 26.2 pg (28.0-34.0); Mean Corpuscular Volume 89.2 fl (81-99); Mean Platelet Volume 10.1 fL (7.4-10.4); Monocytes # 0.5 10^3/uL (0.2-0.9); Neutrophils # 2.43 10^3/uL (1.8-7.7); Neutrophils % 47.4 %; Nucleated Red Blood Cells % 0 %; Platelet Count 272 10^3/cmm (130-400); Red Blood Count 4.16 10^6/uL (4.1-5.3); Red Cell Distribution Width 19.5 % (12.1-15.1); White Blood Count 5.1 10^3/uL (4.0-10.0)
[2022-10-05 04:10] LABS: Anion Gap 14.6 (5-19); Blood Urea Nitrogen 27 mg/dL (8-23); Calcium 8.5 mg/dL (8.5-10.5); Carbon Dioxide 29 mmol/L (22-29); Chloride 100 mmol/L (98-107); Glucose 143 mg/dL (65-115); Osmolality Calculated 298 mOsm/kg (285-295); Potassium 3.6 mmol/L (3.5-5.1); Sodium 140 mmol/L (136-145)
[2022-10-05 04:15] LABS: Magnesium 1.9 mg/dL (1.7-2.3)
[2022-10-05] MEDS: aspirin 325 mg Tablet PO (05:01)
[2022-10-05] MEDS: diphenhydrAMINE 50 mg Capsule PO (05:01)
--- NOTE | 2022-10-05 06:00 | XACV_ITS ---
Exam Room: [facility] Ht: 170 cm Wt: 73 kg BSA: 1.87 m2 Gender: Female : 1950 Any Known Allergies: Other Exam Priority: Routine Procedure(s): Procedure Description: Diagnostic procedure Procedure Description: PCI procedure Procedure Description: Drug Eluting Coronary Stent Procedure Description: PTCA Procedure Description: Miscellaneous Procedure Description: ACT Procedure Description: Coronary Angiography Diagnostic Cath Status: Elective Diagnostic Findings * Indication: Patient has new drop in LV systolic function and has been admitted with congestive heart failure symptoms. * Patient has a core TAVR valve. We initially obtained right radial access and performed angiography of RCA through that. However left main artery could not be engaged. We obtained access and right common femoral artery and used XB 3.0 guide catheter to engage left main artery. * Right Coronary Artery has no significant disease. * Proximal Left Anterior Descending: subtotal 99% occlusion, ISAIAS:2 flow. * Distal Circumflex: obstructive 60-70% stenosis, ISAIAS: 3 flow. * Ramus intermedius artery: Small * c * aliber vessel with a patent prior stent. Distal edge of stent there is significant 70 to 80% stenosis. * Left Main has no disease. * 1st Diagonal: obstructive 70% stenosis, ISAIAS: 3 flow. * Coronary angiography shows right dominance. PCI Status: Elective PCI Indication: Other Interventional Findings * Procedure detail: We engaged the left main artery with XB 3.0 guide catheter through core valve struts. IV heparin was administered to maintain anticoagulation. 0.014 run-through guidewire was used to cross the critical proximal LAD stenosis and was put in distal vessel. We predilated the stenosis with 2.5 x 12 mm semicompliant balloon. This was followed by placement of 2.75 x 18 mm resolute Lynn drug-eluting stent. Proximal section of the stent was postdilated with 3.0 x 8 mm NC balloon. At this time final angiogram was performed that showed excellent stent expansion, ISAIAS-3 flow and no residual stenosis. We decided to treat diagonal artery, distal ramus and distal left circumflex artery medically. Guidewire and guide catheter were removed. 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 * Proximal Left Anterior Descendin% stenosis treated with a AB TREK 2.50X12 RX BALLOON, CE William LYNN 2.75X18 VIKTORIYA, and CE FOWLER EUPHORA RX [id number] BALLOON. 0% residual stenosis, ISAIAS: 3 flow. Conclusions 1. Critical proximal LAD stenosis s/p successful revascularization with VIKTORIYA x1. 2. Medical management for small vessel disease i.e distal left circumflex artery: Diagonal artery and distal ramus artery.. 3. Proximal Left Anterior Descending was treated with a Balloon, Drug Eluting Stent, and Balloon. Recommendations * Continue Plavix and Xarelto. * Aggressive risk factor modification. * Outpatient cardiology follow up in 4 weeks. Interventional RX Recommendation: PCI w/o planned CABG Diagnostic RX Recommendation: PCI w/o planned CABG Anticoagulation: Heparin Pressures Phase:Rest AO : 75 / 52 ( 64 ) @ 7:30:00 AM 106 / 67 ( 86 ) @ 7:51:00 AM 126 / 68 ( 93 ) @ 7:54:00 AM 86 / 50 ( 67 ) @ 8:08:00 AM Clinical Evaluation EBL: 5mL-10mL Procedural Details Procedure Consent Obtained. Admit Source: In Patient. Pre-Procedure Time Out. Identified patient by full name and date of as verbalized by the patient/guarantor. Does the consent match the physician's order: Yes. Accurate & Complete Informed Consent: Yes. Inpatient/Outpatient History & Physical on Chart: Yes. If H&P is completed, is and addenduem needed: No; If yes, is the addendum complete: N/A. Visualize and Verify Site with Patient/Guarantor: N/A. Relevant Radiology Images available: Yes. Pre-op teaching completed and patient verbalized understanding. The risks, benefits, and alternatives of sedation and/or procedure were discussed by physician. The patient agrees to continue. Procedure started. [facility] Clinical Fraility Score: 5: Mildly Frail. Window Unit Air Conditioning Mechanic Indications: ACS > 24 hours. Window Unit Air Conditioning Mechanic Indications: Cardiomyopathy. Chest Pain Symptom Assessment: Typical Angina Symptoms. Correct patient, site and procedure confirmed by cath team. Current diagnosis: NSTEMI. PERRLA. Strong, equal hand regional service manager bilaterally. Lungs clear x 5 lobes. IV Site on Arrival: 20 gauge in the right anticubital. IV Fluids: 0.9% NaCl at KVO. 0 mL infused prior to grass farm laborer. Pre Procedural Pulses: right radial was 3+. Oxygen started at 2liters/min via nasal canula. right groin was prepped with chloroprep then draped in the usual sterile fashion. right radial was prepped with chloroprep then draped in the usual sterile fashion. Physician notified. Baseline sample Acquired. HR: 89 BPM. Latoya Workman was relieved by RT Jaxson(R) as monitoring person. Current Diagnosis : NSTEMI. Physician arrived. Physician scrubbed in. Immediate Pre-Procedure Time Out. Correct Patient: Yes; Correct Procedure: Yes; Correct Site: Yes; Correct Patient Position: Yes; Correct Supplies: Yes; Dried Flammable Prep: Yes; Blood Products Available: N/A;. Lidocaine 1% infiltrated to the right radial. Arterial access obtained. A 5 mosotho TIG catheter in over wire. Multiple views taken of right coronary artery. Catheter removed over the exchange wire. A TR Band was successful obtaining hemostatsis at the Right Radial artery insertion site. Lidocaine 1% infiltrated to the right groin. Ultrasound being used to obtain arterial access. Arterial access obtained with micropuncture set. Wire and needle removed. Arterial access obtained with micropuncture set. A 5 mosotho JL3.5 catheter in over wire. Catheter removed over the exchange wire. A 5 mosotho JL4 catheter in over wire. Multiple views taken of left coronary artery. Catheter removed over the exchange wire. 6 mosotho XB 3 guide catheter was inserted over the wire. Multiple views taken of left coronary artery. Runthrough guidewire was advanced through the guide catheter to lesion in the prox LAD. Inflation number : 1 A AB TREK 2.50X12 RX BALLOON was prepped and advanced across the Prox LAD , then inflated to 8 REGI for 0:17 seconds. Inflation number: 2 The AB TREK 2.50X12 RX BALLOON was reinflated across the Prox LAD, to 8 REGI for 0:13 seconds. Inflation number: 3 The AB TREK 2.50X12 RX BALLOON was reinflated across the Prox LAD, to 8 REGI for 0:09 seconds. Balloon out. Inflation Number : 4 A CE William LYNN 2.75X18 VIKTORIYA -Lot Number# _[id number] EXP: 07/28/2024 was prepped and advanced across the Prox LAD. The stent was deployed at 12 REGI for 0:29 seconds. Stent balloon out over wire. Inflation number : 5 A CE FOWLER EUPHORA RX [id number] BALLOON was prepped and advanced across the Prox LAD , then inflated to 21 REGI for 0:29 seconds. Balloon out. ACT drawn. Results out of range seconds. Therapeutic limits - pre-heparin administration 90-150 seconds and monitoring heparin during a vascular procedure >250 seconds. Guide catheter out. A Suture was successful obtaining hemostatsis at the Right Femoral artery insertion site. Sheath(s) sutured into position with 2-0 silk and sterile 4x4's and Op-site applied over the site. No oozing or signs and symptoms of hematoma noted. Arterial sheath flushed and connected to tranducer and pressure bag with heparinized saline. Post Procedure: Pulses reassessed and unchanged. PERRLA. Strong, equal hand regional service manager bilaterally. No VTE prophylaxis required. Medication's Wasted: Lidocaine 1% = 1 mL. Medication's Wasted: Nitro = 49.6 mg. Medication's Wasted: Heparin = 2000 units. Medication's Wasted: Other = Fentanyl 50 mcg. Total IV fluids: 78 mL. Post-op diagnosis: CAD. Complications: None. Estimated blood loss: 5mL-10mL. Responsiveness - Normal response to verbal stimuli; alert and oriented, PERRLA. Airway - Unaffected, no intervention required; spontaneous ventilation. Circulation: W/N/L, pulses unchanged. Nausea/Vomiting: No. Procedure completed. ACT drawn. Results 266 seconds. Therapeutic limits - pre-heparin administration 90-150 seconds and monitoring heparin during a vascular procedure >250 seconds. Patient transferred by bed to 1st floor. Vital chart was stopped. Access Site Site: Right Radial artery Sheath Size: 6 Fr Hemostasis Method: TR Band Hemostasis Success: Successful Site: Right Femoral artery Sheath Size: 6 Fr Hemostasis Method: Suture Hemostasis Success: Successful Procedure Medications Start: 6:21 AM Stop: 6:21 AM Medication: Versed Amount: 1 mg Route: I.V. Start: 6:22 AM Stop: 6:22 AM Medication: Fentanyl Amount: 50 mcg Route: I.V. Start: 6:25 AM Stop: 6:25 AM Medication: Nitrogylcerin Amount: 200 mcg Route: I.A. Start: 6:28 AM Stop: 6:28 AM Medication: Heparin Amount: 2000 units Route: I.V. Start: 6:56 AM Stop: 6:56 AM Medication: Heparin Amount: 5000 units Route: I.V. Start: 6:59 AM Stop: 6:59 AM Medication: Versed Amount: 1 mg Route: I.V. Start: 7:07 AM Stop: 7:07 AM Medication: Nitrogylcerin Amount: 200 mcg Route: I.C. Start: 7:10 AM Stop: 7:10 AM Medication: Plavix Amount: 600 mg Route: P.O. I, the attending physician, have reviewed and verified all procedure medications. Yes, all medications given per verbal order History/Risk Factors Hypertension: Yes Dyslipidemia: Yes Peripheral Arterial Disease (PAD): Yes Myocardial Infarction (NM): No Obesity: No Tobacco Use: Never Prior Interventions PCI: Yes Valve Surgery: No Report Signatures Finalized by Allen Khan MD on 10/09/2022 02:55 PM
--- NOTE | 2022-10-05 06:21 | W.PM.OPSUD ---
Surgery/Procedure H&P Update DATE OF PROCEDURE: October 05, 2022 DATE H&P PERFORMED: 10/04/22 H&P UPDATE INFORMATION: I have reviewed H&P completed within last 30 days, I have examined patient prior to procedure and No changes to prior documentation PREOP DIAGNOSIS: New onset congestive heart failure PRIMARY INDICATION FOR PROCEDURE: New onset congestive heart failure PLANNED PROCEDURE: Operation Date: 10/05/22 06:00 Proposed Procedures p Cardiac Catheterization(Not Applicable) - Allen Khan M.D Possible percutaneous coronary intervention PATIENT REASSESSED PRIOR TO SEDATION, WITH NO CHANGE NOTED: Yes PHYSICAL EXAM: alert, oriented x 3, clear to auscultation bilaterally and regular rate & rhythm AIRWAY EVAL/ANESTHESIA PLAN: normal airway, ASA IV, Local Anesthesia, Risks, benefits & alternatives of sedation and/or procedure discussed and Patient agrees to continue as planned ADDITIONAL INFORMATION: Moderate sedation
--- NOTE | 2022-10-05 07:41 | P.PN_ITS ---
Subjective Subjective: Patient underwent coronary angiogram today that showed critical 99% proximal LAD stenosis. She underwent successful revascularization with VIKTORIYA x1. Vitals/I&O/Wt Last Vital Signs Temp 97.9 F 10/05/22 04:48 Pulse 88 10/05/22 04:48 Resp 20 H 10/05/22 04:48 BP 124/55 10/05/22 04:48 Pulse Ox 94 10/05/22 04:48 O2 Del Method Nasal Cannula 10/04/22 23:27 O2 Flow Rate 3 10/04/22 23:27 FiO2 40 10/03/22 00:00 10/04/22 10/05/22 10/05/22 22:59 06:59 14:59 Intake Total 600 / 1302 Output Total 800 / 800 1450 / 2250 Balance -200 / 502 -1450 / -948 Weight last 48 hrs Weight 162 lb Physical Exam Narrative: GENERAL: Patient is alert, awake and oriented x3. [] NECK: No jugular vein distension. [] HEENT: No cyanosis. No icterus. No pallor. [] HEART: Regular S1 and S2. No murmur, rub or gallop. [] LUNGS: Clear to auscultate bilaterally. [] CENTRAL NERVOUS SYSTEM: Grossly nonfocal. [] EXTREMITIES: Lower extremities with no edema bilaterally. Pulses palpable in the lower extremities, both dorsalis pedis and posterior tibial. [] Urinary Catheter Management: Rojas: Cath Placed During This Visit: yes Reason for Continuing Indwelling Catheter: Accurate Measurement of Urinary Output in Critically Ill Patients Urinary Catheter Date of Insertion: 10/02/22 Urinary Catheter Time of Insertion: 23:30 Data 10/06/22 04:22 10/06/22 04:22 Micro: Microbiology 10/03/22 00:20 Urine Culture - Preliminary Urine,Clean Catch Yeast species A&P Assessment and plan (1) Status post below-knee amputation: (2) Pulmonary edema: (3) Pleural effusion, bilateral: (4) Uncontrolled diabetes mellitus: (5) Congestive heart failure with cardiomyopathy: (6) Atherosclerosis of coronary artery of [place] heart without angina pectoris: (7) Peripheral arterial disease: (8) Essential hypertension: Plan Patient with successful revascularization of proximal LAD with VIKTORIYA x1. We will keep her on aspirin and Plavix. Can restart Xarelto tomorrow. At time of discharge can be sent home on Plavix and Xarelto. Holding diuresis today as creatinine and BUN went up. Can resume diuresis tomorrow if renal function is stable. Close I&O's. Thank you for involving us with care of this patient. We will continue to follow. Please call with questions. Attestations Medical Necessity Statement*: Care expected to cross 2 midnights. Coding Level of Care Code Acute Code for Chg Fwd Diagnoses Status post below-knee amputation Z89.519 Pulmonary edema J81.1 Pleural effusion, bilateral J90 Uncontrolled diabetes mellitus Congestive heart failure with cardiomyopathy I50.9; I42.9 Atherosclerosis of coronary artery of [place] heart without angina pectoris I25.10 Peripheral arterial disease I73.9 Essential hypertension I10
--- NOTE | 2022-10-05 07:56 | PM.PN ---
Subjective Subjective: Elisha reports she is doing okay this morning. No chest pain. She just got back from her angiogram where an VIKTORIYA stent was placed. Medications: Reviewed: Yes Vitals/I&O/Wt Last Vital Signs Temp 97.9 F 10/05/22 04:48 Pulse 88 10/05/22 04:48 Resp 20 H 10/05/22 04:48 BP 124/55 10/05/22 04:48 Pulse Ox 94 10/05/22 04:48 O2 Del Method Nasal Cannula 10/04/22 23:27 O2 Flow Rate 3 10/04/22 23:27 FiO2 40 10/03/22 00:00 10/04/22 10/05/22 10/05/22 22:59 06:59 14:59 Intake Total 600 / 1302 Output Total 800 / 800 1450 / 2250 Balance -200 / 502 -1450 / -948 Weight last 48 hrs Weight 73.482 kg Physical Exam Narrative: General exam no distress Neck is supple, no lymphadenopathy Cardiovascular regular rate and rhythm without murmur Lungs clear with but with diminished breath sounds at the bases Abdomen is soft with positive bowel sounds Extremities demonstrate bilateral amputations. Right groin without significant hematoma, access still present. Right wrist with a band. No significant hematoma Urinary Catheter Management: Rojas: Cath Placed During This Visit: yes Reason for Continuing Indwelling Catheter: Accurate Measurement of Urinary Output in Critically Ill Patients Urinary Catheter Date of Insertion: 10/02/22 Urinary Catheter Time of Insertion: 23:30 Data 10/05/22 03:36 10/05/22 03:36 Micro: Microbiology 10/03/22 00:20 Urine Culture - Preliminary Urine,Clean Catch Yeast species A&P Assessment and plan (1) Acute exacerbation of CHF (congestive heart failure): Limited echo demonstrated an ejection fraction of 35%. This is significantly reduced from previous echo Hold Lasix today. 1 L negative over the last 24 hours. Holding Lasix secondary to slight bump in creatinine, angiogram today. Receiving saline for 6 hours following angiogram Wean oxygen as tolerated TSH was recently checked and normal Cardiology consult for significant reduction in ejection fraction. Note she has a history of ischemic heart disease, with previous stenting, and TAVR. Cardiology has intervened with a drug-eluting stent, LAD. Awaiting final report to document other disease or intervention. She will continue her Plavix. Likely restart Xarelto tomorrow Repeat CBC and BMP tomorrow (2) Acute respiratory failure with hypoxia: Resolving. Now on 3 L of oxygen. Secondary to heart failure. May need home oxygen. Will need sleep study as an outpatient. Nursing and patient's daughter have noted witnessed apnea. (3) Anemia: Discontinue aspirin Continue Protonix, Carafate Barium swallow demonstrated presbyesophagus, esophageal spasm. No obstruction was noted. Small hiatal hernia was noted. (4) Bacterial UTI: Urine culture showing small amount of yeast. Discontinue Cipro. (5) Hypokalemia: Resolved today. Repeat tomorrow. (6) CAD (coronary artery disease): Angiogram 10/05 with LAD stenting. Awaiting full report. Continue Plavix, restart Xarelto tomorrow, metoprolol. Unfortunately has side effect of statin. We will revisit with patient. Plan Dysphagia. See findings on barium swallow above. Continue proton pump inhibitor. Minced and moist diet Peripheral vascular disease/pacemaker/status post TAVR. Was on aspirin, Xarelto, Plavix. Aspirin has been discontinued continue beta-sarahy. Intolerant of statins. Multiple other medical problems as outlined in past medical history Lovenox will suffice for DVT prophylaxis Attestations Medical Necessity Statement*: Needs continued hospital stay for close monitoring status post angiogram Diagnoses Acute exacerbation of CHF (congestive heart failure) I50.9 Acute respiratory failure with hypoxia J96.01 Anemia D64.9 Bacterial UTI N39.0; A49.9 Hypokalemia E87.6 CAD (coronary artery disease) I25.10 Time Spent (min) 27
[2022-10-05 08:05] LABS: Glucose Point of Care 114 mg/dL (70-110)
--- NOTE | 2022-10-05 08:28 | PC.NURSE ---
Patient arrived via bed from [facility]. Patient has TR band to wrist and sheath to right groin connected to pressure bag. Ptt has been ordered for 9:30. Patien has been educated regarding activity restrictions. Nurse will continue to monitor. Vital signs q15m
[2022-10-05] MEDS: lisinopril 20 mg Tablet 40 MG PO (09:10)
[2022-10-05] MEDS: pantoprazole DR 40 mg Tablet PO ×2 (09:10→17:16)
[2022-10-05] MEDS: metoprolol succinate ER (24 HR) 25 mg Tablet PO (09:11)
[2022-10-05] MEDS: sodium chloride 0.9% 1,000 ML 50 ML IV (09:11)
[2022-10-05] MEDS: clopidogrel 75 mg Tablet PO (09:11)
[2022-10-05 10:16] LABS: Partial Thromboplastin Time 93.1 SECONDS (23.9-36.7)
[2022-10-05] MEDS: sucralfate 1 gm Tablet PO ×2 (11:26→23:25)
[2022-10-05 12:18] LABS: Partial Thromboplastin Time 29.9 SECONDS (23.9-36.7)
--- NOTE | 2022-10-05 13:09 | PC.SOCIAL ---
Pg 2 IMM Explained to pt & daughter Pg 2 IMM. No questions voiced. Provided pt a copy. Initialed, dated, & timed a copy & placed in chart.
--- NOTE | 2022-10-05 13:57 | PC.NURSE ---
TR band removed and Sheath pulled with no events. No hematoma formation at either site. Nurse will continue to monitor for bleeding and VS.
[2022-10-05 17:16] LABS: Glucose Point of Care 194 mg/dL (70-110)
[2022-10-05 17:16] LABS: Glucose Point of Care 124 mg/dL (70-110)
[2022-10-05] MEDS: insulin lispro 100 unit/1 mL SUBCUT (17:16)
[2022-10-05] MEDS: acetaminophen 325 mg Tablet 650 MG PO (19:49)
[2022-10-05] MEDS: enoxaparin 80 mg/0.8 mL Syringe 70 MG SUBCUT (20:51)
[2022-10-06] VITALS: BP 115/58; PULSE 75; RESP 22; TEMP 37.1; O2SAT 96
[2022-10-06 04:00] VITALS: BP 114/47; PULSE 70; RESP 23; TEMP 36.6; O2SAT 88
[2022-10-06 05:02] LABS: Basophils % 0.8 %; Eosinophils # 0.3 10^3/uL (0.0-0.8); Eosinophils % 6.5 %; Hematocrit 36.9 % (37.0-47.0); Hemoglobin 10.9 g/dL (11.5-15.3); Lymphocytes # 1.5 10^3/uL (0.8-4.8); Lymphocytes % 30.7 %; Mean Corpuscular HGB Conc 29.5 g/dL (30.0-36.0); Mean Corpuscular Hemoglobin 26.3 pg (28.0-34.0); Mean Corpuscular Volume 88.9 fl (81-99); Mean Platelet Volume 10.6 fL (7.4-10.4); Monocytes # 0.5 10^3/uL (0.2-0.9); Monocytes % 9.6 %; Neutrophils # 2.57 10^3/uL (1.8-7.7); Neutrophils % 52.2 %; Nucleated Red Blood Cells % 0 %; Platelet Count 273 10^3/cmm (130-400); Red Blood Count 4.15 10^6/uL (4.1-5.3); Red Cell Distribution Width 19.7 % (12.1-15.1); White Blood Count 4.9 10^3/uL (4.0-10.0)
[2022-10-06 05:25] VITALS: PULSE 74
[2022-10-06 05:26] LABS: Anion Gap 12.4 (5-19); Blood Urea Nitrogen 27 mg/dL (8-23); Calcium 8.3 mg/dL (8.5-10.5); Carbon Dioxide 28 mmol/L (22-29); Chloride 105 mmol/L (98-107); Glucose 115 mg/dL (65-115); Osmolality Calculated 300 mOsm/kg (285-295); Potassium 3.4 mmol/L (3.5-5.1); Sodium 142 mmol/L (136-145)
[2022-10-06 06:26] LABS: Glucose Point of Care 154 mg/dL (70-110)
[2022-10-06 07:34] VITALS: BP 127/54; PULSE 76; RESP 18; TEMP 36.9; O2SAT 94
--- NOTE | 2022-10-06 07:36 | PM.PN ---
Subjective Subjective: Patient is doing well. no chest pain. Breathing has improved. Vitals/I&O/Wt Last Vital Signs Temp 98.5 F 10/06/22 07:34 Pulse 76 10/06/22 07:34 Resp 18 10/06/22 07:34 BP 127/54 10/06/22 07:34 Pulse Ox 94 10/06/22 07:34 O2 Del Method Room Air 10/06/22 07:34 O2 Flow Rate 2 10/06/22 04:00 FiO2 40 10/03/22 00:00 10/05/22 10/06/22 10/06/22 22:59 06:59 14:59 Intake Total 700 / 1840 100 / 1940 Output Total 750 / 750 250 / 1000 Balance -50 / 1090 -150 / 940 Weight last 48 hrs Weight 162 lb Physical Exam Narrative: GENERAL: Patient is alert, awake and oriented x3. [] NECK: No jugular vein distension. [] HEENT: No cyanosis. No icterus. No pallor. [] HEART: Regular S1 and S2. No murmur, rub or gallop. [] LUNGS: Clear to auscultate bilaterally. [] CENTRAL NERVOUS SYSTEM: Grossly nonfocal. [] EXTREMITIES: Lower extremities with no edema bilaterally. Pulses palpable in the lower extremities, both dorsalis pedis and posterior tibial. [] Urinary Catheter Management: Rojas: Cath Placed During This Visit: yes Reason for Continuing Indwelling Catheter: Accurate Measurement of Urinary Output in Critically Ill Patients Urinary Catheter Date of Insertion: 10/02/22 Urinary Catheter Time of Insertion: 23:30 Data 10/06/22 04:22 10/06/22 04:22 A&P Assessment and plan (1) Status post below-knee amputation: (2) Pulmonary edema: (3) Pleural effusion, bilateral: (4) Uncontrolled diabetes mellitus: (5) Congestive heart failure with cardiomyopathy: (6) Atherosclerosis of coronary artery of [place] heart without angina pectoris: (7) Peripheral arterial disease: (8) Essential hypertension: Plan Patient is overall stable. Continue Plavix and Xarelto. Monitor renal function as outpatient. Thank you for involving us with care of this patient. Please call with questions. Attestations Medical Necessity Statement*: Care expected to cross 2 midnights. Coding Level of Care Code Acute Code for Chg Fwd Diagnoses Status post below-knee amputation Z89.519 Pulmonary edema J81.1 Pleural effusion, bilateral J90 Uncontrolled diabetes mellitus Congestive heart failure with cardiomyopathy I50.9; I42.9 Atherosclerosis of coronary artery of [place] heart without angina pectoris I25.10 Peripheral arterial disease I73.9 Essential hypertension I10
[2022-10-06 08:00] VITALS: PULSE 78; RESP 18; O2SAT 93
[2022-10-06] MEDS: potassium chloride ER 20 mEq Tablet 40 MEQ PO (08:01)
[2022-10-06] MEDS: pantoprazole DR 40 mg Tablet PO (08:01)
[2022-10-06] MEDS: metoprolol succinate ER (24 HR) 25 mg Tablet PO (08:01)
[2022-10-06] MEDS: lisinopril 20 mg Tablet 40 MG PO (08:01)
[2022-10-06] MEDS: FUROsemide 40 mg Tablet PO (08:02)
[2022-10-06] MEDS: aspirin 81 mg EC Tablet PO (08:02)
[2022-10-06] MEDS: clopidogrel 75 mg Tablet PO (08:02)
--- NOTE | 2022-10-06 08:07 | P.DS_ITS ---
Discharge Providers Date of Admission: 10/02/22 23:22 Date of Discharge: October 06, 2022 Attending Provider at Admission: Michael Lees MD Attending Provider at Discharge: Dale Cruz MD Primary Care Provider: TRINH Whittington Diagnoses at Discharge Discharge Diagnosis (1) Status post below-knee amputation: Status: Acute (2) Pulmonary edema: Status: Acute (3) Pleural effusion, bilateral: Status: Acute (4) Uncontrolled diabetes mellitus: Status: Acute (5) Congestive heart failure with cardiomyopathy: Status: Acute (6) Atherosclerosis of coronary artery of [place] heart without angina pectoris: Status: Acute (7) Peripheral arterial disease: Status: Acute (8) Essential hypertension: Status: Acute Reason for Visit Reason for Visit: SOB Hospital Course Hospital Course Elisha is a 71-year-old white female who presented to the hospital with shortness of breath. She was found to be in congestive heart failure. Repeat limited echo showed significant drop in ejection fraction. She was diuresed. With this oxygen requirement decreased significantly. As she became more compensated, cardiology was consulted for low ejection fraction performed an angiogram which demonstrated significant LAD stenosis at 99%. A drug-eluting stent was placed. The following day the access sites right radial wrist and right groin were without significant hematoma. Patient reported no significant shortness of breath and had come off oxygen earlier that day. It was thought she could discharge home, and follow-up for further medication adjustments as an outpatient. Sleep apnea was witnessed while in the hospital, and we discussed her primary care provider possibly setting up a sleep study. She will need follow-up with her primary in 3 to 5 days, a BMP at that time. Cardiology follow-up will be arranged as well. Patient and her daughter were present, asked appropriate questions, and agreed with the treatment plan. Physical Exam Narrative: General exam no distress Neck is supple Cardiovascular regular rate and rhythm Lungs clear Abdomen is soft Extremities, amputated Urinary Catheter Management: Rojas: Cath Placed During This Visit: yes Reason for Continuing Indwelling Catheter: Accurate Measurement of Urinary Output in Critically Ill Patients Urinary Catheter Date of Insertion: 10/02/22 Urinary Catheter Time of Insertion: 23:30 Discharge Data Studies Completed and Pending Completed Studies During Hospitalization Category Date Time Status CTA chest [CT angio chest PE protcl [id number]] Stat Cat Scan 10/02/22 20:50 Completed FL barium swallow [id number] Routine Exams 10/03/22 22:56 Completed XR chest 1V portable [id number] Stat Exams 10/02/22 20:05 Completed CV. echo limited [id number] Routine Ultrasound 10/03/22 10:15 Completed Pending at discharge Category Date Time Status SWITCHBOARD CLERK request for service Routine Exams 10/05/22 06:00 Taken Blood Culture Stat Lab 10/02/22 22:29 Results Urine Culture Routine Lab 10/03/22 00:20 Results Radiology Impressions Chest X-Ray 10/02/22 20:05 IMPRESSION: 1. Probable mild pulmonary edema in the lung bases. 2. Possible small pleural effusions. Chest CTA 10/02/22 20:50 IMPRESSION: 1. No definite evidence for pulmonary embolism. There is no contrast opacification of multiple left lower lobe artery branches which is most likely related to bolus timing. For this reason, the exam is nondiagnostic for excluding emboli in the left lower lobe. 2. Medium bilateral pleural effusions, right greater than left. 3. Consolidation in the lower lobes and lingula is most likely atelectasis. Superimposed pneumonia is not excluded. 4. Pericardial effusion. Barium Swallow X-Ray 10/03/22 22:56 IMPRESSION: 1. 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 2. No esophageal stricture or mass. 3. Small hiatal hernia. No gastroesophageal reflux. Laboratory Results WBC 4.9 10^3/uL (4.0-10.0) 10/06/22 04:22 RBC 4.15 10^6/uL (4.1-5.3) 10/06/22 04:22 Hgb 10.9 g/dL (11.5-15.3) L 10/06/22 04:22 Hct 36.9 % (37.0-47.0) L 10/06/22 04:22 MCV 88.9 fl (81-99) 10/06/22 04:22 MCH 26.3 pg (28.0-34.0) L 10/06/22 04:22 MCHC 29.5 g/dL (30.0-36.0) L 10/06/22 04:22 RDW 19.7 % (12.1-15.1) H 10/06/22 04:22 Plt Count 273 10^3/cmm (130-400) 10/06/22 04:22 MPV 10.6 fL (7.4-10.4) H 10/06/22 04:22 Neut % (Auto) 52.2 % 10/06/22 04:22 Lymph % (Auto) 30.7 % 10/06/22 04:22 Hinds % (Auto) 9.6 % 10/06/22 04:22 Eos % (Auto) 6.5 % 10/06/22 04:22 Baso % (Auto) 0.8 % 10/06/22 04:22 Neut # (Auto) 2.57 10^3/uL (1.8-7.7) 10/06/22 04:22 Lymph # (Auto) 1.5 10^3/uL (0.8-4.8) 10/06/22 04:22 [place] # (Auto) 0.5 10^3/uL (0.2-0.9) 10/06/22 04:22 Eos # (Auto) 0.3 10^3/uL (0.0-0.8) 10/06/22 04:22 Baso # (Auto) 0.0 10^3/uL (0.0-0.1) 10/06/22 04: Nucleated RBC % (auto) 0 % 10/06/22 04: Nucleated RBCs # 0.0 /100WBC 10/06/22 04: PT 24.60 SECONDS (12.1-14.9) H 10/02/22 20:09 INR 2.12 (0.8-1.2) H 10/02/22 20:09 APTT 29.9 SECONDS (23.9-36.7) D 10/05/22 11:58 Specimen Type Arterial 10/02/22 20:05 Sample Site Radial, right 10/02/22 20:05 ABG pH 7.49 (7.35-7.45) H 10/02/22 20:05 ABG pCO2 34.2 mmHg (35-45) L 10/02/22 20:05 ABG pO2 92.2 mmHg (80.0-100.0) 10/02/22 20:05 ABG HCO3 26.0 mmol/L (22-26) 10/02/22 20:05 ABG Base Excess 2.7 mmol/L (-2.0-2.0) H 10/02/22 20:05 Pio Test Pos 10/02/22 20:05 Hematocrit 30.0 % (37-47) L 10/02/22 20:05 O2 Delivery Device Bipap 10/02/22 20:05 FiO2 30.0 % 10/02/22 20:05 Mode BiPAP 16/8 10/02/22 20:05 Specimen Drawn By Irma 10/02/22 20:05 Information Security Associate ID irma 10/02/22 20:05 Sodium 142 mmol/L (136-145) 10/06/22 04:22 Potassium 3.4 mmol/L (3.5-5.1) L 10/06/22 04:22 Chloride 105 mmol/L (98-107) 10/06/22 04:22 Carbon Dioxide 28 mmol/L (22-29) 10/06/22 04:22 Anion Gap 12.4 (5-19) 10/06/22 04:22 BUN 27 mg/dL (8-23) H 10/06/22 04:22 Creatinine 0.8 mg/dL (0.5-0.9) 10/06/22 04:22 GFR Calculation Not Reportable 10/06/22 04:22 Glucose 115 mg/dL (65-115) 10/06/22 04:22 POC Glucose 154 mg/dL (70-110) H 10/05/22 20:42 Estimat Average Glucose 154 10/02/22 20:09 Hemoglobin A1c 7.0 % (4.0-6.0) H 10/02/22 20:09 Calculated Osmolality 300 mOsm/kg (285-295) H 10/06/22 04:22 Lactate 1.4 mmol/L (0.5-2.2) 10/02/22 20:09 Calcium 8.3 mg/dL (8.5-10.5) L 10/06/22 04:22 Phosphorus 2.8 mg/dL (2.5-4.5) 10/03/22 04:05 Magnesium 1.9 mg/dL (1.7-2.3) 10/05/22 03:36 Total Bilirubin 0.9 mg/dL (0.15-1.2) 10/04/22 05:36 AST 10 U/L (0-32) 10/04/22 05:36 ALT 9 U/L (0-33) 10/04/22 05:36 Alkaline Phosphatase 74 U/L (35-105) 10/04/22 05:36 Troponin T Baseline 52 ng/L (0-10) H 10/02/22 20:09 Troponin T 120 Minute 56.55 ng/L (0-10) H 10/02/22 22:20 Delta Troponin T 4.55 ABS# (0-10) 10/02/22 22:20 Troponin T Hi Sens 6Hr 61.74 ng/L (0-10) H 10/03/22 04:05 Troponin T Hi Sens 6Hr Delta 9.74 ng/L (0-12) 10/03/22 04:05 C-Reactive Protein 6.3 mg/L (0.0-4.9) H 10/02/22 20:09 NT-Pro-B Natriuret Pep 9976 pg/mL (0-125) H 10/03/22 04:05 Total Protein 6.6 g/dL (6.6-8.7) 10/04/22 05:36 Albumin 3.6 g/dL (3.5-5.2) 10/04/22 05:36 Globulin 3.0 g/dL (1.3-4.6) 10/04/22 05:36 Triglycerides 104 mg/dL (0-150) 10/02/22 20:09 Cholesterol 157 mg/dL (0-200) 10/02/22 20:09 LDL Cholesterol, Calc 97 mg/dL (50-129) 10/02/22 20:09 HDL Cholesterol 39 mg/dL (60-100) L 10/02/22 20:09 LDL/HDL Ratio 2.49 RATIO (0.00-3.22) 10/02/22 20:09 Cholesterol/HDL Ratio 4.03 mg/dL (0.0-4.40) 10/02/22 20:09 Procalcitonin 0.04 ng/mL (0-0.5) 10/02/22 20:09 TSH 4.64 uIU/mL (0.27-4.20) H 10/02/22 20:09 Urine Color Yellow (Yellow) 10/03/22 00:20 Urine Appearance Clear (CLEAR) 10/03/22 00:20 Urine pH 5 (5-7) 10/03/22 00:20 Ur Specific [place] 1.020 (1.005-1.030) 10/03/22 00:20 Urine Protein 1+ (Negative) H 10/03/22 00:20 Urine Glucose (UA) Norm (Normal) 10/03/22 00:20 Urine Ketones Negative (Negative) 10/03/22 00:20 Urine Blood Trace (Negative) H 10/03/22 00:20 Urine Nitrate Negative (Negative) 10/03/22 00:20 Urine Bilirubin Neg (Negative) 10/03/22 00:20 Urine Urobilinogen Norm mg/dL (Negative) 10/03/22 00:20 Ur Leukocyte Esterase 1+ (Negative) H 10/03/22 00:20 Urine RBC 10-15 /hpf (0-2) H 10/03/22 00:20 Urine WBC 55-80 /hpf (0-5) H 10/03/22 00:20 Ur Squamous Epith Cells 0-4 /hpf (0-5) H 10/03/22 00:20 Amorphous Sediment Not Reportable 10/03/22 00:20 Urine Bacteria Trace /hpf (NONE) 10/03/22 00:20 Urine Yeast 2+ /hpf H 10/03/22 00:20 Nasal Influ A H1 2008 PCR Not detected (NOT DETECT) 10/02/22 21:50 Adenovirus (PCR) Not detected (NOT DETECT) 10/02/22 21:50 C. pneumoniae DNA (PCR) Not detected (NOT DETECT) 10/02/22 21:50 Coronavirus 229E (PCR) Not detected (NOT DETECT) 10/02/22 21:50 Human Metapneumovir PCR Not detected (NOT DETECT) 10/02/22 21:50 Influenza A (H1) PCR Not detected (NOT DETECT) 10/02/22 21:50 Influenza A (H3) PCR Not detected (NOT DETECT) 10/02/22 21:50 Influenza Type A (PCR) Not detected (NOT DETECT) 10/02/22 21:50 Influenza Type B (PCR) Not detected (NOT DETECT) 10/02/22 21:50 M. pneumoniae (PCR) Not detected (NOT DETECT) 10/02/22 21:50 Parainfluenza 1 (PCR) Not detected (NOT DETECT) 10/02/22 21:50 Parainfluenza 2 (PCR) Not detected (NOT DETECT) 10/02/22 21:50 Parainfluenza 3 (PCR) Not detected (NOT DETECT) 10/02/22 21:50 Parainfluenza 4 (PCR) Not detected (NOT DETECT) 10/02/22 21:50 RSV Type A (PCR) Not detected (NOT DETECT) 10/02/22 21:50 RSV Type B (PCR) Not detected (NOT DETECT) 10/02/22 21:50 Entero/Rhino (PCR) Not detected (NOT DETECT) 10/02/22 21:50 SARS-CoV-2 (PCR) Not detected (NOT DETECT) 10/02/22 21:50 Vitals Last Vital Signs Temp 98.5 F 10/06/22 07:34 Pulse 76 10/06/22 07:34 Resp 18 10/06/22 07:34 BP 127/54 10/06/22 07:34 Pulse Ox 94 10/06/22 07:34 O2 Del Method Room Air 10/06/22 07:34 O2 Flow Rate 2 10/06/22 04:00 FiO2 40 10/03/22 00:00 Discharge Plan Discharge Patient Disposition: Home Condition: Stable Prescriptions: New furosemide 40 mg Tablet 40 mg PO DAILY@0800 Qty: 30 0RF Continued (DME) Wheelchair See Rx Instructions .Route .MEDSUPPLY Qty: 1 0RF Rx Instructions: As directed (DME) Electric Wheelchair See Rx Instructions .Route .MEDSUPPLY Qty: 1 0RF Rx Instructions: As directed (DME) Lift Chair See Rx Instructions .Route .MEDSUPPLY Qty: 1 0RF Rx Instructions: As directed (DME) prosthesis fitting See Rx Instructions .Route .MEDSUPPLY Qty: 1 0RF Rx Instructions: As directed (DME) stump automation technician See Rx Instructions .Route .MEDSUPPLY Qty: 1 0RF Rx Instructions: As directed (DME) pen needle, diabetic [BD Domenica 2nd Gen Pen Needle] 32 gauge x 5/32 needle See Rx Instructions .ROUTE .COMPLEX Qty: 100 0RF Dose Instruction: USE TWICE DAILY Rx Instructions: USE TWICE DAILY (DME) lancets [OneTouch Delica Lancets] 33 gauge misc See Rx Instructions .Route Qty: 100 0RF Rx Instructions: USE 3 TIMES DAILY (DME) OneTouch Ultra Test Strip See Rx Instructions .Route Qty: 100 0RF Rx Instructions: TEST THREE TIMES DAILY Rybelsus 3 mg tablet See Rx Instructions .ROUTE .COMPLEX Qty: 30 0RF Dose Instruction: TAKE 1 TABLET BY MOUTH ONCE DAILY. PATIENT WILL NEED AN APPOINTMENT FOR MORE REFILLS. Rx Instructions: TAKE 1 TABLET BY MOUTH ONCE DAILY. PATIENT WILL NEED AN APPOINTMENT FOR MORE REFILLS. glucagon 1 mg/0.2 mL auto-injector 0.5 mg SUBCUT ONCE PRN (Reason: hypoglycemia) 30 Days Qty: 0.4 0RF clopidogrel 75 mg tablet 75 mg PO DAILY metoprolol succinate 25 mg tablet extended release 24 hr 25 mg PO DAILY lisinopril 40 mg tablet 40 mg PO DAILY Xarelto 20 mg tablet 20 mg PO DAILY sucralfate 1 gram Tablet 1 g PO Q12H 30 Days Qty: 60 0RF pantoprazole [Protonix] 40 mg tablet,delayed release (DR/EC) 40 mg PO BID 30 Days Qty: 60 0RF insulin aspart U-100 [Novolog FlexPen U-100 Insulin] 100 unit/mL (3 mL) insulin pen See Rx Instructions .ROUTE .COMPLEX MDD 60 Qty: 15 0RF Dose Instruction: INJECT SUBCUTANEOUSLY THREE TIMES DAILY PER SLIDING SCALE. MAX DAILY AMOUNT: 100 UNITS Rx Instructions: Inject, subcut, 3 times daily, after meals, based on sliding scale, insulin glargine [Lantus Solostar U-100 Insulin] 100 unit/mL (3 mL) insulin pen 5 unit SUBCUT QAM 30 Days Qty: 15 0RF Rx Instructions: 25 UNITS IN THE AM AND 25 UNITS IN THE PM Discontinued aspirin 81 mg Tablet,Delayed Release (Dr/Ec) 81 mg PO QAM Discharge Orders: Discharge Order (Routine); Ordered 10/06/22 Ordered By: Dale Cruz Other Ambulatory Orders: DME: Miscellaneous (Order) Location: None Selected Ordered By: Dale Cruz DME: Wheelchair (Order) Location: None Selected Ordered By: Dale Cruz Referrals: [facility] [place] [Outside] Gloria Escobar FNP [Primary Care Provider] - 4-7 days (BMP on follow-up) Inga Lowery FNP [Nurse Practitioner] - 10/17/22 10:45 am Patient Instructions: Coronary Angioplasty (DC), Opioid Safety, Post Angiogram Home Care Instructions Activity Restrictions/Additional Instructions: Take all medicine as prescribed Call your primary care provider or body maker machine setter if you become short of breath or swollen BMP on follow-up with your primary in 3 to 5 days Ask your primary about arranging for an overnight sleep study as you had witnessed apnea. Patient's Health Concerns: Shortness of breath Assessment: Congestive heart failure, ischemic heart disease Plan of Treatment: Coronary stenting Diuretics initiated Discharge Attestations Time Spent in Discharge Care*: greater than 30 min Status at Discharge: Cognitive status at discharge: cognitively intact , Behavioral status at discharge: cooperative , Quality Metrics Clinical Quality Measures [ No reported AMI, CVA or VTE this stay] Coding Level of Care Code 53302 Total time (in minutes) for Discharge: 38 Diagnoses Status post below-knee amputation Z89.519 Pulmonary edema J81.1 Pleural effusion, bilateral J90 Uncontrolled diabetes mellitus Congestive heart failure with cardiomyopathy I50.9; I42.9 Atherosclerosis of coronary artery of [place] heart without angina pectoris I25.10 Peripheral arterial disease I73.9 Essential hypertension I10 Time Spent (min) 38
[2022-10-06] MEDS: rivaroxaban 10 mg Tablet 20 MG PO (08:16)
[2022-10-06] MEDS: ipratropium-albuterol 3 mL Neb INHALATION (09:19)
[2022-10-06 09:31] VITALS: BP 117/60; PULSE 80; RESP 22; O2SAT 91
[2022-10-06 19:32] LABS: Glucose Point of Care 134 mg/dL (70-110)
== END 2022-10-06 09:44 | disposition home or self-care (01) | DRG 246 ==
LOC: ER 22:25 → CSU 23:04
PROVIDERS: Internal Medicine; Admitting Provider Family Medicine; Emergency Provider Emergency Medicine; PCP Registered Nurse; Visit Provider Internal Medicine
PROC: 027034Z Dilation of Coronary Artery, One Artery with Drug-eluting Intraluminal Device, Percutaneous Approach (ICD-10-PCS; principal; 2022-10-05 06:00)
PROC: 027034Z Dilation of Coronary Artery, One Artery with Drug-eluting Intraluminal Device, Percutaneous Approach (ICD-10-PCS; 2022-10-05 06:00)
DX: I11.0 Hypertensive heart disease with heart failure (principal); I50.21 Acute systolic (congestive) heart failure; N39.0 Urinary tract infection, site not specified; G47.30 Sleep apnea, unspecified; Z79.02 Long term (current) use of antithrombotics/antiplatelets; Z79.01 Long term (current) use of anticoagulants; Z79.4 Long term (current) use of insulin; Z89.611 Acquired absence of right leg above knee; Z89.512 Acquired absence of left leg below knee; E11.65 Type 2 diabetes mellitus with hyperglycemia; E11.51 Type 2 diabetes mellitus with diabetic peripheral angiopathy without gangrene; Z86.14 Personal history of Methicillin resistant Staphylococcus aureus infection; Z95.0 Presence of cardiac pacemaker; Z86.73 Personal history of transient ischemic attack (TIA), and cerebral infarction without residual deficits; D64.9 Anemia, unspecified; I42.9 Cardiomyopathy, unspecified; I25.10 Atherosclerotic heart disease of native coronary artery without angina pectoris; Z95.5 Presence of coronary angioplasty implant and graft; Z95.2 Presence of prosthetic heart valve; R13.10 Dysphagia, unspecified; E87.6 Hypokalemia
CPT/HCPCS: 36415; 36416; 36600; 51702; 71045; 71275; 74220; 80048; 80053; 80061; 81001; 82803; 82962; 83036; 83605; 83735; 83880; 84100; 84145; 84443; 84484; 85025; 85347; 85610; 85730; 86140; 87040; 87086; 87106; 87486; 87581; 87633; 93005; 93308; 93454; 94640; 94660; 94664; 96372; 96376; 99152; 99153; 99285; C1725; C1769; C1874; C1887; C1894; C9600; J1644; J1650; J1815; J1940; J2250; J3010; J3490; J7030; Q0163; Q9967

== ENCOUNTER → 2022-10-12 10:01 | Outpatient (BNVA) | payer MEDICARE, MEDICAID, SELFPAY | PROVIDERS: PCP Registered Nurse; Visit Provider Registered Nurse | DX: I10 Essential (primary) hypertension (principal); I25.10 Atherosclerotic heart disease of native coronary artery without angina pectoris | CPT/HCPCS: 80053; 83880 ==

== ENCOUNTER → 2022-10-17 10:43 | Outpatient (BNVA) | payer MEDICARE, MEDICAID, SELFPAY | PROVIDERS: PCP Registered Nurse; Visit Provider Nurse Practitioner Family | DX: I25.10 Atherosclerotic heart disease of native coronary artery without angina pectoris (principal); I11.0 Hypertensive heart disease with heart failure; I50.9 Heart failure, unspecified; I42.9 Cardiomyopathy, unspecified; Z95.0 Presence of cardiac pacemaker | CPT/HCPCS: 99214 ==

== ENCOUNTER 2022-11-17 15:01 | Outpatient (CLI) | payer MEDICARE, MEDICAID, SELFPAY ==
--- NOTE | 2022-11-17 15:15 | USCV_ITS ---
Elisha Vickers Age: 72 Gender: F : 1950 Exam Date: 11/17/2022 15:34 Ordering Phys: Inga Lowery Technologist: Yolie De [place] [facility] [place]: ICD evaluation, CAD, stents BP: 140 / 80 HR: 77 Rhythm: Other Technical Quality: Adequate MEASUREMENTS (Male / Female) Normal Values 2D ECHO LV Diastolic Diameter PLAX 4.6 cm 4.2 - 5.9 / 3.9 - 5.3 cm LV Systolic Diameter PLAX 1.7 cm IVS Diastolic Thickness 1.2 cm 0.6 - 1.0 / 0.6 - 0.9 cm IVS Systolic Thickness 2.0 cm LVPW Diastolic Thickness 1.1 cm 0.6 - 1.0 / 0.6 - 0.9 cm LVPW Systolic Thickness 2.1 cm LVOT Diameter 2.1 cm LV Ejection Fraction 2D Teich 90.9 % LV Ejection Fraction MOD 2C 29.3 % LV Ejection Fraction 2C AL 29.3 % LA Diameter 4.2 cm LA Width 4.3 cm LA Height 5.0 cm RA Width 3.1 cm RA Height 4.0 cm Aorta at Sinotubular Diameter 0.0 cm IVC Diameter 1.9 cm M-MODE Aortic Annulus Diameter 1.8 cm LA Ao Ratio MM 2.6 MV E Point Septal Separation 1.5 cm FINDINGS Left Ventricle Right Ventricle Right Atrium Left Atrium Mitral Valve Aortic Valve Tricuspid Valve Pulmonic Valve Pericardium Aorta IVC CONCLUSIONS This is a limited echocardiogram performed to assess LV systolic function. LV systolic function is moderately reduced with EF of 35 to 40%. Moderate global hypokinesis is seen. Compared to prior echocardiogram from 10/03/2022, LV systolic function has improved. Allen Khan MD (Electronically Signed) Final Date: 19 November 2022 17:21 S
== END 2022-11-17 15:02 | disposition home or self-care (01) ==
PROVIDERS: PCP Registered Nurse; Visit Provider Nurse Practitioner Family
DX: I42.9 Cardiomyopathy, unspecified (principal); I50.9 Heart failure, unspecified; I25.10 Atherosclerotic heart disease of native coronary artery without angina pectoris; Z95.5 Presence of coronary angioplasty implant and graft
CPT/HCPCS: 93308

== ENCOUNTER → 2022-12-23 17:05 | Outpatient (BNVA) | payer MEDICARE, MEDICAID, SELFPAY | PROVIDERS: PCP Registered Nurse; Visit Provider Internal Medicine Cardiovascular Disease | DX: Z45.010 Encounter for checking and testing of cardiac pacemaker pulse generator [battery] (principal) | CPT/HCPCS: 93296 ==

== ENCOUNTER → 2023-02-15 09:28 | Outpatient (BNVA) | payer MEDICARE, MEDICAID, SELFPAY | PROVIDERS: PCP Registered Nurse; Visit Provider Registered Nurse | DX: E11.9 Type 2 diabetes mellitus without complications (principal); Z79.4 Long term (current) use of insulin; I10 Essential (primary) hypertension; I50.9 Heart failure, unspecified; I42.9 Cardiomyopathy, unspecified; Z91.89 Other specified personal risk factors, not elsewhere classified | CPT/HCPCS: 80053; 83036; 85025 ==

== ENCOUNTER → 2023-02-20 11:03 | Outpatient (BNVA) | payer MEDICARE, MEDICAID, SELFPAY | PROVIDERS: PCP Registered Nurse; Visit Provider Internal Medicine Cardiovascular Disease | DX: I25.10 Atherosclerotic heart disease of native coronary artery without angina pectoris (principal); G47.33 Obstructive sleep apnea (adult) (pediatric); D64.9 Anemia, unspecified; I11.0 Hypertensive heart disease with heart failure; I50.9 Heart failure, unspecified; I42.9 Cardiomyopathy, unspecified; Z95.0 Presence of cardiac pacemaker; E78.5 Hyperlipidemia, unspecified; I73.9 Peripheral vascular disease, unspecified; E11.9 Type 2 diabetes mellitus without complications; Z79.4 Long term (current) use of insulin; Z89.611 Acquired absence of right leg above knee; Z89.512 Acquired absence of left leg below knee | CPT/HCPCS: 99214 ==

== ENCOUNTER → 2023-02-28 13:09 | Outpatient (BNVA) | payer MEDICARE, MEDICAID, SELFPAY | PROVIDERS: PCP Registered Nurse; Visit Provider Physician Assistant | DX: Z89.511 Acquired absence of right leg below knee | CPT/HCPCS: 99213 ==

== ENCOUNTER → 2023-06-21 12:37 | Outpatient (BNVA) | payer MEDICARE, MEDICAID, SELFPAY | PROVIDERS: PCP Registered Nurse; Visit Provider Internal Medicine Cardiovascular Disease | DX: Z45.010 Encounter for checking and testing of cardiac pacemaker pulse generator [battery] (principal) | CPT/HCPCS: 93296 ==

== ENCOUNTER → 2023-07-25 10:16 | Outpatient (BNVA) | payer MEDICARE, MEDICAID, SELFPAY | PROVIDERS: PCP Registered Nurse; Visit Provider Registered Nurse | DX: E11.9 Type 2 diabetes mellitus without complications (principal); Z79.4 Long term (current) use of insulin; I10 Essential (primary) hypertension; Z71.89 Other specified counseling | CPT/HCPCS: 80053; 83036; 85025 ==

== ENCOUNTER → 2023-08-03 08:20 | Outpatient (BNVA) | payer MEDICARE, MEDICAID, SELFPAY | PROVIDERS: PCP Registered Nurse; Visit Provider Registered Nurse | DX: E11.9 Type 2 diabetes mellitus without complications (principal); Z79.4 Long term (current) use of insulin; Z79.899 Other long term (current) drug therapy | CPT/HCPCS: 81000; 82043; 87077; 87086; 87184 ==

== ENCOUNTER → 2023-08-25 11:03 | Outpatient (BNVA) | payer MEDICARE, MEDICAID, SELFPAY | PROVIDERS: PCP Registered Nurse; Visit Provider Internal Medicine Cardiovascular Disease | DX: Z53.9 Procedure and treatment not carried out, unspecified reason (principal) | CPT/HCPCS: 93279 ==

== ENCOUNTER → 2023-09-04 15:10 | Outpatient (BNVA) | payer MEDICARE, MEDICAID, SELFPAY | PROVIDERS: PCP Registered Nurse; Visit Provider Internal Medicine Cardiovascular Disease | DX: R06.02 Shortness of breath (principal); I10 Essential (primary) hypertension | CPT/HCPCS: 36415; 80048; 83880; 99214 ==

== ENCOUNTER 2023-09-15 10:39 | Outpatient (CLI) | payer MEDICARE, MEDICAID, SELFPAY ==
--- NOTE | 2023-09-15 11:15 | USCV_ITS ---
Elisha Vickers Age: 72 Gender: F : 1950 Exam Date: 09/15/2023 10:58 Ordering Phys: Stephanie Parks MD ([email or web address]) Technologist: CT Exam Location: [facility] [place] Indication: ef BP: 130 / 80 HR: Rhythm: Sinus Technical Quality: Adequate MEASUREMENTS (Male / Female) Normal Values 2D ECHO LVOT Diameter 2.0 cm LV Ejection Fraction MOD 2C 36.5 % LV Ejection Fraction 2C AL 38.1 % LA Diameter 4.6 cm RA Systolic Volume 4C AL 25.4 ml RA Systolic Volume 4C MOD 22.7 ml IVC Diameter 2.2 cm FINDINGS Left Ventricle Moderate left ventricular hypertrophy. Diffuse hypokinesia of the left ventricle with an ejection fraction of 36% Right Ventricle Catheter/pacemaker wire in the right ventricular cavity. Right Atrium Catheter/pacemaker wire in the right atrial appendage. Left Atrium Moderately increased left atrial size. Mitral Valve Mild mitral annular calcification. Aortic Valve The bioprosthetic valve in the aortic position appears to be well-seated Tricuspid Valve No gross abnormalities noted Pulmonic Valve No gross abnormalities no Pericardium Trivial to small pericardial effusion Aorta Normal aortic annulus size. IVC CONCLUSIONS Moderate left ventricular hypertrophy. Diffuse hypokinesia of the left ventricle with an ejection fraction of 36%. Moderately increased left atrial size. There is no pericardial effusion. There are no intracardiac masses. Compared to the previous study from 11/17/2022, there may be a significant change Dr Stephanie Parks MD [facility] (Electronically Signed) Final Date: 18 September 2023 12:23 S
== END 2023-09-15 10:40 | disposition home or self-care (01) ==
LOC: RAD 10:40
PROVIDERS: PCP Registered Nurse; Visit Provider Internal Medicine Cardiovascular Disease
DX: I42.9 Cardiomyopathy, unspecified (principal)
CPT/HCPCS: 93308

== ENCOUNTER → 2023-10-18 08:51 | Outpatient (BNVA) | payer MEDICARE, MEDICAID, SELFPAY | PROVIDERS: PCP Registered Nurse; Visit Provider Nurse Practitioner Family | DX: I50.9 Heart failure, unspecified (principal); I42.9 Cardiomyopathy, unspecified; R06.00 Dyspnea, unspecified; I10 Essential (primary) hypertension | CPT/HCPCS: 36415; 80048; 83880; 99214 ==

== ENCOUNTER → 2023-11-28 12:55 | Outpatient (BNVA) | payer MEDICARE, MEDICAID, SELFPAY | PROVIDERS: PCP Registered Nurse | DX: Z45.010 Encounter for checking and testing of cardiac pacemaker pulse generator [battery] (principal) | CPT/HCPCS: 93296 ==

== ENCOUNTER → 2024-01-19 11:15 | Outpatient (BNVA) | payer MEDICARE, MEDICAID, SELFPAY | PROVIDERS: PCP Registered Nurse; Visit Provider Registered Nurse | DX: E11.9 Type 2 diabetes mellitus without complications (principal) | CPT/HCPCS: 80053; 80061; 83036; 85025 ==

== ENCOUNTER → 2024-03-04 15:27 | Outpatient (BNVA) | payer MEDICARE, MEDICAID, SELFPAY | PROVIDERS: PCP Registered Nurse; Visit Provider Nurse Practitioner Family | DX: I11.0 Hypertensive heart disease with heart failure (principal); I50.9 Heart failure, unspecified; I42.9 Cardiomyopathy, unspecified; I25.10 Atherosclerotic heart disease of native coronary artery without angina pectoris; Z95.0 Presence of cardiac pacemaker | CPT/HCPCS: 99214 ==

== ENCOUNTER → 2024-03-27 09:13 | Outpatient (BNVA) | payer MEDICARE, MEDICAID, SELFPAY | PROVIDERS: PCP Registered Nurse; Visit Provider Internal Medicine Cardiovascular Disease | DX: Z45.018 Encounter for adjustment and management of other part of cardiac pacemaker (principal) | CPT/HCPCS: 93296 ==

== ENCOUNTER → 2024-07-10 09:35 | Outpatient (BNVA) | payer MEDICARE, MEDICAID, SELFPAY | PROVIDERS: PCP Registered Nurse; Visit Provider Internal Medicine Cardiovascular Disease | DX: Z45.018 Encounter for adjustment and management of other part of cardiac pacemaker (principal) | CPT/HCPCS: 93296 ==

== ENCOUNTER → 2024-07-16 09:23 | Outpatient (BNVA) | payer MEDICARE, MEDICAID, SELFPAY | PROVIDERS: PCP Registered Nurse; Visit Provider Registered Nurse | DX: E11.9 Type 2 diabetes mellitus without complications (principal); Z79.4 Long term (current) use of insulin | CPT/HCPCS: 80053; 83036; 85025 ==

== ENCOUNTER → 2024-08-13 13:18 | Outpatient (BNVA) | payer MEDICARE, MEDICAID, SELFPAY | PROVIDERS: PCP Registered Nurse; Visit Provider Registered Nurse | DX: N39.0 Urinary tract infection, site not specified (principal) | CPT/HCPCS: 81000; 87086 ==

== ENCOUNTER → 2024-09-03 14:10 | Outpatient (BNVA) | payer MEDICARE, MEDICAID, SELFPAY | PROVIDERS: PCP Registered Nurse; Visit Provider Internal Medicine Cardiovascular Disease | DX: I50.9 Heart failure, unspecified (principal); I42.9 Cardiomyopathy, unspecified; I25.10 Atherosclerotic heart disease of native coronary artery without angina pectoris; I10 Essential (primary) hypertension; Z95.0 Presence of cardiac pacemaker; Z95.820 Peripheral vascular angioplasty status with implants and grafts; E78.5 Hyperlipidemia, unspecified | CPT/HCPCS: 99214 ==

== ENCOUNTER → 2024-09-09 10:23 | Outpatient (BNVA) | payer MEDICARE, MEDICAID, SELFPAY | PROVIDERS: PCP Registered Nurse; Visit Provider Registered Nurse | DX: N39.0 Urinary tract infection, site not specified (principal) | CPT/HCPCS: 81000; 87077; 87086; 87184 ==

== ENCOUNTER → 2024-09-23 10:35 | Outpatient (BNVA) | payer MEDICARE, MEDICAID, SELFPAY | PROVIDERS: PCP Registered Nurse; Visit Provider Registered Nurse | DX: N39.0 Urinary tract infection, site not specified (principal) | CPT/HCPCS: 81000 ==

== ENCOUNTER 2024-10-04 09:25 | Outpatient (CLI) | payer MEDICARE, MEDICAID, SELFPAY ==
--- NOTE | 2024-10-04 09:15 | USCV_ITS ---
Elisha Vickers Age: 73 Gender: F : 1950 Exam Date: 10/04/2024 09:43 Ordering Phys: Stephanie Parks MD ([email or web address]) Technologist: Andrade Frias [place] [facility] [place]: cardiomyopathy BP: 120 / 70 HR: Rhythm: Sinus Technical Quality: Adequate MEASUREMENTS (Male / Female) Normal Values 2D ECHO LV Diastolic Diameter PLAX 5.0 cm 4.2 - 5.9 / 3.9 - 5.3 cm IVS Diastolic Thickness 1.4 cm 0.6 - 1.0 / 0.6 - 0.9 cm IVS Systolic Thickness 1.3 cm LVPW Diastolic Thickness 1.8 cm 0.6 - 1.0 / 0.6 - 0.9 cm LVPW Systolic Thickness 1.8 cm LVOT Diameter 2.0 cm LV Ejection Fraction 2D Teich 12.1 % LV Ejection Fraction MOD 4C 27.2 % LV Ejection Fraction MOD 2C 34.5 % LV Ejection Fraction 2C AL 34.6 % LA Diameter 4.0 cm RA Systolic Volume 4C AL 34.9 ml RA Systolic Volume 4C MOD 33.6 ml LA Sys Volume AL 57.8 cm cubed LA Sys Volume Index AL 30.6 cm cubed/m squared Aorta at Sinotubular Diameter 2.4 cm IVC Diameter 1.8 cm M-MODE LA Ao Ratio MM 1.8 AV Cusp Separation MM 1.2 cm FINDINGS Left Ventricle Mild to moderate concentric left trickle hypertrophy. Diffuse hypokinesia of the left ventricle with ejection fraction of 32%. Mildly dilated LV cavity Right Ventricle Normal right ventricular size and systolic function. Right Atrium Normal right atrial size. Left Atrium Moderately increased left atrial size. Mitral Valve Moderate mitral annular calcification. Aortic Valve The bioprosthetic valve in the aortic position appears to be well-seated. Tricuspid Valve No gross abnormalities noted Pulmonic Valve No gross abnormalities noted Pericardium No pericardial effusion. Aorta Normal aortic annulus size. IVC Normal inferior vena cava. CONCLUSIONS Mild to moderate concentric left trickle hypertrophy. Diffuse hypokinesia of the left ventricle with ejection fraction of 32%. Mildly dilated LV cavity. The bioprosthetic valve in the aortic position appears to be well-seated. Moderately increased left atrial size. Moderate mitral annular calcification. Normal right ventricular size and systolic function. Compared to the study from 09/15/2023 there is slight worsening of the LV ejection fraction. Dr Stephanie Parks MD [facility] (Electronically Signed) Final Date: 06 October 2024 22:17 S
== END 2024-10-04 09:26 | disposition home or self-care (01) ==
PROVIDERS: PCP Registered Nurse; Visit Provider Internal Medicine Cardiovascular Disease
DX: I42.2 Other hypertrophic cardiomyopathy (principal); I34.81 Nonrheumatic mitral (valve) annulus calcification; Z96.89 Presence of other specified functional implants; I51.7 Cardiomegaly; R93.1 Abnormal findings on diagnostic imaging of heart and coronary circulation
CPT/HCPCS: 93308

== ENCOUNTER → 2024-10-09 11:53 | Outpatient (BNVA) | payer MEDICARE, MEDICAID, SELFPAY | PROVIDERS: PCP Registered Nurse; Visit Provider Internal Medicine Cardiovascular Disease | DX: Z45.018 Encounter for adjustment and management of other part of cardiac pacemaker (principal) | CPT/HCPCS: 93296 ==

== ENCOUNTER → 2024-10-18 10:21 | Outpatient (BNVA) | payer MEDICARE, MEDICAID, SELFPAY | PROVIDERS: PCP Registered Nurse; Visit Provider Nurse Practitioner Family | DX: I11.0 Hypertensive heart disease with heart failure (principal); I50.9 Heart failure, unspecified; I42.9 Cardiomyopathy, unspecified; I25.10 Atherosclerotic heart disease of native coronary artery without angina pectoris; Z95.0 Presence of cardiac pacemaker; Z95.820 Peripheral vascular angioplasty status with implants and grafts; E78.5 Hyperlipidemia, unspecified | CPT/HCPCS: 99213 ==

== ENCOUNTER → 2024-11-13 09:48 | Outpatient (BNVA) | payer MEDICARE, MEDICAID, SELFPAY | PROVIDERS: PCP Registered Nurse; Visit Provider Registered Nurse | DX: E11.9 Type 2 diabetes mellitus without complications (principal); N39.0 Urinary tract infection, site not specified | CPT/HCPCS: 80053; 81000; 83036; 85025; 87077; 87086; 87184 ==

== ENCOUNTER → 2025-01-08 10:35 | Outpatient (BNVA) | payer MEDICARE, MEDICAID, SELFPAY | PROVIDERS: PCP Registered Nurse; Visit Provider Internal Medicine Cardiovascular Disease | DX: Z45.018 Encounter for adjustment and management of other part of cardiac pacemaker (principal) | CPT/HCPCS: 93296 ==

== ENCOUNTER → 2025-04-04 10:12 | Outpatient (BNVA) | payer MEDICARE, MEDICAID, SELFPAY | PROVIDERS: PCP Registered Nurse; Visit Provider Internal Medicine Cardiovascular Disease | DX: I11.0 Hypertensive heart disease with heart failure (principal); I50.9 Heart failure, unspecified; I42.9 Cardiomyopathy, unspecified; I25.10 Atherosclerotic heart disease of native coronary artery without angina pectoris; Z95.0 Presence of cardiac pacemaker; Z95.820 Peripheral vascular angioplasty status with implants and grafts; E78.5 Hyperlipidemia, unspecified; I65.23 Occlusion and stenosis of bilateral carotid arteries; Z95.2 Presence of prosthetic heart valve | CPT/HCPCS: 36415; 80048; 83880; 99214 ==

== ENCOUNTER 2025-04-08 18:28 | Inpatient (IN) | payer MEDICARE, MEDICAID, SELFPAY ==
[2025-04-08 18:28] VITALS: BP 118/63; PULSE 84; RESP 17; TEMP 36.7; O2SAT 97
--- NOTE | 2025-04-08 18:31 | ECG_ITS ---
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 Measurements Intervals [place] Rate: 85 P: 83 UT: 193 QRS: -57 QRSD: 154 T: 120 QT: 435 QTc: 519 Interpretive Statements SINUS RHYTHM WITH OCCASIONAL VENTRICULAR PREMATURE COMPLEXES POSSIBLE LEFT ATRIAL ENLARGEMENT [-0.1mV P-WAVE IN V1/V2] LEFT ANTERIOR FASCICULAR BLOCK RIGHT BUNDLE BRANCH BLOCK POSSIBLE LEFT VENTRICULAR HYPERTROPHY POSSIBLE ANTEROSEPTAL MYOCARDIAL INFARCTION , OF INDETERMINATE AGE [30 ms Q WAVE IN V1-V4] Compared to ECG 10/03/2022 01:39:25 Ventricular premature complex(es) now present Electronically Signed On 04-10-2025 19:12:22 CDT by Charles Esparza M.D. [id number]
--- NOTE | 2025-04-08 18:34 | XRR_ITS ---
PROCEDURE INFORMATION: Exam: XR Chest Exam date and time: 04/08/2025 6:34 PM Age: 74 years old Clinical indication: Shortness of breath; Prior surgery; Surgery date: 6+ months; Surgery type: Cardiac stent tavr pacer; Additional info: SOB TECHNIQUE: Imaging protocol: Radiologic exam of the chest. Views: 1 view. COMPARISON: CT angio chest PE protcl [id number] 10/02/2022 9:28 PM FINDINGS: Tubes, catheters and devices: Left-sided pacemaker stable. Lungs: There is pulmonary vascular congestion. The lungs are free of consolidation. Pleural spaces: Small left pleural effusion versus chronic pleural scarring. Trace right pleural effusion suspected. Heart/Mediastinum: Heart is stable in size. Changes from TAVR noted. Vasculature: Calcific plaque involves the aorta. Bones/joints: Unremarkable. XR/XR chest 1V portable [id number] IMPRESSION: Cardiomegaly associated with pulmonary vascular congestion.
--- NOTE | 2025-04-08 18:41 | W.ED.SOB ---
HPI - SOB/Dyspnea General: Chief Complaint: Shortness of Breath/Dyspnea Stated Complaint: Resp Distr Time Seen by Provider: 04/08/25 18:29 Source: patient Mode of arrival: EMS Limitations: no limitations History of Present Illness: HPI Narrative: Patient is a 74 year old female with history of atherosclerotic heart disease, high blood pressure, dyslipidemia, permanent pacer implantation, cardiomyopathy, TAVR, CHF, type 2 diabetes, bilateral lower extremity amputations, severe peripheral artery disease and multiple other medical problems here for complaints of shortness of breath x 2-3 days. Patient arrives via EMS. She is satting 98% on room air during my examination but later was found to be satting in the 80s . Family arrives later and states she has been significantly short of breath x 2 days and can hardly move around her house without getting very winded. They states she cannot lay flat. She is having a mild nonproductive cough. She clinically appears in no acute distress. Patient states she just followed up with her strawhat blocking operator a few days ago for routine appointment. but was later called and told her her fluid labs were up and recommend she come to ED. MD elicited complaint: shortness of breath and chest pain Onset (ago): day(s) Timing: constant Severity: mild Relieving factors: nothing Known history of: congestive heart failure Associated symptoms: Reports chest pain; Deny abdominal pain, dizziness, fever(s), hemoptysis, lightheadedness, nausea, palpitations, syncope or vomiting Treatment prior to arrival: none Related Data Previous Rx's ?Medication ?Instructions ?Recorded Electric Wheelchair #1 ea 04/20/21 Lift Chair #1 ea 12/03/21 glucagon 1 mg/0.2 mL subcutaneous 0.5 mg (0.1 mL) SUBCUT ONCE PRN 09/30/22 auto-injector hypoglycemia 30 days #0.4 mL prosthesis fitting #1 ea 10/05/22 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 motors #1 ea 10/05/22 LEFT LEG PROSTHESIS #1 ea 03/02/23 blood sugar diagnostic (Accu-Chek #100 ea 05/21/24 Guide test strips) blood-glucose meter (Accu-Chek #1 ea 05/21/24 Guide Glucose Meter) lancets (Accu-Chek Softclix #200 ea 05/21/24 Lancets) pen needle, diabetic 32 gauge x #100 ea 05/21/24 (BD Domenica 2nd Gen Pen Needle) Pure Wick external catheter #30 ea 09/09/24 nitrofurantoin 100 mg PO DAILY 30 days #30 caps 10/31/24 monohydrate/macrocrystals 100 mg capsule (Macrobid) ciprofloxacin HCl 250 mg tablet 250 mg PO BID 5 days #10 tabs 11/13/24 (Cipro) furosemide 20 mg tablet 20 mg PO DAILY #90 tabs 11/14/24 Lantus Solostar U-100 Insulin 100 See Rx Instructions .Route 11/21/24 unit/mL (3 mL) subcutaneous pen .COMPLEX #15 mL (insulin glargine) metoprolol succinate 25 mg See Rx Instructions .Route 01/10/25 tablet,extended release 24 hr .COMPLEX #90 tabs Novolog FlexPen U-100 Insulin 100 See Rx Instructions .Route 01/24/25 unit/mL (3 mL) subcutaneous .COMPLEX #15 mL (insulin aspart U-100) rivaroxaban 20 mg tablet (Xarelto) See Rx Instructions .Route 02/13/25 .COMPLEX #90 tabs sacubitril 97 mg-valsartan 103 mg 1 tab PO BID #60 tabs 04/04/25 tablet (Entresto) clopidogrel 75 mg tablet See Rx Instructions .Route 04/07/25 .COMPLEX #90 tabs Allergies Allergy/AdvReac Type Severity Reaction Status Date / Time ceftriaxone (From Rocephin) Allergy Severe cardiac Verified 04/04/25 10:16 arrest atorvastatin (From Lipitor) Allergy Unknown UNKNOWN Verified 04/04/25 10:16 Tzhttex-ARP-BuH Reductase Allergy Unknown UNKNOWN Verified 04/04/25 10:16 Inhibitor (Wcehehl-Toc-Fnd Reductase Inhibitor) Review of Systems Const: Denies: fever(s), chills, body aches, fatigue or malaise Eyes: Denies: change in vision or blurry vision Card: Reports: chest pain; Denies: palpitations, irregular heart rhythm, lightheadedness, syncope, pre-syncope or dyspnea on exertion Resp: Reports: dyspnea and non-productive cough; Denies: productive cough, wheezing, stridor, pain on inspiration or hemoptysis GI: Denies: abdominal pain, nausea, vomiting, heartburn or diarrhea : Denies: flank pain or dysuria Musc: Reports: other (bilateral LE amputations); Denies: neck pain, back pain or joint pain Skin/Breast: Denies: rash Neuro: Denies: headache(s) or dizziness PFSH ED PFSH: Medical History TIA (transient ischemic attack) MRSA (methicillin resistant staph aureus) culture positive Gangrene of right foot 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 Wound of right lower extremity Venous insufficiency of both lower extremities Congestive heart failure with cardiomyopathy Carotid stenosis, right Valvular incompetence, mitral Pacemaker Pre-operative clearance Essential hypertension Surgical History Hx of tubal ligation S/P TAVR (transcatheter aortic valve replacement) S/P transmetatarsal amputation of foot History of amputation of lesser toe of right foot History of transmetatarsal amputation of left foot Peripheral vascular angioplasty status with implants and grafts Hx of foot surgery History of heart artery stent Hx of knee surgery Family History Family/Other CAD (coronary artery disease) Chronic kidney disease (CKD) Mother Diabetes Stroke Father Lung disease Sister Lung disease Other Heart disease Denies family history of Clotting disorder Dementia Suicide Anesthesia complication Bleeding disorder Cancer Social History Smoking and tobacco/nicotine status: never used tobacco/nicotine Alcohol intake: never Substance/Drug Use: never Adopted: No Caregiver/support person: No Lives independently: Yes service: No Current occupational status: disabled Sexually active: Yes Do you think of yourself as: Straight/Heterosexual Current gender identity: Female Physical Exam Const: COMMON NORMALS: no acute distress, patient oriented x3, no limitations, alert and well nourished GENERAL APPEARANCE: cooperative ORIENTATION/CONSCIOUSNESS: Yes awake, Yes oriented to person, Yes oriented to place and Yes oriented to time OTHER: chronically ill appearing HENMT: COMMON NORMALS: normocephalic and atraumatic HEAD & SCALP: normal to inspection, normocephalic and atraumatic Resp: COMMON NORMALS: normal respiratory effort and clear to auscultation bilaterally AUSCULTATION: clear to auscultation bilaterally OTHER: requiring 2L of oxygen as she was found satting in the mid to upper 80s Cardio: COMMON NORMALS: regular rate and regular rhythm RATE: regular rate RHYTHM: regular rhythm GI: COMMON NORMALS: Normal to inspection, nondistended, normoactive bowel sounds present, Soft to palpation and non-tender PALPATION: Yes Soft to palpation RECTAL EXAM: heme positive stool Extremity: NARRATIVE EXTREMITY EXAM: bilateral LE amputations GENERAL: Yes normal exam except as noted Neuro: BRENDA COMA SCALE: document GCS findings Calpine coma scale eye opening: Spontaneous Brenda coma scale verbal response: Orientated Brenda coma scale motor response: Obey commands Calpine coma scale total score: 15 COMMON NORMALS: patient oriented x3 SENSORIUM/ORIENTATION: Yes alert, Yes oriented to person, Yes oriented to place and Yes oriented to time Skin: COMMON NORMALS: no rashes or lesions noted GENERAL SKIN EXAM: no rashes or lesions noted Course Consultations: Consultation #1: Dr. Araujo-accepts to CSU Consultation #2: Dr. Powell-will consult on patient-requesting hospitalist hold her anticoagulation in preparation for potential EGD/colonoscopy Vital Signs: Vital signs: Vital Signs Temperature 98.1 F 04/08/25 18:28 Pulse Rate 79 04/08/25 18:52 Respiratory Rate 17 04/08/25 18:28 Blood Pressure 118/63 04/08/25 18:52 Pulse Oximetry 95 04/08/25 18:52 Oxygen Delivery Me thod Room Air 04/08/25 18:28 MDM - SOB/Dyspnea Medical Decision Making Patient is a 74-year-old female here complaining of shortness of breath worse with exertion and lying flat. CXR showing cardiomegaly with pulmonary vascular congestion. Her BNP is over 6600. She is requiring oxygen which is new for her. Family is concerned as patient lives alone. I think it is reasonable for hospital admission for CHF exacerbation/IV diuresis. She was also found to be anemic with a hemoglobin of 8.7. Most recent comparison was 12.2 back in November. Family state that the patient had complained of a recently ruptured hemorrhoid with loss of blood. She does take Xarelto. Hemoccult was positive here. This could be contributing to her dyspnea. She has a mild elevation in her BUN which would make me concerned for possible upper GI bleed although this has been elevated previously. I have spoken to hospitalist Dr. Araujo for admission and Dr. Powell will consult. Differential Diagnosis Likely congestive heart failure Medical Records I reviewed the patient's medical records. Lab Data I reviewed the patient's lab results. 04/08/25 18:50 04/08/25 18:50 Labs/Radiology: Radiology Impressions Chest X-Ray 04/08/25 18:34 IMPRESSION: Cardiomegaly associated with pulmonary vascular congestion. Laboratory Results WBC 4.91 10^3/uL (3.29-11.43) 04/08/25 18:50 RBC 3.04 10^6/uL (3.85-5.65) L 04/08/25 18:50 Hgb 8.70 g/dL (11.27-16.99) L 04/08/25 18:50 Hct 29.5 % (36-47) L 04/08/25 18:50 MCV 97.0 fl (85-98) 04/08/25 18:50 MCH 28.6 pg (27-33) 04/08/25 18:50 MCHC 29.5 g/dL (30-55) L 04/08/25 18:50 RDW 17.2 % (12.1-15.1) H 04/08/25 18:50 Plt Count 200 10^3/cmm (157-399) 04/08/25 18:50 MPV 11.2 fL (7.4-10.4) H 04/08/25 18:50 Neut % (Auto) 59.2 % 04/08/25 18:50 Lymph % (Auto) 27.1 % 04/08/25 18:50 [place] % (Auto) 8.6 % 04/08/25 18:50 Eos % (Auto) 4.1 % 04/08/25 18:50 Baso % (Auto) 0.8 % 04/08/25 18:50 Neut # (Auto) 2.91 10^3/uL (1.8-7.7) 04/08/25 18:50 Lymph # (Auto) 1.3 10^3/uL (0.8-4.8) 04/08/25 18:50 [place] # (Auto) 0.4 10^3/uL (0.2-0.9) 04/08/25 18:50 Eos # (Auto) 0.2 10^3/uL (0.0-0.8) 04/08/25 18:50 Baso # (Auto) 0.0 10^3/uL (0.0-0.1) 04/08/25 18:50 Nucleated RBC % (auto) 0 % 04/08/25 18:50 Nucleated RBCs # 0.0 /100WBC 04/08/25 18:50 Sodium 145 mmol/L (136-145) 04/08/25 18:50 Potassium 4.1 mmol/L (3.5-5.1) 04/08/25 18:50 Chloride 108 mmol/L (98-107) H 04/08/25 18:50 Carbon Dioxide 26 mmol/L (22-29) 04/08/25 18:50 Anion Gap 15.1 (5-19) 04/08/25 18:50 BUN 25 mg/dL (8-23) H 04/08/25 18:50 Creatinine 0.9 mg/dL (0.5-0.9) 04/08/25 18:50 GFR Calculation Not Reportable 04/08/25 18:50 Glucose 117 mg/dL (65-115) H 04/08/25 18:50 Calculated Osmolality 305 mOsm/kg (285-295) H 04/08/25 18:50 Calcium 8.6 mg/dL (8.5-10.5) 04/08/25 18:50 Total Bilirubin 0.6 mg/dL (0.15-1.2) 04/08/25 18:50 AST 8 U/L (0-32) 04/08/25 18:50 ALT 9 U/L (0-33) 04/08/25 18:50 Alkaline Phosphatase 53 U/L (35-105) 04/08/25 18:50 Troponin T Baseline 55 ng/L (0-10) H 04/08/25 18:50 NT-Pro-B Natriuret Pep 6613 pg/mL (0-450) H 04/08/25 18:50 Total Protein 6.2 g/dL (6.6-8.7) L 04/08/25 18:50 Albumin 3.8 g/dL (3.5-5.2) 04/08/25 18:50 Globulin 2.4 g/dL (1.3-4.6) 04/08/25 18:50 Procalcitonin 0.04 ng/mL (0-0.5) 04/08/25 18:50 All radiology interpretation(s) finalized by discharge Discharge Plan Discharge Patient Disposition: Admitted As Inpatient Clinical Impression: Acute exacerbation of congestive heart failure, Anemia, Chronic anticoagulation Condition: Stable Coding Level of Care Code ED Weave Room Supervisor for Rowena Chamorro
--- OUTSIDE RECORDS SUMMARY | 2025-04-08 18:47 | XMS_ITS | Encounter Summary ---
Author Organization [facility] Address [address] [place] [address] Care Team Providers Care Composition Siding Worker Name Role Phone Gloria Escobar TRINH Primary Care Provider Encounter Details Date Type Department Care Team (Latest Contact Info) Description 01/28/2000 Outpatient Historical [facility] Internal Medicine- [place] 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 Gender Identity Not on file Sexual Orientation Not on file documented as of this encounter Plan of Treatment Not on file documented as of this encounter Visit Diagnoses Diagnosis Type II or unspecified type diabetes mellitus without mention of complication, not stated as uncontrolled- Primary Other and unspecified hyperlipidemia Unspecified essential hypertension Encounter for long-term (current) use of other medications documented in this encounter Additional Health Concerns Infection Onset Date Last Indicated Resolved Time R/O COVID-19 10/14/2019 10/14/2019 10/14/2019 9:11 PM CDT documented as of this encounter Care Teams Composition Siding Worker Relationship Specialty Start Date End Date Gloria Escobar FNP [address] [place] [address] PCP - General Nurse Practitioner Family 06/20/19 documented as of this encounter
--- OUTSIDE RECORDS SUMMARY | 2025-04-08 18:47 | XMS_ITS | Encounter Summary ---
Author Organization [facility] Address 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
--- OUTSIDE RECORDS SUMMARY | 2025-04-08 18:47 | XMS_ITS | Encounter Summary ---
Author Organization [facility] Address [address] [place] [address] Care Team Providers Care Kitchenhand Name Role Phone Gloria Escobar Primary Care Provider Encounter Details Date Type Department Care Team (Latest Contact Info) Description 06/02/2000 Outpatient Historical [facility] Internal Medicine- [place] [address] [place] [address] Linsey Sheffield MD [address] [facility] [address] [place] [address] Type II or unspecified type diabetes mellitus without mention of complication, not stated as uncontrolled (Primary Dx); Unspecified essential hypertension Social History Tobacco Use Types Packs/Day Years Used Date Smoking Tobacco: Never Assessed Comments Unknown Sex and Gender Information Value Date Recorded Sex Assigned at Not on file 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 Gender Identity Not on file Sexual Orientation Not on file documented as of this encounter Plan of Treatment Not on file documented as of this encounter Visit Diagnoses Diagnosis Type II or unspecified type diabetes mellitus without mention of complication, not stated as uncontrolled- Primary Unspecified essential hypertension documented in this encounter Additional Health Concerns Infection Onset Date Last Indicated Resolved Time R/O COVID-19 10/14/2019 10/14/2019 10/14/2019 9:11 PM CDT documented as of this encounter Care Teams Kitchenhand Relationship Specialty Start Date End Date Gloria Escobar FNP [address] [place] [phone] PCP - General Nurse Practitioner Family 06/20/19 documented as of this encounter
--- OUTSIDE RECORDS SUMMARY | 2025-04-08 18:47 | XMS_ITS | Encounter Summary ---
Author Organization [facility] Address [address] [place] [address] Care Team Providers Care Certified Scrum Master Name Role Phone Gloria Escobar Primary Care Provider Encounter Details Date Type Department Care Team (Latest Contact Info) Description 03/17/2000 Outpatient Historical [facility] Internal Medicine- [place] [address] [place] [address] Linsey Sheffield MD [address] [facility] [address] [place] [address] Type II or unspecified type diabetes mellitus without mention of complication, not stated as uncontrolled (Primary Dx); Unspecified essential hypertension Social History Tobacco Use Types Packs/Day Years Used Date Smoking Tobacco: Never Assessed Comments Unknown Sex and Gender Information Value Date Recorded Sex Assigned at Not on file 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
--- OUTSIDE RECORDS SUMMARY | 2025-04-08 18:47 | XMS_ITS | Encounter Summary ---
Author Organization [facility] Address [address] [place] [address] Care Team Providers Care Legislative Assistant Name Role Phone Gloria Escobar Primary Care Provider Encounter Details Date Type Department Care Team (Latest Contact Info) Description 12/28/1999 Outpatient Historical [facility] Rosendo Maciel, OD [address] [place] [address] Unspecified disorder of refraction and accommodation (Primary Dx) Social History Tobacco Use Types Packs/Day Years Used Date Smoking Tobacco: Never Assessed Comments Unknown Sex and Gender Information Value Date Recorded Sex Assigned at Not on file Legal Sex Female 4:54 AM QUALITY SPECIALIST Gender Identity Not on file Sexual Orientation Not on file documented as of this encounter Plan of Treatment Not on file documented as of this encounter Visit Diagnoses Diagnosis Unspecified disorder of refraction and accommodation- Primary documented in this encounter Additional Health Concerns Infection Onset Date Last Indicated Resolved Time R/O COVID-19 10/14/2019 10/14/2019 10/14/2019 9:11 PM CDT documented as of this encounter Care Teams Legislative Assistant Relationship Specialty Start Date End Date Gloria Escobar FNP [address] [place] [phone] PCP - General Nurse Practitioner Family 06/20/19 documented as of this encounter
--- OUTSIDE RECORDS SUMMARY | 2025-04-08 18:47 | XMS_ITS | Encounter Summary ---
Author Organization [facility] Address [address] [place] [address] Care Team Providers Care Executive Producer Promos Name Role Phone Gloria Escobar TRINH Primary Care Provider Encounter Details Date Type Department Care Team (Latest Contact Info) Description 12/27/1999 Outpatient Historical [facility] Internal Medicine- [place] [address] [place] [address] Linsey Sheffield MD [address] [facility] [address] [place] [address] Type II or unspecified type diabetes mellitus without mention of complication, not stated as uncontrolled (Primary Dx); Other and unspecified hyperlipidemia; Unspecified essential hypertension; Need for prophylactic vaccination with tetanus-diphtheria (Td); Tuberculosis contact Social History Tobacco Use Types Packs/Day Years Used Date Smoking Tobacco: Never Assessed Comments Unknown Sex and Gender Information Value Date Recorded Sex Assigned at Not on file Legal Sex Female 4:54 AM PACK MASTER Gender Identity Not on file Sexual Orientation Not on file documented as of this encounter Plan of Treatment Not on file documented as of this encounter Visit Diagnoses Diagnosis Type II or unspecified type diabetes mellitus without mention of complication, not stated as uncontrolled- Primary Other and unspecified hyperlipidemia Unspecified essential hypertension Need for prophylactic vaccination with tetanus-diphtheria (Td) Tuberculosis contact Contact with or exposure to tuberculosis documented in this encounter Additional Health Concerns Infection Onset Date Last Indicated Resolved Time R/O COVID-19 10/14/2019 10/14/2019 10/14/2019 9:11 PM CDT documented as of this encounter Care Teams Executive Producer Promos Relationship Specialty Start Date End Date Gloria Escobar FNP [address] [place] [address] PCP - General Nurse Practitioner Family 06/20/19 documented as of this encounter
--- OUTSIDE RECORDS SUMMARY | 2025-04-08 18:47 | XMS_ITS | Encounter Summary ---
Author Organization [facility] Address [address] [place] [address] Care Team Providers Care Dye Tank Tender Name Role Phone Gloria Escobar TRINH Primary Care Provider [phone] Encounter Details Date Type Department Care Team (Latest Contact Info) Description 02/19/2001 Outpatient Historical [facility] Internal Medicine- [place] [address] [place] [address] Linsey Sheffield MD [address] [facility] [address] [place] [address] Unspecified essential hypertension (Primary Dx); Other and unspecified hyperlipidemia; Type II or unspecified type diabetes mellitus without mention of complication, not stated as uncontrolled Social History Tobacco Use Types Packs/Day Years Used Date Smoking Tobacco: Never Assessed Comments Unknown Sex and Gender Information Value Date Recorded Sex Assigned at Not on file Legal Sex Female 4:54 AM SPEECH LANGUAGE PATHOLOGY ASSISTANT Gender Identity Not on file Sexual Orientation Not on file documented as of this encounter Plan of Treatment Not on file documented as of this encounter Visit Diagnoses Diagnosis Unspecified essential hypertension- Primary Other and unspecified hyperlipidemia Type II or unspecified type diabetes mellitus without mention of complication, not stated as uncontrolled documented in this encounter Additional Health Concerns Infection Onset Date Last Indicated Resolved Time R/O COVID-19 10/14/2019 10/14/2019 10/14/2019 9:11 PM CDT documented as of this encounter Care Teams Dye Tank Tender Relationship Specialty Start Date End Date Gloria Escobar FNP [address] [place] [phone] PCP - General Nurse Practitioner Family 06/20/19 documented as of this encounter
--- OUTSIDE RECORDS SUMMARY | 2025-04-08 18:47 | XMS_ITS | Encounter Summary ---
Author Organization [facility] Address [address] [place] [address] Care Team Providers Care Mounter Brass Wind Instruments Name Role Phone Gloria Escobar TRINH Primary Care Provider Encounter Details Date Type Department Care Team (Latest Contact Info) Description 10/20/2000 Outpatient Historical [facility] Internal Medicine- [place] [address] [place] [address] Linsey Sheffield MD [address] [facility] [address] [place] [address] Type II or unspecified type diabetes mellitus without mention of complication, not stated as uncontrolled (Primary Dx); Unspecified essential hypertension; Other and unspecified hyperlipidemia; Encounter for long-term (current) use of other medications Social History Tobacco Use Types Packs/Day Years Used Date Smoking Tobacco: Never Assessed Comments Unknown Sex and Gender Information Value Date Recorded Sex Assigned at Not on file Legal Sex Female 4:54 AM SALES ASSISTANT INSTITUTIONAL SALES Gender Identity Not on file Sexual Orientation Not on file documented as of this encounter Plan of Treatment Not on file documented as of this encounter Visit Diagnoses Diagnosis Type II or unspecified type diabetes mellitus without mention of complication, not stated as uncontrolled- Primary Unspecified essential hypertension Other and unspecified hyperlipidemia Encounter for long-term (current) use of other medications documented in this encounter Additional Health Concerns Infection Onset Date Last Indicated Resolved Time R/O COVID-19 10/14/2019 10/14/2019 10/14/2019 9:11 PM CDT documented as of this encounter Care Teams Mounter Brass Wind Instruments Relationship Specialty Start Date End Date Gloria Escobar FNP [address] [place] [address] PCP - General Nurse Practitioner Family 06/20/19 documented as of this encounter
--- OUTSIDE RECORDS SUMMARY | 2025-04-08 18:47 | XMS_ITS | Encounter Summary ---
Author Organization [facility] Address [address] [place] [address] Care Team Providers Care V Belt Curer Name Role Phone Gloria Escobar TRINH Primary Care Provider Encounter Details Date Type Department Care Team (Late st Contact Info) Description 04/01/2011 Ancillary Orders [facility] Orthopedics- [address] [place] [address] Chad Raines MD NO ADDRESS ON FILE Pain Social History Tobacco Use Types Packs/Day Years Used Date Smoking Tobacco: Never Smokeless Tobacco: Never Alcohol Use Standard Drinks/Week Comments No 0 (1 standard drink = 0.6 oz pur e alcohol) Comments No Sex and Gender Information Value Date Recorded Sex Assigned at Not on file Legal Sex Female 4:54 AM MARKET DEVELOPMENT SPECIALIST Gender Identity Not on file Sexual Orientation Not on file documented as of this encounter Plan of Treatment Not on file documented as of this encounter Results * XR SHOULDER 2+ VW RIGHT (04/01/2011 11:00 AM CDT) Anatomical Region Laterality Modality Upper Extremity Computed Radiogr aphy Narrative 04/07/2011 1:21 PM CDT I did obtain plain film x-rays of her right shoulder today and these reveal prominent acromioclavicular joint space narrowing with hypertrophy at that region. There is what appears to be reasonably good alignment of the glenohumeral joint space on multiple views. There is prominence of the acromion process. Procedure Note Chad Raines MD - 04/07/2011 I did obtain plain film x-rays of her right shoulder today and thesereveal prominent acromioclavicular joint space narrowing with hypertrophyat that region. There is what appears to be reasonably good alignment ofthe glenohumeral joint space on multiple views. There is prominence of theacromion process. us Chad Raines MD DIAGNOSTIC IMAGING ORDERABLE S Final Result documented in this encounter Visit Diagnoses Diagnosis Pain Generalized pain documented in this encounter Additional Health Concerns Infection Onset Date Last Indicated Resolved Time R/O COVID-19 10/14/2019 10/14/2019 10/14/2019 9:11 PM CDT documented as of this encounter Care Teams V Belt Curer Relationship Specialty Start Date End Date Gloria Escobar FNP [address] [place] [address] PCP - General Nurse Practitioner Family 06/20/19 documented as of this encounter
--- OUTSIDE RECORDS SUMMARY | 2025-04-08 18:47 | XMS_ITS | Encounter Summary ---
Author Organization [facility] Address [address] [place] [address] Care Team Providers Care Crown Assembly Machine Set Up Mechanic Name Role Phone Gloria Escobar TRINH Primary Care Provider [phone] Encounter Details Date Type Department Care Team (Latest Contact Info) Description 04/21/2000 Outpatient Historical [facility] Internal Medicine- [place] [address] [place] [address] Linsey Sheffield MD [address] [facility] [address] [place] [address] Type II or unspecified type diabetes mellitus without mention of complication, not stated as uncontrolled (Primary Dx); Other and unspecified hyperlipidemia; Unspecified essential hypertension Social History Tobacco Use Types Packs/Day Years Used Date Smoking Tobacco: Never Assessed Comments Unknown Sex and Gender Information Value Date Recorded Sex Assigned at Not on file Legal Sex Female 4:54 AM BANKING MANAGER Gender Identity Not on file Sexual Orientation Not on file documented as of this encounter Plan of Treatment Not on file documented as of this encounter Visit Diagnoses Diagnosis Type II or unspecified type diabetes mellitus without mention of complication, not stated as uncontrolled- Primary Other and unspecified hyperlipidemia Unspecified essential hypertension documented in this encounter Additional Health Concerns Infection Onset Date Last Indicated Resolved Time R/O COVID-19 10/14/2019 10/14/2019 10/14/2019 9:11 PM CDT documented as of this encounter Care Teams Crown Assembly Machine Set Up Mechanic Relationship Specialty Start Date End Date Gloria Escobar FNP [address] [place] [phone] PCP - General Nurse Practitioner Family 06/20/19 documented as of this encounter
--- OUTSIDE RECORDS SUMMARY | 2025-04-08 18:47 | XMS_ITS | Encounter Summary ---
Author Organization [facility] Address [address] [place] [address] Care Team Providers Care Fish Stringer Assembler Name Role Phone Gloria Escobar Primary Care Provider Encounter Details Date Type Department Care Team (Latest Contact Info) Description 12/29/[address] [facility] Internal Medicine- [place] [address] [place] [address] Linsey Sheffield MD [address] [facility] [address] [place] [address] Routine medical exam (Primary Dx) Social History Tobacco Use Types Packs/Day Years Used Date Smoking Tobacco: Never Assessed Comments Unknown Sex and Gender Information Value Date Recorded Sex Assigned at Not on file Legal Sex Female 4:54 AM WOUND CARE CENTER CONSULTANT Gender Identity Not on file Sexual Orientation Not on file documented as of this encounter Plan of Treatment Not on file documented as of this encounter Visit Diagnoses Diagnosis Routine medical exam- Primary Routine general medical examination at a health care facility documented in this encounter Additional Health Concerns Infection Onset Date Last Indicated Resolved Time R/O COVID-19 10/14/2019 10/14/2019 10/14/2019 9:11 PM CDT documented as of this encounter Care Teams Fish Stringer Assembler Relationship Specialty Start Date End Date Gloria Escobar FNP [address] [place] [address] PCP - General Nurse Practitioner Family 06/20/19 documented as of this encounter
--- OUTSIDE RECORDS SUMMARY | 2025-04-08 18:47 | XMS_ITS | Encounter Summary ---
Author Organization [facility] Address [address] [place] [address] Care Team Providers Care Motor Vehicle Inspector Name Role Phone Gloria Escobar Primary Care Provider Encounter Details Date Type Department Care Team (Latest Contact Info) Description 10/15/2001 Outpatient Historical [facility] Medicine [place] [address] [facility] [address] [place] [address] Suleiman Ferro MD [address] [address] HYPERTENSION NOS (Primary Dx); CERVICALGIA Social History Tobacco Use Types Packs/Day Years Used Date Smoking Tobacco: Never Assessed Comments Unknown Sex and Gender Information Value Date Recorded Sex Assigned at Not on file Legal Sex Female 4:54 AM SHOE HANDLER Gender Identity Not on file Sexual Orientation Not on file documented as of this encounter Plan of Treatment Not on file documented as of this encounter Visit Diagnoses Diagnosis Unspecified essential hypertension- Primary Cervicalgia documented in this encounter Additional Health Concerns Infection Onset Date Last Indicated Resolved Time R/O COVID-19 10/14/2019 10/14/2019 10/14/2019 9:11 PM CDT documented as of this encounter Care Teams Motor Vehicle Inspector Relationship Specialty Start Date End Date Gloria Escobar FNP [address] [place] [address] PCP - General Nurse Practitioner Family 06/20/19 documented as of this encounter
--- OUTSIDE RECORDS SUMMARY | 2025-04-08 18:47 | XMS_ITS | Encounter Summary ---
Author Organization [facility] Address [address]: Epic Prelude ADT [place] [address] Care Team Providers Care Process Planner Name Role Phone Gloria Escobar Primary Care Provider Encounter Details Date Type Department Care Team (Late st Contact Info) Description 10/29/2001 Outpatient Historical Ildefonso Contreras NP NO ADDRESS ON FILE Social History Tobacco Use Types Packs/Day Years Used Date Smoking Tobacco: Never Assessed Comments Unknown Sex and Gender Information Value Date Recorded Sex Assigned at Not on file Legal Sex Female 4:54 AM RN PROGRESSIVE CARE Gender Identity Not on file Sexual Orientation Not on file documented as of this encounter Plan of Treatment Not on file documented as of this encounter Visit Diagnoses Not on filedocumented in this encounter Additional Health Concerns Infection Onset Date Last Indicated Resolved Time R/O COVID-19 10/14/2019 10/14/2019 10/14/2019 9:11 PM CDT documented as of this encounter Care Teams Process Planner Relationship Specialty Start Date End Date Gloria Escobar FNP [address] [place] [address] PCP - General Nurse Practitioner Family 06/20/19 documented as of this encounter
--- OUTSIDE RECORDS SUMMARY | 2025-04-08 18:47 | XMS_ITS | Encounter Summary ---
Author Organization [facility] Address [address] [place] [address] Care Team Providers Care Boat Person Name Role Phone Gloria Escobar TRINH Primary Care Provider Encounter Details Date Type Department Care Team (Latest Contact Info) Description 09/17/2004 Outpatient Historical [facility] Imaging Services-[place] [address] [place] [address] Kirk Arroyo MD NO ADDRESS ON FILE CHEST PAIN NOS (Primary Dx) Social History Tobacco Use Types Packs/Day Years Used Date Smoking Tobacco: Never Assessed Comments Unknown Sex and Gender Information Value Date Recorded Sex Assigned at Not on file Legal Sex Female 4:54 AM COMMUNICATIONS MARKETING INTERN Gender Identity Not on file Sexual Orientation Not on file documented as of this encounter Plan of Treatment Not on file documented as of this encounter Procedures Procedure Name Priority Date/Time Associated Diagnosis Comments POC CREATININE Routine 09/17/2004 10:37 AM CDT documented in this encounter Results * POC CREATININE (09/17/2004 10:37 AM CDT) CREATININE POC 1.0 0.7 - 1.2 mg/dL INTERFACE SYSTEM 09/17/2004 10:3 7 AM CDT Kirk Arroyo MD POINT OF CARE TESTING Final Result INTERFACE SYSTEM Refer to clinic/hospital department documented in this encounter Visit Diagnoses Diagnosis Chest pain, unspecified- Primary documented in this encounter Additional Health Concerns Infection Onset Date Last Indicated Resolved Time R/O COVID-19 10/14/2019 10/14/2019 10/14/2019 9:11 PM CDT documented as of this encounter Care Teams Boat Person Relationship Specialty Start Date End Date Gloria Escobar FNP [address] [place] [address] PCP - General Nurse Practitioner Family 06/20/19 documented as of this encounter
--- OUTSIDE RECORDS SUMMARY | 2025-04-08 18:47 | XMS_ITS | Encounter Summary ---
Author Organization [facility] Address [address] [place] [address] Care Team Providers Care Heel Cementer Name Role Phone Gloria Escobar TRINH Primary Care Provider Encounter Details Date Type Department Care Team (Latest Contact Info) Description 08/18/2000 Outpatient Historical [facility] Internal Medicine- [place] [address] [place] [address] Linsey Sheffield MD [address] [facility] [address] [place] [address] Type II or unspecified type diabetes mellitus without mention of complication, not stated as uncontrolled (Primary Dx); Pure hypercholesterolem; Unspecified essential hypertension Social History Tobacco Use Types Packs/Day Years Used Date Smoking Tobacco: Never Assessed Comments Unknown Sex and Gender Information Value Date Recorded Sex Assigned at Not on file Legal Sex Female 4:54 AM HOUSE VISITOR Gender Identity Not on file Sexual Orientation Not on file documented as of this encounter Plan of Treatment Not on file documented as of this encounter Visit Diagnoses Diagnosis Type II or unspecified type diabetes mellitus without mention of complication, not stated as uncontrolled- Primary Pure hypercholesterolem Pure hypercholesterolemia Unspecified essential hypertension documented in this encounter Additional Health Concerns Infection Onset Date Last Indicated Resolved Time R/O COVID-19 10/14/2019 10/14/2019 10/14/2019 9:11 PM CDT documented as of this encounter Care Teams Heel Cementer Relationship Specialty Start Date End Date Gloria Escobar FNP [address] [place] [address] PCP - General Nurse Practitioner Family 06/20/19 documented as of this encounter
--- OUTSIDE RECORDS SUMMARY | 2025-04-08 18:47 | XMS_ITS | Encounter Summary ---
Author Organization [facility] Address [address] [place] [address] Care Team Providers Care Community Health Specialist Name Role Phone Gloria Escobar Primary Care Provider Encounter Details Date Type Department Care Team (Latest Contact Info) Description 11/02/1999 Outpatient Historical [facility] Linsey Sheffield MD [address] [facility] [address] [place] [address] Type II or unspecified type diabetes mellitus without mention of complication, not stated as uncontrolled (Primary Dx); Pure hypercholesterolem; Unspecified essential hypertension Social History Tobacco Use Types Packs/Day Years Used Date Smoking Tobacco: Never Assessed Comments Unknown Sex and Gender Information Value Date Recorded Sex Assigned at Not on file Legal Sex Female 4:54 AM COMMISSIONER OF RELOCATION SERVICES Gender Identity Not on file Sexual Orientation [...] documented as of this encounter Care Teams Community Health Specialist Relationship Specialty Start Date End Date Gloria Escobar FNP [address] [place] [address] PCP - General Nurse Practitioner Family 06/20/19 documented as of this encounter
--- OUTSIDE RECORDS SUMMARY | 2025-04-08 18:47 | XMS_ITS | Encounter Summary ---
Author Organization [facility] Address [address] [place] [address] Care Team Providers Care Podiatric Foot And Ankle Specialist Name Role Phone Gloria Escobar Primary Care Provider Encounter Details Date Type Department Care Team (Latest Contact Info) Description 09/27/2001 Outpatient Historical [facility] Family Medicine [address] [address] Milli Hui MD NO ADDRESS ON FILE CERVICALGIA (Primary Dx); Gynecologic examination; SCREENING MAL NEOP-RECTUM; DIABETES UNCOMPL ADULT-TYPE II ([facility]/HCC) Social History Tobacco Use Types Packs/Day Years Used Date Smoking Tobacco: Never Assessed Comments Unknown Sex and Gender Information Value Date Recorded Sex Assigned at Not on file Legal Sex Female 4:54 AM MANAGER NURSING Gender Identity Not on file Sexual Orientation Not on file documented as of this encounter Plan of Treatment Not on file documented as of this encounter Visit Diagnoses Diagnosis Cervicalgia- Primary Gynecologic examination Gynecological examination Screening for malignant neoplasm of the rectum Type II or unspecified type diabetes mellitus without mention of complication, not stated as uncontrolled documented in this encounter Additional Health Concerns Infection Onset Date Last Indicated Resolved Time R/O COVID-19 10/14/2019 10/14/2019 10/14/2019 9:11 PM CDT documented as of this encounter Care Teams Podiatric Foot And Ankle Specialist Relationship Specialty Start Date End Date Gloria Escobar FNP [address] [place] [address] PCP - General Nurse Practitioner Family 06/20/19 documented as of this encounter
--- OUTSIDE RECORDS SUMMARY | 2025-04-08 18:47 | XMS_ITS | Encounter Summary ---
Author Organization [facility] Address [address] Humphreys: Epic Prelude ADT JL HASSAN [address] Care Team Providers Care Drafter Cartographic Name Role Phone Gloria Escobar Primary Care Provider Encounter Details Date Type Department Care Team (Late st Contact Info) Description 09/28/2001 Outpatient Historical Ildefonso Contreras NP NO ADDRESS ON FILE Social History Tobacco Use Types Packs/Day Years Used Date Smoking Tobacco: Never Assessed Comments Unknown Sex and Gender Information Value Date Recorded Sex Assigned at Not on file Legal Sex Female 4:54 AM BEAUTY CONSULTANT Gender Identity Not on file Sexual Orientation Not on file documented as of this encounter Plan of Treatment Not on file documented as of this encounter Visit Diagnoses Not on filedocumented in this encounter Additional Health Concerns Infection Onset Date Last Indicated Resolved Time R/O COVID-19 10/14/2019 10/14/2019 10/14/2019 9:11 PM CDT documented as of this encounter Care Teams Drafter Cartographic Relationship Specialty Start Date End Date Gloria Escobar FNP [address] [place] [phone] PCP - General Nurse Practitioner Family 06/20/19 documented as of this encounter
--- OUTSIDE RECORDS SUMMARY | 2025-04-08 18:47 | XMS_ITS | Encounter Summary ---
Author Organization [facility] Address [address] [place] [address] Care Team Providers Care Arborist Representative Name Role Phone Gloria Escobar Primary Care Provider Encounter Details Date Type Department Care Team (Latest Contact Info) Description 11/26/1999 Outpatient Historical [facility] Rosendo Maciel, OD [address] [place] [address] Type II or unspecified type diabetes mellitus without mention of complication, not stated as uncontrolled (Primary Dx) Social History Tobacco Use Types Packs/Day Years Used Date Smoking Tobacco: Never Assessed Comments Unknown Sex and Gender Information Value Date Recorded Sex Assigned at Not on file Legal Sex Female 4:54 AM COMMERCIAL DEVELOPMENT MANAGER Gender Identity Not on file Sexual Orientation Not on file documented as of this encounter Plan of Treatment Not on file documented as of this encounter Visit Diagnoses Diagnosis Type II or unspecified type diabetes mellitus without mention of complication, not stated as uncontrolled- Primary documented in this encounter Additional Health Concerns Infection Onset Date Last Indicated Resolved Time R/O COVID-19 10/14/2019 10/14/2019 10/14/2019 9:11 PM CDT documented as of this encounter Care Teams Arborist Representative Relationship Specialty Start Date End Date Gloria Escobar FNP [address] [place] [phone] PCP - General Nurse Practitioner Family 06/20/19 documented as of this encounter
--- OUTSIDE RECORDS SUMMARY | 2025-04-08 18:47 | XMS_ITS | Encounter Summary ---
Author Organization [facility] Address [address] [place] [address] Care Team Providers Care Drafter Topographical Name Role Phone Gloria Escobar Primary Care Provider [phone] Encounter Details Date Type Department Care Team (Latest Contact Info) Description 11/17/1999 Outpatient Historical [facility] Linsey Sheffield MD [address] [facility] [address] [place] [address] Type II or unspecified type diabetes mellitus without mention of complication, not stated as uncontrolled (Primary Dx); Unspecified essential hypertension; Pure hypercholesterolem Social History Tobacco Use Types Packs/Day Years Used Date Smoking Tobacco: Never Assessed Comments Unknown Sex and Gender Information Value Date Recorded Sex Assigned at Not on file Legal Sex Female 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 Gender Identity Not on file Sexual Orientation Not on file documented as of this encounter Plan of Treatment Not on file documented as of this encounter Visit Diagnoses Diagnosis Type II or unspecified type diabetes mellitus without mention of complication, not stated as uncontrolled- Primary Unspecified essential hypertension Pure hypercholesterolem Pure hypercholesterolemia documented in this encounter Additional Health Concerns Infection Onset Date Last Indicated Resolved Time R/O COVID-19 10/14/2019 10/14/2019 10/14/2019 9:11 PM CDT documented as of this encounter Care Teams Drafter Topographical Relationship Specialty Start Date End Date Gloria Escobar FNP [address] [place] [address] PCP - General Nurse Practitioner Family 06/20/19 documented as of this encounter
--- OUTSIDE RECORDS SUMMARY | 2025-04-08 18:48 | XMS_ITS | Encounter Summary ---
Author Organization [facility] Address [address] [place] [address] Care Team Providers Care Braided Rug Maker Name Role Phone Gloria Escobar TRINH Primary Care Provider Encounter Details Date Type Department Care Team (Latest Contact Info) Description 01/25/2002 Outpatient Historical [facility] [place] [address] [place] [address] Linsey Sheffield MD [address] [facility] [address] [place] [address] MYALGIA AND MYOSITIS NOS (Primary Dx); OTHER MALAISE AND FATIGUE; HYPERLIPIDEMIA NEC/NOS; DIABETES UNCOMPL ADULT-TYPE II ([facility]/HCC) Social History Tobacco Use Types Packs/Day Years Used Date Smoking Tobacco: Never Assessed Comments Unknown Sex and Gender Information Value Date Recorded Sex Assigned at Not on file Legal Sex Female 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 Gender Identity Not on file Sexual Orientation Not on file documented as of this encounter Plan of Treatment Not on file documented as of this encounter Visit Diagnoses Diagnosis Myalgia and myositis, unspecified- Primary Mylagia and myositis, unspecified Other malaise and fatigue Other and unspecified hyperlipidemia Type II or unspecified type diabetes mellitus without mention of complication, not stated as uncontrolled documented in this encounter Additional Health Concerns Infection Onset Date Last Indicated Resolved Time R/O COVID-19 10/14/2019 10/14/2019 10/14/2019 9:11 PM CDT documented as of this encounter Care Teams Braided Rug Maker Relationship Specialty Start Date End Date Gloria Escobar FNP [address] [place] [address] PCP - General Nurse Practitioner Family 06/20/19 documented as of this encounter
--- OUTSIDE RECORDS SUMMARY | 2025-04-08 18:48 | XMS_ITS | Encounter Summary ---
Author Organization [facility] Address [address] [place] [address] Care Team Providers Care Bath Mixer Name Role Phone Gloria Escobar Primary Care Provider Encounter Details Date Type Department Care Team (Latest Contact Info) Description 08/30/2004 [facility] [address] [place] [address] Kirk Arroyo MD NO ADDRESS ON FILE BENIGN HYP HRT DIS W/O HRT FAIL (Primary Dx); ANGINA PECTORIS NEC/NOS Social History Tobacco Use Types Packs/Day Years Used Date Smoking Tobacco: Never Assessed Comments Unknown Sex and Gender Information Value Date Recorded Sex Assigned at Not on file 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 Gender Identity Not on file Sexual Orientation Not on file documented as of this encounter Plan of Treatment Not on file documented as of this encounter Visit Diagnoses Diagnosis Benign hypertensive heart disease without heart failure- Primary Other and unspecified angina pectoris documented in this encounter Additional Health Concerns Infection Onset Date Last Indicated Resolved Time R/O COVID-19 10/14/2019 10/14/2019 10/14/2019 9:11 PM CDT documented as of this encounter Care Teams Bath Mixer Relationship Specialty Start Date End Date Gloria Escobar FNP [address] [place] [phone] PCP - General Nurse Practitioner Family 06/20/19 documented as of this encounter
--- OUTSIDE RECORDS SUMMARY | 2025-04-08 18:48 | XMS_ITS | Encounter Summary ---
Author Organization [facility] Address [address] [place] [address] Care Team Providers Care Institutional Nutrition Consultant Name Role Phone Gloria Escobar TRINH Primary Care Provider Reason for Referral * Radiology Services (Routine) - Closed Specialty Diagnoses / Procedures Referred By Javad saini Referred To Contact Radiology Diagnoses S/P TAVR (transcatheter aortic valve replacement) Procedures ECHO COMPLETE ECHOCARDIOGRAM W/ CONTRAST AGENT ECHO COMPLETE Waylon Hahn MD [address] [place] [address] Phone: tel: fax: [facility] Echo [address] [place] [place] [address] Phone: tel: fax: Referral ID Status Reason Start Date Expiration Date Visits Requested Visits Authorized [id number] Closed Interventional Scheduling (SGF) 04/26/2018 09/15/2019 1 1 ASSEMBLER KITCHEN Encounter Details Date Type Department Care Team (Late st Contact Info) Description 06/10/2019 Ancillary Orders [facility]- [place] [address] [place] [address] Waylon Hahn MD [address] [place] [address] S/P TAVR (transcatheter aortic valve replacement) Social History Tobacco Use Types Packs/Day Years Used Date Smoking Tobacco: Never Smokeless Tobacco: Never Alcohol Use Standard Drinks/Week Comments No 0 (1 standard drink = 0.6 oz pur e alcohol) Comments No Sex and Gender Information Value Date Recorded Sex Assigned at Not on file Legal Sex Female 4:54 AM FOOD ASSEMBLER 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 Gender Identity Not on file Sexual Orientation Not on file Occupation Industry Job Start Date Job End Date Not on file Not on file Not on file Not on file documented as of this encounter Plan of Treatment Not on file documented as of this encounter Results * ECHO COMPLETE (06/10/2019 3:51 PM FOOD ASSEMBLER KITCHEN) EJECTION FRACTION 55 INTERFACE SYSTEM 06/10/2019 3:03 PM FOOD ASSEMBLER KITCHEN Narrative INTERFACE SYSTEM - 06/10/2019 4:48 PM FOOD ASSEMBLER KITCHEN [facility] Cardiovascular Services Echocardiography Laboratory [address] [place] [id number] Transthoracic Echocardiography Patient: Elisha Vickers Study ECHO COMPLETE K ID: Gender: F : 1950 Age: 68 Room: Study 06/10/2019 Pt Outpatient Date: Status: Study 03:03:04 PM CSN #: [id number] Time: Ordering:Waylon Hahn Interpreting:Mariya Arias MD Machine Maintenance Technician: Walter Samson [facility] Indications and History: Dx: S/P TAVR (transcatheter aortic valve replacement) [Z95.2 (ICD-10-CM)] Summary and Conclusion: - Left ventricle: Wall thickness was increased. Systolic function was normal. The left ventricular ejection fraction was 55%, by biplane method of disks. The visually estimated ejection fraction was in the range of 55% to 60%. Findings consistent with left ventricular diastolic dysfunction. - Right ventricle: Systolic function was normal. - Left atrium: The atrium was mildly dilated. - Aortic valve: Aortic transcatheter valve present There was trivial perivalvular regurgitation. Mean gradient (S): 9mm Hg. Peak gradient (S): 19mm Hg. VTI ratio of LVOT to aortic valve: 0.41. Peak velocity ratio of LVOT to aortic valve: 0.37. - Mitral valve: Calcified annulus. mildly thickened Mild regurgitation. - Tricuspid valve: Mild regurgitation. Comparison: Compared to the prior study, there has been no significant interval change. Procedure information: Comparison was made to the study of 02/03/2019. Study status: Routine. Procedure: Transthoracic echocardiography. Image quality was adequate. Scanning was performed from the parasternal, apical, subcostal, and suprasternal notch acoustic windows. Study components: M-mode, 2D, complete spectral Doppler, and color Doppler. Height: 170.2cm. Height: 67in. Weight: 81.2kg. Weight: 178.6lb. BMI: 28kg/m\S\2. BSA: 1.98m\S\2. Study date: 06/10/2019. Study time: 03:03 PM. Location: Bedside. Cardiac Anatomy: LEFT VENTRICLE: Wall thickness was increased. Systolic function was normal. The left ventricular ejection fraction was 55%, by biplane method of disks. The visually estimated ejection fraction was in the range of 55% to 60%. Findings consistent with left ventricular diastolic dysfunction. RIGHT VENTRICLE: Systolic function was normal. LEFT ATRIUM: The atrium was mildly dilated. AORTIC VALVE: Aortic transcatheter valve present Doppler: There was trivial perivalvular regurgitation. VTI ratio of LVOT to aortic valve: 0.41. Valve area (VTI): 1.03cm\S\2. Indexed valve area (VTI): 0.52cm\S\2/m\S\2. Peak velocity ratio of LVOT to aortic valve: 0.37. Indexed valve area (Vmax): 0.47cm\S\2/m\S\2. Mean velocity ratio of LVOT to aortic valve: 0.35. Indexed valve area (Vmean): 0.44cm\S\2/m\S\2. Mean gradient (S): 9mm Hg. Peak gradient (S): 19mm Hg. MITRAL VALVE: Calcified annulus. mildly thickened Doppler: There was no evidence for stenosis. Mild regurgitation. Valve area by pressure half-time: 4.05cm\S\2. Indexed valve area by pressure half-time: 2.05cm\S\2/m\S\2. Mean gradient (D): 3mm Hg. Peak gradient (D): 13mm Hg. TRICUSPID VALVE: Doppler: Mild regurgitation. Peak gradient (D): 19mm Hg. 2D measurements Doppler measurements Left ventricle LVOT LVID ED, PLAX 4.0 cm Peak joshua, S 80.96 cm/sec LVID ES, PLAX 2.3 cm Mean joshua, S 47.73 cm/sec FS, endocardial, 42 % VTI, S 16.5 cm PLAX Peak 3 mm Hg Major axis ES, A4C 7.2 cm gradient, S Minor axis ED, A4C 7.2 cm Mean 1 mm Hg Major axis ED, A2C 8.0 cm gradient, S Major axis ES, A2C 8.2 cm HR 78 bpm LVID, ES 2.3 cm Stroke vol 41 ml LVPW, ED 1.5 cm Cardiac 3.2 L/min IVS/LVPW ratio, ED 1.13 output (Qs) Vol, ED, 1-p A2C 94 ml Cardiac index 1.6 L/(min-m\S\2) Vol, ES, 1-p A2C 50 ml (Qs/bsa) EF, 1-p A2C 53 % Stroke index 21 ml/m\S\2 Vol ED, 1-p A4C 92 ml (SV/bsa) Vol ES, 1-p A4C 40 ml Aortic valve EF, 1-p A4C 56 % Peak joshua, S 219.33 cm/sec SV, 1-p A4C 52 ml Mean joshua, S 137.78 cm/sec EDV/bsa, 1-p A4C 46 ml/m\S\2 VTI, S 40.1 cm ESV/bsa, 1-p A4C 20 ml/m\S\2 Mean 9 mm Hg SV/bsa, 1-p A4C 26 ml/m\S\2 gradient, S Vol ED, 2-p 97 ml Peak 19 mm Hg Vol ES, 2-p 45 ml gradient, S EF, 2-p 54 % VTI ratio 0.41 SV, 2-p 45 ml LVOT/AV Vol/bsa, ED, 2-p 49 ml/m\S\2 Area, VTI 1.03 cm\S\2 Vol/bsa, ES, 2-p 23 ml/m\S\2 Area/bsa, VTI 0.52 cm\S\2/m\S\2 SV/bsa, 2-p 22.5 ml/m\S\2 Peak joshua 0.37 Ventricular septum ratio, IVS, ED 1.6 cm LVOT/AV LVOT Area/bsa, 0.47 cm\S\2/m\S\2 Diam, S 1.8 cm Vmax Area 2 cm\S\2 Vmean ratio 0.35 Aorta LVOT/AV Root diam 2.5 cm Area/bsa, 0.44 cm\S\2/m\S\2 Left atrium Vmean AP dim 3.8 cm Mitral valve AP dim index 1.9 cm/m\S\2 Peak E joshua 80.69 cm/sec SI dim, A4C 5.0 cm Peak A joshua 154.83 cm/sec Area ES, A4C 18 cm\S\2 Mean joshua, D 79.57 cm/sec Vol, S 54 ml Deceleration 226 ms Vol/bsa, S 27 ml/m\S\2 time Vol, ES, 1-p A4C 54 ml Pressure 54 ms Vol/bsa, ES, 1-p A4C 27 ml/m\S\2 half-time Vol, ES, 1-p A2C 43 ml Mean 3 mm Hg Vol/bsa, ES, 1-p A2C 22 ml/m\S\2 gradient, D Vol, ES, A/L 57 ml Peak 13 mm Hg Vol/bsa, ES, A/L 29 ml/m\S\2 gradient, D Right atrium Peak E/A 0.52 Area, ES 10 cm\S\2 ratio Area, ES, A4C 10 cm\S\2 Area (PHT) 4.05 cm\S\2 Right ventricle Area/bsa 2.05 cm\S\2/m\S\2 RVID ED, PLAX 2.7 cm (PHT) RVID ED 2.7 cm Regurg vena 2.7 cm contracta Tricuspid valve Peak 19 mm Hg gradient, D Regurg peak 219.33 cm/sec joshua Peak RV-RA 19 mm Hg gradient, S Pulmonic valve Regurg joshua, 78.11 cm/sec ED [facility] Labs are accredited with the [facility] Accreditation Commission - Echocardiography. Prepared and Electronically Authenticated Mariya Arias MD Confirmed 06/10/2019 16:48 Procedure Note Inge Arias MD - 06/10/2019 [facility] Cardiovascular Services Echocardiography Laboratory [address] [place] [id number] Transthoracic Echocardiography Patient: Elisha Vickers Study ECHO COMPLETE K ID: Gender: F : 1950 Age: 68 Room: Study 06/10/2019 Pt Outpatient Date: Status: Study 03:03:04 PM CSN #: [id number] Time: Ordering:Waylon Hahn Interpreting:Mariya Arias MD Machine Maintenance Technician: Walter Samson [facility] Indications and History: Dx: S/P TAVR (transcatheter aortic valve replacement) [Z95.2 (ICD-10-CM)] Summary and Conclusion: - Left ventricle: Wall thickness was increased. Systolic function was normal. The left ventricular ejection fraction was 55%, by biplane method of disks. The visually estimated ejection fraction was in the range of 55% to 60%. Findings consistent with left ventricular diastolic dysfunction. - Right ventricle: Systolic function was normal. - Left atrium: The atrium was mildly dilated. - Aortic valve: Aortic transcatheter valve present There was trivial perivalvular regurgitation. Mean gradient (S): 9mm Hg. Peak gradient (S): 19mm Hg. VTI ratio of LVOT to aortic valve: 0.41. Peak velocity ratio of LVOT to aortic valve: 0.37. - Mitral valve: Calcified annulus. mildly thickened Mild regurgitation. - Tricuspid valve: Mild regurgitation. Comparison: Compared to the prior study, there has been no significant interval change. Procedure information: Comparison was made to the study of 02/03/2019. Study status: Routine. Procedure: Transthoracic echocardiography. Image quality was adequate. Scanning was performed from the parasternal, apical, subcostal, and suprasternal notch acoustic windows. Study components: M-mode, 2D, complete spectral Doppler, and color Doppler. Height: 170.2cm. Height: 67in. Weight: 81.2kg. Weight: 178.6lb. BMI: 28kg/m\S\2. BSA: 1.98m\S\2. Study date: 06/10/2019. Study time: 03:03 PM. Location: Bedside. Cardiac Anatomy: LEFT VENTRICLE: Wall thickness was increased. Systolic function was normal. The left ventricular ejection fraction was 55%, by biplane method of disks. The visually estimated ejection fraction was in the range of 55% to 60%. Findings consistent with left ventricular diastolic dysfunction. RIGHT VENTRICLE: Systolic function was normal. LEFT ATRIUM: The atrium was mildly dilated. AORTIC VALVE: Aortic transcatheter valve present Doppler: There was trivial perivalvular regurgitation. VTI ratio of LVOT to aortic valve: 0.41. Valve area (VTI): 1.03cm\S\2. Indexed valve area (VTI): 0.52cm\S\2/m\S\2. Peak velocity ratio of LVOT to aortic valve: 0.37. Indexed valve area (Vmax): 0.47cm\S\2/m\S\2. Mean velocity ratio of LVOT to aortic valve: 0.35. Indexed valve area (Vmean): 0.44cm\S\2/m\S\2. Mean gradient (S): 9mm Hg. Peak gradient (S): 19mm Hg. MITRAL VALVE: Calcified annulus. mildly thickened Doppler: There was no evidence for stenosis. Mild regurgitation. Valve area by pressure half-time: 4.05cm\S\2. Indexed valve area by pressure half-time: 2.05cm\S\2/m\S\2. Mean gradient (D): 3mm Hg. Peak gradient (D): 13mm Hg. TRICUSPID VALVE: Doppler: Mild regurgitation. Peak gradient (D): 19mm Hg. 2D measurements Doppler measurements Left ventricle LVOT LVID ED, PLAX 4.0 cm Peak joshua, S 80.96 cm/sec LVID ES, PLAX 2.3 cm Mean joshua, S 47.73 cm/sec FS, endocardial, 42 % VTI, S 16.5 cm PLAX Peak 3 mm Hg Major axis ES, A4C 7.2 cm gradient, S Minor axis ED, A4C 7.2 cm Mean 1 mm Hg Major axis ED, A2C 8.0 cm gradient, S Major axis ES, A2C 8.2 cm HR 78 bpm LVID, ES 2.3 cm Stroke vol 41 ml LVPW, ED 1.5 cm Cardiac 3.2 L/min IVS/LVPW ratio, ED 1.13 output (Qs) Vol, ED, 1-p A2C 94 ml Cardiac index 1.6 L/(min-m\S\2) Vol, ES, 1-p A2C 50 ml (Qs/bsa) EF, 1-p A2C 53 % Stroke index 21 ml/m\S\2 Vol ED, 1-p A4C 92 ml (SV/bsa) Vol ES, 1-p A4C 40 ml Aortic valve EF, 1-p A4C 56 % Peak joshua, S 219.33 cm/sec SV, 1-p A4C 52 ml Mean joshua, S 137.78 cm/sec EDV/bsa, 1-p A4C 46 ml/m\S\2 VTI, S 40.1 cm ESV/bsa, 1-p A4C 20 ml/m\S\2 Mean 9 mm Hg SV/bsa, 1-p A4C 26 ml/m\S\2 gradient, S Vol ED, 2-p 97 ml Peak 19 mm Hg Vol ES, 2-p 45 ml gradient, S EF, 2-p 54 % VTI ratio 0.41 SV, 2-p 45 ml LVOT/AV Vol/bsa, ED, 2-p 49 ml/m\S\2 Area, VTI 1.03 cm\S\2 Vol/bsa, ES, 2-p 23 ml/m\S\2 Area/bsa, VTI 0.52 cm\S\2/m\S\2 SV/bsa, 2-p 22.5 ml/m\S\2 Peak joshua 0.37 Ventricular septum ratio, IVS, ED 1.6 cm LVOT/AV LVOT Area/bsa, 0.47 cm\S\2/m\S\2 Diam, S 1.8 cm Vmax Area 2 cm\S\2 Vmean ratio 0.35 Aorta LVOT/AV Root diam 2.5 cm Area/bsa, 0.44 cm\S\2/m\S\2 Left atrium Vmean AP dim 3.8 cm Mitral valve AP dim index 1.9 cm/m\S\2 Peak E joshua 80.69 cm/sec SI dim, A4C 5.0 cm Peak A joshua 154.83 cm/sec Area ES, A4C 18 cm\S\2 Mean joshua, D 79.57 cm/sec Vol, S 54 ml Deceleration 226 ms Vol/bsa, S 27 ml/m\S\2 time Vol, ES, 1-p A4C 54 ml Pressure 54 ms Vol/bsa, ES, 1-p A4C 27 ml/m\S\2 half-time Vol, ES, 1-p A2C 43 ml Mean 3 mm Hg Vol/bsa, ES, 1-p A2C 22 ml/m\S\2 gradient, D Vol, ES, A/L 57 ml Peak 13 mm Hg Vol/bsa, ES, A/L 29 ml/m\S\2 gradient, D Right atrium Peak E/A 0.52 Area, ES 10 cm\S\2 ratio Area, ES, A4C 10 cm\S\2 Area (PHT) 4.05 cm\S\2 Right ventricle Area/bsa 2.05 cm\S\2/m\S\2 RVID ED, PLAX 2.7 cm (PHT) RVID ED 2.7 cm Regurg vena 2.7 cm contracta Tricuspid valve Peak 19 mm Hg gradient, D Regurg peak 219.33 cm/sec joshua Peak RV-RA 19 mm Hg gradient, S Pulmonic valve Regurg joshua, 78.11 cm/sec ED [facility] are accredited with the [facility] Accreditation Commission - Echocardiography. Prepared and Electronically Authenticated Mariya Arias MD Confirmed 06/10/2019 16:48 us Waylon Hahn MD US ORDERABLES Final Result INTERFACE SYSTEM Refer to clinic/hospital department documented in this encounter Visit Diagnoses Diagnosis S/P TAVR (transcatheter aortic valve replacement) S/P TAVR (transcatheter aortic valve replacement) documented in this encounter Additional Health Concerns Infection Onset Date Last Indicated Resolved Time R/O COVID-19 10/14/2019 10/14/2019 10/14/2019 9:11 PM CDT documented as of this encounter Care Teams Institutional Nutrition Consultant Relationship Specialty Start Date End Date Gloria Escobar FNP [address] [place] [address] PCP - General Nurse Practitioner Family 06/20/19 documented as of this encounter
--- OUTSIDE RECORDS SUMMARY | 2025-04-08 18:48 | XMS_ITS | Encounter Summary ---
Author Organization [facility] Address [address] [place] [address] Care Team Providers Care Distribution System Operator Name Role Phone Gloria Escobar TRINH Primary Care Provider Reason for Referral * Radiology Services (Routine) - Closed Specialty Diagnoses / Procedures Referred By Contac t Referred To Contact Diagnoses PVD (peripheral vascular disease) Procedures IR FLUORO OR OTHER Maximo Morillo MD Phone: tel: fax: Referral ID Status Reason Start Date Expiration Date Visits Re quested Visits Authorized [id number] Closed 05/20/2020 06/20/2021 1 1 OMER SUPPORT AGENT Encounter Details Date Type Department Care Team (Late st Contact Info) Description 05/20/2020 Ancillary Orders [facility] Inter[facility]iology OR [address] [place] [id number] Maximo Morillo MD [address] [phone] PVD (peripheral vascular disease) Social History Tobacco Use Types Packs/Day Years Used Date Smoking Tobacco: Never Smokeless Tobacco: Never Alcohol Use Standard Drinks/Week Comments No 0 (1 standard drink = 0.6 oz pur e alcohol) Comments No Sex and Gender Information Value Date Recorded Sex Assigned at Not on file Legal Sex Female 4:54 AM CUSTOMER SUPPORT AGENT Gender Identity Not on file Sexual Orientation Not on file Occupation Industry Job Start Date Job End Date Not on file Not on file Not on file Not on file COVID-19 Exposure Response Date Recorded In the last month, have you been in contact with someone who was confirmed or suspected to have Coronavirus / COVID-19? No / Unsure 05/20/2020 10:11 AM CUSTOMER SUPPORT AGENT documented as of this encounter Plan of Treatment Not on file documented as of this encounter Results * IR FLUORO OR OTHER (05/21/2020 3:27 AM CUSTOMER SUPPORT AGENT) Narrative 05/21/2020 3:27 AM CUSTOMER SUPPORT AGENT Order Auto Finalized. Please see associated Operative Report/Progress Note from the same date. us Maximo Morillo MD IR ORDERABLES Final R esult documented in this encounter Visit Diagnoses Diagnosis PVD (peripheral vascular disease) Peripheral vascular disease, unspecified PVD (peripheral vascular disease) Peripheral vascular disease, unspecified documented in this encounter Care Teams Distribution System Operator Relationship Specialty Start Date End Date Gloria Escobar FNP [address] [place] [phone] PCP - General Nurse Practitioner Family 06/20/19 documented as of this encounter
--- OUTSIDE RECORDS SUMMARY | 2025-04-08 18:48 | XMS_ITS | Patient Health Record ---
Author Organization [facility] Address [address] [facility] [place] [address] Care Team Providers Care Youth Manager Name Role Phone Gloria Escobar Primary Care Provider JOLENE Mclean Unavailable [phone] Allergies Allergen (clinical drug ingredient) Drug/Non Drug Allergy documented on EMR Reaction Allergy Type Onset Date Status Substance with 8-etnebvk-8-methylgluta ryl-coenzyme A reductase inhibitor mechanism of action (substance) Statins Unknown Drug Allergy Active Results Component Value Reference Range Notes Urinalysis, Routine Reviewed date:11/27/2024 01:34:13 PM Interpretation: Performing Lab: Notes/Report: Urine-Color yellow Appearance clear Glucose - Bilirubin - Ketones - Specific [place] 1.015 Occult Blood - pH 6.0 Urine Protein - Urobilinogen,Semi-Qn - Nitrite, Urine - WBC Esterase - Reason For Referral No Information Medications Medication SIG (Take, Route, Frequency, Duration) Notes Start Date End Date Status Furosemide 20 MG 1 tablet Orally Once a day Active Metoprolol Succinate ER 25 MG 1 tablet Orally Once a day Active Clopidogrel Bisulfate 75 MG 1 tablet Ora lly Once a day Active Xarelto 20 MG 1 tablet with food Orally Once a day Active Entresto 49-51 MG 1 tablet Orally Twic e a day Active Nitrofurantoin Monohyd Macro 100 MG 1 capsule with food Orally daily Active Problems Problem Type SNOMED Code ICD Code Onset Dates Problem Status W/U Status Risk Notes Problem Neurogenic bladder (311334764) Neurogenic bladder (N31.9) Active confirmed Problem Urinary incontinence (763641477) Urinary incontinence (R32) Active confirmed Problem Diabetes mellitus uncontrolled (741366080) Uncontrolled diabetes mellitus (E11.65) Active confirmed Problem Legal blindness ([place] (630912538) Legally blind (H54.8) Active confirmed Problem Amputee (73916912) Amputee (Z89.9) Active confirmed Problem Dependence on wheelchair (277176135) Wheelchair bound (Z99.3) Active confirmed Vital Signs Weight-kg 74.84 kg 11/27/2024 Weight 165 lbs 11/27/2024 Procedures Procedure Date Ordered Date Performed Result Body Sit e Bladder Scan 11/27/2024 11/27/2024 N/A Encounters Encounter Location Date Provider Diagnosis [facility], [facility] [address] [facility] [place] [address] 11/13/2024 JOLENE DIAZ [facility] [facility], [facility] [address] [facility] [place] [address] 11/27/2024 JOLENE DIAZ [employer] [facility], [facility] [address] [facility] [place] [address] 11/27/2024 JOLENE DIAZ Neurogenic bladder N31.9 ; Urinary incontinence R32 ; Uncontrolled diabetes mellitus E11.65 ; Recurrent UTI N39.0 ; Legally blind H54.8 ; Wheelchair bound Z99.3 ; Impaired mobility Z74.09 and Amputee Z89.9 Assessments Encounter Date Diagnosis (ICD Code) Assessment Notes Treatment Notes Treatment Clinical Notes Section Notes 11/27/2024 Neurogenic bladder (ICD-10 - N31.9) 11/27/2024 Urinary incontinence (ICD-10 - R32) 11/27/2024 Uncontrolled diabetes mellitus (ICD-10 - E11.65) 11/27/2024 Recurrent UTI (ICD-10 - N39.0) 11/27/2024 Legally blind (ICD-10 - H54.8) 11/27/2024 Wheelchair bound (ICD-10 - Z99.3) 11/27/2024 Impaired mobility (ICD-10 - Z74.09) 11/27/2024 Amputee (ICD-10 - Z89.9) 11/27/2024 Other UA clear, PVR 91ml. She is on daily Macrobid, reports this does well for UTI suppression. We have discussed options for treatment of her urinary incontinence secondary to her neurogenic bladder. Unable to CIC or empty usp urethral catheter due to being visually impaired. She is okay with wearing pads and changing during the day, but she wants an external catheter to use at night to help her rest as this is the most bothersome to her quality of life. DME orders sent for PureWick catheter system. RTC in 1 year, or PRN sooner with any issues or s/s breakthrough UTI. Unable to CIC or empty usp urethral catheter due to being visually impaired. Plan Of Treatment Next Appt Details Provider Name:OJLENE DIAZ, 0 12/03/2025 02:00:00 PM, [address] [place], [address], Insurance Providers Payer Name Payer Address Payer Phone Subscriber Number Group Number Insured Name Patient Relationship to Insured Coverage Start Date Coverage End Date [employer] Medicare Replacement [address] [address] [place], [place] [id number] Elisha Vickers Self - patient is the insured [place] Medicaid [address] [place], [place] [id number] Elisha Vickers Self - patient is the insured Medical (General) History Medical History History ICD Code CAD diabetes heart disease high cholesterol high blood pressure Surgical History Surgery Date(Month/Year) double amputation heart stents pacemaker tavr eye surgery right Hospitalization History Reason Date(Month/Year) see sx
--- OUTSIDE RECORDS SUMMARY | 2025-04-08 18:48 | XMS_ITS | Encounter Summary ---
Author Organization [facility] Address [address] [place] [address] Care Team Providers Care Business Excellence Manager Name Role Phone Gloria Escobar TRINH Primary Care Provider Encounter Details Date Type Department Care Team (Latest Contact Info) Description 06/29/2016 Ancillary Orders [facility] [address] [phone] Sam Juárez MD [address] [facility] [address] [place] [address] Visit for screening mammogram Social History Tobacco Use Types Packs/Day Years Used Date Smoking Tobacco: Never Smokeless Tobacco: Never Alcohol Use Standard Drinks/Week Comments No 0 (1 standard drink = 0.6 oz pur e alcohol) Comments No Sex and Gender Information Value Date Recorded Sex Assigned at Not on file 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 Sam Juárez MD DIAGNOSTIC IMAGING ORDERA BLES Final Result documented in this encounter Visit Diagnoses Diagnosis Visit for screening mammogram Other screening mammogram Visit for screening mammogram Other screening mammogram documented in this encounter Additional Health Concerns Infection Onset Date Last Indicated Resolved Time R/O COVID-19 10/14/2019 10/14/2019 10/14/2019 9:11 PM CDT documented as of this encounter Care Teams Business Excellence Manager Relationship Specialty Start Date End Date Gloria Escobar FNP [address] [place] [phone] PCP - General Nurse Practitioner Family 06/20/19 documented as of this encounter
--- OUTSIDE RECORDS SUMMARY | 2025-04-08 18:48 | XMS_ITS | Encounter Summary ---
Author Organization [facility] Address [address] [place] [address] Care Team Providers Care Gluing Machine Adjuster Name Role Phone Gloria Escobar Primary Care Provider Encounter Details Date Type Department Care Team (Late st Contact Info) Description 10/29/2001 Outpatient Historical [facility] [address] [facility] [address] [place] [address] Yolie Dominguez MD NO ADDRESS ON FILE OT ABNORMAL RADIOLOG EXAM BREAST (Primary Dx) Social History Tobacco Use Types Packs/Day Years Used Date Smoking Tobacco: Never Assessed Comments Unknown Sex and Gender Information Value Date Recorded Sex Assigned at Not on file 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 Gender Identity Not on file Sexual Orientation Not on file documented as of this encounter Plan of Treatment Not on file documented as of this encounter Visit Diagnoses Diagnosis Other (abnormal) findings on radiological examination of breast- Primary documented in this encounter Additional Health Concerns Infection Onset Date Last Indicated Resolved Time R/O COVID-19 10/14/2019 10/14/2019 10/14/2019 9:11 PM CDT documented as of this encounter Care Teams Gluing Machine Adjuster Relationship Specialty Start Date End Date Gloria Escobar FNP [address] [place] [phone] PCP - General Nurse Practitioner Family 06/20/19 documented as of this encounter
--- OUTSIDE RECORDS SUMMARY | 2025-04-08 18:48 | XMS_ITS | Clinical Summary ---
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 100 Strip 8 Active lancets 30 gauge Twice daily. 50 Each 1 8 Active insulin lispro (HumaLOG) 100 units/mL injection GIVE WITH MEAL OR WHEN NPO CORRECTIONAL Dose, Low-dose Regimen for Blood Sugars: Less than or equal to 140 = no correctional insulin 141 - 180 = give and/or add 1 unit 181 - 220 = give and/or add 2 units 221 - 280 = give and/or add 3 units 281 - 340 = give and/or add 4 units Greater than 340 = give and/or add 5 units.. 9 mL 8 Active magnesium hydroxide (MILK OF MAGNESIA) 400 mg/5 mL suspension Take 30 mL by mouth 1 time daily as needed for Constipation. 8 Active insulin glargine (LANTUS) 100 unit/mL injectionIndica tions:30u in the am 30u in pm Inject 20 Units by subcutaneous injection 2 times daily. 3 mL 9 Active metoprolol succinate (TOPROL XL) 25 mg Extended Release 24 hour tablet Take 1 Tablet (25 mg) by mouth daily. 30 Tablet 4 9 Active clopidogreL (Plavix) 75 mg Tablet Take 1 Tablet (75 mg) by mouth daily. 30 Tablet 2 0 Active Additional Information Patient taking differently:75 mg OralDAILY WITH BREAKFAST, Reported on 02/27/2020 mineral oil-white petrolatum-cere sin (EUCERIN) Cream Apply to BLE/ dry skin Apply to bony prominences. Avoid between toes. 113 Gram 1 0 Active rivaroxaban (XARELTO) 2.5 mg Tablet Take 1 Tablet (2.5 mg) by mouth 2 times daily. 60 Tablet 1 01/08/2020 1:25 PM CDT 0 Active mupirocin (BACTROBAN) 2 % Ointment Apply to affected area daily. 15 Gram 1 0 Active Additional Information Patient not taking.Reported on 09/03/2020 Rybelsus 3 mg Tablet TAKE 1 TABLET (3 MG) BY MOUTH ONCE DAILY FOR 30 DAYS 0 Active aspirin (ECOTRIN EC) 81 mg Tablet, Delayed Release (E.C.) Take 1 Tablet (81 mg) by mouth daily. 0 Active lisinopriL (PRINIVIL) 40 mg tablet Take 1 tablet by mouth once daily 30 Tablet 1 Active Active Problems Problem Noted Date Diagnosed Date Osteomyelitis of second toe of right foot 2019 PAD (peripheral artery disease) 12/31/2019 Overview (01/03/2020): Added automatically from request for surgery [id number] Superficial femoral artery occlusion 10/16/2019 Osteomyelitis of left foot 02/27/2019 Diabetic ulcer of left midfo ot associated with type 2 diabetes mellitus, with fat layer exposed 02/27/2019 TIA (transient ischemic attack) 02/01/2019 Diabetic polyneuropathy asso ciated with type 2 diabetes mellitus 01/30/2019 Protein-calorie malnutrition, moderate 9 Acute osteomyelitis of left foot 01/18/2019 PVD (peripheral vascular disease) 01/18/2019 Cellulitis of left foot 01/18/2019 UTI (urinary tract infection) 01/15/2019 Volume depletion 01/15/2019 HTN (hypertension), benign 07/18/2018 Pacemaker 04/25/2018 Overview (04/25/2018): Device Model and serial number: Medtronic Farida model number [id number], serial number [id number] Lead Serial numbers: RV: Medtronic 5076-52 cm, serial number [id number] RA:Medtronic 5076-45 cm, serial number [id number] CHB (complete heart block) 04/25/2018 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 04/25/2018 Status post transcatheter ao rtic valve replacement (TAVR) using bioprosthesis 04/24/2018 ASHD (arteriosclerotic heart disease) 03/20/2018 Ischemic cardiomyopathy 03/20/2018 Chronic combined systolic and diastolic heart fa ilure 03/18/2018 Critical aortic valve stenosis 03/16/2018 Non compliance w medication regimen 06/17/2017 Hemispheric carotid artery syndrome 06/17/2017 Diastolic dysfunction with chronic heart failure 06/17/2017 Osteopenia 06/29/2016 Moderate aortic stenosis 04/25/2016 History of adenomatous polyp of colon 04/20/2016 Internal and external hemorrhoids without compli cation 04/12/2016 Overview (04/12/2016): The internal hemorrhoids are significant. This may be the cause of her recent episodes of bleeding per rectum. Diverticulosis of large intestine without hemorr lizzy 04/12/2016 Overview (04/12/2016): Limited to the sigmoid, and it is mild. Type 2 diabetes mellitus 03/24/2016 BRBPR (bright red blood per rectum) 03/24/2016 External hemorrhoids 03/24/2016 Cognitive deficits following stroke 03/24/2016 Stenosis of right carotid artery 02/12/2015 S/P carotid endarterectomy 02/12/2015 Slurred speech 12/23/2014 Symptomatic inflammatory myopathy 05/19/2009 Myalgia and myositis, unspecified 05/16/2009 Obesity 08/19/2008 Dyslipidemia 05/29/2008 Overview (04/02/2009): TGs: 500 (03/20); 1100 (01/18); 868 (11/18); 346 (08/18); >800 (09/17) Hypertension, essential Diplopia CN palsy Acute diastolic heart failure Chronic arterial ischemic stroke history Impaired functional mobility, balance, gait, and endurance Cellulitis of toe of left foot Arterial insufficiency of lower extremity Arterial thrombosis Acute lower GI bleeding Hematochezia Resolved Problems Problem Noted Date Diagnosed Date Resolved Date Diabetic ulcer of toe of lef t foot associated with type 2 diabetes mellitus, with fat layer exposed 01/18/2019 01/30/2019 Osteomyelitis of toe of left foot 01/16/2019 01/30/2019 Hypertensive urgency 06/17/2017 018 New daily persistent headache 06/17/2017 06/18/2017 Bright red rectal bleeding 04/12/2016 1 06/12/2015 History of colon polyps 04/12/201602/2016 Overview (04/12/2016): 2 Colon polyps removed 04-12-2016. Pathology pending. CVA (cerebral vascular accid ent) with the left hemiparesis 12/23/2014 06/17/2017 Overview (06/17/2017): MRI reportedly negative. 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 06/17/2017 Hypothyroidism 05/29/2009 04/25/2016 Elevated CK 05/19/2009 02/12/2015 Proximal muscle weakness 05/16/200911/2017 Chest pain 02/19/2009 05/29/2009 Weakness of right arm 02/19/20092017 Weakness of right hand 02/19/200906/17 Weakness of right leg 02/19/20092017 DM w/o Complication Type II, Insulin Dependent 05/29/2008 03/24/2016 Overview (04/02/2009): A1C: 10.3 (03/20); 9.7 (01/18); 10.9 (11/18); 9.3 (08/18); 9.3 (05/19), 7.3 (09/17) Insulin Dependent, 2003 Microalbumin: 3/09 (Normal) Breast CA Screening 05/29/2008 06/22/19 18 Overview (09/30/2008): Mammo: 09/18; 2006 Immunizations Immunization Administration Dates Next Due (PNEUMOVAX 23)(50 YRS UP) PN EUMOCOCCAL POLYSACCHARIDE (PPV23) 0.5 ML, IM 01/08/2020 (TDVAX)(7 YRS UP) TETANUS AN D DIPHTHERIA TOXOIDS, ADSORBED (2 LF OF TETANUS TOXOID AND 2 LF OF DIPHTHERIA TOXOID), 0.5ML (PF), IM 12/27/1999 Influenza Seasonal Unspecified Formulation IM ,04/06/2014 Influenza Vaccine High Dose 65+ Yrs IM 8,04/25/2016 Influenza Vaccine Split 3+ Yrs IM 05/29/2008 PREVNAR (PCV13) pneumococcal 13-valent conjugate Vaccine 04/12/2017 Pneumococcal conjugate, unspecified formulation 03/12/2008,03/12/2007 Skin Test TB 12/05/2008 Family History Medical History Relation Name Comments Diabetes Mother Stroke Mother Breast Cancer Neg Hx Cancer Neg Hx Colon Cancer Neg Hx Ovarian Cancer Neg Hx Relation Name Status Comments Daughter 1 Alive Daughter 2 Alive Maternal Grandmother Mother Sister 1 Alive Sister 2 Alive Son 1 Alive Son 2 Alive Son 3 Alive Son 4 Alive Son 5 Alive Son 6 Alive Social History Tobacco Use Types Packs/Day Years Used Date Smoking Tobacco: Never Smokeless Tobacco: Never Tobacco Cessation:Counseling Given: Yes Alcohol Use Standard Drinks/Week Comments No 0 (1 standard drink = 0.6 oz pur e alcohol) Comments No Sex and Gender Information Value Date Recorded Sex Assigned at Not on file Legal Sex Female 4:54 AM CHORUS MASTER Gender Identity Not on file Sexual Orientation Not on file Occupation Industry Job Start Date Job End Date Not on file Not on file Not on file Not on file Last Filed Vital Signs Vital Sign Reading Time Taken Comments Blood Pressure 140/70 09/03/2020 4:20 PM CDT Pulse 82 09/03/2020 4:20 PM CDT Temperature 36.6 C (97.8 F) 05/27/2020 11:45 AM CHORUS MASTER Respiratory Rate 18 05/27/2020 11:45 AM CHORUS MASTER Oxygen Saturation 96% 09/03/2020 4:20 PM CDT Inhaled Oxygen Concentration - - Weight 84.5 kg (186 lb 4.6 oz) 05/27/2020 5:12 A M CHORUS MASTER Height 170.2 cm (5' 7 ) 05/27/2020 5:12 AM CHORUS MASTER Body Mass Index 29.18 05/27/2020 5:12 AM CHORUS MASTER Plan of Treatment Health Maintenance Due Date Last Done Comments ZOSTER VACCINE (1 of 2) 1998 DTAP/TDAP/TD VACCINES (1 - Tdap) 12/28/1999 12/27/19 00 DIABETES MICROALBUMIN ANNUAL SCREEN 03/12/2013 03/12/2012, 08/15/2008, 06/02/2000 DIABETES ANNUAL FOOT EXAM 01/31/2020 01/30/2019, 09/2016 LDL CHOLESTEROL ANNUAL 02/03/2020 9, 04/25/2018, 06/18/2017, Additional history exists DIABETES HBA1C Q 6 MONTHS 07/17/20202019, 08/05/2019, 03/13/2019, Additional history exists DIABETES ANNUAL RETINAL EXAM 02/20/202104/2020, 01/12/2015, 12/23/2014, Additional history exists OSTEOPOROSIS SCREENING 06/29/2021 06/29/2016 COLORECTAL SCREENING 05/25/2022 05/25/2020, 05/25/2020, 04/12/2016, Additional history exists RSV VACCINE (60+ or ) (1 - 1-dose 75+ series) 11/04/2023 INFLUENZA VACCINE (#1) 2025 8, 04/12/2017, 04/25/2016, Additional history exists PNEUMOCOCCAL VACCINE 50+ YEARS Completed 0 01/08/2020, 04/12/2017, 04/12/2017, Additional history exists Medical Devices Implanted Type Area Cook Jelly Device Identifier Shelf Expiration Date Model / Serial / Lot Patch Vascu-Guard [id number] - [id number] Implanted:Qty : 1 on 02/11/2015 by Rosie Birmingham MD at [facility] Biological Right: Carotid SYNOVIS- BIO-VASCULAR INC [id number] / / [id number] Angio-Seal Vip Closure Dev [id number] - [id number] Implanted:09/2019 by Maximo Morillo MD at [facility] (Quantity not on file) Closure Device Left: Leg AGUILAR [employer] [id number] 04/11/2020 [id number] / / [id number] Closure Perclose Proglide 28344 - [id number] Implanted:11/2019 at [facility] (Quantity not on file) Closure Device Right: Groin AGUILAR- VASC DEVICE 05/11/2021 10148 / [id number] / [id number] Closure Perclose Proglide 60581 - [id number] Implanted: at [facility] (Quantity not on file) Closure Device Left: Groin AGUILAR- VASC DEVICE 09/09/2021 42405 / / [id number] Closure Perclose Proglide 07626 - [id number] Implanted: at [facility] (Quantity not on file) Closure Device Right: Groin AGUILAR- VASC DEVICE 10/09/2021 22477 / / [id number] Dev Sealangio Vip 8fr 071974s - [id number] Implanted:Qty : 1 on 05/21/2020 by Maximo Morillo MD at [facility] Closure Device Leg AGUILAR [employer] 02/09/2021 [id number] / / [id number] Lens Io Bi-Aspheric Softechd+22.5 d - [id number] Implanted:Qty : 1 on 04/01/2020 by Raul Murphy MD at [facility] Eye Left: Eye LENSTEC INC 12/25/2024 SOFTECHD+ 22.5D / [id number] / Lens Io Bi-Aspheric Softechd+22.5 d - [id number] Implanted:Qty : 1 on 05/14/2020 by Raul Murphy MD at [facility] Eye Right: Eye [employer] INC 07/10/2024 SOFTECHD+ 22.5D / [id number] / [id number] Medtronic Lead-04/24/20 18 Implanted: by Bebeto Guzman MD (Quantity not on file) Lead MEDTRONIC INC 01/20/2020 5076-52 / [id number] / Medtroniclead -04/24/2018 Implanted: by Bebeto Guzman MD (Quantity not on file) Lead MEDTRONIC INC 01/24/2020 5076-45 / [id number] / Medtronic Ben [place] Xt Dr Jeff [id number] Implanted: by Bebeto Guzman MD (Quantity not on file) Pacemaker MEDTRONIC INC 09/07/2019 FARIDA [id number] / [id number] / Sealant Floseal W/ Apdtr 5ml [id number] - [id number] Implanted:Qty : 1 on 02/11/2015 by Rosie Birmingham MD at [facility] Sealant Right: Neck APONTE- BIOSCIENCE 01/10/2016 [id number] / / [id number] Stent- 018 Implanted:Qty : 1 on 03/21/2018 by Deng Lockett DO Stent AGUILAR LAB [id number] 05/16/2020 / / [id number] Stent- 018 Implanted:Qty : 1 on 03/21/2018 by Deng Lockett DO Stent MEDTRONIC INC [id number] 09/18/2019 / / [id number] Stent- 018 Implanted:Qty : 1 on 03/21/2018 by Deng Lockett DO Stent AG[employer]AR LAB [id number] 08/28/2020 / / [id number] Stent- 018 Implanted:Qty : 1 on 03/21/2018 by Deng Lockett DO Stent [employer]AR LAB [id number] 09/22/2018 / / [id number] Supera Stent-03/01/20 19 Implanted: by Moi Anderson MD (Quantity not on file) Stent Left: Leg AGUILAR- VASC DEVICE [id number] S-60-150- 120-P6 / / Stent Vasc Supera 6fr [id number]- P6-05/15/2019 Implanted:09/2018 (Quantity not on file) Stent AGUILAR- VASC DEVICE [id number] 01/09/2021 S-50-060- 120-P6 / / [id number] Stent Vasc Supera 6fr S-24-853-120- P6-05/15/2019 Implanted:09/2018 (Quantity not on file) Stent AGUILAR- VASC DEVICE [id number] 12/09/2020 S-60-100- 120-P6 / / [id number] Stent Lifestream Cvr [id number] - [id number] Implanted:Qty : 1 on 05/21/2020 at [facility] Stent Right: Leg CR BARD- MARIEL VASC INC 08/09/2022 [id number] / / [id number] Stent Lifestream Cvr [id number] - [id number] Implanted:Qty : 1 on 05/21/2020 at [facility] Stent Right: Leg CR BARD- MARIEL VASC INC 06/11/2022 [id number] / / [id number] Stent Synergy Mr 3.5x32mm Drug Elut [id number] - [id number] Implanted:Qty : 1 on 05/21/2020 by Maximo Morillo MD at [facility] Stent Right: Leg [employer] YOKASTA 01/15/2022 [id number] / / [id number] Valve- 018 Implanted:Qty : 1 on 04/24/2018 by Waylon Hahn MD Valve MEDTRONIC- HEART VALVE [id number] 12/04/2019 / [id number] / Procedures Procedure Name Priority Date/Time Associated Diagnosis Comments COLONOSCOPY REPORT 05/25/2020 1: 15 PM CHORUS MASTER LIPID PANEL Routine 02/02/2019 1:11 AM CDT HEMOGLOBIN A1C Routine 02/02/2019 1:11 AM CDT XR DEXA BONE DENSITY AXIAL 1 OR MORE SITES Routine 06/29/2016 3:05 PM CHORUS MASTER Asymptomatic menopausal state Osteoporosis screening MICROALBUMIN/CREATIN INE RATIO, RANDOM UR Routine 03/12/2012 8:47 AM CDT Encounter for long-term (current) use of other medications Chest pain, unspecified HTN (hypertension), benign DM w/o Complication Type II, Insulin Dependent from Last 3 Months or Most Recently Relevant to Health Maintenance Results * COLONOSCOPY REPORT (05/25/2020 1:15 PM CHORUS MASTER) Narrative Procedure Note Corona Alvarez MD - 05/25/2020 1:14 PM CST [facility] GI Patient Name: Elisha Vickers Procedure Date: 05/25/2020 Date of : 1950 Admit Type: Outpatient Age: 69 Attending MD: Corona Alvarez , Procedure: Colonoscopy Indications: Hematochezia Providers: Corona Alvarez Referring MD: Medicines: Monitored Anesthesia Care Complications: No immediate complications. Procedure: After I obtained informed consent, the scope was passed under direct vision. Throughout the procedure, the patient's blood pressure, pulse, and oxygen saturations were monitored continuously. The Colonoscope was introduced through the anus and advanced to the cecum, identified by appendiceal orifice and ileocecal valve. The colonoscopy was performed without difficulty. The patient tolerated the procedure well. The quality of the bowel preparation was good. Estimated Blood Loss: Estimated blood loss: none. Findings: Internal hemorrhoids were found during retroflexion. The hemorrhoids were medium-sized. Multiple medium-mouthed diverticula were found in the sigmoid colon. The exam was otherwise without abnormality. Impression: - Internal hemorrhoids. - Diverticulosis in the sigmoid colon. - The examination was otherwise normal. - No specimens collected. Recommendation: - Repeat colonoscopy is not recommended for screening purposes. This was likely a diverticular hemorrhage which has now ceased. OK to carefully restart anticoagulation and observe for recurrent bleeding. Please call if we can assist further. Sign off. Corona Alvarez, 05/25/2020 1:14:17 PM Number of Addenda: 0 Note Initiated On: 05/25/2020 12:23 PM Scope Withdrawal Time 0 hours 5 minutes 31 seconds Scope In: 12:57:58 PM Scope Out: 1:08:30 PM [address] [place], [place] Corona Alvarez MD GI PROCEDURE ORDERABLES Final Result * (ABNORMAL) HEMOGLOBIN A1C (02/02/2019 1:11 AM CDT) HEMOGLOBIN A1C 9.0(H) <=5.6 % 02/02/2019 8:55 AM CDT [facility] EST. AVG GLUCOSE, A1C 212 mg/dL 02/02/2019 8:55 AM CDT [facility] Blood Venipuncture / Unknown 02/02/2019 1:11 AM CDT 02/02/2019 1:29 AM CDT [facility] - 02/02/2019 8:55 AM CDT HGB A1C INTERPRETATION NORMAL: <5.7% PRE-DIABETES: 5.7 - 6.4% DIABETES: 6.5% OR GREATER us Price Medina MD CHEMISTRY ORDERABLES Final Result [facility]# [id number] [address] [place] [address] * (ABNORMAL) LIPID PANEL (02/02/2019 1:11 AM CDT) CHOLESTEROL 185 <200 mg/dL 02/02/2019 2:02 AM CDT [facility] TRIGLYCERIDE 455(H) <150 mg/dL 02/02/2019 2:02 AM T [facility] HDL 35(L) 40 - 59 mg/dL 02/02/2019 2:02 AM T [facility] LDL CALCULATED 02/02/2019 2:02 AM T [facility] Comment:Calculated LDL is no t accurate when the Triglyceride value exceeds 400. NON-HDL CHOLESTEROL 150(H) <130 mg/dL 02/02/2019 2:02 AM T [facility] Blood Venipuncture / Unknown 02/02/2019 1:11 AM CDT 02/02/2019 1:29 AM CDT [facility] - 02/02/2019 2:02 AM CDT TOTAL CHOLESTEROL mg/dL Desirable <200 Borderline high 200-239 High >=240 TRIGLYCERIDES mg/dL Normal <150 Borderline high 150-199 High 200-499 Very high >=500 HDL CHOLESTEROL mg/dL Low <40 Normal 40-59 Desirable >=60 NON HDL CHOLESTEROL mg/dL Optimal <130 Near Optimal 130-159 Borderline High 160-189 Very High >=190 Calculated LDL mg/dL Optimal <100 Near Optimal 100-129 Borderline High 130-159 High 160-189 Very High >=190 ATPIII Guidelines Reference Ranges for Lipid Panels (NCEP/AMA) us Price Medina MD CHEMISTRY ORDERABLES Final Result [facility]# [id number] [facility] [place] [address] * XR DEXA BONE DENSITY AXIAL 1 OR MORE SITES (06/29/2016 3:05 PM CHORUS MASTER) Anatomical Region Laterality Modality Digital Radiogra phy 06/29/2016 3:06 PM CHORUS MASTER Impressions 06/29/2016 3:49 PM CHORUS MASTER IMPRESSION: Abnormal examination Low bone density/osteopenia is present in the left proximal femur at the average of the patient's age-matched control consistent with age-appropriate physiologic demineralization as the etiology of her osteopenia. NOF guidelines recommend consideration of FDA-approved medical therapies in patients with T-scores of the spine or hip equal to or less than -2.5 or with FRAX determined 10-year probabilities of hip/major osteoporosis-related fractures equal or greater than 3%/20% respectively. Consider assessing fracture risk using the FRAX analysis tool for guidance of clinical management available online at www.shef.ac.uk/FRAX/. Enter Next Gen Illumination for Select DXA and the Femoral Neck BMD value. Narrative 06/29/2016 3:49 PM CHORUS MASTER DEXA Evaluation of the Lumbar Spine and Left Proximal Femur Reason for Consultation: Ovarian failure. Evaluation of bone mineral density. The following absorptiometry data were obtained. The quality of this examination is acceptable with regards to count density, processed images, data display and lack of important artifacts (including but not limited to motion and attenuation artifacts). Serial examination number 1. L1-L4 BMD (g/cm2): 1.014 Adult T-score: -0.3 Adult Z-score: 1.6 Left Femoral Neck BMD (g/cm2): 0.648 Adult T-score: -1.8 Adult Z-score: -0.2 Left Total Hip BMD (g/cm2): 0.980 Adult T-score: 0.3 Adult Z-score: 1.7 Procedure Note Waylon Camejo MD - 06/29/2016 DEXA Evaluation of the Lumbar Spine and Left Proximal Femur Reason for Consultation: Ovarian failure. Evaluation of bone mineral density. The following absorptiometry data were obtained. The quality of this examination is acceptable with regards to count density, processed images, data display and lack of important artifacts (including but not limited to motion and attenuation artifacts). Serial examination number 1. L1-L4 BMD (g/cm2): 1.014 Adult T-score: -0.3 Adult Z-score: 1.6 Left Femoral Neck BMD (g/cm2): 0.648 Adult T-score: -1.8 Adult Z-score: -0.2 Left Total Hip BMD (g/cm2): 0.980 Adult T-score: 0.3 Adult Z-score: 1.7 IMPRESSION IMPRESSION: Abnormal examination Low bone density/osteopenia is present in the left proximal femur at the average of the patient's age-matched control consistent with age-appropriate physiologic demineralization as the etiology of her osteopenia. NOF guidelines recommend consideration of FDA-approved medical therapies in patients with T-scores of the spine or hip equal to or less than -2.5 or with FRAX determined 10-year probabilities of hip/major osteoporosis-related fractures equal or greater than 3%/20% respectively. Consider assessing fracture risk using the FRAX analysis tool for guidance of clinical management available online at www.shef.ac.uk/FRAX/. Enter Next Gen Illumination for Select DXA and the Femoral Neck BMD value. Sam Juárez MD DIAGNOSTIC IMAGING ORDERA BLES Final Result * MICROALBUMIN/CREATININE RATIO, RANDOM UR (03/12/2012 8:47 AM CDT) Pathologist [facility] CREATININE, URINE 104 mg/dL 03/12/2012 9:26 AM CDT [facility] [place] MICROALBUMIN/C REAT RATIO, UR 70.2 mg/g Creatinine 03/12/2012 9:26 AM CDT [facility] [place] MICROALBUMIN, URINE 7.3 mg/dL 03/12/2012 9:26 AM CDT [facility] Urine specimen (specimen) 03/12/2012 8:47 AM CDT 03/12/2012 8:47 AM CDT Ethan Ballard DO URINE ORDERABLES Final Result Performing Organization Address City/State/[facility] Co de Phone Number [facility] CLIA # [id number] [address] [place] [address] from Last 3 Months or Most Recently Relevant to Health Maintenance Insurance MEDICARE PART A AND B [employer] Medicare Part D RX INFOCROSSING Medicaid RX [place] [employer] (INTERNAL) [facility] Advance Directives For more information, please contact: [phone] Documents on File Type Date Recorded Patient Advanced Manufacturing Engineer Expl anation Advance Directive POA 04/05/2018 10:18 AM Advance Directive POA Advance Directive Living Will 03/16/2018 1:12 PM Advance Directive Living Will Advance Directive POA 03/16/2018 1:10 PM A dvance Directive POA Advance Directive POA 02/12/2015 7:00 AM Ad lam Directive POA * Full Code (Latest Code Status on File) Date Activated Date Inactivated Comments 05/21/2020 4:04 AM 05/27/2020 6:07 PM * Full Code Date Activated Date Inactivated Comments 05/21/2020 3:13 AM 05/21/2020 4:04 AM * Full Code Date Activated Date Inactivated Comments 12/31/2019 5:13 PM 01/08/2020 4:23 PM * Full Code Date Activated Date Inactivated Comments 10/14/2019 11:32 PM 10/17/2019 3:42 PM * Full Code Date Activated Date Inactivated Comments 10/14/2019 7:54 PM 10/14/2019 11:32 PM Care Teams Electric Mule Operator Relationship Specialty Start Date End Date Gloria Escobar [facility]IN[facility] [address] [place] [id number] PCP - General Nurse Practitioner Family 06/20/19
--- OUTSIDE RECORDS SUMMARY | 2025-04-08 18:48 | XMS_ITS | Encounter Summary ---
Author Organization [facility] Address [address] [place] [address] Care Team Providers Care Grinding Wheel Operator Name Role Phone LuzGloria TRINH Primary Care Provider Reason for Referral * Outpatient Services (Routine) - Closed Specialty Diagnoses / Procedures Referred By Javad saini Referred To Contact Diagnoses Carotid stenosis Procedures US CAROTID DOPPLER Jeremi Mederos Sr., FNP [address] [place] [address] Phone: tel: fax: Referral ID Status Reason Start Date Expiration Date Visits Re quested Visits Authorized [id number] Closed 03/09/2015 04/08/2016 1 1 Encounter Details Date Type Department Care Team (Latest Contact Info) Description 03/09/2015 Ancillary Orders [facility] Centralized Scheduling [address] [place] [phone] Jeremi Mederos Sr., FNP [address] [place] [address] Carotid stenosis (Primary Dx) Social History Tobacco Use Types Packs/Day Years Used Date Smoking Tobacco: Never Smokeless Tobacco: Never Alcohol Use Standard Drinks/Week Comments No 0 (1 standard drink = 0.6 oz pur e alcohol) Comments No Sex and Gender Information Value Date Recorded Sex Assigned at Not on file 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 Peak systolic internal carotid velocities are 0.689 m/sec on the right and 0.896 m/sec on the left for IC/CC ratios of 0.9 on the right and 0.9 on the left. There is mixed plaque of the carotid bifurcation bilaterally. No ulcerated plaque is seen. Antegrade vertebral artery flow is noted bilaterally. IMPRESSION negative for hemodynamically significant stenosis Procedure Note Heron Devi MD - 03/10/2015 PROCEDURE CAROTID DUPLEX ULTRASOUND, 09 March 2015 DESCRIPTION Carotid duplex sonography showed mid common carotid velocities of 0.765 m/sec on the right and 1.047 m/sec on the left. Peak systolic internal carotid velocities are 0.689 m/sec on the right and 0.896 m/sec on the left for IC/CC ratios of 0.9 on the right and 0.9 on the left. There is mixed plaque of the carotid bifurcation bilaterally. No ulcerated plaque is seen. Antegrade vertebral artery flow is noted bilaterally. IMPRESSION negative for hemodynamically significant stenosis us Jeremi Mederos Sr., OPTICAL GLASS WET INSPECTOR US ORDERABLES F inal Result documented in this encounter Visit Diagnoses Diagnosis Carotid stenosis- Primary Occlusion and stenosis of carotid artery without mention of cerebral infarction Carotid stenosis Occlusion and stenosis of carotid artery without mention of cerebral infarction documented in this encounter Additional Health Concerns Infection Onset Date Last Indicated Resolved Time R/O COVID-19 10/14/2019 10/14/2019 10/14/2019 9:11 PM CDT documented as of this encounter Care Teams Grinding Wheel Operator Relationship Specialty Start Date End Date Gloria Escobar FNP [address] [place] [phone] PCP - General Nurse Practitioner Family 06/20/19 documented as of this encounter
--- OUTSIDE RECORDS SUMMARY | 2025-04-08 18:48 | XMS_ITS | Encounter Summary ---
Author Organization [facility] Address [address] [place] [address] Care Team Providers Care [employer]fg [employer] Name Role Phone Gloria Escobar TRINH Primary Care Provider [phone] Reason for Referral * Outpatient Services (Routine) - Closed Specialty Diagnoses / Procedures Referred By Javad saini Referred To Contact Radiology Diagnoses Carotid artery stenosis, right CVA (cerebral vascular accident) ([facility]) Procedures CTA NECK W WO CONTRAST Rosie Birmingham MD [address] [place] [address] Phone: tel: fax: [facility] CT Scan [place] [address] [place] [address] Phone: tel: fax: Referral ID Status Reason Start Date Expiration Date V isits Requested Visits Authorized [id number] Closed [facility] CTS to Schedule ([facility]) 01/13/2015 02/13/2016 1 1 Encounter Details Date Type Department Care Team (Late st Contact Info) Description 01/13/2015 Ancillary Orders [facility] CT Scan [place] [address] [place] [address] Rosie Birmingham MD [address] [place] [phone] Carotid artery stenosis, right (Primary Dx); CVA (cerebral vascular accident) (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 Gender Identity Not on file Sexual Orientation Not on file Occupation Industry Job Start Date Job End Date Not on file Not on file Not on file Not on file documented as of this encounter Plan of Treatment Not on file documented as of this encounter Results * CTA NECK W WO CONTRAST (01/19/2015 9:21 AM CDT) Anatomical Region Laterality Modality Neck Computed Tomogra phy 01/19/2015 8:40 AM CDT Narrative 01/19/2015 1:23 PM CDT PROCEDURE CTA NECK, IV contrast enhanced, 19 January 2015 TECHNIQUE After initial noncontrast preliminary imaging and during injection of 100 mL Optiray-320 nonionic contrast material intravenously, helical axial CT was obtained from the aortic arch through the [place] and imaged at 3 mm increments for 85 axial images images. Sagittal and coronal reconstructions are also obtained of each axial series. 3-D rotational views are also reviewed. DESCRIPTION There is normal appearance of the origins of the carotid arteries from the right subclavian artery and aortic arch on the right and left respectively. No stenosis is seen at these origins. There is atherosclerotic calcification of the carotid bifurcation bilaterally with high-grade stenosis on the right. The origin of the right internal carotid artery at the bifurcation measures approximately 2 mm, (image 296 of series five), with the common carotid more proximally measuring 5.5 mm and the internal carotid distal to the bifurcation measuring 4.6 mm. No stenosis is appreciated on the left. The internal carotid artery measures 4.8 mm distal to the bifurcation and the common carotid proximal bifurcation is measured at 7 mm. There is an adjacent calcified atherosclerotic plaque. There is minimal atherosclerotic change of the carotid siphons bilaterally. 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 Anterior, middle, and posterior cerebral arteries appear perfused at this time. Vertebral arteries appear patent. No parenchymal lesion is appreciated in the visualized cerebrum or cerebellum. Cervical soft tissues appear otherwise unremarkable. The cervical spine shows moderate osteoarthritis. IMPRESSION 1. high-grade stenosis of the right internal carotid artery at the origin 2. [place] configuration as described Procedure Note Heron Devi MD - 01/19/2015 PROCEDURE CTA NECK, IV contrast enhanced, 19 January 2015 TECHNIQUE After initial noncontrast preliminary imaging and during injection of 100 mL Optiray-320 nonionic contrast material intravenously, helical axial CT was obtained from the aortic arch through the [place] and imaged at 3 mm increments for 85 axial images images. Sagittal and coronal reconstructions are also obtained of each axial series. 3-D rotational views are also reviewed. DESCRIPTION There is normal appearance of the origins of the carotid arteries from the right subclavian artery and aortic arch on the right and left respectively. No stenosis is seen at these origins. There is atherosclerotic calcification of the carotid bifurcation bilaterally with high-grade stenosis on the right. The origin of the right internal carotid artery at the bifurcation measures approximately 2 mm, (image 296 of series five), with the common carotid more proximally measuring 5.5 mm and the internal carotid distal to the bifurcation measuring 4.6 mm. No stenosis is appreciated on the left. The internal carotid artery measures 4.8 mm distal to the bifurcation and the common carotid proximal bifurcation is measured at 7 mm. There is an adjacent calcified atherosclerotic plaque. There is minimal atherosclerotic change of the carotid siphons bilaterally. 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 Anterior, middle, and posterior cerebral arteries appear perfused at this time. Vertebral arteries appear patent. No parenchymal lesion is appreciated in the visualized cerebrum or cerebellum. Cervical soft tissues appear otherwise unremarkable. The cervical spine shows moderate osteoarthritis. IMPRESSION 1. high-grade stenosis of the right internal carotid artery at the origin 2. [place] configuration as described Rosie Birmingham MD CT ORDERABLES Final Result documented in this encounter Visit Diagnoses Diagnosis Carotid artery stenosis, right- Primary CVA (cerebral vascular accident) (CMS/HCC) Unspecified cerebral artery occlusion with cerebral infarction Carotid artery stenosis, right CVA (cerebral vascular accident) (CMS/HCC) Unspecified cerebral artery occlusion with cerebral infarction documented in this encounter Additional Health Concerns Infection Onset Date Last Indicated Resolved Time R/O COVID-19 10/14/2019 10/14/2019 10/14/2019 9:11 PM CDT documented as of this encounter Care Teams Mfg Assoc Relationship Specialty Start Date End Date Gloria Escobar FNP [address] [place] [phone] PCP - General Nurse Practitioner Family 06/20/19 documented as of this encounter
--- OUTSIDE RECORDS SUMMARY | 2025-04-08 18:48 | XMS_ITS | Encounter Summary ---
Author Organization [facility] Address [address] [place] [address] Care Team Providers Care Assistant Men'S Soccer Coach Name Role Phone Gloria Escobar TRINH Primary Care Provider Reason for Referral * Radiology Services (Routine) - Closed Specialty Diagnoses / Procedures Referred By Contac t Referred To Contact Radiology Diagnoses S/P TAVR (transcatheter aortic valve replacement) Procedures ECHOCARDIOGRAM W/ CONTRAST AGENT ECHO COMPLETE Waylon Hahn MD Phone: tel: fax: [facility] Echo [place] [address] [place] [address] Phone: tel: fax: Referral ID Status Reason Start Date Expiration Date Visits Re quested Visits Authorized [id number] Closed 04/26/2018 05/27/2019 1 1 HIATRIC THERAPIST Encounter Details Date Type Department Care Team (Late st Contact Info) Description 06/18/2018 Ancillary Orders [facility] Cardiology- [place] [address] [place] [address] Waylon Hahn MD [address] [place] [address] S/P TAVR (transcatheter aortic valve replacement) Social History Tobacco Use Types Packs/Day Years Used Date Smoking Tobacco: Never Smokeless Tobacco: Never Alcohol Use Standard Drinks/Week Comments No 0 (1 standard drink = 0.6 oz pur e alcohol) Comments No Sex and Gender Information Value Date Recorded Sex Assigned at Not on file Legal Sex Female 4:54 AM PSYCHIATRIC THERAPIST Gender Identity Not on file Sexual Orientation Not on file Occupation Industry Job Start Date Job End Date Not on file Not on file Not on file Not on file documented as of this encounter Plan of Treatment Not on file documented as of this encounter Results * ECHOCARDIOGRAM W/ CONTRAST AGENT (06/18/2018 1:55 PM PSYCHIATRIC THERAPIST) EJECTION FRACTION 35 INTERFACE SYSTEM 06/18/2018 1:06 PM PSYCHIATRIC THERAPIST Narrative INTERFACE SYSTEM - 06/19/2018 1:24 PM PSYCHIATRIC THERAPIST [facility] Echocardiography-[address] [place] [address] Transthoracic Echocardiography Patient: Elisha Vickers Study ECHO COMPLETE K ID: Gender: F : 1950 Age: 67 Room: Study 06/18/2018 Pt Outpatient Date: Status: Study 01:06:05 PM CSN #: [id number] Time: Ordering:Waylon Hahn Interpreting:Danielle Martinez Fish Hatchery Manager: Arsh Pickard [facility] Indications and History: S/P TAVR (transcatheter aortic valve replacement) [Z95.2 (ICD-10-CM)]. Labs, prior tests, procedures, and surgery: Echocardiography (04/24/2018). TAVR procedure (04/24/2018). 29mm Medtronic Evolu tPro prosthesis. Permanent pacemaker system implantation. Summary and Conclusion: - Left ventricle: The cavity size was normal. Wall thickness was increased increased in a pattern of mild to moderate LVH. The left ventricular ejection fraction was 35%, by biplane method of disks. Dyskinetic distal LV segments. Abnormal relaxation with increased filling pressures. - Right ventricle: The cavity size was normal. Pacer wire or catheter noted in right ventricle. Systolic function was normal. The estimated peak pressure was 35mm Hg. - Left atrium: The atrium was mildly dilated. - Right atrium: Pacer wire or catheter noted in right atrium. - Aortic valve: H/o TAVR Apr 2018 s/p 29 mm transcatheter aortic valve Medtronic Evolute Pro. Tissue valve leaflets not well seen. Peak velocity 2.1m/s. Mean gradient 9mm Hg. Doppler velocity index 0.54. Effective orifice area 1.7cm2. Mild paravalvular regurgitation. Valve area (VTI): 1.9cm\S\2. Valve area (Vmax): 1.8cm\S\2. Valve area (Vmean): 1.87cm\S\2. - Mitral valve: Mild regurgitation. - Tricuspid valve: Mild regurgitation. - Pericardium: A small pericardial effusion was identified posterior to the heart. Comparison: Compared to the prior study, there has been no significant interval change. Procedure information: Comparison was made to the study of 04/24/2018. Study status: Routine. Procedure: Transthoracic echocardiography. Image quality was adequate. The study was technically difficult due to poor acoustic window availability. Scanning was performed from the parasternal, apical, subcostal, and suprasternal notch acoustic windows. Intravenous contrast (Definity) was administered to enhance Doppler signals and opacify the LV. There were no complications. There were no contrast reactions. Study components: M-mode, 2D, complete spectral Doppler, and color Doppler. Height: 170.2cm. Height: 67in. Weight: 87.5kg. Weight: 192.4lb. BMI: 30.2kg/m\S\2. BSA: 2.06m\S\2. Blood pressure: 112/71 Study date: 06/18/2018. Study time: 01:06 PM. Location: Echo laboratory. Cardiac Anatomy: LEFT VENTRICLE: The cavity size was normal. Wall thickness was increased increased in a pattern of mild to moderate LVH. The left ventricular ejection fraction was 35%, by biplane method of disks. Dyskinetic distal LV segments. Abnormal relaxation with increased filling pressures. RIGHT VENTRICLE: The cavity size was normal. Pacer wire or catheter noted in right ventricle. Systolic function was normal. The estimated peak pressure was 35mm Hg. LEFT ATRIUM: The atrium was mildly dilated. RIGHT ATRIUM: The atrium was normal in size. Pacer wire or catheter noted in right atrium. ATRIAL SEPTUM: Not well visualized. AORTIC VALVE: H/o TAVR Apr 2018 s/p 29 mm transcatheter aortic valve Medtronic Evolute Pro. Tissue valve leaflets not well seen. Peak velocity 2.1m/s. Mean gradient 9mm Hg. Doppler velocity index 0.54. Effective orifice area 1.7cm2. Mild paravalvular regurgitation. VTI ratio of LVOT to aortic valve: 0.62. Valve area (VTI): 1.9cm\S\2. Indexed valve area (VTI): 0.92cm\S\2/m\S\2. Peak velocity ratio of LVOT to aortic valve: 0.59. Valve area (Vmax): 1.8cm\S\2. Indexed valve area (Vmax): 0.87cm\S\2/m\S\2. Mean velocity ratio of LVOT to aortic valve: 0.61. Valve area (Vmean): 1.87cm\S\2. Indexed valve area (Vmean): 0.91cm\S\2/m\S\2. Mean gradient (S): 9mm Hg. Peak gradient (S): 18mm Hg. MITRAL VALVE: Mobility was not restricted. Doppler: There was no evidence for stenosis. Mild regurgitation. Valve area: 1.56cm\S\2. Indexed valve area: 0.76cm\S\2/m\S\2. Valve area by pressure half-time: 2.27cm\S\2. Indexed valve area by pressure half-time: 1.1cm\S\2/m\S\2. Valve area by continuity equation (using LVOT flow): 1.6cm\S\2. Indexed valve area by continuity equation (using LVOT flow): 0.76cm\S\2/m\S\2. Mean gradient (D): 3mm Hg. Peak gradient (D): 8mm Hg. TRICUSPID VALVE: The valve appears to be grossly normal. Doppler: Mild regurgitation. PULMONIC VALVE: Not well visualized. Doppler: Trivial regurgitation. Peak gradient (S): 5mm Hg. PERICARDIUM: A small pericardial effusion was identified posterior to the heart. AORTA: Aortic root: The visualized portion of the aortic root was normal in size. Aortic arch: The visualized portion of the aortic arch was normal in size. SYSTEMIC VEINS: Inferior vena cava: The vessel was normal in size. The respirophasic diameter changes were in the normal range (> 50%), consistent with normal central venous pressure. 2D measurements Doppler measurements Left ventricle Left ventricle LVID ED, PLAX 5.3 cm IVRT 80 ms LVID ES, PLAX 3.4 cm E', lat chelsea, 4 cm/sec FS, endocardial, 35 % TDI PLAX E/e', lat 29 Major axis ES, A4C 8.9 cm chelsea, TDI Minor axis ED, A4C 8.9 cm E', med chelsea, 3 cm/sec Major axis ED, A2C 9.5 cm TDI Major axis ES, A2C 9.8 cm E/e', med 39 LVID, ES 3.4 cm chelsea, TDI LVPW, ED 1.4 cm E', avg, TDI 3.5 cm/sec IVS/LVPW ratio, ED 0.95 E/e', avg, 33 Vol, ED, 1-p A2C 210 ml TDI Vol, ES, 1-p A2C 67 ml LVOT EF, 1-p A2C 32 % Peak joshua, S 125.71 cm/sec Vol ED, 1-p A4C 185 ml Mean joshua, S 84.37 cm/sec Vol ES, 1-p A4C 110 ml VTI, S 23.9 cm EF, 1-p A4C 40 % Peak 6 mm Hg SV, 1-p A4C 75 ml gradient, S EDV/bsa, 1-p A4C 90 ml/m\S\2 Mean 3 mm Hg ESV/bsa, 1-p A4C 54 ml/m\S\2 gradient, S SV/bsa, 1-p A4C 36 ml/m\S\2 HR 74 bpm Vol ED, 2-p 201 ml Stroke vol 73 ml Vol ES, 2-p 131 ml Cardiac 5.4 L/min EF, 2-p 35 % output (Qs) SV, 2-p 143 ml Cardiac index 2.6 L/(min-m\S\2) Vol/bsa, ED, 2-p 98 ml/m\S\2 (Qs/bsa) Vol/bsa, ES, 2-p 64 ml/m\S\2 Stroke index 36 ml/m\S\2 SV/bsa, 2-p 69.2 ml/m\S\2 (SV/bsa) Ventricular septum Aortic valve IVS, ED 1.3 cm Peak joshua, S 213.85 cm/sec LVOT Mean joshua, S 138.33 cm/sec Diam, S 2.0 cm VTI, S 38.6 cm Area 3 cm\S\2 Mean 9 mm Hg Aorta gradient, S Root diam 1.8 cm Peak 18 mm Hg AAo AP diam, S 3.2 cm gradient, S Arch diam 2.7 cm VTI ratio 0.62 Diam bet LCC, LSA 2.7 cm LVOT/AV Left atrium Area, VTI 1.9 cm\S\2 AP dim 3.4 cm Area/bsa, VTI 0.92 cm\S\2/m\S\2 AP dim index 1.7 cm/m\S\2 Peak joshua 0.59 SI dim, A4C 5.4 cm ratio, Area ES, A4C 23 cm\S\2 LVOT/AV Vol, S 79 ml Area, Vmax 1.8 cm\S\2 Vol/bsa, S 38 ml/m\S\2 Area/bsa, 0.87 cm\S\2/m\S\2 Vol, ES, 1-p A4C 75 ml Vmax Vol/bsa, ES, 1-p A4C 37 ml/m\S\2 Vmean ratio 0.61 Vol, ES, 1-p A2C 64 ml LVOT/AV Vol/bsa, ES, 1-p A2C 31 ml/m\S\2 Area, Vmean 1.87 cm\S\2 Vol, ES, A/L 83 ml Area/bsa, 0.91 cm\S\2/m\S\2 Vol/bsa, ES, A/L 40 ml/m\S\2 Vmean Right atrium Mitral valve ML dim, ES 3.1 cm Peak E joshua 115.5 cm/sec SI dim, ES 3.1 cm Peak A joshua 147.85 cm/sec Area, ES 14 cm\S\2 Mean joshua, D 86.33 cm/sec ML dim, ES, A4C 3.1 cm VTI leaflet 46.9 cm SI dim, ES, A4C 3.1 cm coapt Area, ES, A4C 14 cm\S\2 Deceleration 232 ms Right ventricle time RVID ED, PLAX 3.1 cm Pressure 97 ms Minor axis ED, A4C 3.9 cm half-time RVID ED 3.1 cm Mean 3 mm Hg gradient, D Peak 8 mm Hg gradient, D Peak E/A 0.78 ratio Area 1.56 cm\S\2 Area/bsa 0.76 cm\S\2/m\S\2 Area (PHT) 2.27 cm\S\2 Area/bsa 1.1 cm\S\2/m\S\2 (PHT) Area (LVOT) 1.6 cm\S\2 continuity Area/bsa 0.76 cm\S\2/m\S\2 (LVOT cont) Regurg vena 3.1 cm contracta Tricuspid valve Regurg peak 286.1 cm/sec joshua Peak RV-RA 33 mm Hg gradient, S Pulmonic valve Peak joshua, S 115.32 cm/sec Peak 5 mm Hg gradient, S Regurg joshua, 74.1 cm/sec ED [facility] Labs are accredited with the [facility] Accreditation Commission - Echocardiography. Prepared and Electronically Authenticated Danielle Martinez Confirmed 06/19/2018 13:24 Procedure Note Danielle Martinez MD - 06/19/2018 [facility] Echocardiography-[place] [address] [facility] [address] [place] [address] Transthoracic Echocardiography Patient: Elisha Vickers Study ECHO COMPLETE K ID: Gender: F : 1950 Age: 67 Room: Study 06/18/2018 Pt Outpatient Date: Status: Study 01:06:05 PM [facility] #: [id number] Time: Ordering:Waylon Hahn Interpreting:Danielle Martinez Fish Hatchery Manager: Arsh Pickard [facility] Indications and History: S/P TAVR (transcatheter aortic valve replacement) [Z95.2 (ICD-10-CM)]. Labs, prior tests, procedures, and surgery: Echocardiography (04/24/2018). TAVR procedure (04/24/2018). 29mm Medtronic Evolu tPro prosthesis. Permanent pacemaker system implantation. Summary and Conclusion: - Left ventricle: The cavity size was normal. Wall thickness was increased increased in a pattern of mild to moderate LVH. The left ventricular ejection fraction was 35%, by biplane method of disks. Dyskinetic distal LV segments. Abnormal relaxation with increased filling pressures. - Right ventricle: The cavity size was normal. Pacer wire or catheter noted in right ventricle. Systolic function was normal. The estimated peak pressure was 35mm Hg. - Left atrium: The atrium was mildly dilated. - Right atrium: Pacer wire or catheter noted in right atrium. - Aortic valve: H/o TAVR Apr 2018 s/p 29 mm transcatheter aortic valve Medtronic Evolute Pro. Tissue valve leaflets not well seen. Peak velocity 2.1m/s. Mean gradient 9mm Hg. Doppler velocity index 0.54. Effective orifice area 1.7cm2. Mild paravalvular regurgitation. Valve area (VTI): 1.9cm\S\2. Valve area (Vmax): 1.8cm\S\2. Valve area (Vmean): 1.87cm\S\2. - Mitral valve: Mild regurgitation. - Tricuspid valve: Mild regurgitation. - Pericardium: A small pericardial effusion was identified posterior to the heart. Comparison: Compared to the prior study, there has been no significant interval change. Procedure information: Comparison was made to the study of 04/24/2018. Study status: Routine. Procedure: Transthoracic echocardiography. Image quality was adequate. The study was technically difficult due to poor acoustic window availability. Scanning was performed from the parasternal, apical, subcostal, and suprasternal notch acoustic windows. Intravenous contrast (Definity) was administered to enhance Doppler signals and opacify the LV. There were no complications. There were no contrast reactions. Study components: M-mode, 2D, complete spectral Doppler, and color Doppler. Height: 170.2cm. Height: 67in. Weight: 87.5kg. Weight: 192.4lb. BMI: 30.2kg/m\S\2. BSA: 2.06m\S\2. Blood pressure: 112/71 Study date: 06/18/2018. Study time: 01:06 PM. Location: Echo laboratory. Cardiac Anatomy: LEFT VENTRICLE: The cavity size was normal. Wall thickness was increased increased in a pattern of mild to moderate LVH. The left ventricular ejection fraction was 35%, by biplane method of disks. Dyskinetic distal LV segments. Abnormal relaxation with increased filling pressures. RIGHT VENTRICLE: The cavity size was normal. Pacer wire or catheter noted in right ventricle. Systolic function was normal. The estimated peak pressure was 35mm Hg. LEFT ATRIUM: The atrium was mildly dilated. RIGHT ATRIUM: The atrium was normal in size. Pacer wire or catheter noted in right atrium. ATRIAL SEPTUM: Not well visualized. AORTIC VALVE: H/o TAVR Apr 2018 s/p 29 mm transcatheter aortic valve Medtronic Evolute Pro. Tissue valve leaflets not well seen. Peak velocity 2.1m/s. Mean gradient 9mm Hg. Doppler velocity index 0.54. Effective orifice area 1.7cm2. Mild paravalvular regurgitation. VTI ratio of LVOT to aortic valve: 0.62. Valve area (VTI): 1.9cm\S\2. Indexed valve area (VTI): 0.92cm\S\2/m\S\2. Peak velocity ratio of LVOT to aortic valve: 0.59. Valve area (Vmax): 1.8cm\S\2. Indexed valve area (Vmax): 0.87cm\S\2/m\S\2. Mean velocity ratio of LVOT to aortic valve: 0.61. Valve area (Vmean): 1.87cm\S\2. Indexed valve area (Vmean): 0.91cm\S\2/m\S\2. Mean gradient (S): 9mm Hg. Peak gradient (S): 18mm Hg. MITRAL VALVE: Mobility was not restricted. Doppler: There was no evidence for stenosis. Mild regurgitation. Valve area: 1.56cm\S\2. Indexed valve area: 0.76cm\S\2/m\S\2. Valve area by pressure half-time: 2.27cm\S\2. Indexed valve area by pressure half-time: 1.1cm\S\2/m\S\2. Valve area by continuity equation (using LVOT flow): 1.6cm\S\2. Indexed valve area by continuity equation (using LVOT flow): 0.76cm\S\2/m\S\2. Mean gradient (D): 3mm Hg. Peak gradient (D): 8mm Hg. TRICUSPID VALVE: The valve appears to be grossly normal. Doppler: Mild regurgitation. PULMONIC VALVE: Not well visualized. Doppler: Trivial regurgitation. Peak gradient (S): 5mm Hg. PERICARDIUM: A small pericardial effusion was identified posterior to the heart. AORTA: Aortic root: The visualized portion of the aortic root was normal in size. Aortic arch: The visualized portion of the aortic arch was normal in size. SYSTEMIC VEINS: Inferior vena cava: The vessel was normal in size. The respirophasic diameter changes were in the normal range (> 50%), consistent with normal central venous pressure. 2D measurements Doppler measurements Left ventricle Left ventricle LVID ED, PLAX 5.3 cm IVRT 80 ms LVID ES, PLAX 3.4 cm E', lat chelsea, 4 cm/sec FS, endocardial, 35 % TDI PLAX E/e', lat 29 Major axis ES, A4C 8.9 cm che[place], TDI Minor axis ED, A4C 8.9 cm E', med chelsea, 3 cm/sec Major axis ED, A2C 9.5 cm TDI Major axis ES, A2C 9.8 cm E/e', med 39 LVID, ES 3.4 cm chel[place], TDI LVPW, ED 1.4 cm E', avg, TDI 3.5 cm/sec IVS/LVPW ratio, ED 0.95 E/e', avg, 33 Vol, ED, 1-p A2C 210 ml TDI Vol, ES, 1-p A2C 67 ml LVOT EF, 1-p A2C 32 % Peak joshua, S 125.71 cm/sec Vol ED, 1-p A4C 185 ml Mean joshua, S 84.37 cm/sec Vol ES, 1-p A4C 110 ml VTI, S 23.9 cm EF, 1-p A4C 40 % Peak 6 mm Hg SV, 1-p A4C 75 ml gradient, S EDV/bsa, 1-p A4C 90 ml/m\S\2 Mean 3 mm Hg ESV/bsa, 1-p A4C 54 ml/m\S\2 gradient, S SV/bsa, 1-p A4C 36 ml/m\S\2 HR 74 bpm Vol ED, 2-p 201 ml Stroke vol 73 ml Vol ES, 2-p 131 ml Cardiac 5.4 L/min EF, 2-p 35 % output (Qs) SV, 2-p 143 ml Cardiac index 2.6 L/(min-m\S\2) Vol/bsa, ED, 2-p 98 ml/m\S\2 (Qs/bsa) Vol/bsa, ES, 2-p 64 ml/m\S\2 Stroke index 36 ml/m\S\2 SV/bsa, 2-p 69.2 ml/m\S\2 (SV/bsa) Ventricular septum Aortic valve IVS, ED 1.3 cm Peak joshua, S 213.85 cm/sec LVOT Mean joshua, S 138.33 cm/sec Diam, S 2.0 cm VTI, S 38.6 cm Area 3 cm\S\2 Mean 9 mm Hg Aorta gradient, S Root diam 1.8 cm Peak 18 mm Hg AAo AP diam, S 3.2 cm gradient, S Arch diam 2.7 cm VTI ratio 0.62 Diam bet LCC, LSA 2.7 cm LVOT/AV Left atrium Area, VTI 1.9 cm\S\2 AP dim 3.4 cm Area/bsa, VTI 0.92 cm\S\2/m\S\2 AP dim index 1.7 cm/m\S\2 Peak joshua 0.59 SI dim, A4C 5.4 cm ratio, Area ES, A4C 23 cm\S\2 LVOT/AV Vol, S 79 ml Area, Vmax 1.8 cm\S\2 Vol/bsa, S 38 ml/m\S\2 Area/bsa, 0.87 cm\S\2/m\S\2 Vol, ES, 1-p A4C 75 ml Vmax Vol/bsa, ES, 1-p A4C 37 ml/m\S\2 Vmean ratio 0.61 Vol, ES, 1-p A2C 64 ml LVOT/AV Vol/bsa, ES, 1-p A2C 31 ml/m\S\2 Area, Vmean 1.87 cm\S\2 Vol, ES, A/L 83 ml Area/bsa, 0.91 cm\S\2/m\S\2 Vol/bsa, ES, A/L 40 ml/m\S\2 Vmean Right atrium Mitral valve ML dim, ES 3.1 cm Peak E joshua 115.5 cm/sec SI dim, ES 3.1 cm Peak A joshua 147.85 cm/sec Area, ES 14 cm\S\2 Mean joshua, D 86.33 cm/sec ML dim, ES, A4C 3.1 cm VTI leaflet 46.9 cm SI dim, ES, A4C 3.1 cm coapt Area, ES, A4C 14 cm\S\2 Deceleration 232 ms Right ventricle time RVID ED, PLAX 3.1 cm Pressure 97 ms Minor axis ED, A4C 3.9 cm half-time RVID ED 3.1 cm Mean 3 mm Hg gradient, D Peak 8 mm Hg gradient, D Peak E/A 0.78 ratio Area 1.56 cm\S\2 Area/bsa 0.76 cm\S\2/m\S\2 Area (PHT) 2.27 cm\S\2 Area/bsa 1.1 cm\S\2/m\S\2 (PHT) Area (LVOT) 1.6 cm\S\2 continuity Area/bsa 0.76 cm\S\2/m\S\2 (LVOT cont) Regurg vena 3.1 cm contracta Tricuspid valve Regurg peak 286.1 cm/sec joshua Peak RV-RA 33 mm Hg gradient, S Pulmonic valve Peak joshua, S 115.32 cm/sec Peak 5 mm Hg gradient, S Regurg joshua, 74.1 cm/sec ED [facility] are accredited with the [facility] Accreditation Commission - Echocardiography. Prepared and Electronically Authenticated Danielle Martinez Confirmed 06/19/2018 13:24 us Waylon Hahn MD ORDERABLES Final Result INTERFACE SYSTEM Refer to clinic/hospital department documented in this encounter Visit Diagnoses Diagnosis S/P TAVR (transcatheter aortic valve replacement) S/P TAVR (transcatheter aortic valve replacement) documented in this encounter Additional Health Concerns Infection Onset Date Last Indicated Resolved Time R/O COVID-19 10/14/2019 10/14/2019 10/14/2019 9:11 PM CDT documented as of this encounter Care Teams Assistant Men'S Soccer Coach Relationship Specialty Start Date End Date Gloria Escobar FNP [address] [place] [address] PCP - General Nurse Practitioner Family 06/20/19 documented as of this encounter
--- OUTSIDE RECORDS SUMMARY | 2025-04-08 18:48 | XMS_ITS | Encounter Summary ---
Author Organization [facility] Address [address] [place] [address] Care Team Providers Care Automobile Tester Name Role Phone LuzGloria briones TRINH Primary Care Provider [phone] Reason for Referral * Outpatient Services (Routine) - Closed Specialty Diagnoses / Procedures Referred By Javad saini Referred To Contact Diagnoses Numbness and tingling of left side of face Procedures CT HEAD WO CONTRAST Jeremi Mederos Sr., FNP [address] [place] [address] Phone: tel: fax: Referral ID Status Reason Start Date Expiration Date Visits Re quested Visits Authorized [id number] Closed 12/22/2014 01/22/2016 1 1 Encounter Details Date Type Department Care Team (Late st Contact Info) Description 12/22/2014 Ancillary Orders [facility] Admitting [address] [place] [address] Jeremi Mederos Sr., FNP [address] [place] [address] Numbness and tingling of left side of face (Primary Dx) Social History Tobacco Use Types Packs/Day Years Used Date Smoking Tobacco: Never Smokeless Tobacco: Never Alcohol Use Standard Drinks/Week Comments No 0 (1 standard drink = 0.6 oz pur e alcohol) Comments No Sex and Gender Information Value Date Recorded Sex Assigned at Not on file 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 Bone window reconstructions are also obtained. DESCRIPTION Noncontrast computed cerebral tomography shows no intracranial hemorrhage. There is no midline shift, mass effect, or edema. No extra-axial fluid collection is seen. Bone window settings show intact calvarium. There is no abnormal fluid density seen in the visualized paranasal sinuses or mastoid air cells. IMPRESSION negative noncontrast head CT Procedure Note Heron Devi MD - 12/22/[address] noncontrast, 22 December 2014 TECHNIQUE Noncontrast computed cerebral tomography was obtained with 56 axial images. Bone window reconstructions are also obtained. DESCRIPTION Noncontrast computed cerebral tomography shows no intracranial hemorrhage. There is no midline shift, mass effect, or edema. No extra-axial fluid collection is seen. Bone window settings show intact calvarium. There is no abnormal fluid density seen in the visualized paranasal sinuses or mastoid air cells. IMPRESSION negative noncontrast head CT us Jeremi Mederos Sr., MACHINIST MATE CT ORDERABLES F inal Result documented in this encounter Visit Diagnoses Diagnosis Numbness and tingling of left side of face- Primary Numbness and tingling of left side of face documented in this encounter Additional Health Concerns Infection Onset Date Last Indicated Resolved Time R/O COVID-19 10/14/2019 10/14/2019 10/14/2019 9:11 PM CDT documented as of this encounter Care Teams Automobile Tester Relationship Specialty Start Date End Date Gloria Escobar FNP [address] [place] [id number] PCP - General Nurse Practitioner Family 06/20/19 documented as of this encounter
--- OUTSIDE RECORDS SUMMARY | 2025-04-08 18:48 | XMS_ITS | Encounter Summary ---
Author Organization [facility] Address [address] [place] [address] Care Team Providers Care Bead Worker Sewing Name Role Phone Gloria Escobar TRINH Primary Care Provider Encounter Details Date Type Department Care Team (Late st Contact Info) Description 06/10/2019 Ancillary Orders [facility] Cardiology- [place] [address] [place] [address] Waylon Hhan MD [address] [place] [address] S/P TAVR (transcatheter aortic valve replacement) Social History Tobacco Use Types Packs/Day Years Used Date Smoking Tobacco: Never Smokeless Tobacco: Never Alcohol Use Standard Drinks/Week Comments No 0 (1 standard drink = 0.6 oz pur e alcohol) Comments No Sex and Gender Information Value Date Recorded Sex Assigned at Not on file 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 Gender Identity Not on file Sexual Orientation Not on file Occupation Industry Job Start Date Job End Date Not on file Not on file Not on file Not on file documented as of this encounter Plan of Treatment Not on file documented as of this encounter Visit Diagnoses Diagnosis S/P TAVR (transcatheter aortic valve replacement) documented in this encounter Additional Health Concerns Infection Onset Date Last Indicated Resolved Time R/O COVID-19 10/14/2019 10/14/2019 10/14/2019 9:11 PM CDT documented as of this encounter Care Teams Bead Worker Sewing Relationship Specialty Start Date End Date Gloria Escobar FNP [address] [place] [id number] PCP - General Nurse Practitioner Family 06/20/19 documented as of this encounter
--- OUTSIDE RECORDS SUMMARY | 2025-04-08 18:48 | XMS_ITS | Encounter Summary ---
Author Organization [facility] Address [address] [place] [address] Care Team Providers Care Dehydrator Name Role Phone Gloria Escobar TRINH Primary Care Provider Reason for Referral * MRI (Routine) - Closed Specialty Diagnoses / Procedures Referred By Javad saini Referred To Contact Diagnoses Type 2 diabetes mellitus with foot ulcer, unspecified whether mcfp insulin use Cellulitis of toe of right foot Procedures MRI FOOT WO CONTRAST RIGHT MRI FOOT W WO CONTRAST RIGHT Axel Kwon DPM [address] [place] [address] Phone: tel: fax: [facility] Pre-Registration [place] CALL TO MAKE APPOINTMENT ONLY [address] [place] [address] Phone: tel: fax: Referral ID Status Reason Start Date Expiration Date Visits Requested Visits Authorized [id number] Closed Interventional Scheduling (SGF) 11/15/2019 12/15/2020 1 1 Encounter Details Date Type Department Care Team (Late st Contact Info) Description 11/26/2019 Ancillary Orders [facility] Pod[facility]-[place] [facility] [place] [address] [place] [address] Axel Kwon DPM [address] [place] [address] Type 2 diabetes mellitus with foot ulcer, unspecified whether mcfp insulin use ([facility]); Cellulitis of toe of right foot Social History Tobacco Use Types Packs/Day Years Used Date Smoking Tobacco: Never Smokeless Tobacco: Never Alcohol Use Standard Drinks/Week Comments No 0 (1 standard drink = 0.6 oz pur e alcohol) Comments No Sex and Gender Information Value Date Recorded Sex Assigned at Not on file 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 No / Unsure 11/26/2019 1:54 PM CDT documented as of this encounter Plan of Treatment Not on file documented as of this encounter Results * MRI FOOT WO CONTRAST RIGHT (11/26/2019 1:45 PM CDT) Anatomical Region Laterality Modality Ankle / Foot Magnetic Resonan ce 11/26/2019 1:49 PM CDT Impressions 11/26/2019 4:42 PM CDT IMPRESSION: Please see below. Exam: MRI FOOT WO CONTRAST RIGHT Date/Time of Exam: 11/26/2019 1:45 PM Reason For Exam: Osteomyelitis suspected, foot swelling, diabetic; attn R 2nd toe. Diagnosis: Type 2 diabetes mellitus with foot ulcer, unspecified whether mcfp insulin use; Type 2 diabetes mellitus with foot ulcer, unspecified whether appeals coordinator insulin use; Cellulitis of toe of right foot. Technique: T1 axial, coronal, and sagittal, T1 fat-sat axial, T2 fat-sat axial and sagittal, STIR coronal and sagittal. Comparison: Right toe radiographs from 10/16/2019. Findings: Examination is significantly compromised by patient motion artifact despite repeat series performed. No sagittal images obtained secondary to the patient's inability to finish the exam. Near circumferential intermediate signal on T1 weighted sequences about the tuft of the second distal phalanx noted. No corresponding signal abnormality on fluid sensitive sequences identified. Mild osteoarthritis of the first MTP is present. There is possible cortical loss with confluent intermediate signal abnormality on T1 weighted sequences of the second distal phalanx. Patchy marrow signal abnormality on fluid sensitive sequences of the first distal phalanx is present. Corresponding reticular intermediate signal abnormality on T1 weighted sequences is seen. No additional cortical loss or confluent intermediate signal abnormality on T1 weighted sequences is identified. No additional marrow signal abnormality on fluid sensitive sequences is present. Nonspecific dorsal subcutaneous edema about the forefoot is present. IMPRESSION: 1. Severely compromised examination secondary to patient motion artifact, incomplete fat saturation, and inability of the patient to complete the scan. No parasagittal series obtained. 2. There is possible cortical loss and confluent intermediate signal abnormality on T1-weighted sequences of the second distal phalanx. Conventional MRI findings suspicious for cellulitis about the tuft of the second distal phalanx is noted. Clinical correlation recommended as, again, this examination is severely compromised. If high clinical concern for osteomyelitis, further assessment with nuclear medicine bone scan may be of benefit. 3. Mild osteoarthritis of the first MTP. [id number] Narrative Procedure Note Evan Villanueva MD - 11/26/2019 IMPRESSION: Please see below. Exam: MRI FOOT WO CONTRAST RIGHT Date/Time of Exam: 11/26/2019 1:45 PM Reason For Exam: Osteomyelitis suspected, foot swelling, diabetic; attn R 2nd toe. Diagnosis: Type 2 diabetes mellitus with foot ulcer, unspecified whether appeals coordinator insulin use; Type 2 diabetes mellitus with foot ulcer, unspecified whether appeals coordinator insulin use; Cellulitis of toe of right foot. Technique: T1 axial, coronal, and sagittal, T1 fat-sat axial, T2 fat-sat axial and sagittal, STIR coronal and sagittal. Comparison: Right toe radiographs from 10/16/2019. Findings: Examination is significantly compromised by patient motion artifact despite repeat series performed. No sagittal images obtained secondary to the patient's inability to finish the exam. Near circumferential intermediate signal on T1 weighted sequences about the tuft of the second distal phalanx noted. No corresponding signal abnormality on fluid sensitive sequences identified. Mild osteoarthritis of the first MTP is present. There is possible cortical loss with confluent intermediate signal abnormality on T1 weighted sequences of the second distal phalanx. Patchy marrow signal abnormality on fluid sensitive sequences of the first distal phalanx is present. Corresponding reticular intermediate signal abnormality on T1 weighted sequences is seen. No additional cortical loss or confluent intermediate signal abnormality on T1 weighted sequences is identified. No additional marrow signal abnormality on fluid sensitive sequences is present. Nonspecific dorsal subcutaneous edema about the forefoot is present. IMPRESSION: 1. Severely compromised examination secondary to patient motion artifact, incomplete fat saturation, and inability of the patient to complete the scan. No parasagittal series obtained. 2. There is possible cortical loss and confluent intermediate signal abnormality on T1-weighted sequences of the second distal phalanx. Conventional MRI findings suspicious for cellulitis about the tuft of the second distal phalanx is noted. Clinical correlation recommended as, again, this examination is severely compromised. If high clinical concern for osteomyelitis, further assessment with nuclear medicine bone scan may be of benefit. 3. Mild osteoarthritis of the first MTP. [id number] Axel Kwon [facility] MR ORDERABLES Final Result documented in this encounter Visit Diagnoses Diagnosis Type 2 diabetes mellitus with foot ulcer, unspecified whether appeals coordinator insulin use Cellulitis of toe of right foot Cellulitis and abscess of toe, unspecified Type 2 diabetes mellitus with foot ulcer, unspecified whether mcfp insulin use Cellulitis of toe of right foot Cellulitis and abscess of toe, unspecified documented in this encounter Care Teams Dehydrator Relationship Specialty Start Date End Date Gloria Escobar FNP [address] [place] [phone] PCP - General Nurse Practitioner Family 06/20/19 documented as of this encounter
--- OUTSIDE RECORDS SUMMARY | 2025-04-08 18:48 | XMS_ITS | Clinical Summary ---
Author Organization [facility] Address [address] [place] [address] Care Team Providers Care Yarn Mercerizer Operator Name Role Phone Gloria Escobar TRINH Primary Care Provider Allergies Active Allergy Reactions Criticality Noted Date Comments Ceftriaxone Other (See Comments) High 02/22/2019 Caused TIA's; has tolerated cefepime and cefazolin since Wvevrnl-Fvy-Ynx Reductase Inhibitors Muscle Pain High 05/21/2009 Medications insulin lispro (HumaLOG) 100 units/mL injection GIVE WITH MEAL OR WHEN NPOCORRECTIONAL Dose, Low-dose Regimen for Blood Sugars: Less than or equal to 140 = no correctional insulin 141 - 180 = give and/or add 1 unit 181 - 220 = give and/or add 2 units 221 - 280 = give and/or add 3 units 281 - 340 = give and/or add 4 units Greater than 340 = give and/or add 5 units.. 9 mL 0 05/07/20 18 Active magnesium hydroxide (MILK OF MAGNESIA) 400 mg/5 mL suspension Take 30 mL by mouth 1 time daily as needed for Constipation. 05/07/20 18 Active rivaroxaban (XARELTO) 2.5 mg Tablet Take 1 Tablet (2.5 mg) by mouth 2 times daily. 60 Tablet 1 01/09/20 20 Active metoprolol succinate (TOPROL XL) 25 mg Extended Release 24 hour tablet Take 1 Tablet (25 mg) by mouth daily. 30 Tablet 4 06/07/20 19 Active mupirocin (BACTROBAN) 2 % Ointment Apply to affected area daily. 15 Gram 1 02/13/20 20 Active semaglutide (Rybelsus) 3 mg Tablet TAKE 1 TABLET (3 MG) BY MOUTH ONCE DAILY FOR 30 DAYS 01/24/20 Active aspirin (ECOTRIN EC) 81 mg Tablet, Delayed Release (E.C.) Take 1 Tablet (81 mg) by mouth daily. 05/28/20 20 Active insulin glargine (LANTUS) 100 unit/mL injection Inject 20 Units by subcutaneous injection 2 times daily. 3 mL 01/24/20 19 Active blood sugar diagnostic Strip Twice daily. 100 Strip 0 03/22/20 Active lancets 30 gauge Twice daily. 50 Each 1 03/22/20 Active lisinopriL (PRINIVIL) 40 mg tablet Take 1 tablet by mouth once daily 30 Tablet 1 06/07/20 Active Active Problems Problem Noted Date Diagnosed Date Foreign body in alimentary tract 09/01/2022 Osteomyelitis of second toe of right foot 2019 PAD (peripheral artery disease) 12/31/2019 Overview (10/09/2020): Added automatically from request for surgery [id number] Superficial femoral artery occlusion 10/16/2019 Osteomyelitis of [...] Volume depletion 01/15/2019 HTN (hypertension), benign 07/18/2018 CHB (complete heart block) 04/25/2018 Pacemaker 04/25/2018 Overview (10/08/2020): Device Model and serial number: [employer] Farida model number [id number], serial number [id number] Lead Serial numbers: RV: Medtronic 5076-52 cm, serial number [id number] RA:Medtronic 5076-45 cm, serial number [id number] 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 04/25/2018 Status post transcatheter ao rtic valve replacement (TAVR) using bioprosthesis 04/24/2018 ASHD (arteriosclerotic heart disease) 03/20/2018 Ischemic cardiomyopathy 03/20/2018 Chronic combined systolic and diastolic heart fa ilure 03/18/2018 Critical aortic valve stenosis 03/16/2018 Hemispheric carotid artery syndrome 06/17/2017 Non compliance w medication regimen 06/17/2017 Diastolic dysfunction with chronic heart failure 06/17/2017 Osteopenia 06/29/2016 Moderate aortic stenosis 04/25/2016 History of adenomatous polyp of colon 04/20/2016 Internal and external hemorrhoids without compli cation 04/12/2016 Overview (10/08/2020): The internal hemorrhoids are significant. This may be the cause of her recent episodes of bleeding per rectum. Diverticulosis of large intestine without hemorr lizzy 04/12/2016 Overview (10/08/2020): Limited to the sigmoid, and it is mild. Cognitive deficits following stroke 03/24/2016 Type 2 diabetes mellitus 03/24/2016 BRBPR (bright red blood per rectum) 03/24/2016 External hemorrhoids 03/24/2016 Stenosis of right carotid artery 02/12/2015 S/P carotid endarterectomy 02/12/2015 Slurred speech 12/23/2014 Symptomatic inflammatory myopathy 05/19/2009 Myalgia and myositis, unspecified 05/16/2009 Obesity 08/19/2008 Dyslipidemia 05/29/2008 Overview (10/08/2020): TGs: 500 (03/20); 1100 (01/18); 868 (11/18); 346 (08/18); >800 (09/17) Hypertension, essential Diplopia CN palsy Acute diastolic heart failure Chronic arterial ischemic stroke history Impaired functional mobility, balance, gait, and endurance Cellulitis of toe of left foot Arterial insufficiency of lower extremity Arterial thrombosis Hematochezia Acute lower GI bleeding Resolved Problems Problem Noted Date Diagnosed Date Resolved Date Diabetic ulcer of toe of lef t foot associated with type 2 diabetes mellitus, with fat layer exposed 01/18/2019 01/30/2019 Osteomyelitis of toe of left foot 01/16/2019 01/30/2019 Hypertensive urgency 06/17/2017 018 New daily persistent headache 06/17/2017 06/18/2017 Bright red rectal bleeding 04/12/2016 1 06/12/2015 History of colon polyps 04/12/2016 1102/2016 Overview (10/07/2020): 2 Colon polyps removed 04-12-2016. Pathology pending. CVA (cerebral vascular accid ent) with the left hemiparesis 12/23/2014 06/17/2017 Overview (10/07/2020): MRI reportedly negative. 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 06/17/2017 Hypothyroidism 05/29/2009 04/25/2016 Elevated CK 05/19/2009 02/12/2015 Proximal muscle weakness 05/16/200911/2017 Weakness of right arm 02/19/20092017 Chest pain 02/19/2009 05/29/2009 Weakness of right hand 02/19/200906/17 Weakness of right leg 02/19/20092017 DM w/o Complication Type II, Insulin Dependent 05/29/2008 03/24/2016 Overview (10/07/2020): A1C: 10.3 (03/20); 9.7 (01/18); 10.9 (11/18); 9.3 (08/18); 9.3 (05/19), 7.3 (09/17) Insulin Dependent, 2004 Microalbumin: 08/18 (Normal) Breast CA Screening 05/29/2008 06/22/19 18 Overview (10/07/2020): Mammo: 09/18; 2006 Encounters Date Type Department Care Team Description 01/15/2025 External Device Data STL ABSTRACTION Provider, Abstract from Last 3 Months Immunizations Immunization Administration Dates Next Due (PNEUMOVAX [...] drink = 0.6 oz pur e alcohol) Feeling Safe Answer Date Recorded Are you in a relationship wi th someone who hurts you emotionally and/or physically? 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 Gender Identity Not on file Sexual Orientation Not on file Last Filed Vital Signs Vital Sign Reading Time Taken Comments Blood Pressure 152/65 09/01/2022 10:30 PM CDT Pulse 80 09/01/2022 10:30 PM CDT Temperature 37.3 C (99.2 F) 09/01/2022 8:57 PM CDT Respiratory Rate 16 09/01/2022 10:30 PM CDT Oxygen Saturation 96% 09/01/2022 10:30 PM CDT Inhaled Oxygen Concentration - - Weight 63.5 kg (140 lb) 09/01/2022 8:57 PM CDT Height 170.2 cm (5' 7 ) 09/01/2022 8:57 PM CDT Body Mass Index 21.93 09/01/2022 8:57 PM CDT Plan of Treatment Health Maintenance Due Date Last Done Comments DIABETES MICROALBUMIN ANNUAL SCREEN 1966 ZOSTER VACCINE (1 of 2) 1998 DTAP/TDAP/TD VACCINES (1 - Tdap) 12/28/1999 12/27/19 00 DIABETES ANNUAL FOOT EXAM 01/31/2020 01/30/2019, 09/2016 LDL CHOLESTEROL ANNUAL 02/03/2020 9, 04/25/2018, 06/18/2017, Additional history exists OSTEOPOROSIS SCREENING 06/29/2021 06/29/2016, 2016 DIABETES ANNUAL RETINAL EXAM 01/01/2022, 10/23/2020, 09/18/2020, Additional history exists COLORECTAL SCREENING 05/25/2022 05/25/2020, 05/25/2020, 04/12/2016, Additional history exists DIABETES HBA1C Q 6 MONTHS 06/03/20222021, 04/19/2021, 12/10/2020, Additional history exists RSV VACCINE (60+ or ) (1 - 1-dose 75+ series) 11/04/2023 INFLUENZA VACCINE (#1) 2025 8, 04/12/2017, 04/25/2016, Additional history exists PNEUMOCOCCAL VACCINE 50+ YEARS Completed 0 01/08/2020, 04/12/2017, 03/12/2008, Additional history exists Medical Devices Implanted Type Area Compliance Project Manager Device Identifier Shelf Expiration Date Model / Serial / Lot Patch Vascu-Guard [id number] - [id number] Implanted:Qty : 1 on 02/11/2015 by Rosie Birmingham MD Biological Right: Carotid SYNOVIS- BIO-VASCULAR INC [id number] / / [id number] Angio-Seal Vip Closure Dev [id number] - [id number] Implanted:09/2019 by Maximo Morillo MD (Quantity not on file) Closure Device Left: Leg AGUILAR [employer] [id number] 04/11/2020 [id number] / / [id number] Closure Perclose Proglide 41770 - [id number] Implanted:11/2019 (Quantity not on file) Closure Device Right: Groin AGUILAR- VASC DEVICE 05/11/2021 [id number] / [id number] / [id number] Closure Perclose Proglide 68180 - [id number] Implanted: (Quantity not on file) Closure Device Left: Groin AGUILAR- VASC DEVICE 09/09/2021 25297 / / [id number] Closure Perclose Proglide 06756 - [id number] Implanted: (Quantity not on file) Closure Device Right: Groin AGUILAR- VASC DEVICE 10/09/2021 17900 / / [id number] Dev Sealangio Vip 8fr [id number] - [id number] Implanted:Qty : 1 on 05/21/2020 by Maximo Morillo MD Closure Device Leg AGUILAR [employer] 02/09/2021 [id number] / / [id number] Lens Io Bi-Aspheric Softechd+22.5 d - [id number] Implanted:Qty : 1 on 04/01/2020 by Raul Murphy MD Eye Left: Eye LENSTEC INC 12/25/2024 SOFTECHD+ 22.5D / [id number] / Lens Io Bi-Aspheric Softechd+22.5 d - [id number] Implanted:Qty : 1 on 05/14/2020 by Raul Murphy MD Eye Right: Eye LEN[employer]EC INC 07/10/2024 SOFTECHD+ 22.5D / [id number] / [id number] Medtronic Lead-04/24/20 18 Implanted: by Bebeto Guzman MD (Quantity not on file) Lead MEDTRONIC INC 01/20/2020 5076-52 / [id number] / Medtroniclead -04/24/2018 Implanted: by Bebeto Guzman MD (Quantity not on file) Lead [employer]TR[employer] INC 01/24/2020 5076-45 / [id number] / Medtronic Farida Xt Dr Jeff [id number] Implanted: by Bebeto Guzman MD (Quantity not on file) Pacemaker MEDTRONIC INC 09/07/2019 FARIDA [id number] / [id number] / Sealant Floseal W/ Apdtr 5ml [id number] - [id number] Implanted:Qty : 1 on 02/11/2015 by Rosie Birmingham MD Sealant Right: Neck APONTE- [employer] 01/10/2016 [id number] / / [id number] Stent- 018 Implanted:Qty : 1 on 03/21/2018 by Deng Lockett DO Stent AGUILAR LAB [id number] 05/16/2020 / / [id number] Stent- 018 Implanted:Qty : 1 on 03/21/2018 by Deng Lockett DO Stent MEDTRONIC INC [id number] 09/18/2019 / / [id number] Stent- 018 Implanted:Qty : 1 on 03/21/2018 by Deng Lockett DO Stent AGU[employer]AR LAB [id number] 08/28/2020 / / [id number] Stent- 018 Implanted:Qty : 1 on 03/21/2018 by Deng Lockett DO Stent AG[employer]AR LAB [id number] 09/22/2018 / / [id number] Supera Stent-03/01/20 19 Implanted: by Moi Anderson MD (Quantity not on file) Stent Left: Leg AGUILAR- VASC DEVICE [id number] S-60-150- 120-P6 / / Stent Vasc Supera 6fr V-04-212-120- P6-05/15/2019 Implanted:09/2018 (Quantity not on file) Stent AGUILAR- VASC DEVICE [id number] 01/09/2021 S-50-060- 120-P6 / / [id number] Stent Vasc Supera 6fr J-96-092-120- P6-05/15/2019 Implanted:09/2018 (Quantity not on file) Stent AGUILAR- VASC DEVICE [id number] 12/09/2020 S-60-100- 120-P6 / / [id number] Stent Lifestream Cvr [id number] - [id number] Implanted:Qty : 1 on 05/21/2020 Stent Right: Leg CR BARD- MARIEL VASC INC 06/11/2022 [id number] / / [id number] Stent Lifestream Cvr [id number] - [id number] Implanted:Qty : 1 on 05/21/2020 Stent Right: Leg CR BARD- MARIEL VASC INC 08/09/2022 [id number] / / [id number] Stent Synergy Mr 3.5x32mm Drug Elut [id number] - [id number] Implanted:Qty : 1 on 05/21/2020 by Maximo Morillo MD Stent Right: Leg BOSTON SCI YOKASTA 01/15/2022 [id number] / / [id number] Valve- 018 Implanted:Qty : 1 on 04/24/2018 by Waylon Hahn MD Valve MEDTRONIC- HEART VALVE [id number] 12/04/2019 / [id number] / Procedures Procedure Name Priority Date/Time Associated Diagnosis Comments COLONOSCOPY REPORT 05/25/2020 1: 14 PM ACTUARIAL CONSULTANT LIPID PANEL Routine 02/02/2019 1:11 AM CDT HEMOGLOBIN A1C Routine 02/02/2019 1:11 AM CDT XR DEXA BONE DENSITY AXIAL 1 OR MORE SITES Routine 06/29/2016 3:05 PM ACTUARIAL CONSULTANT Asymptomatic menopausal state Osteoporosis screening from Last 3 Months or Most Recently Relevant to Health Maintenance Results * COLONOSCOPY REPORT (05/25/2020 1:14 PM ACTUARIAL CONSULTANT) Narrative Procedure Note Corona Alvarez MD - 05/25/2020 1:14 PM CST Procedures signed by Corona Alvarez MD at 05/25/2020 1:14 PM Author: Corona Alvarez MD Service: -- Author Type: Physician Filed: 05/25/2020 1:14 PM Date of Service: 05/25/2020 1:14 PM Status:Signed Imaging Clerk: Corona Alvarez MD (Physician) Procedure Orders 1. COLONOSCOPY REPORT [[id number]] ordered by Corona Alvarez MD at107/26/19 1314 [facility] GI Patient Name: Elisha Morgan Procedure Date: 05/25/2020 Date of : 1950 [...] 12:57:58 PM Scope Out: 1:08:30 PM [address] [place], [place] Corona Alvarez MD GI PROCEDURE ORDERABLES Edited Result - Final * (ABNORMAL) HEMOGLOBIN A1C (02/02/2019 1:11 AM CDT) HEMOGLOBIN A1C 9.0(H) <=5.6 % 02/02/2019 8:55 AM CDT [facility] EST. AVG GLUCOSE, A1C 212 mg/dL 02/02/2019 8:55 AM T [facility] Blood Venipuncture / Unknown 02/02/2019 1:11 AM CDT 02/02/2019 1:29 AM CDT Narrative [facility] - 02/02/2019 8:55 AM CDT HGB A1C INTERPRETATION NORMAL: <5.7% PRE-DIABETES: 5.7 - 6.4% DIABETES: 6.5% OR GREATER us Price Medina MD CHEMISTRY ORDERABLES Final Result [facility] CLIA# [id number] [address] [place] [address] [facility] CLIA# [id number] [facility] [place] [address] * (ABNORMAL) LIPID PANEL (02/02/2019 1:11 AM CDT) [facility] Signature CHOLESTEROL 185 <200 mg/dL 02/02/2019 2:02 AM T [facility] TRIGLYCERIDE 455(H) <150 mg/dL 02/02/2019 2:02 AM T [facility] HDL 35(L) 40 - 59 mg/dL 02/02/2019 2:02 AM T [facility] LDL CALCULATED ^ 02/02/2019 2:02 AM T [facility] Comment:Calculated LDL is no t accurate when the Triglyceride value exceeds 400. NON-HDL CHOLESTEROL 150(H) <130 mg/dL 02/02/2019 2:02 AM T [facility] Blood Venipuncture / Unknown 02/02/2019 1:11 AM CDT 02/02/2019 1:29 AM CDT Narrative [facility] - 02/02/2019 2:02 AM CDT Fasting TOTAL CHOLESTEROL mg/dL Desirable<200 Borderline [id number] High>=240 TRIGLYCERIDES mg/dL Normal<150 Borderline [id number] Ajho639-434 Very high>=500 HDL CHOLESTEROL mg/dL Low<40 Ipbuvx20-13 Desirable>=60 NON HDL CHOLESTEROL mg/dL Optimal<130 Near [id number] Borderline Lmqa555-294 Very High>=190 Calculated LDL mg/dL Optimal<100 Near Ttaupus990-087 Borderline Jjug847-694 Ikpa526-008 Very High>=190 ATPIII Guidelines Reference Ranges for Lipid Panels (NCEP/AMA) Price Medina MD CHEMISTRY ORDERABLES Final Result [facility] CLIA# [id number] [address] [place] [address] [facility] CLIA# [id number] [address] [place] [address] * XR DEXA BONE DENSITY AXIAL 1 OR MORE SITES (06/29/2016 3:05 PM ACTUARIAL CONSULTANT) Anatomical Region Laterality Modality Other Impressions 06/29/2016 3:49 PM ACTUARIAL CONSULTANT Abnormal examination Low bone density/osteopenia is present [...] clinical management available online at [email or web address] Enter Fashfix for Select DXA and the Femoral Neck BMD value. Narrative 06/29/2016 3:49 PM ACTUARIAL CONSULTANT DEXA Evaluation of the Lumbar Spine and [...] 1.7 Procedure Note Waylon Camejo MD - 08/06/2021 DEXA Evaluation of the Lumbar Spine and [...] Adult T-score: 0.3 Adult Z-score: 1.7 IMPRESSION Abnormal examination Low bone density/osteopenia is present [...] clinical management available online at [email or web address] Enter Fashfix for Select DXA and the Femoral Neck BMD value. Sam Juárez MD DIAGNOSTIC IMAGING ORDERA BLES Final Result from Last 3 Months or Most Recently Relevant to Health Maintenance Insurance [place]ID [place] [facility] * Guarantor: ELISHA MORGAN Account Type Relation to Patient Date of Phone Billing Address Personal/Family [address] [address] RX [employer] Medicare Part D RX [employer] Medicaid RX [place] [employer] (INTERNAL) [facility] Plans Advance Directives For more information, please contact: [phone] Documents on File Type Date Recorded Patient Floral Associate Expl anation Advance Directive POA 04/05/2018 11:25 AM Advance Directive POA Advance Directive POA 04/05/2018 10:19 AM Advance Directive POA Advance Directive Living Will 03/16/2018 1:11 PM Advance Directive Living Will Advance Directive POA 03/16/2018 1:10 PM A dvance Directive POA Advance Directive POA 02/12/2015 7:01 AM Ad lam Directive POA Care Teams Yarn Mercerizer Operator Relationship Specialty Start Date End Date Gloria Escobar FNP [address] [place] [address] PCP - General Nurse Practitioner Family 06/20/19
--- OUTSIDE RECORDS SUMMARY | 2025-04-08 18:48 | XMS_ITS | Encounter Summary ---
Author Organization [facility] Address [address] [place] [address] Care Team Providers Care Inspector Process Name Role Phone Gloria Escobar Primary Care Provider Encounter Details Date Type Department Care Team (Late st Contact Info) Description 04/06/2020 Telephone [facility] [address] [place] [address] Diane Ernst RN Social History Tobacco Use Types Packs/Day Years Used Date Smoking Tobacco: Never Smokeless Tobacco: Never Alcohol Use Standard Drinks/Week Comments No 0 (1 standard drink = 0.6 oz pur e alcohol) Comments No Sex and Gender Information Value Date Recorded Sex Assigned at Not on file Legal Sex Female 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 No / Unsure 04/09/2020 9:19 AM CDT documented as of this encounter Plan of Treatment Not on file documented as of this encounter Visit Diagnoses Not on filedocumented in this encounter Care Teams Inspector Process Relationship Specialty Start Date End Date Gloria Escobar FNP [address] [place] [address] PCP - General Nurse Practitioner Family 06/20/19 documented as of this encounter
--- OUTSIDE RECORDS SUMMARY | 2025-04-08 18:48 | XMS_ITS | Encounter Summary ---
Author Organization [facility] Address [address] [place] [address] Care Team Providers Care Service Desk Manager Name Role Phone Gloria Escobar TRINH Primary Care Provider Encounter Details Date Type Department Care Team (Latest Contact Info) Description 06/29/2016 Ancillary Orders [facility] [address] [phone] Sam Juárez MD [address] [facility] [address] [address] Visit for screening mammogram Social History Tobacco Use Types Packs/Day Years Used Date Smoking Tobacco: Never Smokeless Tobacco: Never Alcohol Use Standard Drinks/Week Comments No 0 (1 standard drink = 0.6 oz pur e alcohol) Comments No Sex and Gender Information Value Date Recorded Sex Assigned at Not on file Legal 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 Female 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 Gender Identity Not on file Sexual Orientation Not on file Occupation Industry Job Start Date Job End Date Not on file Not on file Not on file Not on file documented as of this encounter Plan of Treatment Not on file documented as of this encounter Results * MAMMO PRIOR STUDY (09/25/2008 3:15 AM CDT) Narrative 06/29/2016 3:17 PM CONDENSER TESTER This exam was auto finalized to allow [...] documented as of this encounter Care Teams Service Desk Manager Relationship Specialty Start Date End Date Gloria Escobar FNP [address] [place] [phone] PCP - General Nurse Practitioner Family 06/20/19 documented as of this encounter
--- OUTSIDE RECORDS SUMMARY | 2025-04-08 18:48 | XMS_ITS | Encounter Summary ---
Author Organization [facility] Address [address] [place] [address] Care Team Providers Care Stitcher Tape Controlled Machine Name Role Phone Gloria Escobar Primary Care Provider Encounter Details Date Type Department Care Team ([facility] st Contact Info) Description 09/29/2008 Ancillary Orders [facility] Medicine [place] [address] [address] Facundo De Leon MD NO ADDRESS ON FILE Social History Tobacco Use Types Packs/Day Years Used Date Smoking Tobacco: Never Alcohol Use Standard Drinks/Week Comments No 0 (1 standard drink = 0.6 oz pur e alcohol) Comments No Sex and Gender Information Value Date Recorded Sex Assigned at Not on file Legal Sex Female 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
--- OUTSIDE RECORDS SUMMARY | 2025-04-08 18:48 | XMS_ITS | Encounter Summary ---
Author Organization [facility] Address [address] [place] [address] Care Team Providers Care Shale Planer Operator Helper Name Role Phone Gloria Escobar TRINH Primary Care Provider Encounter Details Date Type Department Care Team ([facility] st Contact Info) Description 09/29/2008 Ancillary Orders [facility] Imaging External Read [address] [place] [phone] Facundo De Leon MD NO ADDRESS ON FILE Screening Mammogram Social History Tobacco Use Types Packs/Day Years Used Date Smoking Tobacco: Never Alcohol Use Standard Drinks/Week Comments No 0 (1 standard drink = 0.6 oz pur e alcohol) Comments No Sex and Gender Information Value Date Recorded Sex Assigned at Not on file 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 This examination was reviewed with the aid of a computer-aided detection system(CAD). The breast tissue density is fatty. A few scattered benign type calcifications bilaterally. No significant new findings since the prior mammogram(s). Procedure Note Terrell Goncalves MD - 09/30/2008 Bilateral Mammogram Reason for Exam: Screening Comparison: Comparison is made with the prior exam(s) dated 2001 Findings: Bilateral CC and MLO views were obtained. This examination was reviewed with the aid of a computer-aided detectionsystem(CAD). The breast tissue density is fatty. A few scattered benign type calcifications bilaterally. No significant new findings since the prior mammogram(s). Facundo De Leon MD MAMMO ORDERABLES Final Res ult documented in this encounter Visit Diagnoses Diagnosis Screening mammogram Other screening mammogram documented in this encounter Additional Health Concerns Infection Onset Date Last Indicated Resolved Time R/O COVID-19 10/14/2019 10/14/2019 10/14/2019 9:11 PM CDT documented as of this encounter Care Teams Shale Planer Operator Helper Relationship Specialty Start Date End Date Gloria Escobar FNP [address] [place] [phone] PCP - General Nurse Practitioner Family 06/20/19 documented as of this encounter
--- OUTSIDE RECORDS SUMMARY | 2025-04-08 18:48 | XMS_ITS | Encounter Summary ---
Author Organization [facility] Address [address] [place] [address] Care Team Providers Care Vp Product Name Role Phone Luz Gloria TRINH Primary Care Provider Reason for Referral * CT Scan (Routine) - Closed Specialty Diagnoses / Procedures Referred By Javad saini Referred To Contact Diagnoses Aortic valve stenosis, etiology of cardiac valve disease unspecified Procedures CT CARDIAC CHEST INTERPRETATION Waylon Hahn MD Phone: tel: fax: Referral ID Status Reason Start Date Expiration Date Visits Re quested Visits Authorized [id number] Closed 04/10/2018 05/11/2019 1 1 Encounter Details Date Type Department Care Team (Late st Contact Info) Description 04/10/2018 Ancillary Orders [facility] [place] [address] [place] [address] aWylon Hahn MD [address] [place] [address] Aortic valve stenosis, etiology of cardiac valve disease unspecified Social History Tobacco Use Types Packs/Day Years Used Date Smoking Tobacco: Never Smokeless Tobacco: Never Alcohol Use Standard Drinks/Week Comments No 0 (1 standard drink = 0.6 oz pur e alcohol) Comments No Sex and Gender Information Value Date Recorded Sex Assigned at Not on file 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 Exam: CT CARDIAC CHEST INTERPRETATION Date/Time of Exam: 04/10/2018 9:15 AM Reason For Exam: Valve disorders; . Diagnosis: Aortic valve stenosis, etiology of cardiac valve disease unspecified. Technique: Axial tomograms obtained through the chest with 105 mL of Isovue 300 intravenous contrast following coronary CTA protocol. Findings: Examination was performed for evaluation by cardiology. Initial source images of extracardiac regions of thorax and upper abdomen with nonspecific mosaic pattern of groundglass haze of both lungs. Old calcified granulomatous residuals within both lungs. Superimposed regions of plate atelectasis both lower lung zones. Low to moderate grade pericardial effusion. Scattered top normal sized mediastinal lymph nodes. Narrative Procedure Note Marian Carranza MD - 04/10/2018 IMPRESSION: Please see below. Exam: CT CARDIAC CHEST INTERPRETATION Date/Time of Exam: 04/10/2018 9:15 AM Reason For Exam: Valve disorders; . Diagnosis: Aortic valve stenosis, etiology of cardiac valve disease unspecified. Technique: Axial tomograms obtained through the chest with 105 mL of Isovue 300 intravenous contrast following coronary CTA protocol. Findings: Examination was performed for evaluation by cardiology. Initial source images of extracardiac regions of thorax and upper abdomen with nonspecific mosaic pattern of groundglass haze of both lungs. Old calcified granulomatous residuals within both lungs. Superimposed regions of plate atelectasis both lower lung zones. Low to moderate grade pericardial effusion. Scattered top normal sized mediastinal lymph nodes. Waylon Hahn MD CT ORDERABLES Final Result documented in this encounter Visit Diagnoses Diagnosis Aortic valve stenosis, etiology of cardiac valve disease unspecified Aortic valve stenosis, etiology of cardiac valve disease unspecified documented in this encounter Additional Health Concerns Infection Onset Date Last Indicated Resolved Time R/O COVID-19 10/14/2019 10/14/2019 10/14/2019 9:11 PM CDT documented as of this encounter Care Teams Vp Product Relationship Specialty Start Date End Date Gloria Escobar FNP [address] [place] [id number] PCP - General Nurse Practitioner Family 06/20/19 documented as of this encounter
[2025-04-08 18:52] VITALS: BP 118/63; PULSE 79; O2SAT 95
[2025-04-08 19:28] LABS: Hematocrit 29.5 % (36-47); Hemoglobin 8.70 g/dL (11.27-16.99); Mean Corpuscular HGB Conc 29.5 g/dL (30-55); Mean Corpuscular Hemoglobin 28.6 pg (27-33); Mean Corpuscular Volume 97.0 fl (85-98); Nucleated Red Blood Cells % 0 %; Platelet Count 200 10^3/cmm (157-399); Red Blood Count 3.04 10^6/uL (3.85-5.65); White Blood Count 4.91 10^3/uL (3.29-11.43)
[2025-04-08 19:47] LABS: Troponin(5th) Baseline 55 ng/L (0-10)
[2025-04-08 19:57] LABS: NT Pro B Type Natriuretic Pept 6613 pg/mL (0-450); Procalcitonin 0.04 ng/mL (0-0.5)
[2025-04-08 20:08] LABS: Alanine Aminotransferase 9 U/L (0-33); Albumin Level 3.8 g/dL (3.5-5.2); Alkaline Phosphatase 53 U/L (35-105); Anion Gap 15.1 (5-19); Aspartate Amino Transferase 8 U/L (0-32); Blood Urea Nitrogen 25 mg/dL (8-23); Calcium 8.6 mg/dL (8.5-10.5); Carbon Dioxide 26 mmol/L (22-29); Chloride 108 mmol/L (98-107); Creatinine Clr Calc Pharmacy 56.6176; Globulin 2.4 g/dL (1.3-4.6); Glucose 117 mg/dL (65-115); Osmolality Calculated 305 mOsm/kg (285-295); Potassium 4.1 mmol/L (3.5-5.1); Sodium 145 mmol/L (136-145); Total Protein 6.2 g/dL (6.6-8.7)
[2025-04-08] MEDS: FUROsemide 10 mg/mL SDV 10mL 60 MG IVP (20:40)
[2025-04-08 21:00] VITALS: BP 130/88; PULSE 80; O2SAT 99
[2025-04-08 21:00] LABS: Glucose Urine UA Negative (Normal); Nitrate Urine Positive (Negative); Specific Gravity, Urine 1.015 (1.005-1.030)
[2025-04-08 21:04] LABS: Add Urine Microscopic? YES
[2025-04-08 21:14] LABS: Troponin 5 2HR 57.43 ng/L (0-10); Troponin 5 2HR Delta 2.43 ABS# (0-10)
--- NOTE | 2025-04-08 22:03 | PC.NURSE ---
Called Dr. Araujo regarding order for 40 mg more of lasix and she stated that she did not want the pt to receive any more lasix until tomorrow.
--- NOTE | 2025-04-08 22:10 | PM.HP ---
Providers/Chief Complaint Admitting Physician: KARLA ARAUJO DO Primary Care Provider: TRINH Whittington Chief Complaint: Resp Distr History of Present Illness Elisha Vickers is a 74 year old female with medical history significant for hypertension hyperlipidemia diabetes type 2 and heart failure with exacerbation. Patient is under the care of of Dr. Parks prison teacher whom he she saw 4 days ago because of worsening shortness of breath. BNP was done at that time it was about 4000. And she was advised to go to the emergency room to be admitted and be treated. Patient delayed thinking that she is going to feel better. As of today patient shortness of breath only had gotten worse from it was 4 days ago. BNP done in the emergency room was 6600 was done it was only 4 days ago. I have added spironolactone to IV Lasix for care. Review of Systems Narrative: System review upon tenogram reviewed was noted to be with cardiovascular system and pulmonary system Medications/Allergies Home Medications ?Medication ?Instructions ?Recorded ?Confirmed ?Last Taken ?Type Electric Wheelchair #1 ea 04/20/21 04/04/25 Unknown Rx Lift Chair #1 ea 12/03/21 04/04/25 Unknown Rx glucagon 1 mg/0.2 mL subcutaneous 0.5 mg (0.1 mL) SUBCUT ONCE PRN 09/30/22 04/04/25 Unknown Rx auto-injector hypoglycemia 30 days #0.4 mL prosthesis fitting #1 ea 10/05/22 04/04/25 Unknown Rx stump traffic sign erection supervisor #1 ea 10/05/22 04/04/25 Unknown Rx LEFT LEG PROSTHESIS #1 ea 03/02/23 04/04/25 Unknown Rx blood sugar diagnostic (Accu-Chek #100 ea 05/21/24 04/04/25 Unknown Rx Guide test strips) blood-glucose meter (Accu-Chek #1 ea 05/21/24 04/04/25 Unknown Rx Guide Glucose Meter) lancets (Accu-Chek Softclix #200 ea 05/21/24 04/04/25 Unknown Rx Lancets) pen needle, diabetic 32 gauge x #100 ea 05/21/24 04/04/25 Unknown Rx 5/32 (BD Domenica 2nd Gen Pen Needle) Pure Wick external catheter #30 ea 09/09/24 04/04/25 Unknown Rx nitrofurantoin 100 mg PO DAILY 30 days #30 caps 05/22/25 10/24/25 Unknown Rx monohydrate/macrocrystals 100 mg capsule (Macrobid) ciprofloxacin HCl 250 mg tablet 250 mg PO BID 5 days #10 tabs 11/13/24 04/04/25 Unknown Rx (Cipro) furosemide 20 mg tablet 20 mg PO DAILY #90 tabs 11/14/24 04/04/25 Unknown Rx Lantus Solostar U-100 Insulin 100 See Rx Instructions .Route 11/21/24 04/04/25 Unknown Rx unit/mL (3 mL) subcutaneous pen .COMPLEX #15 mL (insulin glargine) metoprolol succinate 25 mg See Rx Instructions .Route 01/10/25 04/04/25 Unknown Rx tablet,extended release 24 hr .COMPLEX #90 tabs Novolog FlexPen U-100 Insulin 100 See Rx Instructions .Route 01/24/25 04/04/25 Unknown Rx unit/mL (3 mL) subcutaneous .COMPLEX #15 mL (insulin aspart U-100) rivaroxaban 20 mg tablet (Xarelto) See Rx Instructions .Route 02/13/25 04/04/25 Unknown Rx .COMPLEX #90 tabs sacubitril 97 mg-valsartan 103 mg 1 tab PO BID #60 tabs 04/04/25 04/04/25 Unknown Rx tablet (Entresto) clopidogrel 75 mg tablet See Rx Instructions .Route 04/07/25 Unknown Rx .COMPLEX #90 tabs Allergies Allergy/AdvReac Type Severity Reaction Status Date / Time ceftriaxone (From Rocephin) Allergy Severe cardiac Verified 04/04/25 10:16 arrest atorvastatin (From Lipitor) Allergy Unknown UNKNOWN Verified 04/04/25 10:16 Jsxqwit-WPT-PxL Reductase Allergy Unknown UNKNOWN Verified 04/04/25 10:16 Inhibitor (Wwzcxkl-Dfq-Yhp Reductase Inhibitor) PFSH Acute PFSH: Medical History TIA (transient ischemic attack) MRSA (methicillin resistant staph aureus) culture positive Gangrene of right foot 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 Wound of right lower extremity Venous insufficiency of both lower extremities Congestive heart failure with cardiomyopathy Carotid stenosis, right Valvular incompetence, mitral Pacemaker Pre-operative clearance Essential hypertension Surgical History Hx of tubal ligation S/P TAVR (transcatheter aortic valve replacement) S/P transmetatarsal amputation of foot History of amputation of lesser toe of right foot History of transmetatarsal amputation of left foot Peripheral vascular angioplasty status with implants and grafts Hx of foot surgery History of heart artery stent Hx of knee surgery Family History Family/Other CAD (coronary artery disease) Chronic kidney disease (CKD) Mother Diabetes Stroke Father Lung disease Sister Lung disease Other Heart disease Denies family history of Clotting disorder Dementia Suicide Anesthesia complication Bleeding disorder Cancer Social History Smoking and tobacco/nicotine status: never used tobacco/nicotine Alcohol intake: never Substance/Drug Use: never Adopted: No Caregiver/support person: No Lives independently: Yes service: No Current occupational status: disabled Sexually active: Yes Do you think of yourself as: Straight/Heterosexual Current gender identity: Female Vitals/I&O/Wt Last Vital Signs Temp 98.1 F 04/08/25 18:28 Pulse 80 04/08/25 21:00 Resp 17 04/08/25 18:28 BP 130/88 04/08/25 21:00 Pulse Ox 99 04/08/25 21:00 O2 Del Method Nasal Cannula 04/08/25 21:00 O2 Flow Rate 2 04/08/25 21:00 Weight last 48 hrs Weight 76.204 kg Physical Exam Narrative: General the patient is doing well and is found to be in no apparent distress Patient is with 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 She is diabetic HEENT normocephalic/atraumatic neck neck is supple cardiovascular heart rate is regular lungs are diminished at the bases abdomen soft morbidly obese abdomen has Rojas draining to gravity clear kurt urine extremities are as stated above bilateral amputee and there are no wounds neurology has no focality. Patient is alert awake oriented x 3 and no confusion. Lab studies lab studies fairly unremarkable except for a low hemoglobin of 8.7 patient had had recent bright red blood per rectum in the last 3 days in November hemoglobin was 12 Urinary Catheter Management: Rojas: Cath Placed During This Visit: yes Urinary Catheter Date of Insertion: 04/08/25 Urinary Catheter Time of Insertion: 20:53 Data 04/08/25 18:50 04/08/25 18:50 A&P Assessment and plan 1. Chronic anticoagulation: 2. Anemia: 3. Acute exacerbation of congestive heart failure: 4. S/P TAVR (transcatheter aortic valve replacement): 5. Diabetes mellitus with ophthalmic complication, with long-term current use of insulin: 6. Amputation of both lower extremities: 7. CAD (coronary artery disease): 8. Congestive heart failure with cardiomyopathy: 9. Dyslipidemia: 10. Essential hypertension: 11. Acute blood loss anemia: Plan: Acute on chronic CHF -Admit to general medical floor with telemetry -Initiated diuresis, patient has received 60 mg of Lasix IV in the emergency room -I have initiated to follow-up with Lasix 40 mg of IV Lasix twice daily -I have added spironolactone 25 mg once daily -Patient just had a Rojas catheter inserted in the emergency room for accurate I and O's. -Patient is with increasing shortness of breath which paired to BNP rising from 4000 days ago to 6000 -Patient of Dr. Parks the prison teacher who had told the patient 4 days ago to go to emergency room -Must continue to monitor -Will follow-up with echocardiogram in a.m. to further evaluate wall motion and EF -Continue daily weights/I and O's/fluid restriction to 1500 daily Acute blood loss anemia -Per family patient had lost bright red blood per rectum likely from a hemorrhoid in the last 2 days -Patient is pale and had been noted that hemoglobin dropped from 12 in November to 8.7 at this time -Will keep patient n.p.o. for the surgeon to see the patient in a way of scoping in the appropriate time -Patient anemia is not going to help marrow in the setting of heart failure -Should the hemoglobin drop any further patient needs to have packed red blood cell replaced, Patient had actually dropped 4 g since November 2024 and most likely this shortness of breath is compounded That of CHF. - Surgeon consulted Diabetes type 2 -Keep patient euglycemic -Avoid any oral hypoglycemic agent -Continue insulin -Hemoglobin A1c pending GI and DVT prophylaxis in place History of peripheral vascular disease to the lower extremities -Status post angioplasty with implants and grafts to the stump PDMP PDMP Reviewed: Last Reviewed 04/08/25 23:28 by Karla Araujo MD Attestations Medical Necessity Statement*: Patient with volume overload significant for CHF and pale skin due to acute anemia from blood loss anemia may need at least 2 midnights for optimization of care. Coding Level of Care Code 76856 Diagnoses Chronic anticoagulation Z79.01 Anemia D64.9 Acute exacerbation of congestive heart failure I50.9 S/P TAVR (transcatheter aortic valve replacement) Z95.2 Diabetes mellitus with ophthalmic complication, with long-term current use of insulin E11.39; Z79.4 Amputation of both lower extremities S88.911A; S88.912A CAD (coronary artery disease) I25.10 Congestive heart failure with cardiomyopathy I50.9; I42.9 Dyslipidemia E78.5 Essential hypertension I10 Acute blood loss anemia D62 Time Spent (min) 60
[2025-04-08] MEDS: heparin 5,000 unit/mL INJ 1 mL 5000 UNIT SUBCUT (22:14)
[2025-04-08 22:17] LABS: Thyroid Stimulating Hormone 4.42 uIU/mL (0.27-4.20)
--- NOTE | 2025-04-08 22:21 | ECG_ITS ---
[facility] Test Date: 2025-04-08 Pat Name: Elisha Vickers Department: Room: EDIP Gender: Female Nurseryman Assistant: : 1950 Requested By: Polly Lange Order Number: [id number] Reading MD: PIERRE HOUGH Measurements Intervals [place] Rate: 77 P: 59 DC: 184 QRS: -60 QRSD: 125 T: 126 QT: 435 QTc: 494 Interpretive Statements Sinus rythm Compared to ECG 04/08/2025 18:31:04 Sinus rhythm no longer present Ventricular premature complex(es) no longer present Left-axis deviation no longer present Right bundle-branch block no longer present Myocardial infarct finding no longer present T-wave abnormality no longer present Possible ischemia no longer present Electronically Signed On 04-12-2025 21:14:42 CDT by PIERRE HOUGH [email or web address] [id number]
[2025-04-08 22:30] VITALS: BP 125/67; PULSE 77; O2SAT 100
--- NOTE | 2025-04-08 22:30 | PC.NURSE ---
Per Dr Frias, pt can be admitted to MedSur floor.
[2025-04-08 22:53] VITALS: BP 112/63; PULSE 79; O2SAT 95
--- NOTE | 2025-04-08 23:54 | PC.NURSE ---
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 Pt reports she has no pain at this time, including chest pain. Pts daughter and her partner is present in the room at this time. All questions were answered and pt understands the current plan of care.
[2025-04-09] VITALS (10 sets, daily range): BP systolic 104–150; BP diastolic 44–71; PULSE 62–90; RESP 16–18; TEMP 36.2–36.7; O2SAT 88–100
--- NOTE | 2025-04-09 00:42 | ECG_ITS ---
[facility] Date: 2025-04-09 Pat Name: Elisha Vickers Department: Room: 251 Gender: Female Senior Care Specialist: : 1950 Requested By: Polly Lange Order Number: [id number] Reading MD: PIERRE HOUGH Measurements Intervals [place] Rate: 72 P: 66 [place]: 227 QRS: -59 QRSD: 137 T: 117 QT: 458 QTc: 504 Interpretive Statements Sinus rythm ABNORMAL RHYTHM ECG Compared to ECG 04/08/2025 22:21:19 No significant changes Electronically Signed On 04-12-2025 21:15:12 CDT by PIERRE HOUGH [email or web address] [id number]
[2025-04-09 01:32] LABS: Hematocrit 27.9 % (36-47); Hemoglobin 8.30 g/dL (11.27-16.99); Mean Corpuscular HGB Conc 29.7 g/dL (30-55); Mean Corpuscular Hemoglobin 28.0 pg (27-33); Mean Corpuscular Volume 94.3 fl (85-98); Nucleated Red Blood Cells % 0 %; Platelet Count 190 10^3/cmm (157-399); Red Blood Count 2.96 10^6/uL (3.85-5.65); White Blood Count 5.02 10^3/uL (3.29-11.43)
[2025-04-09 01:48] LABS: Alanine Aminotransferase 8 U/L (0-33); Albumin Level 3.7 g/dL (3.5-5.2); Alkaline Phosphatase 55 U/L (35-105); Anion Gap 14.5 (5-19); Aspartate Amino Transferase 8 U/L (0-32); Blood Urea Nitrogen 24 mg/dL (8-23); Calcium 8.5 mg/dL (8.5-10.5); Carbon Dioxide 27 mmol/L (22-29); Chloride 105 mmol/L (98-107); Creatinine Clr Calc Pharmacy 65.4081; Globulin 2.2 g/dL (1.3-4.6); Glucose 111 mg/dL (65-115); Magnesium 2.0 mg/dL (1.7-2.3); Osmolality Calculated 301 mOsm/kg (285-295); Potassium 3.5 mmol/L (3.5-5.1); Sodium 143 mmol/L (136-145); Total Protein 5.9 g/dL (6.6-8.7)
[2025-04-09 01:49] LABS: Troponin 5 6HR 63.21 ng/L (0-10); Troponin 5 6HR Delta 8.21 ng/L (0-12)
[2025-04-09 01:57] LABS: Estmated Average Glucose 146; Hemoglobin A1C 6.7 % (4.0-6.0)
--- NOTE | 2025-04-09 07:57 | P.ANESASSM_ITS ---
Pre-Anesthetic Assessment Height/Weight: Height 1.7 m Weight 80.739 kg Temp Pulse Resp BP Pulse Ox O2 Del Method O2 Flow Rate 97.8 F 90 17 109/68 98 Nasal Cannula 2 04/09/25 07:39 04/09/25 07:39 04/09/25 07:39 04/09/25 07:39 04/09/25 07:39 04/09/25 07:39 04/09/25 00:00 Operation Date: 04/09/25 08:00 Proposed Procedures p EGD(Not Applicable) - Walter Powell MD Familial anesthetic complications: none Was Beta Jeffrey taken within 24 hours: Yes Was Clonidine taken within 24 hours: N/A Last intake: > 8hrs Social No alcohol and No tobacco Exam alert, oriented x 3, clear to auscultation bilaterally and regular rate & rhythm Airway Mallampati: Class I Pulmonary Sleep Apnea CV/HEM Coronary Artery Disease, Congestive Heart Failure, Hypertension and Peripheral Vascular Disease TAVR , CONCLUSIONS Mild to moderate concentric left trickle hypertrophy. Diffuse hypokinesia of the left ventricle with ejection fraction of 32%. Mildly dilated LV cavity. The bioprosthetic valve in the aortic position appears to be well-seated. Moderately increased left atrial size. Moderate mitral annular calcification. Normal right ventricular size and systolic function. Compared to the study from 09/15/2023 there is slight worsening of the LV ejection fraction. Conclusions 1. Critical proximal LAD stenosis s/p successful revascularization with VIKTORIYA x1. 2. Medical management for small vessel disease i.e distal left circumflex artery: Diagonal artery and distal ramus artery.. 3. Proximal Left Anterior Descending was treated with a Balloon, Drug Eluting Stent, and Balloon. Recommendations * Continue Plavix and Xarelto. * Aggressive risk factor modification. * Outpatient cardiology follow up in 4 weeks. Interventional RX Recommendation: PCI w/o planned CABG Diagnostic RX Recommendation: PCI w/o planned CABG Anticoagulation: Heparin Metabolic Diabetes Mellitus Anesthetic Plan ASA status: 4 Anesthesia: MAC Risk of > 500 ml blood loss (7ml/kg in children): No Medications/Allergies Home Medications ?Medication ?Instructions ?Recorded ?Confirmed ?Last Taken ?Type Electric Wheelchair #1 ea 04/20/21 04/09/25 Unkn own Rx Lift Chair #1 ea 12/03/21 04/09/25 Unkn own Rx prosthesis fitting #1 ea 10/05/22 04/09/25 Unkn own Rx stump food service hotel runner #1 ea 10/05/22 04/09/25 Unkn own Rx LEFT LEG PROSTHESIS #1 ea 03/02/23 04/09/25 Unkn own Rx blood sugar diagnostic (Accu-Chek #100 ea 05/21/24 Unknown Rx Guide test strips) blood-glucose meter (Accu-Chek #1 ea 05/21/24 04/09/25 Unknown Rx Guide Glucose Meter) lancets (Accu-Chek Softclix #200 ea 05/21/24 04/09/25 Unknown Rx Lancets) pen needle, diabetic 32 gauge x #100 ea 05/21/2404/09 Unknown Rx /32 (BD Domenica 2nd Gen Pen Needle) Pure Wick external catheter #30 ea 09/09/24 04/09/25 U nknown Rx furosemide 20 mg tablet 20 mg PO DAILY #90 tabs 0611/0304/04/25 Unknown Rx Lantus Solostar U-100 Insulin 100 See Rx Instructions .Route 11/21/24 04/04/25 Unknown Rx unit/mL (3 mL) subcutaneous pen .COMPLEX #15 mL (insulin glargine) metoprolol succinate 25 mg See Rx Instructions .Route 01/10/25 04/04/25 Unknown Rx tablet,extended release 24 hr .COMPLEX #90 tabs Novolog FlexPen U-100 Insulin 100 See Rx Instructions .Route 01/24/25 04/04/25 Unknown Rx unit/mL (3 mL) subcutaneous .COMPLEX #15 mL (insulin aspart U-100) rivaroxaban 20 mg tablet (Xarelto) See Rx Instructions .Route 02/13/25 04/04/25 Unknown Rx .COMPLEX #90 tabs sacubitril 97 mg-valsartan 103 mg 1 tab PO BID #60 tab s 04/04/25 04/04/25 Unknown Rx tablet (Entresto) clopidogrel 75 mg tablet See Rx Instructions .Route 1 Unknown Rx .COMPLEX #90 tabs dorzolamide 22.3 mg-timolol 6.8 1 drp ophthalmic (eye) BID 04/09/25 04/09/25 04/08/25 History mg/mL eye drops Allergies Allergy/AdvReac Type Severity Reaction Status Date / Time ceftriaxone (From Rocephin) Allergy Severe cardiac Verified 04/04/25 10:16 arrest atorvastatin (From Lipitor) Allergy Unknown UNKNOWN Verified 04/04/25 10:16 Rhejyzy-DJC-DbE Reductase Allergy Unknown UNKNOWN Verified 04/04/25 10:16 Inhibitor (Ifenuuu-Kaj-Vvg Reductase Inhibitor) Current Medications Generic Name Dose Route Start Last Admin Trade Name Freq PRN Reason Stop Dose Admin Furosemide 40 mg 04/08/25 21:45 04/08/25 22:03 Furosemide 10 Mg/Ml Sdv 4ml IVP Not Given Q12H BIRGIT Heparin Sodium (Porcine) 5,000 unit 04/08/25 21:45 04/08/25 22:14 Heparin 5,000 Unit/Ml Inj 1 Ml SUBCUT 5,000 unit Q12H BIRGIT Administration Pantoprazole Sodium 40 mg 04/09/25 05:00 04/09/25 05:[address] 40 Mg Tablet PO 40 mg DAILY BIRGIT Administration PFSH Anesthesia Medical History (Updated 04/09/25 @ 08:11 by Walter Powell MD) TIA (transient ischemic attack) MRSA (methicillin resistant staph aureus) culture positive Gangrene of right foot 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 Wound of right lower extremity Venous insufficiency of both lower extremities Congestive heart failure with cardiomyopathy Carotid stenosis, right Valvular incompetence, mitral Pacemaker Pre-operative clearance Essential hypertension Surgical History Hx of tubal ligation S/P TAVR (transcatheter aortic valve replacement) S/P transmetatarsal amputation of foot History of amputation of lesser toe of right foot History of transmetatarsal amputation of left foot Peripheral vascular angioplasty status with implants and grafts Hx of foot surgery History of heart artery stent Hx of knee surgery Family History Family/Other CAD (coronary artery disease) Chronic kidney disease (CKD) Mother Diabetes Stroke Father Lung disease Sister Lung disease Other Heart disease Denies family history of Clotting disorder Dementia Suicide Anesthesia complication Bleeding disorder Cancer Social History Smoking and tobacco/nicotine status: never used tobacco/nicotine Alcohol intake: never Substance/Drug Use: never Adopted: No Caregiver/support person: No Lives independently: Yes service: No Current occupational status: disabled Sexually active: Yes Do you think of yourself as: Straight/Heterosexual Current gender identity: Female Data Anesthesia 04/09/25 01:02 04/09/25 01:02 Short CBC 04/08/25 04/09/25 Range/Units 18:50 01:02 WBC 4.91 5.02 (3.29-11.43) 10^3/uL Hgb 8.70 L 8.30 L (11.27-16.99) g/dL Hct 29.5 L 27.9 L (36-47) % MCV 97.0 94.3 (85-98) fl Plt Count 200 190 (157-399) 10^3/cmm Neut % (Auto) 59.2 58.5 % Neut # (Auto) 2.91 2.94 (1.8-7.7) 10^3/uL BMP 04/08/25 04/09/25 18:50 01:02 Sodium 145 143 Potassium 4.1 3.5 Chloride 108 H 105 Carbon Dioxide 26 27 BUN 25 H 24 H Creatinine 0.9 0.8 Glucose 117 H 111 Calcium 8.6 8.5 Cardiac Enzymes 04/08/25 04/08/25 04/09/25 Range/Units 18:50 20:47 01:02 Troponin T Baseline 55 H (0-10) ng/L Troponin T 120 Minute 57.43 H (0-10) ng/L Delta Troponin T 2.43 (0-10) ABS# Troponin T Hi Sens 6Hr 63.21 H (0-10) ng/L Troponin T Hi Sens 6Hr Delta 8.21 (0-12) ng/L NT-Pro-B Natriuret Pep 6613 H (0-450) pg/mL Liver Function 04/08/25 04/09/25 Range/Units 18:50 01:02 Total Bilirubin 0.6 0.7 (0.15-1.2) mg/dL AST 8 8 (0-32) U/L ALT 9 8 (0-33) U/L Alkaline Phosphatase 53 55 (35-105) U/L Albumin 3.8 3.7 (3.5-5.2) g/dL Urine 04/08/25 Range/Units 20:54 Urine Color Yellow (Yellow) Urine Appearance Clear (CLEAR) Urine pH 5.0 (5-7) Ur Specific [place] 1.015 (1.005-1.030) Urine Protein Negative (Negative) Urine Glucose (UA) Negative (Normal) Urine Ketones Negative (Negative) Urine Nitrate Positive A (Negative) Urine Bilirubin Negative (Negative) Ur Leukocyte Esterase Negative (Negative) Urine RBC 0-2 (0-2) /hpf Urine WBC 0-5 (0-5) /hpf Cardiac Studies: 2 Echocardiogram 04/15/22 Echocardiogram Limited Views 10/04/24
--- NOTE | 2025-04-09 08:08 | PM.CONSULT ---
Providers/Reason For Consult Consulting Physician/Specialty*: General Surgery Reason for Consult*: GI bleeding Attending Physician: Elder Acevedo MD Primary Care Provider: TRINH Whittington History of Present Illness History of Present Illness Elisha Vickers is a 74 year old female who presents to the hospital with acute anemia in the setting of recent bleeding from hemorrhoids. Patient does take anticoagulation. She has had hemorrhoids for a long time but recently she got impacted and after having a large bowel movement she experienced significant amount of bleeding. Her last colonoscopy was about a year ago and no evidence of significant pathology other than the hemorrhoids. She states that when she had this episode of GI bleeding she also saw black stool. Denies abdominal pain no other changes in bowel movements, since then her bowels have returned to normal Review of Systems General: Reports: 10 or more systems reviewed and unremarkable except in HPI and below Medications/Allergies Home Medications ?Medication ?Instructions ?Recorded ?Confirmed ?Last Taken ?Type Electric Wheelchair #1 ea 04/20/21 04/09/25 Unknown Rx Lift Chair #1 ea 12/03/21 04/09/25 Unknown Rx glucagon 1 mg/0.2 mL subcutaneous 0.5 mg (0.1 mL) SUBCUT ONCE PRN 09/30/22 04/04/25 Unknown Rx auto-injector hypoglycemia 30 days #0.4 mL prosthesis fitting #1 ea 10/05/22 04/09/25 Unknown Rx stump clinical law professor #1 ea 10/05/22 04/09/25 Unknown Rx LEFT LEG PROSTHESIS #1 ea 03/02/23 04/09/25 Unknown Rx blood sugar diagnostic (Accu-Chek #100 ea 05/21/24 04/09/25 Unknown Rx Guide test strips) blood-glucose meter (Accu-Chek #1 ea 05/21/24 04/09/25 Unknown Rx Guide Glucose Meter) lancets (Accu-Chek Softclix #200 ea 05/21/24 04/09/25 Unknown Rx Lancets) pen needle, diabetic 32 gauge x #100 ea 05/21/24 04/09/25 Unknown Rx 5/32 (BD Domenica 2nd Gen Pen Needle) Pure Wick external catheter #30 ea 09/09/24 04/09/25 Unknown Rx nitrofurantoin 100 mg PO DAILY 30 days #30 caps 10/31/24 04/04/25 Unknown Rx monohydrate/macrocrystals 100 mg capsule (Macrobid) ciprofloxacin HCl 250 mg tablet 250 mg PO BID 5 days #10 tabs 11/13/24 04/04/25 Unknown Rx (Cipro) furosemide 20 mg tablet 20 mg PO DAILY #90 tabs 11/14/24 04/04/25 Unknown Rx Lantus Solostar U-100 Insulin 100 See Rx Instructions .Route 11/21/24 04/04/25 Unknown Rx unit/mL (3 mL) subcutaneous pen .COMPLEX #15 mL (insulin glargine) metoprolol succinate 25 mg See Rx Instructions .Route 01/10/25 04/04/25 Unknown Rx tablet,extended release 24 hr .COMPLEX #90 tabs Novolog FlexPen U-100 Insulin 100 See Rx Instructions .Route 01/24/25 04/04/25 Unknown Rx unit/mL (3 mL) subcutaneous .COMPLEX #15 mL (insulin aspart U-100) rivaroxaban 20 mg tablet (Xarelto) See Rx Instructions .Route 02/13/25 04/04/25 Unknown Rx .COMPLEX #90 tabs sacubitril 97 mg-valsartan 103 mg 1 tab PO BID #60 tabs 04/04/25 04/04/25 Unknown Rx tablet (Entresto) clopidogrel 75 mg tablet See Rx Instructions .Route 04/07/25 Unknown Rx .COMPLEX #90 tabs Allergies Allergy/AdvReac Type Severity Reaction Status Date / Time ceftriaxone (From Rocephin) Allergy Severe cardiac Verified 04/04/25 10:16 arrest atorvastatin (From Lipitor) Allergy Unknown UNKNOWN Verified 04/04/25 10:16 Utcwdpd-ZIO-PfS Reductase Allergy Unknown UNKNOWN Verified 04/04/25 10:16 Inhibitor (Bonqmdi-Nxp-Aht Reductase Inhibitor) Current Medications Generic Name Dose Route Start Last Admin Trade Name Freq PRN Reason Stop Dose Admin Furosemide 40 mg 04/08/25 21:45 04/08/25 22:03 Furosemide 10 Mg/Ml Sdv 4ml IVP Not Given Q12H BIRGIT Heparin Sodium (Porcine) 5,000 unit 04/08/25 21:45 04/08/25 22:14 Heparin 5,000 Unit/Ml Inj 1 Ml SUBCUT 5,000 unit Q12H BIRGIT Administration Pantoprazole Sodium 40 mg 04/09/25 05:00 04/09/25 05:[address] 40 Mg Tablet PO 40 mg DAILY BIRGIT Administration PFSH Acute PFSH: Medical History (Updated 04/09/25 @ 08:11 by Walter Powell MD) TIA (transient ischemic attack) MRSA (methicillin resistant staph aureus) culture positive Gangrene of right foot 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 Wound of right lower extremity Venous insufficiency of both lower extremities Congestive heart failure with cardiomyopathy Carotid stenosis, right Valvular incompetence, mitral Pacemaker Pre-operative clearance Essential hypertension Surgical History Hx of tubal ligation S/P TAVR (transcatheter aortic valve replacement) S/P transmetatarsal amputation of foot History of amputation of lesser toe of right foot History of transmetatarsal amputation of left foot Peripheral vascular angioplasty status with implants and grafts Hx of foot surgery History of heart artery stent Hx of knee surgery Family History Family/Other CAD (coronary artery disease) Chronic kidney disease (CKD) Mother Diabetes Stroke Father Lung disease Sister Lung disease Other Heart disease Denies family history of Clotting disorder Dementia Suicide Anesthesia complication Bleeding disorder Cancer Social History Smoking and tobacco/nicotine status: never used tobacco/nicotine Alcohol intake: never Substance/Drug Use: never Adopted: No Caregiver/support person: No Lives independently: Yes service: No Current occupational status: disabled Sexually active: Yes Do you think of yourself as: Straight/Heterosexual Current gender identity: Female Vitals/I&O/Wt Last Vital Signs Temp 97.8 F 04/09/25 07:39 Pulse 90 04/09/25 07:39 Resp 17 04/09/25 07:39 BP 109/68 04/09/25 07:39 Pulse Ox 98 04/09/25 07:39 O2 Del Method Nasal Cannula 04/09/25 07:39 O2 Flow Rate 2 04/09/25 00:00 04/08/25 04/09/25 04/09/25 22:59 06:59 14:59 Intake Total 240 / 240 Output Total 800 / 800 1000 / 1800 Balance -560 / -560 -1000 / -1560 Weight last 48 hrs Weight 178 lb Weight 178 lb Weight 168 lb Physical Exam Narrative: Benign abdominal exam abdomen soft nontender nondistended. I did a digital rectal examination there is multiple hemorrhoids in the perianal margin. There is no significant bleeding, digital rectal exam shows no blood in the glove Urinary Catheter Management: Rojas: Cath Placed During This Visit: yes Reason for Continuing Indwelling Catheter: Other Urinary Catheter Date of Insertion: 04/08/25 Urinary Catheter Time of Insertion: 20:53 Data 04/09/25 01:02 04/09/25 01:02 A&P Assessment and plan 1. Hemorrhoid: 2. GI bleeding: Plan: This is a 74-year-old female with suspected GI bleeding in the setting of anticoagulation therapy. I think this was a one-time episode caused by severe fecal impaction causing hemorrhoidal bleeding. This has since subsided. Since patient had a recent colonoscopy no colonoscopy is indicated during this admission, unless recurrent bleeding. I will offer the patient an upper endoscopy with possible bleeding control as she also reports black stools during the episode of GI bleeding. I discussed all risk benefits including the risk of perforation, need for additional interventions and need to transfer to higher level of care. She shows understanding wishes to proceed. PDMP PDMP Reviewed: Not Reviewed Coding Level of Care Code Acute Code for [facility] Fwd Diagnoses Hemorrhoid K64.9 GI bleeding K92.2
--- NOTE | 2025-04-09 08:15 | PC.NURSE ---
Tele removed from patient and catheter emptied and measured for patient to go for EDG. Left room at 0815
--- NOTE | 2025-04-09 08:41 | PM.MISC ---
Miscellaneous Note Purpose of Documentation: Update on patient care Note: EGD was done this morning. There was stigmata of bleeding in the stomach, there was gastritis with erosions, one of the erosions had a thick adherent clot that was whitish no evidence of visible vessel or need for intervention. No biopsies were taken as patient is taking anticoagulation. Patient should be initiated on twice a day PPI and Carafate, I will see her in the office and plan for repeat endoscopy in 4 to 6 weeks to ensure improvement of symptoms and for biopsies. All other management per primary
--- NOTE | 2025-04-09 09:15 | ANE.PACU2 ---
Inpatient post-anesthesia follow up: Airway intact: Yes Vital signs: Temperature 97.7 F Pulse Rate 68 Respiratory Rate 18 Blood Pressure 104/58 Pulse Oximetry 100 Oxygen Delivery Me thod Nasal Cannula Oxygen Flow Rate 4 Fraction of Inspir ed Oxygen Hydration adequate: Yes Nausea and vomiting: No Pain level: 1 Mental status: Baseline
--- NOTE | 2025-04-09 09:45 | PC.NURSE ---
Notified Dr. Acevedo patient went for EDG. BP was 104/49. Patient to room, bp 104/58. Verbal orders to hold furosemide due to vitals
--- NOTE | 2025-04-09 09:58 | PC.CHAP ---
Pastoral Care Encounter/Spiritual Assessment Type of Contact [] Declined bilingual case manager visit [] Patient/Family/Request visit [] Outpatient visit [] Follow-up visit [] Physician referral [] Code/Alert [] Routine visit [] Staff referral [] Actively dying [] Patient sleeping [] Family support [] [x] Out of room [] Palliative care [] [] Receiving care in room [] Pre-surgical visit [] Trauma [] Long length of stay [] ICU visit [] Other: Relational/Emotional Strength [] Patient feels connected with others/family/visitors/staff [] Distress [] Loneliness/isolation [] Abandonment Spirituality of Patient [] Person of Karen [] Attends Islam of their Karen [] Believes in Prayer [] Reads Bible or Religion materials [] There are Spiritual issues to be addressed Top Collar Maker Interventions [] Prayer [] Active listening [] Non-anxious presence [] Spiritual/emotional support [] Crisis/trauma care [] Spiritual counseling [] Bereavement support [] Provided bereavement packet [] Provided Bible/devotional materials [] Provided toy/stuffed animal, coloring book to patient or family member [] Provided Communion [] Anointing/Haugen [] Salvation [] Completed spiritual assessment [] Other: Impact on Illness or Injury [] Angry [] Fearful [] Anxious [] Often cries [] Exhaustion [] Unable to work [] Unable to attend advent [] Unable to walk/stand [] Unable to read [] Unable to drive [] Unable to eat/drink [] Unable to sleep [] Unable to be with family [] Patient intubated [] Other: Summary Time spent with patient
[2025-04-09] MEDS: heparin 5,000 unit/mL INJ 1 mL 5000 UNIT SUBCUT (10:26)
[2025-04-09] MEDS: pantoprazole 40 mg SDV IVP (10:27)
[2025-04-09] MEDS: sucralfate 1 gm/10 mL Oral Liq UDC PO (10:28)
--- NOTE | 2025-04-09 15:58 | PM.DCS ---
Discharge Providers Date of Admission: 04/08/25 21:28 Date of Discharge: April 09, 2025 Attending Provider at Admission: Karla Araujo MD Attending Provider at Discharge: Elder Acevedo MD Primary Care Provider: TRINH Whittington Diagnoses at Discharge Discharge Diagnosis 1. Hemorrhoid: 2. GI bleeding: Reason for Visit Reason for Visit: Resp Distr Brief History: Elisha Vickers is a 74 year old female with medical history significant for hypertension hyperlipidemia diabetes type 2 and heart failure with reduced ejection fraction. Patient has been following with Dr. Parks. She is on Entresto and was supposedly to increase her dose slowly and gradually as per Dr. Parks recommendation. She has been seen with him 4 days ago and was doing fine however over the course of week until Monday she was getting a little bit tired and fatigue. And later on Monday she had started to have shortness of breath. There is no history of fever, chills. However patient reported having mild phlegm and cough. Which could also be related to her congestive heart failure exacerbation. The patient did not report any sick contact or recent travel. And admitted as a case of acute on chronic congestive heart failure Hospital Course Hospital Course Patient was found to have features of fluid overload and was started on diuresis. With her diuresis to improved she was saturating better at room air. However she desaturates while moving around. Patient home oxygen was arranged by the manager rn case. Her blood counts and labs were more suggestive of fluid overload secondary to acute congestive heart failure rather than pneumonia however based on her current condition with diabetes and other comorbidities she is likely immunosuppressed and may not mount a full response to infection. Therefore considering risk and benefits patient provided 5 days of doxycycline since her QTc was also prolonged. He was also found to have anemia and underwent EGD with surgery. Which found that the patient might have some ulcerative gastritis and to discharge her on Carafate and PPI with follow-up for relook EGD at the time of discharge. Adequate referrals with the PCP, cardiology and the surgeons were made. Her medications were reconciled with the addition of GI medications and her Lasix from 20 mg was increased to 40 mg oral daily. All the concerns or questions of the family were addressed Patient condition has been discussed at length with the patient/family, I have independently reviewed the chart labs imaging/diagnostics/EKG. the goals of care and code status with the patient/family/NOK/legal benefits representative, and documented accordingly. The management has been done according to the current clinical condition with respect to patient goals of care and based on recommendations/guidelines. The patient/family has been informed about the current condition and further plan of care. Agreed with the plan of care and understood without any language barrier. Every effort was made to ensure accuracy of gold marker. Any obvious errors or omissions should be clarified with the author of the document. Physical Exam Narrative: General: Alert and oriented, lying comfortably without any distress, with 1 to 2 L oxygen through nasal cannula. Able to speak in full sentences HEENT: Normocephalic, atraumatic, grossly unremarkable exam Cardio: normal rate rhythm, normal S1-S2 without any murmurs, rubs, or gallops and JVD normal Respiratory: normal vascular breathing on auscultation without any wheezes, stridor, rhonchi GI: Abdomen soft, nontender, nondistended, normoactive bowel sounds present all 4 quadrants, Neuro: intact cranial nerves motor and sensory and cerebellar/coordination function without any focal neurological deficit Behavior: Appropriate and cooperative Extremities: Adequate palpable pulses, mild trace pedal edema. Mild pallor positive Urinary Catheter Management: Rojas: Cath Placed During This Visit: yes Reason for Continuing Indwelling Catheter: Other Urinary Catheter Date of Insertion: 04/08/25 Urinary Catheter Time of Insertion: 20:53 Discharge Data Studies Completed and Pending Completed Studies During Hospitalization Category Date Time Status XR chest 1V portable [id number] Urgent Exams 04/08/25 18:34 Completed Pending at discharge Category Date Time Status Urine Culture Stat Lab 04/08/25 20:54 Received Radiology Impressions Chest X-Ray 04/08/25 18:34 IMPRESSION: Cardiomegaly associated with pulmonary vascular congestion. Laboratory Results WBC 5.02 10^3/uL (3.29-11.43) 04/09/25 01:02 RBC 2.96 10^6/uL (3.85-5.65) L 04/09/25 01:02 Hgb 8.30 g/dL (11.27-16.99) L 04/09/25 01:02 Hct 27.9 % (36-47) L 04/09/25 01:02 MCV 94.3 fl (85-98) 04/09/25 01:02 MCH 28.0 pg (27-33) 04/09/25 01:02 MCHC 29.7 g/dL (30-55) L 04/09/25 01:02 RDW 17.2 % (12.1-15.1) H 04/09/25 01:02 Plt Count 190 10^3/cmm (157-399) 04/09/25 01:02 MPV 11.2 fL (7.4-10.4) H 04/09/25 01:02 Neut % (Auto) 58.5 % 04/09/25 01:02 Lymph % (Auto) 29.3 % 04/09/25 01:02 Jerauld % (Auto) 7.8 % 04/09/25 01:02 Eos % (Auto) 3.6 % 04/09/25 01:02 Baso % (Auto) 0.6 % 04/09/25 01:02 Neut # (Auto) 2.94 10^3/uL (1.8-7.7) 04/09/25 01:02 Lymph # (Auto) 1.5 10^3/uL (0.8-4.8) 04/09/25 01:02 Jerauld # (Auto) 0.4 10^3/uL (0.2-0.9) 04/09/25 01:02 Eos # (Auto) 0.2 10^3/uL (0.0-0.8) 04/09/25 01:02 Baso # (Auto) 0.0 10^3/uL (0.0-0.1) 04/09/25 01:02 Nucleated RBC % (auto) 0 % 04/09/25 01:02 Nucleated RBCs # 0.0 /100WBC 04/09/25 01:02 Sodium 143 mmol/L (136-145) 04/09/25 01:02 Potassium 3.5 mmol/L (3.5-5.1) 04/09/25 01:02 Chloride 105 mmol/L (98-107) 04/09/25 01:02 Carbon Dioxide 27 mmol/L (22-29) 04/09/25 01:02 Anion Gap 14.5 (5-19) 04/09/25 01:02 BUN 24 mg/dL (8-23) H 04/09/25 01:02 Creatinine 0.8 mg/dL (0.5-0.9) 04/09/25 01:02 GFR Calculation Not Reportable 04/09/25 01:02 Glucose 111 mg/dL (65-115) 04/09/25 01:02 POC Glucose 103 mg/dL (70-110) 04/09/25 11:10 Estimat Average Glucose 146 04/09/25 01:02 Hemoglobin A1c 6.7 % (4.0-6.0) H 04/09/25 01:02 Calculated Osmolality 301 mOsm/kg (285-295) H 04/09/25 01:02 Calcium 8.5 mg/dL (8.5-10.5) 04/09/25 01:02 Phosphorus 3.5 mg/dL (2.5-4.5) 04/09/25 01:02 Magnesium 2.0 mg/dL (1.7-2.3) 04/09/25 01:02 Total Bilirubin 0.7 mg/dL (0.15-1.2) 04/09/25 01:02 AST 8 U/L (0-32) 04/09/25 01:02 ALT 8 U/L (0-33) 04/09/25 01:02 Alkaline Phosphatase 55 U/L (35-105) 04/09/25 01:02 Troponin T Baseline 55 ng/L (0-10) H 04/08/25 18:50 Troponin T 120 Minute 57.43 ng/L (0-10) H 04/08/25 20:47 Delta Troponin T 2.43 ABS# (0-10) 04/08/25 20:47 Troponin T Hi Sens 6Hr 63.21 ng/L (0-10) H 04/09/25 01:02 Troponin T Hi Sens 6Hr Delta 8.21 ng/L (0-12) 04/09/25 01:02 NT-Pro-B Natriuret Pep 6613 pg/mL (0-450) H 04/08/25 18:50 Total Protein 5.9 g/dL (6.6-8.7) L 04/09/25 01:02 Albumin 3.7 g/dL (3.5-5.2) 04/09/25 01:02 Globulin 2.2 g/dL (1.3-4.6) 04/09/25 01:02 Procalcitonin 0.04 ng/mL (0-0.5) 04/08/25 18:50 TSH 4.42 uIU/mL (0.27-4.20) H 04/08/25 20:47 Urine Color Yellow (Yellow) 04/08/25 20:54 Urine Appearance Clear (CLEAR) 04/08/25 20:54 Urine pH 5.0 (5-7) 04/08/25 20:54 Ur Specific Gilman 1.015 (1.005-1.030) 04/08/25 20:54 Urine Protein Negative (Negative) 04/08/25 20:54 Urine Glucose (UA) Negative (Normal) 04/08/25 20:54 Urine Ketones Negative (Negative) 04/08/25 20:54 Urine Blood Non-haemolysed trace (Negative) 04/08/25 20:54 Urine Nitrate Positive (Negative) A 04/08/25 20:54 Urine Bilirubin Negative (Negative) 04/08/25 20:54 Urine Urobilinogen 1.0 mg/dL (Negative) 04/08/25 20:54 Ur Leukocyte Esterase Negative (Negative) 04/08/25 20:54 Urine RBC 0-2 /hpf (0-2) 04/08/25 20:54 Urine WBC 0-5 /hpf (0-5) 04/08/25 20:54 Ur Squamous Epith Cells 0-5 /hpf (0-5) 04/08/25 20:54 Amorphous Sediment Not Reportable 04/08/25 20:54 Urine Bacteria 4+ /hpf (NONE) H 04/08/25 20:54 Hyaline Casts 2.87 /lpf 04/08/25 20:54 Vitals Last Vital Signs Temp 98.0 F 04/09/25 13:08 Pulse 71 04/09/25 13:08 Resp 17 04/09/25 13:08 BP 107/69 04/09/25 13:08 Pulse Ox 88 L 04/09/25 13:40 O2 Del Method Nasal Cannula 04/09/25 13:08 O2 Flow Rate 2 04/09/25 13:40 Discharge Plan Discharge Patient Disposition: Home Condition: Stable Prescriptions: New doxycycline hyclate 100 mg capsule 100 mg PO BID 5 Days Qty: 10 0RF pantoprazole [Protonix] 40 mg tablet,delayed release (DR/EC) 40 mg PO BID 56 Days Qty: 112 0RF Rx Instructions: Patient to continue 40 mg twice daily dose for 4 to 6 weeks and later on to continue 40 mg once daily sucralfate [Carafate] 100 mg/mL suspension 1 g PO Q6H 28 Days Qty: 1120 0RF Continued (DME) Electric Wheelchair See Rx Instructions .Route .MEDSUPPLY Qty: 1 0RF Rx Instructions: As directed (DME) Lift Chair See Rx Instructions .Route .MEDSUPPLY Qty: 1 0RF Rx Instructions: As directed (DME) prosthesis fitting See Rx Instructions .Route .MEDSUPPLY Qty: 1 0RF Rx Instructions: As directed (DME) stump web services professional See Rx Instructions .Route .MEDSUPPLY Qty: 1 0RF Rx Instructions: As directed sacubitril-valsartan [Entresto] 97-103 mg tablet 1 tab PO BID Qty: 60 3RF (DME) Pure Wick external catheter See Rx Instructions .Route .MEDSUPPLY Qty: 30 11RF Rx Instructions: As directed ([facility] [place] LEFT LEG PROSTHESIS See Rx Instructions .Route .MEDSUPPLY Qty: 1 0RF Rx Instructions: As directed ([facility] [place] Accu-Chek Guide test strips Strip See Rx Instructions .Route Qty: 100 0RF Rx Instructions: Test blood sugar three times daily (DME) blood-glucose meter [Accu-Chek Guide Glucose Meter] Misc See Rx Instructions .Route Qty: 1 0RF Rx Instructions: use to check blood suga (DME) lancets [Accu-Chek Softclix Lancets] Misc See Rx Instructions .Route Qty: 200 0RF Rx Instructions: test blood sugar 3 times a day (DME) pen needle, diabetic [BD Domenica 2nd Gen Pen Needle] 32 gauge x 5/32 needle See Rx Instructions .ROUTE .COMPLEX Qty: 100 0RF Dose Instruction: USE TWICE DAILY Rx Instructions: USE TWICE DAILY insulin glargine [Lantus Solostar U-100 Insulin] 100 unit/mL (3 mL) insulin pen See Rx Instructions .ROUTE .COMPLEX Qty: 15 0RF Dose Instruction: INJECT 15 UNITS SUBCUTANEOUSLY TWICE DAILY Rx Instructions: INJECT 10 UNITS SUBCUTANEOUSLY TWICE DAILY metoprolol succinate 25 mg tablet extended release 24 hr See Rx Instructions .ROUTE .COMPLEX Qty: 90 0RF Dose Instruction: Take 1 tablet by mouth once daily Rx Instructions: Take 1 tablet by mouth once daily insulin aspart U-100 [Novolog FlexPen U-100 Insulin] 100 unit/mL (3 mL) insulin pen See Rx Instructions .ROUTE .COMPLEX Qty: 15 0RF Dose Instruction: INJECT SUBCUTANEOUSLY ON SLIDING SCALE THREE TIMES DAILY AFTER MEALS. MAX DAILY DOSE 60 UNITS. Rx Instructions: INJECT SUBCUTANEOUSLY ON SLIDING SCALE THREE TIMES DAILY AFTER MEALS. MAX DAILY DOSE 60 UNITS. Xarelto 20 mg tablet See Rx Instructions .ROUTE .COMPLEX Qty: 90 1RF Dose Instruction: Take 1 tablet by mouth once daily Rx Instructions: Take 1 tablet by mouth once daily clopidogrel 75 mg tablet See Rx Instructions .ROUTE .COMPLEX Qty: 90 0RF Dose Instruction: Take 1 tablet by mouth once daily Rx Instructions: Take 1 tablet by mouth once daily dorzolamide-timolol 22.3-6.8 mg/mL drops 1 drp ophthalmic (eye) BID Changed furosemide 20 mg tablet 40 mg PO DAILY 60 Days Qty: 90 1RF Complaint Supervisor OK for DC: Surgery Discharge Order = DC NOW: Discharge Order (Routine); Ordered 04/09/25 Ordered By: Elder Acevedo Other Ambulatory Orders: DME: Oxygen (Order) Location: None Selected Ordered By: Elder Acevedo Referrals: Walter Powell MD [Physician, General Surgery] - 04/21/25 9:40 am Referral Note: re-look endoscopy Polly Velez NP [Nurse Practitioner, Cardiology] - 05/06/25 8:00 am Stephanie Parks MD [Physician, Cardiology] - 2 weeks Referral Note: Patient discharged on 40 mg oral Lasix and has been on 20 mg before. This is post discharge change after her admission as a case of acute congestive heart failure with fluid overload Gloria Escobar FNP [Primary Care Provider, Family Practice] - 04/29/25 11:00 am Referral Note: post discharge follow up Discharge Diet: Advance as tolerated, Cardiac, Diabetic, Low Salt, Low Cholesterol and Low Fat Discharge Activity: Resume usual activity and Limit activity as instructed Patient Instructions: Sucralfate (By mouth), Doxycycline (By mouth), Pantoprazole (By mouth), Using Oxygen at Home (GEN), GI Post Discharge Instructions w/ Anesthesia, Opioid Safety, Pain Management, Patient Portal & Terrell Instructions Discharge Attestations Time Spent in Discharge Care*: greater than 30 min Specific Discharge Activities: educating patient, educating and/or supporting family/caregiver, discussing with pcp/other providers, discussing with case finishing machine adjuster/social workers/dc planners, documenting/other paperwork and evaluating patient/reviewing data Status at Discharge: Cognitive status at discharge: cognitively intact, Behavioral status at discharge: cooperative, Functional status at discharge: other assisted ambulation, Overall status at discharge: patient is back to baseline Quality Metrics Clinical Quality Measures [ No reported AMI, CVA or VTE this stay] Coding Level of Care Code 45913 Diagnoses Hemorrhoid K64.9 GI bleeding K92.2
--- NOTE | 2025-04-09 17:37 | PC.NURSE ---
Discussed discharge with patient and family. Went over new medications, changed and continued medications. Discussed follow up appointments. Oxygen arrived at time of going over discharge with patient. All parties verbalized understanding.
--- NOTE | 2025-04-09 17:39 | PC.NURSE ---
Patient waited for Oxygen to arrive before discharging home.
== END 2025-04-09 17:00 | disposition home or self-care (01) | DRG 377 ==
LOC: ER 21:46 → ER IP 22:19 → MEDSURG 22:46
PROVIDERS: Surgery; Admitting Provider Internal Medicine; Emergency Provider Physician Assistant; PCP Registered Nurse; Visit Provider Student in an Organized Health Care Education/Training Program
PROC: 0DJ08ZZ Inspection of Upper Intestinal Tract, Via Natural or Artificial Opening Endoscopic (ICD-10-PCS; principal; 2025-04-09 08:00)
DX: K29.71 Gastritis, unspecified, with bleeding (principal); I50.23 Acute on chronic systolic (congestive) heart failure; D62 Acute posthemorrhagic anemia; I42.9 Cardiomyopathy, unspecified; I11.0 Hypertensive heart disease with heart failure; K64.9 Unspecified hemorrhoids; E78.5 Hyperlipidemia, unspecified; I45.81 Long QT syndrome; K29.80 Duodenitis without bleeding; K20.90 Esophagitis, unspecified without bleeding; K44.9 Diaphragmatic hernia without obstruction or gangrene; I25.10 Atherosclerotic heart disease of native coronary artery without angina pectoris; E11.51 Type 2 diabetes mellitus with diabetic peripheral angiopathy without gangrene; Z79.4 Long term (current) use of insulin; Z79.01 Long term (current) use of anticoagulants; Z79.02 Long term (current) use of antithrombotics/antiplatelets; Z89.512 Acquired absence of left leg below knee; Z89.421 Acquired absence of other right toe(s); Z95.0 Presence of cardiac pacemaker; Z95.5 Presence of coronary angioplasty implant and graft; Z95.2 Presence of prosthetic heart valve; Z86.14 Personal history of Methicillin resistant Staphylococcus aureus infection; Z86.73 Personal history of transient ischemic attack (TIA), and cerebral infarction without residual deficits; Z95.820 Peripheral vascular angioplasty status with implants and grafts
CPT/HCPCS: 36415; 36416; 43235; 51702; 71045; 80053; 81001; 82962; 83036; 83735; 83880; 84100; 84145; 84443; 84484; 85025; 87077; 87086; 87186; 93005; 94760; 96361; 96372; 96374; 97165; 99285; J1644; J1938; J2250; J2470; J2704; J9999

== ENCOUNTER → 2025-04-29 11:37 | Outpatient (BNVA) | payer MEDICARE, MEDICAID, SELFPAY | PROVIDERS: PCP Registered Nurse; Visit Provider Registered Nurse | DX: K92.2 Gastrointestinal hemorrhage, unspecified (principal) | CPT/HCPCS: 85025 ==

== ENCOUNTER → 2025-05-06 08:08 | Outpatient (BNVA) | payer MEDICARE, MEDICAID, SELFPAY | PROVIDERS: PCP Registered Nurse; Visit Provider Nurse Practitioner Family | DX: I11.0 Hypertensive heart disease with heart failure (principal); I50.9 Heart failure, unspecified; I42.9 Cardiomyopathy, unspecified; I25.10 Atherosclerotic heart disease of native coronary artery without angina pectoris; E78.5 Hyperlipidemia, unspecified; I65.23 Occlusion and stenosis of bilateral carotid arteries; D64.9 Anemia, unspecified; K29.60 Other gastritis without bleeding; Z95.828 Presence of other vascular implants and grafts; Z95.5 Presence of coronary angioplasty implant and graft; Z95.2 Presence of prosthetic heart valve; Z95.0 Presence of cardiac pacemaker; Z79.01 Long term (current) use of anticoagulants; Z86.73 Personal history of transient ischemic attack (TIA), and cerebral infarction without residual deficits | CPT/HCPCS: 36415; 80053; 83880; 99213 ==

== ENCOUNTER 2025-05-16 09:24 | Outpatient (CLI) | payer MEDICARE, MEDICAID, SELFPAY ==
--- NOTE | 2025-05-16 09:15 | USCV_ITS ---
Elisha Vickers Age: 74 Gender: F : 1950 Exam Date: 05/16/2025 09:51 Ordering Phys: Polly Velez NP Technologist: [email or web address] Exam Location: [facility] [place] Indication: Systolic Heart Failure BP: 110 / 68 HR: Rhythm: Sinus Technical Quality: Adequate MEASUREMENTS (Male / Female) Normal Values 2D ECHO LV Diastolic Diameter PLAX 8.1 cm 4.2 - 5.9 / 3.9 - 5.3 cm IVS Diastolic Thickness 0.8 cm 0.6 - 1.0 / 0.6 - 0.9 cm IVS Systolic Thickness 1.0 cm LVPW Diastolic Thickness 1.1 cm 0.6 - 1.0 / 0.6 - 0.9 cm LVPW Systolic Thickness 1.2 cm LVOT Diameter 1.8 cm LV Ejection Fraction 2D Teich 43.8 % LV Ejection Fraction MOD 4C 31.2 % LV Ejection Fraction MOD 2C 32.6 % LV Ejection Fraction 2C AL 31.7 % LA Diameter 5.3 cm RA Systolic Volume 4C AL 25.4 ml RA Systolic Volume 4C MOD 25.2 ml LA Sys Volume AL 98.7 cm cubed LA Sys Volume Index AL 50.0 cm cubed/m squared Aorta at Sinotubular Diameter 2.4 cm M-MODE LA Ao Ratio MM 1.9 AV Cusp Separation MM 1.1 cm FINDINGS Left Ventricle Moderately increased left ventricular cavity size. Severely decreased left ventricular systolic function. Left ventricular ejection fraction is estimated at 30 %. Global left ventricular hypokinesis. Right Ventricle Normal right ventricular size. Catheter/pacemaker wire visualized in the right ventricle. Right Atrium Normal right atrial size. Left Atrium Moderately increased left atrial size. IA Septum Mitral Valve Aortic Valve Tricuspid Valve Pulmonic Valve Pericardium Aorta IVC CONCLUSIONS Limited echocardiogram Moderately increased left ventricular cavity size. Severely decreased lef it ventricular systolic function. Left ventricular ejection fraction is estimated at 30 %. Global left ventricular hypokinesis. Moderately increased left atrial size. Normal right ventricular size. Catheter/pacemaker wire visualized in the right ventricle. Mar Delgadillo MD (Electronically Signed) Final Date: 19 May 2025 13:00 S
== END 2025-05-16 09:25 | disposition home or self-care (01) ==
LOC: RAD 09:26
PROVIDERS: PCP Registered Nurse; Visit Provider Nurse Practitioner Family
DX: I50.1 Left ventricular failure, unspecified (principal); I42.9 Cardiomyopathy, unspecified; I51.7 Cardiomegaly
CPT/HCPCS: 81000; 87077; 87086; 87184; 93308

== ENCOUNTER 2025-06-07 14:00 | Emergency (ER) | payer MEDICARE, MEDICAID, SELFPAY ==
--- NOTE | 2025-06-07 14:04 | ECG_ITS ---
[facility] Test Date: 2025-06-07 Pat Name: Elisha Vickers Department: Room: Gender: Female City Sanitarian: : 1950 Requested By: Kaur Vaughan Order Number: [id number] Reading MD: PIERRE HOUGH Measurements Intervals [place] Rate: 76 P: 45 AR: 216 QRS: -57 QRSD: 129 T: 128 QT: 429 QTc: 482 Interpretive Statements ELECTRONIC VENTRICULAR PACEMAKER ABNORMAL RHYTHM ECG Compared to ECG 04/09/2025 00:42:28 No significant changes Electronically Signed On 06-08-2025 22:57:38 FLIGHT SERVICE SPECIALIST by PIERRE HOUGH [id number]
--- NOTE | 2025-06-07 14:04 | XRR_ITS ---
PROCEDURE INFORMATION: Exam: XR Chest Exam date and time: 06/07/2025 2:38 PM Age: 74 years old Clinical indication: Shortness of breath; Prior surgery; Surgery date: 6+ months; Surgery type: Tavr, pacemaker, cardiac stents; Additional info: Fluid retention; SOB; HX chf TECHNIQUE: Imaging protocol: Radiologic exam of the chest. Views: 1 view. COMPARISON: CR XR chest 1V portable [id number] 04/08/2025 6:34 PM FINDINGS: Lungs: Improved aeration left lower lobe consistent with improving atelectasis/consolidation. Some small nodular opacities laterally in the right upper lobe not evident previously. Follow-up PA and lateral chest suggested 1-2 weeks recommended to see if these persist. Pleural spaces: Decreased left pleural effusion. Heart/Mediastinum: 2 lead AICD. No significant interval change cardiomegaly. Remains some mild distension upper lobe pulmonary veins. Mild tortuosity thoracic aorta with aortic arch calcification.. Bones/joints: Left convexity thoracolumbar scoliosis with degenerative changes. Upper abdomen: Unremarkable. XR/XR chest 1V portable [id number] IMPRESSION: Some improvement consolidation atelectasis in the left lower lobe. Decreased left pleural effusion. Remains some mild distension of the upper lobe pulmonary veins. Some nodularity laterally upper lobe. Follow-up PA and lateral chest recommended in 1-2 weeks to see if these persist.
--- OUTSIDE RECORDS SUMMARY | 2025-06-07 14:06 | XMS_ITS | Encounter Summary ---
Author Organization [facility] Address [address] 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
--- OUTSIDE RECORDS SUMMARY | 2025-06-07 14:06 | XMS_ITS | Encounter Summary ---
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
--- OUTSIDE RECORDS SUMMARY | 2025-06-07 14:06 | XMS_ITS | Encounter Summary ---
Author Organization [facility] Address [address] [place] [address] Care Team Providers Care Blood Bank Business Manager Name Role Phone Gloria Escobar TRINH Primary Care Provider Encounter Details Date Type Department Care Team (Latest Contact Info) Description 12/27/1999 Outpatient Historical [facility] Internal Medicine- [place] [address] [place] [address] Linsey Sheffield MD [address] 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
--- OUTSIDE RECORDS SUMMARY | 2025-06-07 14:06 | XMS_ITS | Encounter Summary ---
Author Organization [facility] Address [address] [place] [address] Care Team Providers Care Manager Bakery Name Role Phone Gloria Escobar Primary Care Provider Encounter Details Date Type Department Care Team (Latest Contact Info) Description 03/17/2000 Outpatient Historical [facility] Internal Medicine- [place] [address] [place] [address] Linsey Sheffield MD [address] [facility] [address] [place] [address] Type II or unspecified type diabetes mellitus without mention of complication, not stated as uncontrolled (Primary Dx); Unspecified essential hypertension Social History Tobacco Use Types Packs/Day Years Used Date Smoking Tobacco: Never Assessed Comments Unknown Sex and Gender Information Value Date Recorded Sex Assigned at Not on file 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
--- OUTSIDE RECORDS SUMMARY | 2025-06-07 14:06 | XMS_ITS | Encounter Summary ---
Author Organization [facility] Address [address] [place] [address] Care Team Providers Care Electric Milkers Installer Name Role Phone Gloria Escobar Primary Care Provider [phone] Encounter Details Date Type Department Care Team (Latest Contact Info) Description 10/15/2001 Outpatient Historical [facility] [place] [address] [place] [address] Suleiman Ferro MD [address] [address] HYPERTENSION NOS (Primary Dx); CERVICALGIA Social History Tobacco Use Types Packs/Day Years Used Date Smoking Tobacco: Never Assessed Comments Unknown Sex and Gender Information Value Date Recorded Sex Assigned at Not on file 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 Gender Identity Not on file Sexual Orientation Not on file documented as of this encounter Plan of Treatment Not on file documented as of this encounter Visit Diagnoses Diagnosis Unspecified essential hypertension- Primary Cervicalgia documented in this encounter Additional Health Concerns Infection Onset Date Last Indicated Resolved Time R/O COVID-19 10/14/2019 10/14/2019 10/14/2019 9:11 PM CDT documented as of this encounter Care Teams Electric Milkers Installer Relationship Specialty Start Date End Date Gloria Escobar FNP [address] [place] [address] PCP - General Nurse Practitioner Family 06/20/19 documented as of this encounter
--- OUTSIDE RECORDS SUMMARY | 2025-06-07 14:06 | XMS_ITS | Encounter Summary ---
Author Organization [facility] Address [address] [place] [address] Care Team Providers Care Pediatric Cns Name Role Phone Gloria Escobar Primary Care Provider Encounter Details Date Type Department Care Team (Latest Contact Info) Description 12/29/1999 Outpatient Historical [facility] Internal Medicine- [place] [address] [place] [address] Linsey Sheffield MD [address] [address] [place] [address] Routine medical exam (Primary Dx) Social History Tobacco Use Types Packs/Day Years Used Date Smoking Tobacco: Never Assessed Comments Unknown Sex and Gender Information Value Date Recorded Sex Assigned at Not on file Legal Sex Female 4:54 AM RN INTEGRATED Gender Identity Not on file Sexual Orientation [...] documented as of this encounter Care Teams Pediatric Cns Relationship Specialty Start Date End Date Gloria Escobar FNP [address] [place] [address] PCP - General Nurse Practitioner Family 06/20/19 documented as of this encounter
--- OUTSIDE RECORDS SUMMARY | 2025-06-07 14:06 | XMS_ITS | Encounter Summary ---
Author Organization [facility] Address [address] [place] [address] Care Team Providers Care Veneer Joiner Name Role Phone Gloria Escobar TRINH Primary Care Provider [phone] Encounter Details Date Type Department Care Team (Latest Contact Info) Description 04/21/2000 Outpatient Historical [facility] Internal Medicine- [place] [address] [address] [place] [address] Linsey Sheffield MD [address] [facility] [address] [place] [address] Type II or unspecified type diabetes mellitus without mention of complication, not stated as uncontrolled (Primary Dx); Other and unspecified hyperlipidemia; Unspecified essential hypertension Social History Tobacco Use Types Packs/Day Years Used Date Smoking Tobacco: Never Assessed Comments Unknown Sex and Gender Information Value Date Recorded Sex Assigned at Not on file 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
--- OUTSIDE RECORDS SUMMARY | 2025-06-07 14:06 | XMS_ITS | Encounter Summary ---
Author Organization [facility] Address [address] [place] [address] Care Team Providers Care Mortar Mixer Name Role Phone Gloria Escobar TRINH Primary Care Provider Encounter Details Date Type Department Care Team (Latest Contact Info) Description 10/20/2000 Outpatient Historical [facility] Internal Medicine- [place] [address] [place] [address] Linsey Sheffield MD [address] [facility] [address] [place] [address] Type II or unspecified type [...] on file Legal Sex Female 4:54 AM PARENT PARTNER Gender Identity Not on file Sexual Orientation [...] documented as of this encounter Care Teams Mortar Mixer Relationship Specialty Start Date End Date Gloria Escobar FNP [address] [place] [address] PCP - General Nurse Practitioner Family 06/20/19 documented as of this encounter
--- OUTSIDE RECORDS SUMMARY | 2025-06-07 14:06 | XMS_ITS | Encounter Summary ---
Author Organization [facility] Address [address] [place] [address] Care Team Providers Care Grove Worker Name Role Phone Gloria Escobar Primary Care Provider Encounter Details Date Type Department Care Team (Latest Contact Info) Description 11/02/1999 Outpatient Historical [facility] Linsey Sheffield MD [address] [facility] [address] [place] [address] Type II or unspecified type diabetes mellitus without mention of complication, not stated as uncontrolled (Primary Dx); Pure hypercholesterolem; Unspecified essential hypertension Social History Tobacco Use Types Packs/Day Years Used Date Smoking Tobacco: Never Assessed Comments Unknown Sex and Gender Information Value Date Recorded Sex Assigned at Not on file Legal 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
--- OUTSIDE RECORDS SUMMARY | 2025-06-07 14:06 | XMS_ITS | Encounter Summary ---
Author Organization [facility] Address [address] [place] [address] Care Team Providers Care Supply Chain Consultant Name Role Phone Gloria Escobar TRINH Primary Care Provider Encounter Details Date Type Department Care Team (Late st Contact Info) Description 04/01/2011 Ancillary Orders [facility] Orthopedics- [address] [place] [address] Chad Raines MD NO ADDRESS ON FILE Pain Social History Tobacco Use Types Packs/Day Years Used Date Smoking Tobacco: Never Smokeless Tobacco: Never Alcohol Use Standard Drinks/Week Comments No 0 (1 standard drink = 0.6 oz pur e alcohol) Comments No Sex and Gender Information Value Date Recorded Sex Assigned at Not on file Legal Sex Female 4:54 AM ESTIMATOR JEWELRY Gender Identity Not on file Sexual Orientation [...] documented as of this encounter Care Teams Supply Chain Consultant Relationship Specialty Start Date End Date Gloria Escobar FNP [address] [place] [address] PCP - General Nurse Practitioner Family 06/20/19 documented as of this encounter
--- OUTSIDE RECORDS SUMMARY | 2025-06-07 14:06 | XMS_ITS | Encounter Summary ---
Author Organization [facility] Address [address] 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
--- OUTSIDE RECORDS SUMMARY | 2025-06-07 14:06 | XMS_ITS | Encounter Summary ---
Author Organization [facility] Address [address] [place] [address] Care Team Providers Care Cupola Melter Name Role Phone Gloria Escobar Primary Care Provider [phone] Encounter Details Date Type Department Care Team (Latest Contact Info) Description 09/27/2001 Outpatient Historical [facility] Family Medicine [address] [address] Milli Hui MD NO ADDRESS ON FILE CERVICALGIA (Primary Dx); Gynecologic examination; SCREENING MAL NEOP-RECTUM; DIABETES UNCOMPL ADULT-TYPE II ([facility]) Social History Tobacco Use Types Packs/Day Years Used Date Smoking Tobacco: Never Assessed Comments Unknown Sex and Gender Information Value Date Recorded Sex Assigned at Not on file Legal 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
--- OUTSIDE RECORDS SUMMARY | 2025-06-07 14:06 | XMS_ITS | Encounter Summary ---
Author Organization [facility] Address [address] [place] [address] Care Team Providers Care Supercharger Repair Supervisor Name Role Phone Gloria Escobar Primary Care Provider Encounter Details Date Type Department Care Team (Latest Contact Info) Description 11/17/1999 Outpatient Historical [facility] Linsey Sheffield MD [address] [facility] [address] [place] [address] Type II or unspecified type diabetes mellitus without mention of complication, not stated as uncontrolled (Primary Dx); Unspecified essential hypertension; Pure hypercholesterolem Social History Tobacco Use Types Packs/Day Years Used Date Smoking Tobacco: Never Assessed Comments Unknown Sex and Gender Information Value Date Recorded Sex Assigned at Not on file Legal Sex Female 4:54 AM PSYCHIATRIC ASSISTANT Gender Identity Not on file Sexual [...] documented as of this encounter Care Teams Supercharger Repair Supervisor Relationship Specialty Start Date End Date Gloria Escobar FNP [address] [place] [address] PCP - General Nurse Practitioner Family 06/20/19 documented as of this encounter
--- OUTSIDE RECORDS SUMMARY | 2025-06-07 14:06 | XMS_ITS | Encounter Summary ---
Author Organization [facility] Address [address] [place] [address] Care Team Providers Care Tablet Making Machine Operator Helper Name Role Phone Gloria Escobar Primary Care Provider Encounter Details Date Type Department Care Team (Latest Contact Info) Description 11/26/1999 Outpatient Historical [facility] Rosendo Maciel, OD [address] [place] [address] Type II or unspecified type diabetes mellitus without mention of complication, not stated as uncontrolled (Primary Dx) Social History Tobacco Use Types Packs/Day Years Used Date Smoking Tobacco: Never Assessed Comments Unknown Sex and Gender Information Value Date Recorded Sex Assigned at Not on file Legal Sex Female 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
--- OUTSIDE RECORDS SUMMARY | 2025-06-07 14:06 | XMS_ITS | Encounter Summary ---
Author Organization [facility] Address [address] 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
--- OUTSIDE RECORDS SUMMARY | 2025-06-07 14:06 | XMS_ITS | Encounter Summary ---
Author Organization [facility] Address [address] [place] [address] Care Team Providers Care Senior C Developer Name Role Phone Gloria Escobar Primary Care Provider Encounter Details Date Type Department Care Team (Latest Contact Info) Description 12/28/1999 Outpatient Historical [facility] Rosendo Maciel, OD [address] [place] [address] Unspecified disorder of refraction and accommodation (Primary Dx) Social History Tobacco Use Types Packs/Day Years Used Date Smoking Tobacco: Never Assessed Comments Unknown Sex and Gender Information Value Date Recorded Sex Assigned at Not on file Legal Sex Female 4:54 AM BRIGADIER Gender Identity Not on file Sexual Orientation [...] documented as of this encounter Care Teams Senior C Developer Relationship Specialty Start Date End Date Gloria Escobar FNP [address] [place] [address] PCP - General Nurse Practitioner Family 06/20/19 documented as of this encounter
--- OUTSIDE RECORDS SUMMARY | 2025-06-07 14:06 | XMS_ITS | Encounter Summary ---
Author Organization [facility] Address [address] [place] [address] Care Team Providers Care Universal Branch Consultant Name Role Phone Gloria Escobar TRINH Primary Care Provider Encounter Details Date Type Department Care Team (Latest Contact Info) Description 02/19/2001 Outpatient Historical [facility] Internal Medicine- [place] [address] [facility] [address] [place] [address] Linsey Sheffield MD [address] [facility] [address] [place] [address] Unspecified essential hypertension (Primary Dx); Other and unspecified hyperlipidemia; Type II or unspecified type diabetes mellitus without mention of complication, not stated as uncontrolled Social History Tobacco Use Types Packs/Day Years Used Date Smoking Tobacco: Never Assessed Comments Unknown Sex and Gender Information Value Date Recorded Sex Assigned at Not on file Legal Sex Female 4:54 AM COMMUNICATIONS 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
--- OUTSIDE RECORDS SUMMARY | 2025-06-07 14:07 | XMS_ITS | Encounter Summary ---
Author Organization [facility] Address [address] [place] [address] Care Team Providers Care Sparker And Patcher Name Role Phone Luz Gloria TRINH Primary Care Provider [phone] Reason for Referral * CT Scan (Routine) - Closed Specialty Diagnoses / Procedures Referred By Javad saini Referred To Contact Diagnoses Aortic valve stenosis, etiology of cardiac valve disease unspecified Procedures CT CARDIAC CHEST INTERPRETATION Waylon Hahn MD Phone: tel: fax: Referral ID Status Reason Start Date Expiration Date Visits Re quested Visits Authorized [id number] Closed 04/10/2018 05/11/2019 1 1 Encounter Details Date Type Department Care Team (Late st Contact Info) Description 04/10/2018 Ancillary Orders [facility] Cardiology- [place] [address] [place] [address] Waylon Hahn MD [address] [place] [address] Aortic valve stenosis, etiology of cardiac valve disease unspecified Social History Tobacco Use Types Packs/Day Years Used Date Smoking Tobacco: Never Smokeless Tobacco: Never Alcohol Use Standard Drinks/Week Comments No 0 (1 standard drink = 0.6 oz pur e alcohol) Comments No Sex and Gender Information Value Date Recorded Sex Assigned at Not on file Legal Sex Female 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
--- OUTSIDE RECORDS SUMMARY | 2025-06-07 14:07 | XMS_ITS | Encounter Summary ---
Author Organization [facility] Address [address] [place] [address] Care Team Providers Care Electronic Equipment Set Up Operator Name Role Phone Gloria Escobar TRINH Primary Care Provider Encounter Details Date Type Department Care Team (Latest Contact Info) Description 01/25/2002 Outpatient Historical [facility] Internal Medicine- [place] [address] [facility] [address] [place] [address] Linsey Sheffield MD [address] [facility] [address] [place] [address] MYALGIA AND MYOSITIS NOS (Primary Dx); OTHER MALAISE AND FATIGUE; HYPERLIPIDEMIA NEC/NOS; DIABETES UNCOMPL ADULT-TYPE II ([facility]/HCC) Social History Tobacco Use Types Packs/Day Years Used Date Smoking Tobacco: Never Assessed Comments Unknown Sex and Gender Information Value Date Recorded Sex Assigned at Not on file Legal Sex Female 4:54 AM HAND LACER Gender Identity Not on file Sexual Orientation [...] documented as of this encounter Care Teams Electronic Equipment Set Up Operator Relationship Specialty Start Date End Date Gloria Escobar FNP [address] [place] [address] PCP - General Nurse Practitioner Family 06/20/19 documented as of this encounter
--- OUTSIDE RECORDS SUMMARY | 2025-06-07 14:07 | XMS_ITS | Encounter Summary ---
Author Organization [facility] Address [address] [place] [address] Care Team Providers Care Locomotive Engineer Electric Name Role Phone Gloria Escobar TRINH Primary Care Provider Encounter Details Date Type Department Care Team (Latest Contact Info) Description 06/29/2016 Ancillary Orders [facility] [address] [phone] Sam Juárez MD [address] [facility] [address] [place] [address] Visit for screening mammogram Social History Tobacco Use Types Packs/Day Years Used Date Smoking Tobacco: Never Smokeless Tobacco: Never Alcohol Use Standard Drinks/Week Comments No 0 (1 standard drink = 0.6 oz pur e alcohol) Comments No Sex and Gender Information Value Date Recorded Sex Assigned at Not on file Legal Sex Female 4:54 AM CLERK CASHIER Gender Identity Not on file Sexual Orientation Not on file Occupation Industry Job Start Date Job End Date Not on file Not on file Not on file Not on file documented as of this encounter Plan of Treatment Not on file documented as of this encounter Results * MAMMO PRIOR STUDY (09/25/2008 3:15 AM CDT) Narrative 06/29/2016 3:17 PM CLERK CASHIER This exam was auto finalized to allow [...] documented as of this encounter Care Teams Locomotive Engineer Electric Relationship Specialty Start Date End Date Gloria Escobar FNP [address] [place] [address] PCP - General Nurse Practitioner Family 06/20/19 documented as of this encounter
--- OUTSIDE RECORDS SUMMARY | 2025-06-07 14:07 | XMS_ITS | Encounter Summary ---
Author Organization [facility] Address [address] [place] [address] Care Team Providers Care Supervisor [place] Name Role Phone LuzGloria TRINH Primary Care Provider [phone] Reason for Referral * Outpatient Services (Routine) - Closed Specialty Diagnoses / Procedures Referred By Javad saini Referred To Contact Diagnoses Carotid stenosis Procedures US CAROTID DOPPLER Jeremi Mederos Sr., FNP [address] [place] [address] Phone: tel: fax: Referral ID Status Reason Start Date Expiration Date Visits Re quested Visits Authorized [id number] Closed 03/09/2015 04/08/2016 1 1 Encounter Details Date Type Department Care Team (Latest Contact Info) Description 03/09/2015 Ancillary Orders [facility] Centralized Scheduling [address] [place] [address] Jeremi Mederos Sr., FNP [address] [place] [address] Carotid stenosis (Primary Dx) Social History Tobacco Use Types Packs/Day Years Used Date Smoking Tobacco: Never Smokeless Tobacco: Never Alcohol Use Standard Drinks/Week Comments No 0 (1 standard drink = 0.6 oz pur e alcohol) Comments No Sex and Gender Information Value Date Recorded Sex Assigned at Not on file Legal Sex Female 4:54 AM CUSTOMER MANAGEMENT SPECIALIST Gender Identity Not on file Sexual [...] hemodynamically significant stenosis us Jeremi Mederos Sr., OUTREACH COUNSELOR US ORDERABLES F inal Result documented in [...] documented as of this encounter Care Teams Supervisor [place] Relationship Specialty Start Date End Date Gloria Escobar FNP [address] [place] [address] PCP - General Nurse Practitioner Family 06/20/19 documented as of this encounter
--- OUTSIDE RECORDS SUMMARY | 2025-06-07 14:07 | XMS_ITS | Encounter Summary ---
Author Organization [facility] Address [address] [place] [address] Care Team Providers Care Maintenance Service Dispatcher Name Role Phone Gloria Escobar Primary Care Provider Encounter Details Date Type Department Care Team (Latest Contact Info) Description 06/02/2000 Outpatient Historical [facility] Internal Medicine- [place] [address] [facility] [address] [place] [address] Linsey Sheffield MD [address] [facility] [address] [place] [address] Type II or unspecified type diabetes mellitus without mention of complication, not stated as uncontrolled (Primary Dx); Unspecified essential hypertension Social History Tobacco Use Types Packs/Day Years Used Date Smoking Tobacco: Never Assessed Comments Unknown Sex and Gender Information Value Date Recorded Sex Assigned at Not on file Legal Sex Female 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
--- OUTSIDE RECORDS SUMMARY | 2025-06-07 14:07 | XMS_ITS | Patient Health Record ---
Author Organization [facility] Address [address] [facility] [place] [address] Care Team Providers Care Lease Attendant Name Role Phone Gloria Escobar Primary Care Provider JOLENE Mclean Unavailable [phone] Allergies Allergen (clinical drug ingredient) Drug/Non Drug Allergy documented on EMR Reaction Allergy Type Onset Date Status Substance with 4-ujytaju-0-methylgluta ryl-coenzyme A reductase inhibitor mechanism of action (substance) Statins Unknown Drug Allergy Active Results Component Value Reference Range Notes Urinalysis, Routine Reviewed date:11/27/2024 01:34:13 PM Interpretation: Performing Lab: Notes/Report: Urine-Color yellow Appearance clear Glucose - Bilirubin - Ketones - Specific Cushing 1.015 Occult Blood - pH 6.0 Urine Protein - Urobilinogen,Semi-Qn - Nitrite, Urine - WBC Esterase - Reason For Referral No Information Medications Medication SIG (Take, Route, Frequency, Duration) Notes Start Date End Date Status Furosemide 20 MG Tablet 1 tablet Orally Once a day Active Metoprolol Succinate ER 25 MG Tablet Extended Release 24 Hour 1 tablet Orally Once a day Active Clopidogrel Bisulfate 75 MG Tablet 1 tablet Orally Once a day Active Xarelto 20 MG Tablet 1 tablet with food Orally Once a day Active Entresto 49-51 MG Tablet 1 tablet Orally Twice a day Active Nitrofurantoin Monohyd Macro 100 MG Capsule 1 capsule with food Orally daily Active Social History Section Notes: non smoker non drinker denies drug use Problems Problem Type SNOMED Code ICD Code Onset Dates Problem Status W/U Status Risk Notes Problem Neurogenic bladder (194270490) Neurogenic bladder (N31.9) Active confirmed Problem Urinary incontinence (665642637) Urinary incontinence (R32) Active confirmed Problem Diabetes mellitus uncontrolled (859248281) Uncontrolled diabetes mellitus (E11.65) Active confirmed Problem Legal blindness ([place]) (254165544) Legally blind (H54.8) Active confirmed Problem Amputee (01547511) Amputee (Z89.9) Active confirmed Problem Dependence on wheelchair (323678647) Wheelchair bound (Z99.3) Active confirmed Vital Signs Weight-kg 74.84 kg 11/27/2024 Weight 165 lbs 11/27/2024 Procedures Procedure Date Ordered Date Performed Result Body Sit e Bladder Scan 11/27/2024 11/27/2024 N/A Encounters Encounter Location Date Provider Diagnosis [facility] [address] [place] [address] 11/27/2024 JOLENE DIAZ Neurogenic bladder N31.9 ; Urinary incontinence R32 ; Uncontrolled diabetes mellitus E11.65 ; Recurrent UTI N39.0 ; Legally blind H54.8 ; Wheelchair bound Z99.3 ; Impaired mobility Z74.09 and Amputee Z89.9 [employer] [employer] [address] [place] [address] 11/13/2024 JOLENE DIAZ [employer] [facility] [address] [place] [address] 11/27/2024 JOLENE DIAZ Assessments Encounter Date Diagnosis (ICD Code) Assessment [...] neurogenic bladder. Unable to CIC or empty senior care urethral catheter due to being visually impaired. [...] breakthrough UTI. Unable to CIC or empty senior care urethral catheter due to being visually impaired. Plan Of Treatment Next Appt Details Provider Name:JOLENE DIAZ, 0 12/03/2025 02:00:00 PM, [address] [place], [address], Insurance Providers Payer Name Payer Address Payer Phone Subscriber Number Group Number Insured Name Patient Relationship to Insured Coverage Start Date Coverage End Date [employer] Medicare Replacement [address] [address] [place], [place] [id number] Elisha Vickers Self - patient is the insured [place] Medicaid [address] [place], [place] [id number] Elisha Vickers Self - patient is the insured Medical (General) History Medical History History ICD Code CAD diabetes heart disease high cholesterol high blood pressure Surgical History Surgery Date(Month/Year) double amputation heart stents pacemaker tavr eye surgery right Hospitalization History Reason Date(Month/Year) see sx
--- OUTSIDE RECORDS SUMMARY | 2025-06-07 14:07 | XMS_ITS | Encounter Summary ---
Author Organization [facility] Address [address] [place] [address] Care Team Providers Care Captain Assistant Name Role Phone Gloria Escobar TRINH Primary Care Provider Encounter Details Date Type Department Care Team (Latest Contact Info) Description 08/18/2000 Outpatient Historical [facility] Internal Medicine- [place] [address] [facility] [address] [place] [address] Linsey Sheffield MD [address] [facility] [address] [place] [address] Type II or unspecified type diabetes mellitus without mention of complication, not stated as uncontrolled (Primary Dx); Pure hypercholesterolem; Unspecified essential hypertension Social History Tobacco Use Types Packs/Day Years Used Date Smoking Tobacco: Never Assessed Comments Unknown Sex and Gender Information Value Date Recorded Sex Assigned at Not on file Legal Sex Female 4:54 AM ANODE BUILDER Gender Identity Not on file Sexual Orientation [...] documented as of this encounter Care Teams Captain Assistant Relationship Specialty Start Date End Date Gloria Escobar FNP [address] [place] [address] PCP - General Nurse Practitioner Family 06/20/19 documented as of this encounter
--- OUTSIDE RECORDS SUMMARY | 2025-06-07 14:07 | XMS_ITS | Encounter Summary ---
Author Organization [facility] Address [address] [place] [address] Care Team Providers Care Shoe Polisher Name Role Phone LuzGloria briones TRINH Primary Care Provider [phone]- [phone] Reason for Referral * Outpatient Services (Routine) - Closed Specialty Diagnoses / Procedures Referred By Javad saini Referred To Contact Diagnoses Numbness and tingling of left side of face Procedures CT HEAD WO CONTRAST Jeremi Mederos Sr., FNP [address] [place] [address] Phone: tel: fax: Referral ID Status Reason Start Date Expiration Date Visits Re quested Visits Authorized [id number] Closed 12/22/2014 01/22/2016 1 1 Encounter Details Date Type Department Care Team (Late st Contact Info) Description 12/22/2014 Ancillary Orders [facility] Admitting [address] [place] [address] Jeremi Mederos Sr., FNP [address] [place] [address] Numbness and tingling of left side of face (Primary Dx) Social History Tobacco Use Types Packs/Day Years Used Date Smoking Tobacco: Never Smokeless Tobacco: Never Alcohol Use Standard Drinks/Week Comments No 0 (1 standard drink = 0.6 oz pur e alcohol) Comments No Sex and Gender Information Value Date Recorded Sex Assigned at Not on file Legal Sex Female 4:54 AM DOCKMASTER Gender Identity Not on file Sexual Orientation [...] IMPRESSION negative noncontrast head CT Procedure Note eHron Devi MD - 12/22/[address] [...] noncontrast head CT us Jeremi Mederos Sr., PODIATRY TEACHER CT ORDERABLES F inal Result documented in this encounter Visit Diagnoses Diagnosis Numbness and tingling of left side of face- Primary Numbness and tingling of left side of face documented in this encounter Additional Health Concerns Infection Onset Date Last Indicated Resolved Time R/O COVID-19 10/14/2019 10/14/2019 10/14/2019 9:11 PM CDT documented as of this encounter Care Teams Shoe Polisher Relationship Specialty Start Date End Date Gloria Escobar FNP [address] [place] [phone] PCP - General Nurse Practitioner Family 06/20/19 documented as of this encounter
--- OUTSIDE RECORDS SUMMARY | 2025-06-07 14:07 | XMS_ITS | Encounter Summary ---
Author Organization [facility] Address [address] [place] [address] Care Team Providers Care Welder Production Line Arc Name Role Phone Gloria Escobar TRINH Primary Care Provider Encounter Details Date Type Department Care Team ([facility] st Contact Info) Description 09/29/2008 Ancillary Orders [facility] Imaging External Read [address] [place] [address] Facundo De Leon MD NO ADDRESS ON FILE Screening Mammogram Social History Tobacco Use Types Packs/Day Years Used Date Smoking Tobacco: Never Alcohol Use Standard Drinks/Week Comments No 0 (1 standard drink = 0.6 oz pur e alcohol) Comments No Sex and Gender Information Value Date Recorded Sex Assigned at Not on file Legal Sex Female 4:54 AM DRIVER MANAGER Gender Identity Not on file Sexual [...] documented as of this encounter Care Teams Welder Production Line Arc Relationship Specialty Start Date End Date Gloria Escobar FNP [address] [place] [address] PCP - General Nurse Practitioner Family 06/20/19 documented as of this encounter
--- OUTSIDE RECORDS SUMMARY | 2025-06-07 14:07 | XMS_ITS | Encounter Summary ---
Author Organization [facility] Address [address] [place] [address] Care Team Providers Care Yarder Puncher Name Role Phone Gloria Escobar TRINH Primary Care Provider Reason for Referral * Radiology Services (Routine) - Closed Specialty Diagnoses / Procedures Referred By Contac t Referred To Contact Radiology Diagnoses S/P TAVR (transcatheter aortic valve replacement) Procedures ECHOCARDIOGRAM W/ CONTRAST AGENT ECHO COMPLETE Waylon Hahn MD Phone: tel: fax: [facility] Echo [place] [address] [place] [address] Phone: tel: fax: Referral ID Status Reason Start Date Expiration Date Visits Re quested Visits Authorized [id number] Closed 04/26/2018 05/27/2019 1 1 IN REPAIRER Encounter Details Date Type Department Care Team (Late st Contact Info) Description 06/18/2018 Ancillary Orders [facility] Cardiology- [place] [address] [place] [address] Waylon Hahn MD [address] [place] [address] S/P TAVR (transcatheter aortic valve replacement) Social History Tobacco Use Types Packs/Day Years Used Date Smoking Tobacco: Never Smokeless Tobacco: Never Alcohol Use Standard Drinks/Week Comments No 0 (1 standard drink = 0.6 oz pur e alcohol) Comments No Sex and Gender Information Value Date Recorded Sex Assigned at Not on file Legal Sex Female 4:54 AM VIOLIN REPAIRER Gender Identity Not on file Sexual Orientation Not on file Occupation Industry Job Start Date Job End Date Not on file Not on file Not on file Not on file documented as of this encounter Plan of Treatment Not on file documented as of this encounter Results * ECHOCARDIOGRAM W/ CONTRAST AGENT (06/18/2018 1:55 PM VIOLIN REPAIRER) EJECTION FRACTION 35 INTERFACE SYSTEM 06/18/2018 1:06 PM VIOLIN REPAIRER Narrative INTERFACE SYSTEM - 06/19/2018 1:24 PM VIOLIN REPAIRER [facility] Echocardiography-[address] [place] [address] Transthoracic Echocardiography Patient: Elisha Vickers Study ECHO COMPLETE K ID: Gender: F : 1950 Age: 67 Room: Study 06/18/2018 Pt Outpatient Date: Status: Study 01:06:05 PM CSN #: [id number] Time: Ordering:Waylon Hahn Interpreting:Danielle Martinez Oceanographic Meteorologist: Arsh Pickard [facility] Indications and History: S/P TAVR (transcatheter aortic [...] gradient, S Regurg joshua, 74.1 cm/sec ED [facility] Echo Labs are accredited with the [facility] Accreditation Commission - Echocardiography. Prepared and Electronically Authenticated Danielle Martinez Confirmed 06/19/2018 13:24 Procedure Note Danielle Martinez MD - 06/19/2018 [facility] Echocardiography-[place] [address] [facility] [address] [place] [address] Transthoracic Echocardiography Patient: Elisha Vickers Study ECHO COMPLETE K ID: Gender: F : 1950 Age: 67 Room: Study 06/18/2018 Pt Outpatient Date: Status: Study 01:06:05 PM [facility] #: [id number] Time: Ordering:Waylon Hahn Interpreting:Danielle Martinez Oceanographic Meteorologist: Arsh Pickard [facility] Indications and History: S/P TAVR (transcatheter aortic [...] gradient, S Regurg joshua, 74.1 cm/sec ED [facility] are accredited with the [facility] Accreditation Commission - Echocardiography. Prepared and Electronically [...] documented as of this encounter Care Teams Yarder Puncher Relationship Specialty Start Date End Date Gloria Escobar FNP [address] [place] [address] PCP - General Nurse Practitioner Family 06/20/19 documented as of this encounter
--- OUTSIDE RECORDS SUMMARY | 2025-06-07 14:07 | XMS_ITS | Encounter Summary ---
Author Organization [facility] Address [address] [place] [address] Care Team Providers Care After School Program Teacher Name Role Phone Gloria Escobar TRINH Primary Care Provider [phone] Reason for Referral * Radiology Services (Routine) - Closed Specialty Diagnoses / Procedures Referred By Contac t Referred To Contact Diagnoses PVD (peripheral vascular disease) Procedures IR FLUORO OR OTHER Maximo Morillo MD Phone: tel: fax: Referral ID Status Reason Start Date Expiration Date Visits Re quested Visits Authorized [id number] Closed 05/20/2020 06/20/2021 1 1 L VIAL GRINDER Encounter Details Date Type Department Care Team (Late st Contact Info) Description 05/20/2020 Ancillary Orders [facility] Interventional Radiology OR [address] [place] [phone] Maximo Morillo MD [address] [address] PVD (peripheral vascular disease) Social History Tobacco Use Types Packs/Day Years Used Date Smoking Tobacco: Never Smokeless Tobacco: Never Alcohol Use Standard Drinks/Week Comments No 0 (1 standard drink = 0.6 oz pur e alcohol) Comments No Sex and Gender Information Value Date Recorded Sex Assigned at Not on file Legal Sex Female 4:54 AM LEVEL VIAL GRINDER Gender Identity Not on file Sexual Orientation Not on file Occupation Industry Job Start Date Job End Date Not on file Not on file Not on file Not on file COVID-19 Exposure Response Date Recorded In the last month, have you been in contact with someone who was confirmed or suspected to have Coronavirus / COVID-19? No / Unsure 05/20/2020 10:11 AM LEVEL VIAL GRINDER documented as of this encounter Plan of Treatment Not on file documented as of this encounter Results * IR FLUORO OR OTHER (05/21/2020 3:27 AM LEVEL VIAL GRINDER) Narrative 05/21/2020 3:27 AM LEVEL VIAL GRINDER Order Auto Finalized. Please see associated Operative Report/Progress Note from the same date. us Maximo Morillo MD IR ORDERABLES Final R esult documented in this encounter Visit Diagnoses Diagnosis PVD (peripheral vascular disease) Peripheral vascular disease, unspecified PVD (peripheral vascular disease) Peripheral vascular disease, unspecified documented in this encounter Care Teams After School Program Teacher Relationship Specialty Start Date End Date Gloria Escobar FNP [address] [place] [address] PCP - General Nurse Practitioner Family 06/20/19 documented as of this encounter
--- OUTSIDE RECORDS SUMMARY | 2025-06-07 14:07 | XMS_ITS | Encounter Summary ---
Author Organization [facility] Address [address] [place] [address] Care Team Providers Care Chef Head Name Role Phone Gloria Escobar Primary Care Provider Encounter Details Date Type Department Care Team ([facility] st Contact Info) Description 09/29/2008 Ancillary Orders [facility] [place] [address] [address] Facundo De Leon MD NO ADDRESS ON FILE Social History Tobacco Use Types Packs/Day Years Used Date Smoking Tobacco: Never Alcohol Use Standard Drinks/Week Comments No 0 (1 standard drink = 0.6 oz pur e alcohol) Comments No Sex and Gender Information Value Date Recorded Sex Assigned at Not on file Legal Sex Female 4:54 AM TOLL TICKET CLERK Gender Identity Not on file Sexual Orientation Not on file documented as of this encounter Plan of Treatment Not on file documented as of this encounter Visit Diagnoses Not on filedocumented in this encounter Additional Health Concerns Infection Onset Date Last Indicated Resolved Time R/O COVID-19 10/14/2019 10/14/2019 10/14/2019 9:11 PM CDT documented as of this encounter Care Teams Chef Head Relationship Specialty Start Date End Date Gloria Escobar FNP [address] [place] [address] PCP - General Nurse Practitioner Family 06/20/19 documented as of this encounter
--- OUTSIDE RECORDS SUMMARY | 2025-06-07 14:07 | XMS_ITS | Encounter Summary ---
Author Organization [facility] Address [address] [place] [address] Care Team Providers Care Health And Human Performance Professor Name Role Phone Gloria Escobar TRINH Primary Care Provider Encounter Details Date Type Department Care Team (Latest Contact Info) Description 09/17/2004 Outpatient Historical [facility] Imaging Services-[facility] [place] [address] [place] [address] Kirk Arroyo MD NO ADDRESS ON FILE CHEST PAIN NOS (Primary Dx) Social History Tobacco Use Types Packs/Day Years Used Date Smoking Tobacco: Never Assessed Comments Unknown Sex and Gender Information Value Date Recorded Sex Assigned at Not on file Legal Sex Female 4:54 AM POWER CRANE OPERATOR Gender Identity Not on file Sexual [...] documented as of this encounter Care Teams Health And Human Performance Professor Relationship Specialty Start Date End Date Gloria Escobar FNP [address] [place] [address] PCP - General Nurse Practitioner Family 06/20/19 documented as of this encounter
--- OUTSIDE RECORDS SUMMARY | 2025-06-07 14:07 | XMS_ITS | Encounter Summary ---
Author Organization [facility] Address [address] [place] [address] Care Team Providers Care Machinist Helper Name Role Phone Gloria Escobar Primary Care Provider Encounter Details Date Type Department Care Team (Late st Contact Info) Description 10/29/2001 Outpatient Historical [facility] [address] [facility] [address] [place] [address] Yolie Dominguez MD NO ADDRESS ON FILE OT ABNORMAL RADIOLOG EXAM BREAST (Primary Dx) Social History Tobacco Use Types Packs/Day Years Used Date Smoking Tobacco: Never Assessed Comments Unknown Sex and Gender Information Value Date Recorded Sex Assigned at Not on file Legal Sex Female 4:54 AM IMPROVEMENT LEAD Gender Identity Not on file Sexual Orientation [...] documented as of this encounter Care Teams Machinist Helper Relationship Specialty Start Date End Date Gloria Escobar FNP [address] [place] [address] PCP - General Nurse Practitioner Family 06/20/19 documented as of this encounter
--- OUTSIDE RECORDS SUMMARY | 2025-06-07 14:07 | XMS_ITS | Clinical Summary ---
Author Organization [facility] Address [address] [facility] [address] [place] [address] Care Team Providers Care Welfare Supervisor Name Role Phone Gloria Escobar DIRECT MARKETING MANAGER Primary Care Provider Allergies Active Allergy Reactions Criticality Noted Date Comments Ceftriaxone Other (See Comments) High 02/22/2019 Caused TIA's; has tolerated cefepime and cefazolin since Bdwmuha-Xou-Qgb Reductase Inhibitors Muscle Pain High 05/21/2009 Medications [...] (01/03/2020): Added automatically from request for surgery [id number] Superficial femoral artery occlusion 10/16/2019 Osteomyelitis of [...] (04/25/2018): Device Model and serial number: Medtronic [place] model number W1DR01, serial number [id number] Lead Serial numbers: RV: Medtronic 5076-52 cm, serial number [id number] RA:Medtronic 5076-45 cm, serial number [id number] (complete heart block) 04/25/2018 Stroke due [...] on file Legal Sex Female 4:54 AM HEARING INSTRUMENT SPECIALIST Gender Identity Not on file Sexual Orientation Not on file Occupation Industry Job Start Date Job End Date Not on file Not on file Not on file Not on file Last Filed Vital Signs Vital Sign Reading Time Taken Comments Blood Pressure 140/70 09/03/2020 4:20 PM CDT Pulse 82 09/03/2020 4:20 PM CDT Temperature 36.6 C (97.8 F) 05/27/2020 11:45 AM HEARING INSTRUMENT SPECIALIST Respiratory Rate 18 05/27/2020 11:45 AM HEARING INSTRUMENT SPECIALIST Oxygen Saturation 96% 09/03/2020 4:20 PM CDT Inhaled Oxygen Concentration - - Weight 84.5 kg (186 lb 4.6 oz) 05/27/2020 5:12 A M HEARING INSTRUMENT SPECIALIST Height 170.2 cm (5' 7 ) 05/27/2020 5:12 AM HEARING INSTRUMENT SPECIALIST Body Mass Index 29.18 05/27/2020 5:12 AM HEARING INSTRUMENT SPECIALIST Plan of Treatment Health Maintenance Due Date [...] history exists Medical Devices Implanted Type Area Doorperson Or Luggage Porter Device Identifier Shelf Expiration Date Model / Serial / Lot Patch Vascu-Guard [id number] - [id number] Implanted:Qty : 1 on 02/11/2015 by Rosie Birmingham MD at [facility] Biological Right: Carotid SYNOVIS- BIO-VASCULAR INC [id number] / / [id number] Angio-Seal Vip Closure Dev [id number] - [id number] Implanted:09/2019 by Maximo Morillo MD at [facility] (Quantity not on file) Closure Device Left: Leg AGUILAR [employer] [id number] 04/11/2020 [id number] / / [id number] Closure Perclose Proglide 98284 - [id number] Implanted:11/2019 at [facility] (Quantity not on file) Closure Device Right: Groin AGUILAR- VASC DEVICE 05/11/2021 10235 / [id number] / [id number] Closure Perclose Proglide 88282 - [id number] Implanted: at [facility] (Quantity not on file) Closure Device Left: Groin AGUILAR- VASC DEVICE 09/09/2021 01532 / / [id number] Closure Perclose Proglide 14941 - [id number] Implanted: at [facility] (Quantity not on file) Closure Device Right: Groin AGUILAR- VASC DEVICE 10/09/2021 07919 / / [id number] Sealangio Vip 8fr [id number] - [id number] Implanted:Qty : 1 on 05/21/2020 by Maximo Morillo MD at [facility] Closure Device Leg AGUILAR [employer] 02/09/2021 [id number] / / [id number] Lens Io Bi-Aspheric Softechd+22.5 d - [id number] Implanted:Qty : 1 on 04/01/2020 by Raul Murphy MD at [facility] Eye Left: Eye LENSTEC INC 12/25/2024 SOFTECHD+ 22.5D / [id number] / Lens Io Bi-Aspheric Softechd+22.5 d - [id number] Implanted:Qty : 1 on 05/14/2020 by Raul Murphy MD at [facility] Eye Right: Eye LEN[employer]EC INC 07/10/2024 SOFTECHD+ 22.5D / [id number] / [id number] Medtronic Lead-04/24/20 18 Implanted: by Bebeto Guzman MD (Quantity not on file) Lead MEDTRONIC INC 01/20/2020 5076-52 / [id number] / Medtroniclead -04/24/2018 Implanted: by Bebeto Guzman MD (Quantity not on file) Lead MEDTRONIC INC 01/24/2020 5076-45 / [id number] / Medtronic Farida Xt Dr Jeff [id number] Implanted: by Bebeto Guzman MD (Quantity not on file) Pacemaker MEDTRONIC INC 09/07/2019 FARIDA [id number] / [id number] / Sealant Floseal W/ Apdtr 5ml [id number] - [id number] Implanted:Qty : 1 on 02/11/2015 by Rosie Birmingham MD at [facility] Sealant Right: Neck APONTE- BIOSCIENCE 01/10/2016 [id number] / / [id number] Stent- 018 Implanted:Qty : 1 on 03/21/2018 by Deng Lockett DO Stent AGU[employer]AR LAB [id number] 05/16/2020 / / [id number] Stent- 018 Implanted:Qty : 1 on 03/21/2018 by Deng Lockett DO Stent MEDTRONIC INC [id number] 09/18/2019 / / [id number] Stent- 018 Implanted:Qty : 1 on 03/21/2018 by Deng Lockett DO Stent AG[employer]AR LAB [id number] 08/28/2020 / / [id number] Stent- 018 Implanted:Qty : 1 on 03/21/2018 by Deng Lockett DO Stent AGU[employer]AR LAB [id number] 09/22/2018 / / [id number] Supera Stent-03/01/20 19 Implanted: by Moi Anderson MD (Quantity not on file) Stent Left: Leg AGUILAR- VASC DEVICE [id number] S-60-150- 120-P6 / / Stent Vasc Supera 6fr [id number]- P6-05/15/2019 Implanted:09/2018 (Quantity not on file) Stent AGUILAR- VASC DEVICE [id number] 01/09/2021 S-50-060- 120-P6 / / [id number] Stent Vasc Supera 6fr Y-53-505-120- P6-05/15/2019 Implanted:09/2018 (Quantity not on file) Stent AGUILAR- VASC DEVICE [id number] 12/09/2020 S-60-100- 120-P6 / / [id number] Stent Lifestream Cvr [id number] - [id number] Implanted:Qty : 1 on 05/21/2020 at [facility] Stent Right: Leg CR BARD- MARIEL VASC INC 08/09/2022 [id number] / / [id number] Stent Lifestream Cvr [id number] - [id number] Implanted:Qty : 1 on 05/21/2020 at [facility] Stent Right: Leg CR BARD- MARIEL VASC INC 06/11/2022 [id number] / / [id number] Stent Synergy Mr 3.5x32mm Drug Elut [id number] - [id number] Implanted:Qty : 1 on 05/21/2020 by Maximo Morillo MD at [facility] Stent Right: Leg BOSTON SCI YOKASTA 01/15/2022 [id number] / / [id number] Valve- 018 Implanted:Qty : 1 on 04/24/2018 by Waylon Hahn MD Valve MEDTRONIC- HEART VALVE [id number] 12/04/2019 / [id number] / Procedures Procedure Name Priority Date/Time Associated Diagnosis Comments COLONOSCOPY REPORT 05/25/2020 1: 15 PM HEARING INSTRUMENT SPECIALIST LIPID PANEL Routine 02/02/2019 1:11 AM CDT HEMOGLOBIN A1C Routine 02/02/2019 1:11 AM CDT XR DEXA BONE DENSITY AXIAL 1 OR MORE SITES Routine 06/29/2016 3:05 PM HEARING INSTRUMENT SPECIALIST Asymptomatic menopausal state Osteoporosis screening MICROALBUMIN/CREATIN INE RATIO, RANDOM UR Routine 03/12/2012 8:47 AM CDT Encounter for long-term (current) use of other medications Chest pain, unspecified HTN (hypertension), benign DM w/o Complication Type II, Insulin Dependent from Last 3 Months or Most Recently Relevant to Health Maintenance Results * COLONOSCOPY REPORT (05/25/2020 1:15 PM HEARING INSTRUMENT SPECIALIST) Narrative Procedure Note Corona Alvarez MD - 05/25/2020 1:14 PM CST [facility] GI Patient Name: Elisha Vickers Procedure Date: [...] 12:57:58 PM Scope Out: 1:08:30 PM [address] [place], [place] Corona Alvarez MD GI PROCEDURE ORDERABLES Final Result * (ABNORMAL) HEMOGLOBIN A1C (02/02/2019 1:11 AM CDT) HEMOGLOBIN A1C 9.0(H) <=5.6 % 02/02/2019 8:55 AM CDT [facility] EST. AVG GLUCOSE, A1C 212 mg/dL 02/02/2019 8:55 AM CDT [facility] Blood Venipuncture / Unknown 02/02/2019 1:11 AM CDT 02/02/2019 1:29 AM CDT [facility] - 02/02/2019 8:55 AM CDT HGB A1C INTERPRETATION NORMAL: <5.7% PRE-DIABETES: 5.7 - 6.4% DIABETES: 6.5% OR GREATER us Price Medina MD CHEMISTRY ORDERABLES Final Result [facility]# [id number] [address] [place] [address] * (ABNORMAL) LIPID PANEL (02/02/2019 1:11 AM CDT) CHOLESTEROL 185 <200 mg/dL 02/02/2019 2:02 AM CDT [facility] TRIGLYCERIDE 455(H) <150 mg/dL 02/02/2019 2:02 AM T [facility] HDL 35(L) 40 - 59 mg/dL 02/02/2019 2:02 AM T [facility] LDL CALCULATED 02/02/2019 2:02 AM T [facility] Comment:Calculated LDL is no t accurate when the Triglyceride value exceeds 400. NON-HDL CHOLESTEROL 150(H) <130 mg/dL 02/02/2019 2:02 AM T [facility] Blood Venipuncture / Unknown 02/02/2019 1:11 AM CDT 02/02/2019 1:29 AM CDT [facility] - 02/02/2019 2:02 AM CDT TOTAL CHOLESTEROL [...] Price Medina MD CHEMISTRY ORDERABLES Final Result [facility]# [id number] [facility] [place] [address] * XR DEXA BONE DENSITY AXIAL 1 OR MORE SITES (06/29/2016 3:05 PM HEARING INSTRUMENT SPECIALIST) Anatomical Region Laterality Modality Digital Radiogra phy 06/29/2016 3:06 PM HEARING INSTRUMENT SPECIALIST Impressions 06/29/2016 3:49 PM HEARING INSTRUMENT SPECIALIST IMPRESSION: Abnormal examination Low bone density/osteopenia is [...] clinical management available online at [email or web address] Enter [employer] for Select DXA and the Femoral Neck BMD value. Narrative 06/29/2016 3:49 PM HEARING INSTRUMENT SPECIALIST DEXA Evaluation of the Lumbar Spine and [...] clinical management available online at [email or web address] Enter [employer] for Select DXA and the Femoral Neck BMD value. Sam Juárez MD DIAGNOSTIC IMAGING ORDERA BLES Final Result * MICROALBUMIN/CREATININE RATIO, RANDOM UR (03/12/2012 8:47 AM CDT) Pathologist [facility] CREATININE, URINE 104 mg/dL 03/12/2012 9:26 AM CDT [facility] MICROALBUMIN/C REAT RATIO, UR 70.2 mg/g Creatinine 03/12/2012 9:26 AM CDT [facility] MICROALBUMIN, URINE 7.3 mg/dL 03/12/2012 9:26 AM CDT [facility] Urine specimen (specimen) 03/12/2012 8:47 AM CDT 03/12/2012 8:47 AM CDT Ethan Ballard DO URINE ORDERABLES Final Result Performing Organization Address City/State/[facility] Co de Phone Number [facility] CLIA # [id number] [address] [place] [address] from Last 3 Months or Most Recently Relevant to Health Maintenance Insurance MEDICARE PART A AND B [place] Medicare Part D RX INFOCROSSING Medicaid RX [place] PLANS (INTERNAL) [facility] Internal Plans Advance Directives For more information, please contact: [phone] Documents on File Type Date Recorded Patient Staff Development Coordinator Rn Expl anation Advance Directive POA 04/05/2018 10:18 [...] 7:54 PM 10/14/2019 11:32 PM Care Teams Welfare Supervisor Relationship Specialty Start Date End Date Gloria Escobar TRINH [address] [place] [address] PCP - General Nurse Practitioner Family 06/20/19
--- OUTSIDE RECORDS SUMMARY | 2025-06-07 14:07 | XMS_ITS | Encounter Summary ---
Author Organization [facility] Address [address] [place] [address] Care Team Providers Care Bartenders Name Role Phone Gloria Escobar TRINH Primary Care Provider [phone] Reason for Referral * MRI (Routine) - Closed Specialty Diagnoses / Procedures Referred By Javad saini Referred To Contact Diagnoses Type 2 diabetes mellitus with foot ulcer, unspecified whether termite control servicer insulin use Cellulitis of toe of right foot Procedures MRI FOOT WO CONTRAST RIGHT MRI FOOT W WO CONTRAST RIGHT Axel Kwon DPM [address] [place] [address] Phone: tel: fax: [facility] Pre-Registration [place] CALL TO MAKE APPOINTMENT ONLY [address] [place] [address] Phone: tel: fax: Referral ID Status Reason Start Date Expiration Date Visits Requested Visits Authorized [id number] Closed Interventional Scheduling (SGF) 11/15/2019 12/15/2020 1 1 Encounter Details Date Type Department Care Team (Late st Contact Info) Description 11/26/2019 Ancillary Orders [facility] Podiatry-[facility] [place] [address] [place] [address] Axel Kwon DPM [address] [place] [address] Type 2 diabetes mellitus with foot ulcer, unspecified whether group home insulin use (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 Mild osteoarthritis of the first MTP. [id number] Narrative Procedure Note Evan Villanueva MD - 11/26/2019 IMPRESSION: Please see below. Exam: MRI FOOT WO CONTRAST RIGHT Date/Time of Exam: 11/26/2019 1:45 PM Reason For Exam: Osteomyelitis suspected, foot swelling, diabetic; attn R 2nd toe. Diagnosis: Type 2 diabetes mellitus with foot ulcer, unspecified whether group home insulin use; Type 2 diabetes mellitus with foot ulcer, unspecified whether group home insulin use; Cellulitis of toe of right [...] 3. Mild osteoarthritis of the first MTP. [id number] Axel Kwon [facility] MR ORDERABLES Final Result documented in this encounter Visit Diagnoses Diagnosis Type 2 diabetes mellitus with foot ulcer, unspecified whether termite control servicer insulin use Cellulitis of toe of right foot Cellulitis and abscess of toe, unspecified Type 2 diabetes mellitus with foot ulcer, unspecified whether termite control servicer insulin use Cellulitis of toe of right foot Cellulitis and abscess of toe, unspecified documented in this encounter Care Teams Bartenders Relationship Specialty Start Date End Date Gloria Escoabr FNP [address] [place] [address] PCP - General Nurse Practitioner Family 06/20/19 documented as of this encounter
--- OUTSIDE RECORDS SUMMARY | 2025-06-07 14:07 | XMS_ITS | Encounter Summary ---
Author Organization [facility] Address [address] [place] [address] Care Team Providers Care Gunstock Spray Unit Adjuster Name Role Phone Gloria Escobar Primary Care Provider Encounter Details Date Type Department Care Team (Late st Contact Info) Description 04/06/2020 Telephone [facility] Operating Room [address] [place] [address] Diane Ernst RN Social History Tobacco Use Types Packs/Day Years Used Date Smoking Tobacco: Never Smokeless Tobacco: Never Alcohol Use Standard Drinks/Week Comments No 0 (1 standard drink = 0.6 oz pur e alcohol) Comments No Sex and Gender Information Value Date Recorded Sex Assigned at Not on file Legal 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
--- OUTSIDE RECORDS SUMMARY | 2025-06-07 14:07 | XMS_ITS | Encounter Summary ---
Author Organization [facility] Address [address] [place] [address] Care Team Providers Care Medical Transcription Editor Name Role Phone Gloria Escobar TRINH Primary Care Provider [phone] Reason for Referral * Outpatient Services (Routine) - Closed Specialty Diagnoses / Procedures Referred By Javad saini Referred To Contact Radiology Diagnoses Carotid artery stenosis, right CVA (cerebral vascular accident) ([facility]) Procedures CTA NECK W WO CONTRAST Rosie Birmingham MD [email or web address] [place] [address] Phone: tel: fax: [facility] [place] [address] [place] [address] Phone: tel: fax: Referral ID Status Reason Start Date Expiration Date V isits Requested Visits Authorized [id number] Closed MTN View CTS to Schedule (SGF) 01/13/2015 02/13/2016 1 1 Encounter Details Date Type Department Care Team (Late st Contact Info) Description 01/13/2015 Ancillary Orders [facility] [place] [address] [place] [address] Rosie Birmingham MD [address] [place] [phone] Carotid artery stenosis, right (Primary Dx); CVA (cerebral vascular accident) ([facility]) Social History Tobacco Use Types Packs/Day Years Used Date Smoking Tobacco: Never Smokeless Tobacco: Never Alcohol Use Standard Drinks/Week Comments No 0 (1 standard drink = 0.6 oz pur e alcohol) Comments No Sex and Gender Information Value Date Recorded Sex Assigned at Not on file 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 [place] configuration as described Procedure Note Heron Devi MD - 01/19/2015 PROCEDURE CTA NECK, IV contrast enhanced, 19 January 2015 TECHNIQUE After initial noncontrast preliminary imaging and during injection of 100 mL Optiray-320 nonionic contrast material intravenously, helical axial CT was obtained from the aortic arch through the [place] and imaged at 3 mm [...] change of the carotid siphons bilaterally. 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 [place] configuration as described Rosie Birmingham [...] documented as of this encounter Care Teams Medical Transcription Editor Relationship Specialty Start Date End Date Gloria Escobar FNP [address] [place] [address] PCP - General Nurse Practitioner Family 06/20/19 documented as of this encounter
--- OUTSIDE RECORDS SUMMARY | 2025-06-07 14:07 | XMS_ITS | Encounter Summary ---
Author Organization [facility] Address [address] [place] [address] Care Team Providers Care Automation Sales Manager Name Role Phone Gloria Escobar TRINH Primary Care Provider [phone] Encounter Details Date Type Department Care Team (Late st Contact Info) Description 06/10/2019 Ancillary Orders [facility] [place] [address] [place] [address] Waylon aHhn MD [address] [facility] [address] [place] [address] S/P TAVR (transcatheter aortic valve replacement) Social History Tobacco Use Types Packs/Day Years Used Date Smoking Tobacco: Never Smokeless Tobacco: Never Alcohol Use Standard Drinks/Week Comments No 0 (1 standard drink = 0.6 oz pur e alcohol) Comments No Sex and Gender Information Value Date Recorded Sex Assigned at Not on file 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
--- OUTSIDE RECORDS SUMMARY | 2025-06-07 14:07 | XMS_ITS | Encounter Summary ---
Author Organization [facility] Address [address] [place] [address] Care Team Providers Care Dairy Feed Mixing Operator Name Role Phone Gloria Escobar TRINH Primary Care Provider Reason for Referral * Radiology Services (Routine) - Closed Specialty Diagnoses / Procedures Referred By Javad saini Referred To Contact Radiology Diagnoses S/P TAVR (transcatheter aortic valve replacement) Procedures ECHO COMPLETE ECHOCARDIOGRAM W/ CONTRAST AGENT ECHO COMPLETE Waylon Hahn MD [address] [place] [phone] Phone: tel: fax: [facility] Echo [address] [place] [address] Phone: tel: fax: Referral ID Status Reason Start Date Expiration Date Visits Requested Visits Authorized [id number] Closed Interventional Scheduling (SGF) 04/26/2018 09/15/2019 1 1 ING MILL OPERATOR Encounter Details Date Type Department Care Team (Late st Contact Info) Description 06/10/2019 Ancillary Orders [facility] Cardiology- [place] [address] [place] [address] Waylon Hahn MD [address] [place] [address] S/P TAVR (transcatheter aortic valve replacement) Social History Tobacco Use Types Packs/Day Years Used Date Smoking Tobacco: Never Smokeless Tobacco: Never Alcohol Use Standard Drinks/Week Comments No 0 (1 standard drink = 0.6 oz pur e alcohol) Comments No Sex and Gender Information Value Date Recorded Sex Assigned at Not on file Legal Sex Female 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 ROLLING MILL 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 Gender Identity Not on file Sexual Orientation Not on file Occupation Industry Job Start Date Job End Date Not on file Not on file Not on file Not on file documented as of this encounter Plan of Treatment Not on file documented as of this encounter Results * ECHO COMPLETE (06/10/2019 3:51 PM ROLLING MILL OPERATOR) EJECTION FRACTION 55 INTERFACE SYSTEM 06/10/2019 3:03 PM ROLLING MILL OPERATOR Narrative INTERFACE SYSTEM - 06/10/2019 4:48 PM ROLLING MILL OPERATOR [facility] Cardiovascular Services Echocardiography Laboratory [address] [place] [address] Transthoracic Echocardiography Patient: Elisha Vickers Study ECHO COMPLETE K ID: Gender: F : 1950 Age: 68 Room: Study 06/10/2019 Pt Outpatient Date: Status: Study 03:03:04 PM CSN #: [id number] Time: Ordering:Waylon Hahn Interpreting:Mariya Arias MD Server Cashier: Walter Samson [facility] Indications and History: Dx: S/P TAVR (transcatheter [...] AP dim index 1.9 cm/m\S\2 Peak E joshau 80.69 cm/sec SI dim, A4C 5.0 cm [...] Pulmonic valve Regurg joshua, 78.11 cm/sec ED [facility] Echo Labs are accredited with the [facility] Accreditation Commission - Echocardiography. Prepared and Electronically Authenticated Mariya Arias MD Confirmed 06/10/2019 16:48 Procedure Note Inge Arias MD - 06/10/2019 [facility] Cardiovascular Services Echocardiography Laboratory [address] [place] [address] Transthoracic Echocardiography Patient: Elisha Vickers Study ECHO COMPLETE K ID: Gender: F : 1950 Age: 68 Room: Study 06/10/2019 Pt Outpatient Date: Status: Study 03:03:04 PM CSN #: [id number] Time: Ordering:Waylon Hahn Interpreting:aMriya Arias MD Server Cashier: Walter Samson [facility] Indications and History: Dx: S/P TAVR (transcatheter [...] Pulmonic valve Regurg joshua, 78.11 cm/sec ED [facility] Labs are accredited with the [facility] Accreditation Commission - Echocardiography. Prepared and [...] documented as of this encounter Care Teams Dairy Feed Mixing Operator Relationship Specialty Start Date End Date Gloria Escobar FNP [address] [place] [address] PCP - General Nurse Practitioner Family 06/20/19 documented as of this encounter
--- OUTSIDE RECORDS SUMMARY | 2025-06-07 14:07 | XMS_ITS | Encounter Summary ---
Author Organization [facility] Address [address] [place] [address] Care Team Providers Care Drilling Plant Operator Name Role Phone Gloria Escobar Primary Care Provider [phone] Encounter Details Date Type Department Care Team (Latest Contact Info) Description 08/30/2004 Outpatient Historical [facility] [address] [place] [address] Kirk Arroyo MD NO ADDRESS ON FILE BENIGN HYP HRT DIS W/O HRT FAIL (Primary Dx); ANGINA PECTORIS NEC/NOS Social History Tobacco Use Types Packs/Day Years Used Date Smoking Tobacco: Never Assessed Comments Unknown Sex and Gender Information Value Date Recorded Sex Assigned at Not on file Legal Sex Female 4:54 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
--- OUTSIDE RECORDS SUMMARY | 2025-06-07 14:07 | XMS_ITS | Encounter Summary ---
Author Organization [facility] Address [address] [place] [address] Care Team Providers Care Ply Cutter Name Role Phone Gloria Escobar TRINH Primary Care Provider Encounter Details Date Type Department Care Team (Latest Contact Info) Description 06/29/2016 Ancillary Orders [facility] [address] [phone] Sam Juárez MD [address] [facility] [address] [place] [address] Visit for screening mammogram Social History Tobacco Use Types Packs/Day Years Used Date Smoking Tobacco: Never Smokeless Tobacco: Never Alcohol Use Standard Drinks/Week Comments No 0 (1 standard drink = 0.6 oz pur e alcohol) Comments No Sex and Gender Information Value Date Recorded Sex Assigned at Not on file Legal Sex Female 4:54 AM SEO ENGINEER Gender Identity Not on file Sexual Orientation Not on file Occupation Industry Job Start Date Job End Date Not on file Not on file Not on file Not on file documented as of this encounter Plan of Treatment Not on file documented as of this encounter Results * MAMMO PRIOR STUDY (10/04/2001 3:20 AM CDT) Narrative 06/29/2016 3:19 PM SEO ENGINEER This exam was auto finalized to allow [...] documented as of this encounter Care Teams Ply Cutter Relationship Specialty Start Date End Date Gloria Escobar FNP [address] [place] [address] PCP - General Nurse Practitioner Family 06/20/19 documented as of this encounter
--- OUTSIDE RECORDS SUMMARY | 2025-06-07 14:07 | XMS_ITS | Clinical Summary ---
Author Organization [facility] Address [address] [facility] [address] [place] [address] Care Team Providers Care Cloth Folder Machine Name Role Phone Gloria Escobar TRINH Primary Care Provider Allergies Active Allergy Reactions Criticality Noted Date Comments Ceftriaxone Other (See Comments) High 02/22/2019 Caused TIA's; has tolerated cefepime and cefazolin since Gsmcsxh-Dno-Lik Reductase Inhibitors Muscle Pain High 05/21/2009 Medications [...] MOUTH ONCE DAILY FOR 30 DAYS 01/24/20 20 Active aspirin (ECOTRIN EC) 81 mg Tablet, Delayed Release (E.C.) Take 1 Tablet (81 mg) by mouth daily. 05/28/20 20 Active insulin glargine (LANTUS) 100 unit/mL injection Inject 20 Units by subcutaneous injection 2 times daily. 3 mL 01/24/20 19 Active blood sugar diagnostic Strip Twice daily. 100 Strip 0 03/22/20 18 Active lancets 30 gauge Twice daily. 50 Each 1 03/22/20 18 Active lisinopriL (PRINIVIL) 40 mg tablet Take 1 tablet by mouth once daily 30 Tablet 1 06/07/20 Active Active Problems Problem Noted Date Diagnosed Date Foreign body in alimentary tract 09/01/2022 Osteomyelitis of second toe of right foot 2019 PAD (peripheral artery disease) 12/31/2019 Overview (10/09/2020): Added automatically from request for surgery [id number] Superficial femoral artery occlusion 10/16/2019 Osteomyelitis of [...] Overview (10/08/2020): Device Model and serial number: MedUrlist Farida model number [id number], serial number [id number] Lead Serial numbers: RV: Medtronic 5076-52 cm, serial number [id number] RA:Medtronic 5076-45 cm, serial number [id number] Stroke due to embolism of left anterior [...] (05/19), 7.3 (09/17) Insulin Dependent, 2003 Microalbumin: 08/18 (Normal) Breast CA Screening 05/29/2008 06/22/19 18 Overview (10/07/2020): Mammo: 09/18; 2006 Encounters Date Type Department Care Team Description 04/08/2025 12:45 AM CDT - 04/08/2025 11:59 PM CDT Hospital Encounter [facility] [place] [address] [place] [phone] Amb[facility] [place] Discharge Disposition: Short term general hospital from Last 3 Months Immunizations Immunization Administration [...] on file Legal Sex Female 11:53 AM STRATEGIC SOURCING SPECIALIST Gender Identity Not on file Sexual [...] history exists Medical Devices Implanted Type Area Magnetic Grinder Operator Device Identifier Shelf Expiration Date Model / Serial / Lot Patch Vascu-Guard [id number] - [id number] Implanted:Qty : 1 on 02/11/2015 by Rosie Birmingham MD Biological Right: Carotid SYNOVIS- BIO-VASC[employer] INC [id number] / / [id number] Angio-Seal Vip Closure Dev 386789 - [id number] Implanted:09/2019 by Maximo Morillo MD (Quantity not on file) Closure Device Left: Leg AGUILAR [employer] [id number] 04/11/2020 [id number] / / [id number] Closure Perclose Proglide 40509 - [id number] Implanted:11/2019 (Quantity not on file) Closure Device Right: Groin AGUILAR- VASC DEVICE 05/11/2021 [id number] / [id number] / [id number] Closure Perclose Proglide 69730 - [id number] Implanted: (Quantity not on file) Closure Device Left: Groin AGUILAR- VASC DEVICE 09/09/2021 93299 / / [id number] Closure Perclose Proglide 88792 - [id number] Implanted: (Quantity not on file) Closure Device Right: Groin AGUILAR- VASC DEVICE 10/09/2021 24867 / / [id number] Sealangio Vip 8fr 336140t - [id number] Implanted:Qty : 1 on 05/21/2020 by Maximo Morillo MD Closure Device Leg AGUILAR [employer] 02/09/2021 [id number] / / [id number] Lens Io Bi-Aspheric Softechd+22.5 d - [id number] Implanted:Qty : 1 on 04/01/2020 by Raul Murphy MD Eye Left: Eye LENSTEC INC 12/25/2024 SOFTECHD+ 22.5D / [id number] / Lens Io Bi-Aspheric Softechd+22.5 d - [id number] Implanted:Qty : 1 on 05/14/2020 by Raul Murphy MD Eye Right: Eye [employer]EN[employer] INC 07/10/2024 SOFTECHD+ 22.5D / [id number] / [id number] Medtronic Lead-04/24/20 18 Implanted: by Bebeto Guzman MD (Quantity not on file) Lead MEDTRONIC INC 01/20/2020 5076-52 / [id number] / Medtroniclead -04/24/2018 Implanted: by Bebeto Guzman MD (Quantity not on file) Lead MEDTRONIC INC 01/24/2020 5076-45 / [id number] / Medtronic Farida Xt Dr Mri [id number] Implanted: by Bebeto Guzman MD (Quantity not on file) Pacemaker MEDTRONIC INC 09/07/2019 FARIDA [id number] / [id number] / Sealant Floseal W/ Apdtr 5ml [id number] - [id number] Implanted:Qty : 1 on 02/11/2015 by Rosie Birmingham MD Sealant Right: Neck APONTE- BIOSCIENCE 01/10/2016 [id number] / / [id number] Stent- 018 Implanted:Qty : 1 on 03/21/2018 by Deng Lockett DO Stent AGU[employer]AR [facility] [id number] 05/16/2020 / / [id number] Stent- 018 Implanted:Qty : 1 on 03/21/2018 by Deng Lockett DO Stent MEDTRONIC INC [id number] 09/18/2019 / / [id number] Stent- 018 Implanted:Qty : 1 on 03/21/2018 by Deng Lockett DO Stent AGU[employer]AR LAB [id number] 08/28/2020 / / [id number] Stent- 018 Implanted:Qty : 1 on 03/21/2018 by Deng Lockett DO Stent [employer]AR LAB [id number] 09/22/2018 / / [id number] Supera Stent-03/01/20 19 Implanted: by Moi Anderson MD (Quantity not on file) Stent Left: Leg AGUILAR- VASC DEVICE [id number] S-60-150- 120-P6 / / Stent Vasc Supera 6fr [id number]- P6-05/15/2019 Implanted:09/2018 (Quantity not on file) Stent AGUILAR- VASC DEVICE [id number] 01/09/2021 S-50-060- 120-P6 / / [id number] Stent Vasc Supera 6fr C-89-901-120- P6-05/15/2019 Implanted:09/2018 (Quantity not on file) Stent AGUILAR- VASC DEVICE [id number] 12/09/2020 S-60-100- 120-P6 / / [id number] Stent Lifestream Cvr [id number] - [id number] Implanted:Qty : 1 on 05/21/2020 Stent Right: Leg CR BARD- MARIEL VASC INC 06/11/2022 [id number] / / [id number] Stent Lifestream Cvr [id number] - [id number] Implanted:Qty : 1 on 05/21/2020 Stent Right: Leg CR BARD- MARIEL VASC INC 08/09/2022 [id number] / / [id number] Stent Synergy Mr 3.5x32mm Drug Elut [id number] - [id number] Implanted:Qty : 1 on 05/21/2020 by Maximo Morillo MD Stent Right: Leg BOSTON [employer] YOKASTA 01/15/2022 [id number] / / [id number] Valve- 018 Implanted:Qty : 1 on 04/24/2018 by Waylon Hahn MD Valve MEDTRONIC- HEART VALVE [id number] 12/04/2019 / [id number] / Procedures Procedure Name Priority Date/Time Associated Diagnosis Comments COLONOSCOPY REPORT 05/25/2020 1: 14 PM STRATEGIC SOURCING SPECIALIST LIPID PANEL Routine 02/02/2019 1:11 AM CDT HEMOGLOBIN A1C Routine 02/02/2019 1:11 AM CDT XR DEXA BONE DENSITY AXIAL 1 OR MORE SITES Routine 06/29/2016 3:05 PM STRATEGIC SOURCING SPECIALIST Asymptomatic menopausal state Osteoporosis screening from Last 3 Months or Most Recently Relevant to Health Maintenance Results * COLONOSCOPY REPORT (05/25/2020 1:14 PM STRATEGIC SOURCING SPECIALIST) Narrative Procedure Note Corona Alvarez MD - 05/25/2020 1:14 PM CST Procedures signed by Corona Alvarez MD at 05/25/2020 1:14 PM Author: Corona Alvarez MD Service: -- Author Type: Physician Filed: 05/25/2020 1:14 PM Date of Service: 05/25/2020 1:14 PM Status:Signed Laborer High Density Press: Corona Alvarez MD (Physician) Procedure Orders 1. COLONOSCOPY REPORT [[id number]] ordered by Corona Alvarez MD 05/25/20 1314 [facility] GI Patient Name: Elisha Morgan Procedure Date: [...] Scope Out: 1:08:30 PM [address] [place], [place] Corona Alvarez MD GI PROCEDURE ORDERABLES Edited Result - Final * (ABNORMAL) HEMOGLOBIN A1C (02/02/2019 1:11 AM CDT) HEMOGLOBIN A1C 9.0(H) <=5.6 % 02/02/2019 8:55 AM CDT [facility] EST. AVG GLUCOSE, A1C 212 mg/dL 02/02/2019 8:55 AM T [facility] Blood Venipuncture / Unknown 02/02/2019 1:11 AM CDT 02/02/2019 1:29 AM CDT Narrative [facility] - 02/02/2019 8:55 AM CDT HGB A1C INTERPRETATION NORMAL: <5.7% PRE-DIABETES: 5.7 - 6.4% DIABETES: 6.5% OR GREATER us Price Medina MD CHEMISTRY ORDERABLES Final Result [facility] CLIA# [id number] [address] [place] [address] [facility] CLIA# [id number] [address] [place] [address] * (ABNORMAL) LIPID PANEL (02/02/2019 1:11 AM CDT) CHOLESTEROL 185 <200 mg/dL 02/02/2019 2:02 AM T [facility] TRIGLYCERIDE 455(H) <150 mg/dL 02/02/2019 2:02 AM T [facility] HDL 35(L) 40 - 59 mg/dL 02/02/2019 2:02 AM T [facility] LDL CALCULATED ^ 02/02/2019 2:02 AM T [facility] Comment:Calculated LDL is no t accurate when the Triglyceride value exceeds 400. NON-HDL CHOLESTEROL 150(H) <130 mg/dL 02/02/2019 2:02 AM T [facility] Blood Venipuncture / Unknown 02/02/2019 1:11 AM CDT 02/02/2019 1:29 AM CDT Narrative [facility] - 02/02/2019 2:02 AM CDT Fasting TOTAL CHOLESTEROL mg/dL Desirable<200 Borderline rufp524-858 High>=240 TRIGLYCERIDES mg/dL Normal<150 Borderline bwti541-129 Gkil396-630 Very high>=500 HDL CHOLESTEROL mg/dL Low<40 Tyemmq23-07 Desirable>=60 NON HDL CHOLESTEROL mg/dL Optimal<130 Near [id number] Borderline Kjug431-896 Very High>=190 Calculated LDL mg/dL Optimal<100 Near Lbpppum737-600 Borderline Qsbv470-002 Rpov740-587 Very High>=190 ATPIII Guidelines Reference Ranges for Lipid Panels (NCEP/AMA) Price Medina MD CHEMISTRY ORDERABLES Final Result [facility] CLIA# [id number] [address] [place] [address] [facility] CLIA# [id number] [facility] [place] [address] * XR DEXA BONE DENSITY AXIAL 1 OR MORE SITES (06/29/2016 3:05 PM STRATEGIC SOURCING SPECIALIST) Anatomical Region Laterality Modality Other Impressions 06/29/2016 3:49 PM STRATEGIC SOURCING SPECIALIST Abnormal examination Low bone density/osteopenia is present [...] clinical management available online at [email or web address] Enter [employer] for Select DXA and the Femoral Neck BMD value. Narrative 06/29/2016 3:49 PM STRATEGIC SOURCING SPECIALIST DEXA Evaluation of the Lumbar Spine [...] clinical management available online at [email or web address] Enter [employer] for Select DXA and the Femoral Neck BMD value. Sam Juárez MD DIAGNOSTIC IMAGING ORDERA BLES Final Result from Last 3 Months or Most Recently Relevant to Health Maintenance Insurance MEDICAID [facility] * Guarantor: ELISHA MORGAN Account Type Relation to Patient Date of Phone Billing Address Personal/Family [address] [address] RX [employer] Medicare Part D RX INFOCROSSING Medicaid RX [place] [employer] (INTERNAL) [facility] Plans Advance Directives For more information, please contact: [phone] Documents on File Type Date Recorded Patient Exercise Rider Expl anation Advance Directive POA 04/05/2018 11:25 AM Advance Directive POA Advance Directive POA 04/05/2018 10:19 AM Advance Directive POA Advance Directive Living Will 03/16/2018 1:11 PM Advance Directive Living Will Advance Directive POA 03/16/2018 1:10 PM A dvance Directive POA Advance Directive POA 02/12/2015 7:01 AM Ad lam Directive POA Care Teams Cloth Folder Machine Relationship Specialty Start Date End Date Gloria Escobar FNP [address] [place] [phone] PCP - General Nurse Practitioner Family 06/20/19
[2025-06-07 14:09] VITALS: BP 105/62; PULSE 77; RESP 18; TEMP 36.8; O2SAT 98
--- NOTE | 2025-06-07 14:39 | W.ED.SOB ---
HPI - SOB/Dyspnea General: Chief Complaint: Shortness of Breath/Dyspnea Stated Complaint: CHF-Lower ABD swelling Coughing Cath not working Time Seen by Provider: 06/07/25 14:35 Source: patient Mode of arrival: ambulatory Limitations: no limitations History of Present Illness: HPI Narrative: 74-year-old female has a history of congestive heart failure also bilateral amputee is on Lasix currently states she takes 40 mg a day. States she feels like her Rojas is not working she just had it recently placed. States she is also feeling she has had some water weight gain and some mild dyspnea she denies any fever patient does wear oxygen at baseline is on her baseline oxygen here in no distress she denies any chest pain. Related Data Home Medications ?Medication ?Instructions ?Recorded ?Confirmed clopidogrel 75 mg tablet 75 mg PO DAILY 06/07/25 06/07/25 dorzolamide 22.3 mg-timolol 6.8 1 drp ophthalmic (eye) BID 06/07/25 06/07/25 mg/mL eye drops furosemide 20 mg tablet 20 mg PO BID 06/07/25 06/07/25 insulin glargine 100 unit/mL (3 10 unit SUBCUT BID 06/07/25 06/07/25 mL) subcutaneous pen (Lantus Solostar U-100 Insulin) nitrofurantoin 100 mg PO DAILY [id number] 06/07/25 06/07/25 monohydrate/macrocrystals 100 mg capsule (Macrobid) pantoprazole 40 mg tablet,delayed 40 mg PO BID [id number] 06/07/25 06/07/25 release rivaroxaban 20 mg tablet (Xarelto) 20 mg PO QPM 06/07/25 06/07/25 Previous Rx's ?Medication ?Instructions ?Recorded Electric Wheelchair #1 ea 04/20/21 Lift Chair #1 ea 12/03/21 prosthesis fitting #1 ea 10/05/22 stump instrument technologist #1 ea 10/05/22 LEFT LEG PROSTHESIS #1 ea 03/02/23 blood sugar diagnostic (Accu-Chek #100 ea 05/21/24 Guide test strips) blood-glucose meter (Accu-Chek #1 ea 05/21/24 Guide Glucose Meter) lancets (Accu-Chek Softclix #200 ea 05/21/24 Lancets) pen needle, diabetic 32 gauge x #100 ea 05/21/24 5/32 (BD Domenica 2nd Gen Pen Needle) Pure Wick external catheter #30 ea 09/09/24 sacubitril 97 mg-valsartan 103 mg 1 tab PO BID #60 tabs 04/04/25 tablet (Entresto) 14F indwelling catheter and #1 ea 04/30/25 supplies Novolog FlexPen U-100 Insulin 100 See Rx Instructions .Route 05/20/25 unit/mL (3 mL) subcutaneous .COMPLEX #15 mL (insulin aspart U-100) metoprolol succinate 25 mg 12.5 mg (1/2 x 25 mg) PO DAILY #90 05/20/25 tablet,extended release 24 hr tabs Allergies Allergy/AdvReac Type Severity Reaction Status Date / Time ceftriaxone (From Rocephin) Allergy Severe cardiac Verified 06/07/25 14:13 arrest atorvastatin (From Lipitor) Allergy Unknown UNKNOWN Verified 06/07/25 14:13 Nqedwzc-MPL-GpA Reductase Allergy Unknown UNKNOWN Verified 06/07/25 14:13 Inhibitor (Acwerag-Jcy-Cgz Reductase Inhibitor) PFSH ED PFSH: Medical History (Updated 06/07/25 @ 16:40 by Kaur Vaughan MD) TIA (transient ischemic attack) MRSA (methicillin resistant staph aureus) culture positive Gangrene of right foot 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 Wound of right lower extremity Venous insufficiency of both lower extremities Congestive heart failure with cardiomyopathy Carotid stenosis, right Valvular incompetence, mitral Pacemaker Pre-operative clearance Essential hypertension Surgical History Hx of tubal ligation S/P TAVR (transcatheter aortic valve replacement) S/P transmetatarsal amputation of foot History of amputation of lesser toe of right foot History of transmetatarsal amputation of left foot Peripheral vascular angioplasty status with implants and grafts Hx of foot surgery History of heart artery stent Hx of knee surgery Family History Family/Other CAD (coronary artery disease) Chronic kidney disease (CKD) Mother Diabetes Stroke Father Lung disease Sister Lung disease Other Heart disease Denies family history of Clotting disorder Dementia Suicide Anesthesia complication Bleeding disorder Cancer Social History Smoking and tobacco/nicotine status: never used tobacco/nicotine Alcohol intake: never Substance/Drug Use: never Adopted: No Caregiver/support person: No Lives independently: Yes service: No Current occupational status: disabled Sexually active: Yes Do you think of yourself as: Straight/Heterosexual Current gender identity: Female Physical Exam Const: COMMON NORMALS: no acute distress and patient oriented x3 HENMT: COMMON NORMALS: normocephalic and atraumatic HEAD & SCALP: normocephalic and atraumatic Neck/C-Spine: COMMON NORMALS: full ROM and supple Chest: COMMONS NORMALS: normal inspection of the chest Resp: COMMON NORMALS: normal respiratory effort, No retractions, No use of accessory muscles and clear to auscultation bilaterally AUSCULTATION: clear to auscultation bilaterally Cardio: COMMON NORMALS: regular rate, regular rhythm and No murmurs present (Cardio) RATE: regular rate RHYTHM: regular rhythm Extremity: NARRATIVE EXTREMITY EXAM: Bilateral lower extremity amputee Neuro: COMMON NORMALS: patient oriented x3, moves all extremities and no focal motor deficits Psych: COMMON NORMALS: mental status grossly normal, Normal thought process present and cooperative THOUGHT PROCESS: Normal thought process present Skin: COMMON NORMALS: no rashes or lesions noted and no wounds GENERAL SKIN EXAM: no rashes or lesions noted Course Vital Signs: Vital signs: Vital Signs Temperature 98.2 F 06/07/25 14:09 Pulse Rate 80 06/07/25 16:11 Respiratory Rate 17 06/07/25 16:11 Blood Pressure 109/59 06/07/25 16:11 Pulse Oximetry 98 06/07/25 16:11 Oxygen Delivery Me thod Nasal Cannula 06/07/25 16:11 Oxygen Flow Rate 2 06/07/25 16:11 MDM - SOB/Dyspnea Medical Decision Making Patient presents here with concern her Rojas was not working on exam it was dislodged and was replaced by the nurse here now currently functioning does have some slight edema chest x-ray shows no severe pulmonary edema she is at her baseline oxygen in no severe distress did give her a dose of IV Lasix here and she has had roughly 800 of urine output and is feeling improved. I feel she is stable for discharge home and continued to diurese at home she is continue her Lasix at home she is to return if any worsening symptoms she understands agrees to plan EKG interpreted by me at 1417 paced rhythm heart rate [address] elevation QRS 129 QTc 459 Medical Records I reviewed the patient's medical records. Lab Data I reviewed the patient's lab results. 06/07/25 14:56 06/07/25 14:56 Labs/Radiology: Laboratory Results WBC 5.61 10^3/uL (3.29-11.43) 06/07/25 14:56 RBC 3.98 10^6/uL (3.85-5.65) 06/07/25 14:56 Hgb 9.40 g/dL (11.27-16.99) L 06/07/25 14:56 Hct 33.5 % (36-47) L 06/07/25 14:56 MCV 84.2 fl (85-98) L 06/07/25 14:56 MCH 23.6 pg (27-33) L 06/07/25 14:56 MCHC 28.1 g/dL (30-55) L 06/07/25 14:56 RDW 18.7 % (12.1-15.1) H 06/07/25 14:56 Plt Count 194 10^3/cmm (157-399) 06/07/25 14:56 MPV 11.4 fL (7.4-10.4) H 06/07/25 14:56 Neut % (Auto) 63.6 % 06/07/25 14:56 Lymph % (Auto) 22.6 % 06/07/25 14:56 [place] % (Auto) 9.8 % 06/07/25 14:56 Eos % (Auto) 2.7 % 06/07/25 14:56 Baso % (Auto) 0.9 % 06/07/25 14:56 Neut # (Auto) 3.57 10^3/uL (1.8-7.7) 06/07/25 14:56 Lymph # (Auto) 1.3 10^3/uL (0.8-4.8) 06/07/25 14:56 [place] # (Auto) 0.6 10^3/uL (0.2-0.9) 06/07/25 14:56 Eos # (Auto) 0.2 10^3/uL (0.0-0.8) 06/07/25 14:56 Baso # (Auto) 0.1 10^3/uL (0.0-0.1) 06/07/25 14:56 Nucleated RBC % (auto) 0 % 06/07/25 14:56 Nucleated RBCs # 0.0 /100WBC 06/07/25 14:56 Sodium 140 mmol/L (136-145) 06/07/25 14:56 Potassium 3.7 mmol/L (3.5-5.1) 06/07/25 14:56 Chloride 104 mmol/L (98-107) 06/07/25 14:56 Carbon Dioxide 27 mmol/L (22-29) 06/07/25 14:56 Anion Gap 12.7 (5-19) 06/07/25 14:56 BUN 27 mg/dL (8-23) H 06/07/25 14:56 Creatinine 1.0 mg/dL (0.5-0.9) H 06/07/25 14:56 GFR Calculation Not Reportable 06/07/25 14:56 Glucose 130 mg/dL (65-115) H 06/07/25 14:56 Calculated Osmolality 297 mOsm/kg (285-295) H 06/07/25 14:56 Calcium 8.3 mg/dL (8.5-10.5) L 06/07/25 14:56 Total Bilirubin 0.5 mg/dL (0.15-1.2) 06/07/25 14:56 AST 11 U/L (0-32) 06/07/25 14:56 ALT 10 U/L (0-33) 06/07/25 14:56 Alkaline Phosphatase 63 U/L (35-105) 06/07/25 14:56 NT-Pro-B Natriuret Pep 8166 pg/mL (0-450) H 06/07/25 14:56 Total Protein 6.4 g/dL (6.6-8.7) L 06/07/25 14:56 Albumin 3.6 g/dL (3.5-5.2) 06/07/25 14:56 Globulin 2.8 g/dL (1.3-4.6) 06/07/25 14:56 All radiology interpretation(s) finalized by discharge Discharge Plan Discharge Patient Disposition: Home Clinical Impression: Dislodged Rojas catheter, CHF (congestive heart failure) Condition: Stable Prescriptions: No Action (DME) Electric Wheelchair See Rx Instructions .Route .MEDSUPPLY Qty: 1 0RF Rx Instructions: As directed (DME) Lift Chair See Rx Instructions .Route .MEDSUPPLY Qty: 1 0RF Rx Instructions: As directed (DME) prosthesis fitting See Rx Instructions .Route .MEDSUPPLY Qty: 1 0RF Rx Instructions: As directed (DME) stump instrument technologist See Rx Instructions .Route .MEDSUPPLY Qty: 1 0RF Rx Instructions: As directed sacubitril-valsartan [Entresto] 97-103 mg tablet 1 tab PO BID Qty: 60 3RF (DME) Pure Wick external catheter See Rx Instructions .Route .MEDSUPPLY Qty: 30 11RF Rx Instructions: As directed ([facility] [place]) 14F indwelling catheter and supplies See Rx Instructions .Route .MEDSUPPLY Qty: 1 11RF Rx Instructions: Sterile catheter insertion kit with monthly maintenance supplies Will need monthly: Drainage bag, leg bag, leg strap, sterile water for balloon inflation. (DME) LEFT LEG PROSTHESIS See Rx Instructions .Route .MEDSUPPLY Qty: 1 0RF Rx Instructions: As directed ([facility] [place]) Accu-Chek Guide test strips Strip See Rx Instructions .Route Qty: 100 0RF Rx Instructions: Test blood sugar three times daily (DME) blood-glucose meter [Accu-Chek Guide Glucose Meter] Misc See Rx Instructions .Route Qty: 1 0RF Rx Instructions: use to check blood suga ([facility] [place]) lancets [Accu-Chek Softclix Lancets] Misc See Rx Instructions .Route Qty: 200 0RF Rx Instructions: test blood sugar 3 times a day (DME) pen needle, diabetic [BD Domenica 2nd Gen Pen Needle] 32 gauge x 5/32 needle See Rx Instructions .ROUTE .COMPLEX Qty: 100 0RF Dose Instruction: USE TWICE DAILY Rx Instructions: USE TWICE DAILY insulin aspart U-100 [Novolog FlexPen U-100 Insulin] 100 unit/mL (3 mL) insulin pen See Rx Instructions .ROUTE .COMPLEX Qty: 15 0RF Dose Instruction: INJECT SUBCUTANEOUSLY ON SLIDING SCALE THREE TIMES DAILY AFTER MEALS. MAX DAILY DOSE 60 UNITS. Rx Instructions: INJECT SUBCUTANEOUSLY ON SLIDING SCALE THREE TIMES DAILY AFTER MEALS. MAX DAILY DOSE 60 UNITS. metoprolol succinate 25 mg tablet extended release 24 hr 12.5 mg PO DAILY Qty: 90 0RF pantoprazole 40 mg tablet,delayed release (DR/EC) 40 mg PO BID dorzolamide-timolol 22.3-6.8 mg/mL drops 1 drp ophthalmic (eye) BID clopidogrel 75 mg tablet 75 mg PO DAILY furosemide 20 mg tablet 20 mg PO BID nitrofurantoin monohyd/m-cryst [Macrobid] 100 mg capsule 100 mg PO DAILY Rx Instructions: must administer with a meal/food insulin glargine [Lantus Solostar U-100 Insulin] 100 unit/mL (3 mL) insulin pen 10 unit SUBCUT BID Xarelto 20 mg tablet 20 mg PO QPM Discharge Orders: Discharge ED (Routine); Ordered 06/07/25 Ordered By: Kaur Vaughan Referrals: Gloria Escobar, REAL ESTATE MANAGEMENT SPECIALIST [Primary Care Provider, Family Practice] - 4-7 days Discharge Diet: Advance as tolerated Discharge Activity: Resume usual activity Patient Instructions: Heart Failure (ED) Print Language: Sinhala Coding Level of Care Code ED Mobile Security Specialist for Rowena Chamorro
[2025-06-07 15:03] LABS: Hematocrit 33.5 % (36-47); Hemoglobin 9.40 g/dL (11.27-16.99); Mean Corpuscular HGB Conc 28.1 g/dL (30-55); Mean Corpuscular Hemoglobin 23.6 pg (27-33); Mean Corpuscular Volume 84.2 fl (85-98); Nucleated Red Blood Cells % 0 %; Platelet Count 194 10^3/cmm (157-399); Red Blood Count 3.98 10^6/uL (3.85-5.65); White Blood Count 5.61 10^3/uL (3.29-11.43)
[2025-06-07] MEDS: FUROsemide 10 mg/mL SDV 10mL 60 MG IVP (15:10)
[2025-06-07 15:15] VITALS: BP 112/62; PULSE 78; RESP 19; O2SAT 89
[2025-06-07 15:27] LABS: Alanine Aminotransferase 10 U/L (0-33); Albumin Level 3.6 g/dL (3.5-5.2); Alkaline Phosphatase 63 U/L (35-105); Anion Gap 12.7 (5-19); Aspartate Amino Transferase 11 U/L (0-32); Blood Urea Nitrogen 27 mg/dL (8-23); Calcium 8.3 mg/dL (8.5-10.5); Carbon Dioxide 27 mmol/L (22-29); Chloride 104 mmol/L (98-107); Globulin 2.8 g/dL (1.3-4.6); Glucose 130 mg/dL (65-115); NT Pro B Type Natriuretic Pept 8166 pg/mL (0-450); Osmolality Calculated 297 mOsm/kg (285-295); Potassium 3.7 mmol/L (3.5-5.1); Sodium 140 mmol/L (136-145); Total Protein 6.4 g/dL (6.6-8.7)
--- NOTE | 2025-06-07 16:05 | PC.NURSE ---
IV placed to give mediction, pt and family report resolution of abd pain with urination, 18fr with 10ml alfredo placed.
[2025-06-07 16:11] VITALS: BP 109/59; PULSE 80; RESP 17; O2SAT 98
== END 2025-06-07 16:57 | disposition home or self-care (01) ==
PROVIDERS: Emergency Provider Emergency Medicine; PCP Registered Nurse
DX: I50.9 Heart failure, unspecified (principal); T83.021A Displacement of indwelling urethral catheter, initial encounter; X58.XXXA Exposure to other specified factors, initial encounter; Z79.4 Long term (current) use of insulin; Z79.02 Long term (current) use of antithrombotics/antiplatelets; I11.0 Hypertensive heart disease with heart failure; Z95.0 Presence of cardiac pacemaker; Z86.73 Personal history of transient ischemic attack (TIA), and cerebral infarction without residual deficits
CPT/HCPCS: 36415; 71045; 80053; 83880; 85025; 93005; 96374; 99285; J1938